=== PATIENT | male | born 1945 | race African-American/Black ===

== ENCOUNTER → 2023-11-18 | Outpatient (CLI) | payer MEDICARE ==
--- NOTE | 2023-11-19 04:21 | PE ---
EXAMINATION TYPE: PET CT fusion skull to thigh DATE OF EXAM: 11/18/2023 COMPARISON: NONE HISTORY: Possible prostate cancer recently diagnosed. TECHNIQUE: Following the intravenous administration of 5.31 mCi of gallium 68 Illucix, whole body im ages are performed from the skull base to the midthigh. Images are reviewed on the computer in the c oronal, axial, and sagittal planes. Reconstructed rotating images are created on independent worksta tion and reviewed on the computer. A localization and attenuation correction CT is performed in con junction with the PET scan. SCAN: Initial Scan FINDINGS: SKULL BASE AND NECK: Normal uptake in the lacrimal along with parotid and submandibular glands. Slig ht asymmetric atrophy of the left submandibular gland. Abnormal uptake in subcentimeter 11 x 6 mm left supraclavicular lymph node axial image 71. Max SUV is 11.53. CHEST, MEDIASTINUM, AND HILAR REGION: No areas of abnormal radiotracer uptake. ABDOMEN AND PELVIS: Diffuse uptake in liver and to greater degree in the bilateral kidneys and spleen and nonspecific proximal bowel uptake. Suspicious radiotracer uptake left iliac chain lymph node measuring 1.5 x 1.0 cm image 187. Abnormal uptake right iliac chain lymph node axial image 192 noted. Additional hypermetabolic subcentimeter ly mph nodes along the iliac chain vessels in the pelvis inferior to this. Hypermetabolic uptake left aspect of the prostate gland involving base to apex. OSSEOUS STRUCTURES: No abnormal radiotracer uptake. OTHER CT: Moderate to severe three-vessel coronary artery calcification. Mild/moderate calcified plaq ue bilateral carotid bulb level. IMPRESSION: Findings suggest metastatic prostate cancer With abnormal uptake along the left aspect of the prostate gland and abnormal bilateral pelvic adenop athy as detailed above. Cannot exclude left supraclavicular subcentimeter metastatic deposit.
== END | disposition home or self-care (01) ==
LOC: RADPETMAIN 10:45
PROVIDERS: ATTEND Urology
DX: C61 Malignant neoplasm of prostate (principal)
CPT/HCPCS: 78815; A9596

== ENCOUNTER → 2023-12-21 | Outpatient (CLI) | payer MEDICARE ==
--- NOTE | 2023-12-21 10:06 | MR ---
EXAMINATION TYPE: MR Prostate wo/w con DATE OF EXAM: 12/21/2023 9:33 AM COMPARISON: None. CLINICAL INDICATION:Male, 78 years old with history of C61 Prostate ca; Prostate cancer. TECHNIQUE: Multi-planar, multi-sequence imaging of the pelvis is performed prior to and following the uncomplicated administration of bolus intravenous gadolinium. CONTRAST: 8 Gadavist Interpretive Criteria: PI-RADS v2.1 SERUM PSA: 19.88 on 11/04/2023. SURGICAL PATHOLOGY: Positive biopsy 09/01/2023. FINDINGS: Prostatic dimensions: 4.0 x 4.8 x 3.3 cm. "Bullet" Volume:41.47 (PSA density=0.48 ng/mL/mL) CENTRAL GLAND (Central and Transition Zones/CZ+TZ): In the left central zone there is diffuse low T2 signal corresponding to PET/CT. This extends base to apex measures at least 18 x 16 mm. There is partially visible high DWI signal noted. Rectal gas limi ts evaluation. (PI-RADS 5) PERIPHERAL ZONE (PZ): Gas within the rectum limits evaluation of the peripheral zone posteriorly. Diffuse low T2 signal see n throughout the posterior peripheral zone. Elevation limited but felt to represent (PI-RADS 5) SEMINAL VESICLES (SV): Symmetric and unremarkable. PERIPROSTATIC TISSUES: Unremarkable. LYMPH NODES: No enlarged pelvic lymph node. REMAINING PELVIS: Bladder wall is within normal limits given distention. No abnormal free or organized intrapelvic fluid collection. No pathologic bowel dilation or mural thickening. No hernia visualized There is a small right hydrocele with testicular appendage resident. OSSEOUS STRUCTURES: No suspicious osseous abnormality. IMPRESSION: 1. Maximum PI-RADS score: 5. Left prostate gland lesion corresponding with pet/CT compatible with cl inically significant prostate adenocarcinoma. Multiple lymph nodes seen on PET/CT are less well appre ciated possibly due to motion. 2. Mild BPH, estimated gland volume 41.47 mL. 3. No suspicious osseous lesion. No lymphadenopathy.
== END | disposition home or self-care (01) ==
LOC: RADMRIMAIN 08:18
PROVIDERS: ATTEND Radiology Radiation Oncology
DX: C61 Malignant neoplasm of prostate (principal); N40.0 Benign prostatic hyperplasia without lower urinary tract symptoms
CPT/HCPCS: 72197; A9585

== ENCOUNTER 2024-01-07 16:03 | Observation (INO) | payer MEDICARE ==
--- NOTE | 2024-01-07 16:37 | ED ---
General Adult HPI - General Chief complaint: Recheck/Abnormal Lab/Rx Stated complaint: sob-sent by PCP Time Seen by Provider: 01/07/24 16:30 Source: patient, RN notes reviewed, old records reviewed Mode of arrival: ambulatory Limitations: no limitations - History of Present Illness Initial comments: 78-year-old male presenting from primary care with new onset atrial fibrillation. Patient has history of COPD and was presenting to the office for reevaluation of dyspnea which has been present for the past several weeks. No fever. No chest pain. No lower extremity pain or swelling. - Related Data Home Medications Medication Instructions Recorded Confirmed Albuterol Sulfate [Albuterol 1 - 2 puff PO Q4H PRN 01/07/24 01/07/24 Sulfate Hfa] Apalutamide [Erleada] 240 mg PO DAILY 01/07/24 01/07/24 Fluticasone/Umeclidin/Vilanter 1 puff INHALATION RT-DAILY 01/07/24 01/07/24 [Trelegy Ellipta 100-62.5-25] Multivitamins, Thera [Multivitamin 1 tab PO DAILY 01/07/24 01/07/24 (formulary)] Tamsulosin HCl [Flomax] 0.4 mg PO HS 01/07/24 01/07/24 Allergies Allergy/AdvReac Type Severity Reaction Status Date / Time No Known Allergies Allergy Verified 01/07/24 17:18 Review of Systems ROS Statement: Those systems with pertinent positive or pertinent negative responses have been documented in the HPI. ROS Other: All systems not noted in ROS Statement are negative. Past Medical History Past Medical History: Cancer, COPD Additional Past Medical History / Comment(s): prostate cancer Smoking Status: Former smoker Past Alcohol Use History: None Reported Past Drug Use History: None Reported General Exam Limitations: no limitations General appearance: alert, in no apparent distress Head exam: Present: atraumatic, normocephalic Eye exam: Present: normal appearance, PERRL ENT exam: Present: normal exam Neck exam: Present: normal inspection. Absent: tenderness, meningismus Respiratory exam: Present: wheezes, decreased breath sounds. Absent: respiratory distress Cardiovascular Exam: Present: tachycardia, irregular rhythm GI/Abdominal exam: Present: soft. Absent: distended, tenderness, guarding Extremities exam: Present: normal inspection, normal capillary refill. Absent: pedal edema, calf tenderness Neurological exam: Present: alert, oriented X3 Psychiatric exam: Present: normal affect, normal mood Skin exam: Present: warm, dry, intact Course Vital Signs 01/07/24 01/07/24 16:20 16:46 Temperature 97.6 F Pulse Rate 107 H Respiratory 18 20 Rate Blood Pressure 104/67 O2 Sat by Pulse 95 Oximetry Medical Decision Making - Medical Decision Making Was pt. sent in by a medical professional or institution (, JACK, APPLICATION HELPER, urgent care, hospital, or fpc...) When possible be specific @ -No Did you speak to anyone other than the patient for history (EMS, parent, family, police, friend...)? What history was obtained from this source @ -No Did you review nursing and triage notes (agree or disagree)? Why? @ -I reviewed and agree with nursing and triage notes Were old charts reviewed (outside hosp., previous admission, EMS record, old EKG, old radiological studies, urgent care reports/EKG's, fpc records)? Report findings @ -No old charts were reviewed Differential Palpitations Ventricular arrhythmias, atrial arrhythmias, myocardial infarction, anemia, t hyrotoxicosis, electrolyte imbalance, hypokalemia, pulmonary embolism, pulmonary disease, drugs, alcohol, anxiety, stress.... This is not meant to be an all-inclusive list. EKG interpreted by me (3pts min.). @ -Atrial fibrillation rate of 99, QRS duration 82, QTc [address] segment elevation X-rays interpreted by me (1pt min.). @ -X-ray with subtle right middle lobe infiltrate CT interpreted by me (1pt min.). @ -None done U/S interpreted by me (1pt. min.). @ -None done What testing was considered but not performed or refused? (CT, X-rays, U/S, labs)? Why? @ -None What meds were considered but not given or refused? Why? @ -None Did you discuss the management of the patient with other professionals (professionals i.e. JACK Quintana, APPLICATION HELPER, lab, RT, psych nurse, social sciences instructor, flight follower, teacher, chief talent officer, case management social worker)? Give summary @ -Discussed with Dr. aM Was smoking cessation discussed for >3mins.? @ -No Was critical care preformed (if so, how long)? @ -No Were there social determinants of health that impacted care today? How? (Homelessness, low income, unemployed, alcoholism, drug addiction, transportation, low edu. Level, literacy, decrease access to med. care, custodial, rehab)? @ -No Was there de-escalation of care discussed even if they declined (Discuss DNR or withdrawal of care, Hospice)? DNR status @ -No What co-morbidities impacted this encounter? (DM, HTN, Smoking, COPD, CAD, Cancer, CVA, ARF, Chemo, Hep., AIDS, mental health diagnosis, sleep apnea, morbid obesity)? @ -[COPD Was patient admitted / discharged? Hospital course, mention meds given and route, prescriptions, significant lab abnormalities, going to OR and other pertinent info. @Patient with new onset atrial fibrillation, COPD, and subtle infiltrate on x- ray. Patient placed in observation on telemetry with cardiology consultation regarding the new onset atrial fibrillation which is rate controlled. Patient also will be treated for COPD and pneumonia at this time. Undiagnosed new problem with uncertain prognosis? @ -No Drug Therapy requiring intensive monitoring for toxicity (Heparin, Nitro, Insulin, Cardizem)? @ -No Were any procedures done? @ -No Diagnosis/symptom? @New onset atrial fibrillation, COPD, pneumonia Acute, or Chronic, or Acute on Chronic? @ -Acute Uncomplicated (without systemic symptoms) or Complicated (systemic symptoms)? @ -Default Side effects of treatment? @ -No Exacerbation, Progression, or Severe Exacerbation? @ -No Poses a threat to life or bodily function? How? (Chest pain, [place], [place], pneumonia, PE, COPD, DKA, ARF, appy, cholecystitis, CVA, Diverticulitis, Homicidal, Suicidal, threat to staff... and all critical care pts) @Low risk at this time - Lab Data Result diagrams: 01/07/24 16:44 01/07/24 16:44 Lab Results 01/07/24 01/07/24 01/07/24 Range/Units 16:44 16:44 16:44 WBC 6.9 (3.8-10.6) k/uL RBC 5.07 (4.30-5.90) m/uL Hgb 14.6 (13.0-17.5) gm/dL Hct 45.5 (39.0-53.0) % MCV 89.6 (80.0-100.0) fL MCH 28.8 (25.0-35.0) pg MCHC 32.1 (31.0-37.0) g/dL RDW 12.5 (11.5-15.5) % Plt Count 236 (150-450) k/uL MPV 8.1 PT 11.1 (10.0-12.5) sec INR 1.0 (<1.2) APTT 23.5 (22.0-30.0) sec Sodium 142 (137-145) mmol/L Potassium 4.4 (3.5-5.1) mmol/L Chloride 107 (98-107) mmol/L Carbon Dioxide 26 (22-30) mmol/L Anion Gap 9 mmol/L BUN 20 (9-20) mg/dL Creatinine 1.28 H (0.66-1.25) mg/dL Est GFR (CKD-EPI)AfAm 62 (>60 ml/min/1.73 sqM) Est GFR (CKD-EPI)NonAf 53 (>60 ml/min/1.73 sqM) Glucose 93 (74-99) mg/dL Calcium 9.7 (8.4-10.2) mg/dL Magnesium 2.0 (1.6-2.3) mg/dL Total Bilirubin 0.8 (0.2-1.3) mg/dL AST 35 (17-59) U/L ALT 20 (4-49) U/L Alkaline Phosphatase 113 (38-126) U/L Troponin I (0.000-0.034) ng/mL Total Protein 8.0 (6.3-8.2) g/dL Albumin 4.2 (3.5-5.0) g/dL TSH 3.880 (0.465-4.680) mIU/L 01/07/24 Range/Units 16:44 WBC (3.8-10.6) k/uL RBC (4.30-5.90) m/uL Hgb (13.0-17.5) gm/dL Hct (39.0-53.0) % MCV (80.0-100.0) fL MCH (25.0-35.0) pg MCHC (31.0-37.0) g/dL RDW (11.5-15.5) % Plt Count (150-450) k/uL MPV PT (10.0-12.5) sec INR (<1.2) APTT (22.0-30.0) sec Sodium (137-145) mmol/L Potassium (3.5-5.1) mmol/L Chloride (98-107) mmol/L Carbon Dioxide (22-30) mmol/L Anion Gap mmol/L BUN (9-20) mg/dL Creatinine (0.66-1.25) mg/dL Est GFR (CKD-EPI)AfAm (>60 ml/min/1.73 sqM) Est GFR (CKD-EPI)NonAf (>60 ml/min/1.73 sqM) Glucose (74-99) mg/dL Calcium (8.4-10.2) mg/dL Magnesium (1.6-2.3) mg/dL Total Bilirubin (0.2-1.3) mg/dL AST (17-59) U/L ALT (4-49) U/L Alkaline Phosphatase (38-126) U/L Troponin I <0.012 (0.000-0.034) ng/mL Total Protein (6.3-8.2) g/dL Albumin (3.5-5.0) g/dL TSH (0.465-4.680) mIU/L Disposition Clinical Impression: COPD (chronic obstructive pulmonary disease), Pneumonia, New onset atrial fibrillation Disposition: ADMITTED IP TO THIS HOSP Condition: Stable Is patient prescribed a controlled substance at d/c from ED?: No Referrals: Joesph Ma MD [Primary Care Provider] - 1-2 days Time of Disposition: 18:30
[2024-01-07 17:18] LABS: HCT 45.5 % (39.0-53.0); HGB 14.6 gm/dL (13.0-17.5); MCH 28.8 pg (25.0-35.0); MCHC 32.1 g/dL (31.0-37.0); MCV 89.6 fL (80.0-100.0); Mean Platelet Volume 8.1; Platelet Count 236 k/uL (150-450); RBC 5.07 m/uL (4.30-5.90); RDW 12.5 % (11.5-15.5); WBC 6.9 k/uL (3.8-10.6)
--- NOTE | 2024-01-07 17:24 | XR ---
EXAMINATION TYPE: XR chest 2V DATE OF EXAM: 01/07/2024 COMPARISON: None INDICATION: Dysrhythmia, A. fib TECHNIQUE: Frontal and lateral views of the chest are obtained. FINDINGS: The heart size is normal. The pulmonary vasculature is normal. There is some increased density along the right heart border. A small right middle lobe infiltrate ma y be present. No silhouetting the diaphragm is evident.. Spondylosis is present within the thoracic spine IMPRESSION: 1. Possible right middle lobe infiltrate.
[2024-01-07 17:34] LABS: Partial Thromboplastin Time 23.5 sec (22.0-30.0); Prothrombin Time 11.1 sec (10.0-12.5)
[2024-01-07 17:50] LABS: ALT 20 U/L (4-49); AST 35 U/L (17-59); African American GFR (CKD) 62 (>60 ml/min/1.73 sqM); Albumin 4.2 g/dL (3.5-5.0); Alkaline Phosphatase 113 U/L (38-126); Anion Gap 9 mmol/L; Blood Urea Nitrogen 20 mg/dL (9-20); Calcium 9.7 mg/dL (8.4-10.2); Carbon Dioxide 26 mmol/L (22-30); Chloride 107 mmol/L (98-107); Glucose 93 mg/dL (74-99); Non-African American GFR(CKD) 53 (>60 ml/min/1.73 sqM); Potassium 4.4 mmol/L (3.5-5.1); Sodium 142 mmol/L (137-145); Total Bilirubin 0.8 mg/dL (0.2-1.3)
[2024-01-07] MEDS ORDERED: NALOXONE 0.4 MG/ML 1 ML VIAL IVP PRN (18:20)
[2024-01-07] MEDS ORDERED: ACETAMINOPHEN TAB 325 MG TAB PO PRN (18:20)
[2024-01-07 18:31] LABS: Eosinophils # (M) 0.83 k/uL (0-0.7); Monocytes # (M) 0.55 k/uL (0-1.0); Neutrophils # (M) 4.62 k/uL (1.3-7.7); Neutrophils % (M) 67 %; Nucleated Red Blood Cells 0 /100 WBC (0-0); RBC Morphology Normal; Total Cells Counted 100
[2024-01-07] MEDS: AZITHROMYCIN 500 MG TAB PO SCH (19:29)
[2024-01-07] MEDS: IPRATROPIUM-ALBUTEROL 3 ML NEB INHALATION SCH (20:06)
[2024-01-08] MEDS: METOPROLOL TARTRATE 25 MG TAB PO SCH (09:20)
[2024-01-08] MEDS: predniSONE 20 MG TAB PO SCH (09:20)
[2024-01-08] MEDS: APIXABAN 5 MG TAB PO SCH (09:20)
[2024-01-08 10:31] VITALS: RESP 16
--- NOTE | 2024-01-08 11:09 | P.CRDCN ---
History of Present Illness History of present illness: HISTORY OF PRESENT ILLNESS: This is a 78-year-old male with a past medical history significant for prostate cancer, COPD, former nicotine dependence and former heavy alcohol use. Patient does not follow with a nipple maker. We have been asked to see the patient in consultation for atrial fibrillation. Patient examined at the bedside. Patient states yesterday he went to see his PCP as he has been feeling short of breath. The patient states he has been feeling short of breath over the past week that is worsened with exertion. The patient was directed to come to the emergency room for further evaluation. EKG completed in the emergency room revealed atrial fibrillation with RVR. The patient denies any history of atrial fibrillation. He denies feeling any palpitations. He denies any chest pain or pressure. He states his shortness of breath has improved and is almost back to his baseline. The patient denies any history of hypertension, hyperlipidemia, or diabetes. He denies any history of coronary artery disease or CHF. Patient reports he was recently diagnosed with prostate cancer and is supposed to start radiation on Wednesday. Patient is a former cigarette smoker and quit smoking about a month ago. He states he was smoking 1/2 pack per day. Patient also reports a history of heavy alcohol use up until a couple months ago but no longer drinks. DIAGNOSTICS: - EKG reveals atrial fibrillation with RVR - Chest xray possible right middle lobe infiltrate. - Laboratory data: WBC 6.9. Hemoglobin 14.6. Platelet count 236. Sodium 142. Potassium 4.4. BUN 20. Creatinine 1.28. Troponin negative x 1. TSH 3.880. - Current home cardiac medications include none. REVIEW OF SYSTEMS: At the time of my exam: CONSTITUTIONAL: Denies fever or chills. HEENT: Denies blurred vision, vision changes, or eye pain. Denies hemoptysis CARDIOVASCULAR: Denies chest pain. Denies orthopnea. Denies PND. Denies palpitations RESPIRATORY: Denies shortness of breath. GASTROINTESTINAL: Denies abdominal pain. Denies nausea or vomiting. HEMATOLOGIC: Denies bleeding disorders. GENITOURINARY: Denies any blood in urine. SKIN: Denies pruitis. Denies rash. PHYSICAL EXAM: VITAL SIGNS: Reviewed. GENERAL: Well-developed in no acute distress. HEENT: Head is normocephalic. Pupils are equal, round. Sclerae anicteric. Mucous membranes of the mouth are moist. Neck supple. No JVD or thyromegaly LUNGS: Respirations even and unlabored. Lungs essentially clear to auscultation bilaterally. HEART: Mildly tachycardic. Irregular rate and rhythm. S1 and S2 heard. Distant heart sounds. ABDOMEN: Soft. Nondistended. Nontender. EXTREMITIES: Normal range of motion. No clubbing or cyanosis. Peripheral pulses intact. No lower extremity edema NEUROLOGIC: Awake and alert. Oriented x 3. ASSESSMENT: Shortness of breath, improved Atrial fibrillation with RVR, suspect new onset, however duration unknown as patient had no s/s Prostate cancer, supposed to start radiation soon COPD Former nicotine dependence, patient quit smoking 1 month ago Former heavy alcohol use PLAN: Obtain 2D echo to assess cardiac structure and function Begin metoprolol 25 mg twice a day Begin Eliquis 5 mg twice a day. Patient has a [id number] score of 2 TSH checked and within normal limits Check lipid panel and hemoglobin A1c Further recommendations pending patient course Nurse practitioner note has been reviewed by physician. Signing provider agrees with the documented findings, assessment, and plan of care documented by LEG BREAKER as a scribe. Past Medical History Past Medical History: Cancer, COPD Additional Past Medical History / Comment(s): prostate cancer, taking pills for cancer, starts chemo on wednesday History of Any Multi-Drug Resistant Organisms: None Reported Past Surgical History: No Surgical Hx Reported Additional Past Surgical History / Comment(s): cataract surgery Past Anesthesia/Blood Transfusion Reactions: No Reported Reaction Past Psychological History: No Psychological Hx Reported Smoking Status: Former smoker Past Alcohol Use History: None Reported Past Drug Use History: None Reported Medications and Allergies Home Medications Medication Instructions Recorded Confirmed Type Albuterol Sulfate [Albuterol 1 - 2 puff PO Q4H PRN 01/07/24 01/07/24 History Sulfate Hfa] Apalutamide [Erleada] 240 mg PO DAILY 01/07/24 01/07/24 History Fluticasone/Umeclidin/Vilanter 1 puff INHALATION RT-DAILY 01/07/24 01/07/24 History [Trelegy Ellipta 100-62.5-25] Multivitamins, Thera [Multivitamin 1 tab PO DAILY 01/07/24 01/07/24 History (formulary)] Tamsulosin HCl [Flomax] 0.4 mg PO HS 01/07/24 01/07/24 History Allergies Allergy/AdvReac Type Severity Reaction Status Date / Time No Known Allergies Allergy Verified 01/07/24 17:18 Physical Exam Vitals: Vital Signs Temp Pulse Pulse Resp BP BP Pulse Ox 01/08/24 06:00 102 H 18 104/67 97 01/08/24 02:00 98 F 96 18 90/63 98 01/08/24 00:27 97.8 F 78 20 118/56 97 01/07/24 21:00 97.2 F L 82 20 125/58 98 01/07/24 20:16 89 01/07/24 20:06 91 01/07/24 19:31 99 18 120/69 97 01/07/24 18:45 90 18 92/75 94 L 01/07/24 16:46 20 01/07/24 16:20 97.6 F 107 H 18 104/67 95 Intake and Output 01/07/24 01/08/24 01/08/24 22:59 06:59 14:59 Other: Weight 75.75 kg 75.75 kg Results 01/07/24 16:44 01/07/24 16:44 Cardiac Enzymes 01/07/24 01/07/24 Range/Units 16:44 16:44 AST 35 (17-59) U/L Troponin I <0.012 (0.000-0.034) ng/mL Coagulation 01/07/24 Range/Units 16:44 PT 11.1 (10.0-12.5) sec APTT 23.5 (22.0-30.0) sec CBC 01/07/24 Range/Units 16:44 WBC 6.9 (3.8-10.6) k/uL RBC 5.07 (4.30-5.90) m/uL Hgb 14.6 (13.0-17.5) gm/dL Hct 45.5 (39.0-53.0) % Plt Count 236 (150-450) k/uL Comprehensive Metabolic Panel 01/07/24 Range/Units 16:44 Sodium 142 (137-145) mmol/L Potassium 4.4 (3.5-5.1) mmol/L Chloride 107 (98-107) mmol/L Carbon Dioxide 26 (22-30) mmol/L BUN 20 (9-20) mg/dL Creatinine 1.28 H (0.66-1.25) mg/dL Glucose 93 (74-99) mg/dL Calcium 9.7 (8.4-10.2) mg/dL AST 35 (17-59) U/L ALT 20 (4-49) U/L Alkaline Phosphatase 113 (38-126) U/L Total Protein 8.0 (6.3-8.2) g/dL Albumin 4.2 (3.5-5.0) g/dL Current Medications Generic Name Dose Route Start Last Admin Trade Name Freq PRN Reason Stop Dose Admin Acetaminophen 650 mg 01/07/24 18:20 Acetaminophen Tab 325 Mg Tab PO Q4HR PRN Mild Pain or Fever > 100.5 Albuterol/Ipratropium 3 ml 01/07/24 20:00 01/07/24 20:06 Ipratropium-Albuterol 3 Ml Neb INHALATION 3 ml RT-QID JUAN Administration Azithromycin 500 mg 01/07/24 18:30 01/07/24 19:29 Azithromycin 500 Mg Tab PO 01/09/24 09:01 500 mg DAILY JUAN Administration Protocol Naloxone HCl 0.2 mg 01/07/24 18:20 Naloxone 0.4 Mg/Ml 1 Ml Vial IVP Q2M PRN Opioid Reversal Prednisone 40 mg 01/08/24 09:00 Prednisone 20 Mg Tab PO 01/12/24 09:01 DAILY JUAN Intake and Output 01/07/24 01/08/24 01/08/24 22:59 06:59 14:59 Other: Weight 75.75 kg 75.75 kg 01/07/24 16:44 01/07/24 16:44
[2024-01-08 13:30] LABS: Chol/HDL Ratio 6.22 Ratio; LDL Cholesterol,Calculated 120.2 mg/dL (0.0-131.0)
--- NOTE | 2024-01-08 13:35 | CA ---
Transthoracic Echo Report Name: Alvino Griffin Age: 78 Gender: M : 1945 Exam Date: 01/08/2024 08:57 Exam Location: [facility] Ht (in): 75 Wt (lb): 167 Ordering Physician: Hodan Geronimo Attending/Referring Phys: [id number], Juanpablo Blueprint Developer Debra Morrison, CARMINE Procedure CPT: Indications: LV function, new onset afib Cardiac Hx: smoker Technical Quality: Fair Contrast 1: Total Dose (mL): Contrast 2: Total Dose (mL): MEASUREMENTS (Male / Female) Normal Values 2D ECHO LV Diastolic Diameter PLAX 4.7 cm 4.2 - 5.9 / 3.9 - 5.3 cm LV Systolic Diameter PLAX 3.2 cm IVS Diastolic Thickness 1.2 cm 0.6 - 1.0 / 0.6 - 0.9 cm LVPW Diastolic Thickness 1.0 cm 0.6 - 1.0 / 0.6 - 0.9 cm LV Relative Wall Thickness 0.5 RV Internal Dim ED PLAX 3.3 cm LV Diastolic Volume MOD 4C 98.6 cm??? LV Systolic Volume MOD 4C 37.3 cm??? LV Ejection Fraction MOD 4C 62.2 % LV Cardiac Index MOD 4C 3200.1 cm???/min???m??? LV Diastolic Length 4C 8.7 cm LV Systolic Length 4C 7.5 cm LA Volume 56.3 cm??? 18 - 58 / 22 - 52 cm??? LA Volume Index 28.2 cm???/m??? 16 - 28 cm???/m??? M-MODE Aortic Root Diameter MM 3.5 cm AV Cusp Separation MM 2.3 cm DOPPLER AV Peak Velocity 105.1 cm/s AV Peak Gradient 4.4 mmHg MV Area PHT 4.2 cm??? MV Deceleration Time 169.8 ms TR Peak Velocity 286.3 cm/s TR Peak Gradient 32.8 mmHg Right Ventricular Systolic Press 37.8 mmHg FINDINGS Left Ventricle Left ventricular ejection fraction is estimated at 55-60 %. Left ventricular cavity size normal. Mildly increased septal wall thickness. No obvious regional wall motion abnormalities. Right Ventricle Mild right ventricular dilatation. Mild pulmonary hypertension. Right Atrium Normal right atrial size. Left Atrium Normal left atrial size. No left atrial thrombus or mass present. Mitral Valve Structurally normal mitral valve. No mitral stenosis, or prolapse.mild mitral regurgitation. Mitral annular calcification. Aortic Valve Trileaflet aortic valve. No aortic valve stenosis or regurgitation.aortic valve sclerosis. Tricuspid Valve Structurally normal tricuspid valve. Mild tricuspid regurgitation. Pulmonic Valve Pulmonic valve not well visualized. Pericardium No pericardial effusion. Aorta Normal size aortic root and proximal ascending aorta. CONCLUSIONS 1. Normal left ventricular size and systolic function 2. Mild mitral and tricuspid regurgitation with mild pulmonary hypertension Previewed by: Dr. Yaima Correa MD (Electronically Signed) Final Date: 08 Jan 2024 13:34
--- NOTE | 2024-01-08 18:18 | HP ---
HISTORY AND PHYSICAL CHIEF COMPLAINT: Shortness of breath. HISTORY OF PRESENT ILLNESS: This gentleman presented to the emergency room after he had been short of breath for about a week. In the emergency room, he was found to have atrial fibrillation with a pulse of around 120 or 130. He denies chest pain. He has a history of prostate cancer, for which he is supposed to start treatment this week. REVIEW OF SYSTEMS: He has no other complaints. He denies any headaches, chest pain, cough, hemoptysis, orthopnea, PND, abdominal pain, urinary complaints, edema, etc. PHYSICAL EXAMINATION: VITAL SIGNS: Normal. Pulse now is 107. HEAD, EARS, EYES, NOSE, MOUTH, AND THROAT: Normal except for poor dentition. CHEST: Demonstrated occasional rales at the bases. CARDIAC: Demonstrated atrial fibrillation. ABDOMEN: Soft. Nontender. EXTREMITIES: Normal. He was quite asthenic with poor muscle bulk. IMPRESSION: 1. New onset atrial fibrillation. 2. Acute congestive heart failure. 3. Cancer of the prostate. PLAN: 1. Bed rest. 2. Control atrial fibrillation or convert to sinus rhythm. 3. Diuresis. 4. Consult Cardiology. MMODL / IJN: [id number] /
--- NOTE | 2024-01-09 05:25 | PN ---
PROGRESS NOTE CHIEF COMPLAINT: New onset atrial fibrillation with shortness of breath. HISTORY OF PRESENT ILLNESS: This gentleman is doing a lot better. He is able to breathe much more easily and he is up and about. His rate has slowed. PHYSICAL EXAMINATION: VITAL SIGNS: Pulse is 107 with atrial fibrillation. CHEST: Clear. CARDIAC: Normal. ABDOMEN: Soft and nontender. IMPRESSION: 1. New onset atrial fibrillation. 2. Congestive heart failure. 3. Cancer of the prostate. PLAN: Increase activity and probably discharge to home tomorrow. MMODL / IJN: [id number] /
[2024-01-09 08:24] VITALS: BP 97/44; TEMP 98.3
[2024-01-09 08:25] VITALS: PULSE 62
--- NOTE | 2024-01-09 10:43 | P.PN ---
Subjective HISTORY OF PRESENT ILLNESS: This is a 78-year-old male with a past medical history significant for prostate cancer, COPD, former nicotine dependence and former heavy alcohol use. 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 We have been asked to see the patient in consultation for atrial fibrillation. Patient examined at the bedside. Patient states yesterday he went to see his PCP as he has been feeling short of breath. The patient states he has been feeling short of breath over the past week that is worsened with exertion. The patient was directed to come to the emergency room for further evaluation. EKG completed in the emergency room revealed atrial fibrillation with RVR. The patient denies any history of atrial fibrillation. He denies feeling any palpitations. He denies any chest pain or pressure. He states his shortness of breath has improved and is almost back to his baseline. The patient denies any history of hypertension, hyperlipidemia, or diabetes. He denies any history of coronary artery disease or CHF. Patient reports he was recently diagnosed with prostate cancer and is supposed to start radiation on Wednesday. Patient is a former cigarette smoker and quit smoking about a month ago. He states he was smoking 1/2 pack per day. Patient also reports a history of heavy alcohol use up until a couple months ago but no longer drinks. DIAGNOSTICS: - EKG reveals atrial fibrillation with RVR - Chest xray possible right middle lobe infiltrate. - Laboratory data: WBC 6.9. Hemoglobin 14.6. Platelet count 236. Sodium 142. Potassium 4.4. BUN 20. Creatinine 1.28. Troponin negative x 1. TSH 3.880. - Current home cardiac medications include none. 01/09/2024 Patient examined this morning at the bedside. Patient denies chest pain or pressure. He denies shortness of breath. Patient has converted to sinus mechanism and is maintaining sinus mechanism at the time of examination. Echocardiogram completed revealing ejection fraction 55 to 60%, mild pulmonary hypertension, mild TR, mild MR PHYSICAL EXAM: VITAL SIGNS: Reviewed. GENERAL: Well-developed in no acute distress. HEENT: Head is normocephalic. Pupils are equal, round. Sclerae anicteric. Mucous membranes of the mouth are moist. Neck supple. No JVD or thyromegaly LUNGS: Respirations even and unlabored. Lungs essentially clear to auscultation bilaterally. HEART: Regular rate and rhythm. S1 and S2 heard. Distant heart sounds. ABDOMEN: Soft. Nondistended. Nontender. EXTREMITIES: Normal range of motion. No clubbing or cyanosis. Peripheral pulses intact. No lower extremity edema NEUROLOGIC: Awake and alert. Oriented x 3. ASSESSMENT: Shortness of breath, improved Atrial fibrillation with RVR, suspect new onset, however duration unknown as patient had no s/s Prostate cancer, supposed to start radiation soon COPD Former nicotine dependence, patient quit smoking 1 month ago Former heavy alcohol use Hemoglobin A1c 6.3 PLAN: Continue anticoagulation with Eliquis Continue current dose of metoprolol Patient is stable for discharge home today from a cardiac standpoint He is to follow-up with Dr. Correa in 1 to 2 weeks Nurse practitioner note has been reviewed by physician. Signing provider agrees with the documented findings, assessment, and plan of care documented by LOSS PREVENTION AUDITOR as a scribe. Objective - Vital Signs Vital signs: Vital Signs Temp 98.3 F 01/09/24 07:42 Pulse 62 01/09/24 08:24 Resp 16 01/09/24 07:42 BP 97/44 01/09/24 07:42 Pulse Ox 92 L 01/09/24 08:13 FiO2 Intake & Output 01/08/24 01/09/24 01/09/24 18:59 06:59 18:59 Intake Total 354 346 Balance 354 346 Intake: Oral 354 346 Other: Voiding Method Toilet # Voids 2 3 - Labs CBC & Chem 7: 01/07/24 16:44 01/07/24 16:44 Labs: Abnormal Lab Results - Last 24 Hours (Table) 01/08/24 01/08/24 Range/Units 08:30 08:30 Hemoglobin A1c 6.3 H (<=6.0) % HDL Cholesterol 27.00 L (40.00-60.00) mg/dL
--- NOTE | 2024-01-09 23:46 | DS ---
DISCHARGE SUMMARY CHIEF COMPLAINT: Shortness of breath and palpitations. HISTORY OF PRESENT ILLNESS AND PHYSICAL EXAM: Details of this man's history and physical can be found in the initial workup. LABORATORY STUDIES: While he was in the hospital, he had laboratory studies, details of which can be found in the laboratory section of his chart. COURSE IN THE HOSPITAL: After admission, he was placed on bedrest, started on intravenous fluids and he converted to normal sinus rhythm and was diuresed. Breathing improved. He was stable, and he had no further problems on the chest and it was felt he could be discharged. He was in sinus rhythm. He will go home on his usual activity and diet along with being anticoagulated and being placed on a beta kimberly. He starts chemotherapy tomorrow for his prostate cancer and he will be followed up in the office this week. FINAL DIAGNOSES: 1. Acute congestive heart failure. 2. New onset atrial fibrillation with rapid ventricular response. 3. Carcinoma of prostate. OPERATIONS: None. CONSULTATION: Cardiology. He is improved. MMODL / IJN: [id number] /
== END 2024-01-09 10:45 | disposition home or self-care (01) ==
LOC: EC 16:03 → 3SCARD 18:20
PROVIDERS: ADMIT Family Medicine; ATTEND Family Medicine
DX: I11.0 Hypertensive heart disease with heart failure (principal); I50.9 Heart failure, unspecified; E87.6 Hypokalemia; I26.99 Other pulmonary embolism without acute cor pulmonale; I48.91 Unspecified atrial fibrillation; E05.90 Thyrotoxicosis, unspecified without thyrotoxic crisis or storm; C61 Malignant neoplasm of prostate; D64.9 Anemia, unspecified
CPT/HCPCS: 99285; 36415; 94640 ×3; 94760 ×2; 93005; 93306; 80061; 80053; 83735; 84443; 84484; 85025; 85610; 85730; 83036; 71046; G0378 ×3; J7512 ×2

== ENCOUNTER 2024-01-17 20:42 | Emergency (ER) | payer MEDICARE ==
--- NOTE | 2024-01-17 21:16 | ED ---
SOB HPI - General Chief Complaint: Shortness of Breath Stated Complaint: Low O2 Time Seen by Provider: 01/17/24 21:15 Source: patient, RN notes reviewed Mode of arrival: ambulatory Limitations: no limitations - History of Present Illness Initial Comments: Quick note: 79-year-old male presented to the ER with a chief complaint of cough. Patient sent for PCP for low oxygen. At home was found to be 88% on room air. Patient does have a history of atrial fibrillation. Denies any peripheral edema, chest pain, of fevers. Family state patient had a recent x- ray with some findings concerning of pneumonia. - Related Data Home Medications Medication Instructions Recorded Confirmed Albuterol Sulfate [Albuterol 1 - 2 puff PO Q4H PRN 01/07/24 01/07/24 Sulfate Hfa] Apalutamide [Erleada] 240 mg PO DAILY 01/07/24 01/07/24 Fluticasone/Umeclidin/Vilanter 1 puff INHALATION RT-DAILY 01/07/24 01/07/24 [Trelegy Ellipta 100-62.5-25] Multivitamins, Thera [Multivitamin 1 tab PO DAILY 01/07/24 01/07/24 (formulary)] Tamsulosin HCl [Flomax] 0.4 mg PO HS 01/07/24 01/07/24 Previous Rx's Medication Instructions Recorded Apixaban [Eliquis] 5 mg PO BID #60 tab 01/09/24 Metoprolol Tartrate [Lopressor] 25 mg PO BID #60 tab 01/09/24 Allergies Allergy/AdvReac Type Severity Reaction Status Date / Time No Known Allergies Allergy Verified 01/07/24 17:18 Review of Systems ROS Statement: Those systems with pertinent positive or pertinent negative responses have been documented in the HPI. ROS Other: All systems not noted in ROS Statement are negative. Past Medical History Past Medical History: Cancer, COPD, Prostate Disorder Additional Past Medical History / Comment(s): Recent diagnosis of prostate cancer. Taking oral chemo. Starts radiation on Wednesday01/10/24 History of Any Multi-Drug Resistant Organisms: None Reported Past Surgical History: No Surgical Hx Reported Additional Past Surgical History / Comment(s): Cataract surgery Past Anesthesia/Blood Transfusion Reactions: No Reported Reaction Past Psychological History: No Psychological Hx Reported Smoking Status: Former smoker Past Alcohol Use History: None Reported Past Drug Use History: None Reported General Exam - General Exam Comments Initial Comments: Visual Physical Exam Vital signs reviewed General: Well-appearing, nontoxic, no acute distress. Head: Normocephalic, atraumatic Eyes: PERRLA, EOMI ENT: Airway patent Chest: Nonlabored breathing Skin: No visual rash, normal skin tone Neuro: Alert and oriented 3 Musculoskeletal: No gross abnormalities Limitations: no limitations Course Vital Signs 01/17/24 21:05 Temperature 98 F Pulse Rate 60 Respiratory 20 Rate Blood Pressure 111/70 O2 Sat by Pulse 92 L Oximetry Medical Decision Making - Medical Decision Making I performed the quick note portion of this chart. Electronically signed by Anai Calles PA-C Patient eloped prior to completion of medical treatment. - Lab Data Lab Results 01/17/24 Range/Units 21:07 Influenza Type A (PCR) Not Detected (Not Detectd) Influenza Type B (PCR) Not Detected (Not Detectd) RSV (PCR) Not Detected (Not Detectd) SARS-CoV-2 (PCR) Not Detected (Not Detectd) Disposition Clinical Impression: Left against medical advice Disposition: LEFT AGAINST MEDICAL ADVICE Condition: Undetermined Referrals: Joesph Ma MD [Primary Care Provider] - 1-2 days Time of Disposition: 15:29
[2024-01-17 21:18] VITALS: BP 111/70; PULSE 60; RESP 20; TEMP 98
--- NOTE | 2024-01-17 21:45 | XR ---
EXAMINATION TYPE: XR chest 2V DATE OF EXAM: 01/17/2024 9:25 PM CLINICAL INDICATION:Male, 79 years old with history of cough; PHH COMPARISON: Chest radiographs from 01/07/2024 TECHNIQUE: XR chest 2V Frontal and lateral views of the chest. FINDINGS: Lungs/Pleura: There is flattening of the diaphragm with increased lucency of the lungs. No evidence o f pneumothorax, pleural effusion or focal consolidation. Pulmonary vascularity: Unremarkable. Heart/mediastinum: Cardiomediastinal silhouette is unremarkable. Musculoskeletal: No acute osseous pathology. IMPRESSION: 1. No acute cardiopulmonary disease process. 2. COPD changes.
== END 2024-01-18 01:32 | disposition left against medical advice (07) ==
LOC: EC 20:42
DX: Z53.29 Procedure and treatment not carried out because of patient's decision for other reasons (principal); Z87.891 Personal history of nicotine dependence
CPT/HCPCS: 71046; 87636; 99499

== ENCOUNTER 2024-06-08 18:53 | Emergency (ER) | payer MEDICARE ==
--- NOTE | 2024-06-08 19:26 | ED ---
Extremity Problem HPI - General Chief complaint: Extremity Problem,Nontraumatic Stated complaint: Bilateral feet pain Time Seen by Provider: 06/08/24 19:00 Source: patient, RN notes reviewed Mode of arrival: ambulatory Limitations: no limitations - History of Present Illness Initial comments: 79-year-old male with history of COPD, atrial fibrillation, and prostate cancer presenting to the ER with chief complaint of bilateral foot swelling x 3 days. Patient states he has been having pain in his entire feet including the ankles. States he has never had this before. Admits intermittent shortness of breath, but states this is chronic due to his COPD. Denies chest pain, fevers, chills, recent change in medications. Denies history of CHF or known renal failure. Last radiation therapy for prostate cancer was 4 months ago. - Related Data Home Medications Medication Instructions Recorded Confirmed Albuterol Sulfate [Albuterol 1 - 2 puff PO Q4H PRN 01/07/24 01/07/24 Sulfate Hfa] Apalutamide [Erleada] 240 mg PO DAILY 01/07/24 01/07/24 Fluticasone/Umeclidin/Vilanter 1 puff INHALATION RT-DAILY 01/07/24 01/07/24 [Trelegy Ellipta 100-62.5-25] Multivitamins, Thera [Multivitamin 1 tab PO DAILY 01/07/24 01/07/24 (formulary)] Tamsulosin HCl [Flomax] 0.4 mg PO HS 01/07/24 01/07/24 Previous Rx's Medication Instructions Recorded Apixaban [Eliquis] 5 mg PO BID #60 tab 01/09/24 Metoprolol Tartrate [Lopressor] 25 mg PO BID #60 tab 01/09/24 Allergies Allergy/AdvReac Type Severity Reaction Status Date / Time No Known Allergies Allergy Verified 06/08/24 18:58 Review of Systems ROS Statement: Those systems with pertinent positive or pertinent negative responses have been documented in the HPI. ROS Other: All systems not noted in ROS Statement are negative. Past Medical History Past Medical History: Cancer, COPD, Prostate Disorder Additional Past Medical History / Comment(s): Recent diagnosis of prostate cancer. Taking oral chemo. Starts radiation on Wednesday01/10/24 History of Any Multi-Drug Resistant Organisms: None Reported Past Surgical History: No Surgical Hx Reported Additional Past Surgical History / Comment(s): Cataract surgery Past Anesthesia/Blood Transfusion Reactions: No Reported Reaction Past Psychological History: No Psychological Hx Reported Smoking Status: Former smoker Past Alcohol Use History: None Reported Past Drug Use History: None Reported General Exam Limitations: no limitations General appearance: alert, in no apparent distress Head exam: Present: atraumatic, normocephalic, normal inspection Eye exam: Present: normal appearance, PERRL, EOMI. Absent: scleral icterus, conjunctival injection, periorbital swelling Respiratory exam: Present: normal lung sounds bilaterally. Absent: respiratory distress, wheezes, rales, rhonchi, stridor Cardiovascular Exam: Present: regular rate, normal rhythm, normal heart sounds. Absent: systolic murmur, diastolic murmur, rubs, gallop, clicks GI/Abdominal exam: Present: soft, normal bowel sounds. Absent: distended, t enderness, guarding, rebound, rigid Extremities exam: Present: full ROM, normal capillary refill. Absent: normal inspection (Diffuse scaly plaques present on bilateral lower extremities with mild edema in bilateral feet, full sensation and DP pulses bilaterally), tenderness, pedal edema, joint swelling, calf tenderness Neurological exam: Present: alert, oriented X3 Psychiatric exam: Present: normal affect, normal mood Skin exam: Present: warm, dry, intact, normal color Course Vital Signs 06/08/24 06/08/24 18:55 19:58 Temperature 97.8 F Pulse Rate 67 61 Respiratory 18 20 Rate Blood Pressure 103/68 103/62 O2 Sat by Pulse 99 99 Oximetry Medical Decision Making - Medical Decision Making Was pt. sent in by a medical professional or institution (, PA, FINISHED YARN EXAMINER, urgent care, hospital, or skilled nursing...) When possible be specific @ -No Did you speak to anyone other than the patient for history (EMS, parent, family, police, friend...)? What history was obtained from this source @ -Patient's daughter supplemented history Did you review nursing and triage notes (agree or disagree)? Why? @ -I reviewed and agree with nursing and triage notes Were old charts reviewed (outside hosp., previous admission, EMS record, old EKG, old radiological studies, urgent care reports/EKG's, skilled nursing records)? Report findings @ -No old charts were reviewed Differential Diagnosis (chest pain, altered mental status, abdominal pain women, abdominal pain men, vaginal bleeding, weakness, fever, dyspnea, syncope, headache, dizziness, GI bleed, back pain, seizure, CVA, palpatations, mental health, musculoskeletal)? @ -Differential Musculoskeletal Muscular strain, contusion, ligament sprain, fracture, arthritis, septic arthritis, bursitis, cellulitis, muscle spasm, nerve compression, DVT, arterial occlusion, herpes zoster, electrolyte abnormality, tumor.... This is not meant t o be in all inclusive list EKG interpreted by me (3pts min.). @ -As above X-rays interpreted by me (1pt min.). @ -Chest x-ray reveals no acute process CT interpreted by me (1pt min.). @ -None done U/S interpreted by me (1pt. min.). @ -None done What testing was considered but not performed or refused? (CT, X-rays, U/S, labs)? Why? @ -None What meds were considered but not given or refused? Why? @ -None Did you discuss the management of the patient with other professionals (professionals i.e. , PA, FINISHED YARN EXAMINER, lab, RT, psych nurse, health care social worker, supervisor firearms, teacher, bank officer, behavioral health case manager)? Give summary @ -No Was smoking cessation discussed for >3mins.? @ -No Was critical care preformed (if so, how long)? @ -No Were there social determinants of health that impacted care today? How? (Homelessness, low income, unemployed, alcoholism, drug addiction, transportation, low edu. Level, literacy, decrease access to med. care, assisted, rehab)? @ -No Was there de-escalation of care discussed even if they declined (Discuss DNR or withdrawal of care, Hospice)? DNR status @ -No What co-morbidities impacted this encounter? (DM, HTN, Smoking, COPD, CAD, Cancer, CVA, ARF, Chemo, Hep., AIDS, mental health diagnosis, sleep apnea, morbid obesity)? @ -None Was patient admitted / discharged? Hospital course, mention meds given and route, prescriptions, significant lab abnormalities, going to OR and other pertinent info. @ -Discharge. This is a 79-year-old male presenting with bilateral foot swelling x 3 days. Denies chest pain or new onset shortness of breath. Denies trauma or injury. Vital signs are within acceptable limits. Neurovascularly intact. No sign of bacterial infection. EKG reveals normal sinus rhythm with widened QRS complexes. Chest x-ray reveals no acute process. Laboratory studies including CBC, CMP, troponin, BNP unremarkable. Discussed negative findings with the patient. There does not appear to be emergent etiology causing symptoms today. Discussed diagnosis of idiopathic bilateral edema. Strict return precautions discussed and patient and daughter are agreeable. Advised to follow closely with PCP. Supportive care discussed including feet elevation and compression socks. Discussed diagnosis with ED attending Dr. Comer. Patient discharged in stable condition. Undiagnosed new problem with uncertain prognosis? @ -No Drug Therapy requiring intensive monitoring for toxicity (Heparin, Nitro, Insulin, Cardizem)? @ -No Were any procedures done? @ -No Diagnosis/symptom? @ -Bilateral foot edema Acute, or Chronic, or Acute on Chronic? @ -Acute Uncomplicated (without systemic symptoms) or Complicated (systemic symptoms)? @ -Uncomplicated Side effects of treatment? @ -No Exacerbation, Progression, or Severe Exacerbation? @ -No Poses a threat to life or bodily function? How? (Chest pain, USA, MD, pneumonia, PE, COPD, DKA, ARF, appy, cholecystitis, CVA, Diverticulitis, Homicidal, Suicidal, threat to staff... and all critical care pts) @ -No - Lab Data Result diagrams: 06/08/24 19:32 06/08/24 19:32 Lab Results 06/08/24 06/08/24 06/08/24 Range/Units 19:32 19:32 19:32 WBC 4.5 (3.8-10.6) k/uL RBC 4.67 (4.30-5.90) m/uL Hgb 12.6 L (13.0-17.5) gm/dL Hct 40.7 (39.0-53.0) % MCV 87.1 (80.0-100.0) fL MCH 27.1 (25.0-35.0) pg MCHC 31.1 (31.0-37.0) g/dL RDW 14.2 (11.5-15.5) % Plt Count 243 (150-450) k/uL MPV 6.9 Neutrophils % 64 % Lymphocytes % 10 % Monocytes % 11 % Eosinophils % 12 % Basophils % 0 % Neutrophils # 2.9 (1.3-7.7) k/uL Lymphocytes # 0.4 L (1.0-4.8) k/uL Monocytes # 0.5 (0-1.0) k/uL Eosinophils # 0.5 (0-0.7) k/uL Basophils # 0.0 (0-0.2) k/uL Sodium 142 (137-145) mmol/L Potassium 4.2 (3.5-5.1) mmol/L Chloride 109 H (98-107) mmol/L Carbon Dioxide 26 (22-30) mmol/L Anion Gap 7 mmol/L BUN 14 (9-20) mg/dL Creatinine 0.71 (0.66-1.25) mg/dL Est GFR (CKD-EPI)AfAm >90 (>60 ml/min/1.73 sqM) Est GFR (CKD-EPI)NonAf 90 (>60 ml/min/1.73 sqM) Glucose 90 (74-99) mg/dL Calcium 9.8 (8.4-10.2) mg/dL Total Bilirubin 0.5 (0.2-1.3) mg/dL AST 34 (17-59) U/L ALT 19 (4-49) U/L Alkaline Phosphatase 92 (38-126) U/L Troponin I <0.012 (0.000-0.034) ng/mL NT-Pro-B Natriuret Pep 504 pg/mL Total Protein 5.9 L (6.3-8.2) g/dL Albumin 3.3 L (3.5-5.0) g/dL - EKG Data -: EKG Interpreted by Me EKG Comments: EKG reveals sinus rhythm with widened QRS complexes. Ventricular rate 62 bpm, MS interval not calculated, QRS duration 75, QT/QTc 430/436 Disposition Clinical Impression: Bilateral swelling of feet Disposition: HOME SELF-CARE Condition: Stable Instructions (If sedation given, give patient instructions): Leg Edema (ED) Additional Instructions: Keep feet elevated. Wear compression socks. Follow-up with PCP for further testing if symptoms persist. Please return to the Emergency Department if symptoms worsen or any other concerns. Is patient prescribed a controlled substance at d/c from ED?: No Referrals: None,Stated [Primary Care Provider] - 1-2 days Time of Disposition: 21:14
[2024-06-08 20:17] LABS: Basophils % (A) 0 %; Eosinophils # (A) 0.5 k/uL (0-0.7); Eosinophils % (A) 12 %; HCT 40.7 % (39.0-53.0); HGB 12.6 gm/dL (13.0-17.5); Lymphocytes # (A) 0.4 k/uL (1.0-4.8); Lymphocytes % (A) 10 %; MCH 27.1 pg (25.0-35.0); MCHC 31.1 g/dL (31.0-37.0); MCV 87.1 fL (80.0-100.0); Mean Platelet Volume 6.9; Monocytes # (A) 0.5 k/uL (0-1.0); Monocytes % (A) 11 %; Neutrophils # (A) 2.9 k/uL (1.3-7.7); Neutrophils % (A) 64 %; Platelet Count 243 k/uL (150-450); RBC 4.67 m/uL (4.30-5.90); RDW 14.2 % (11.5-15.5); WBC 4.5 k/uL (3.8-10.6)
--- NOTE | 2024-06-08 20:26 | XR ---
EXAMINATION TYPE: XR chest 2V DATE OF EXAM: 06/08/2024 COMPARISON: 01/17/2024 HISTORY: Shortness of breath TECHNIQUE: Frontal and lateral views of the chest are obtained. FINDINGS: Scattered senescent parenchymal changes noted. Hyperinflation compatible with COPD. No evidence for infiltrate. No evidence for atelectasis. Heart size is stable. Mediastinal structures are stable and grossly unremarkable. No evidence for hilar prominence. Degenerative changes dorsal spine. IMPRESSION: 1. No evidence for acute pulmonary disease. [facility], , 06/08/2024 8:24 PM
[2024-06-08 20:28] LABS: ALT 19 U/L (4-49); AST 34 U/L (17-59); African American GFR (CKD) >90 (>60 ml/min/1.73 sqM); Albumin 3.3 g/dL (3.5-5.0); Alkaline Phosphatase 92 U/L (38-126); Anion Gap 7 mmol/L; Blood Urea Nitrogen 14 mg/dL (9-20); Calcium 9.8 mg/dL (8.4-10.2); Carbon Dioxide 26 mmol/L (22-30); Chloride 109 mmol/L (98-107); Glucose 90 mg/dL (74-99); Non-African American GFR(CKD) 90 (>60 ml/min/1.73 sqM); Potassium 4.2 mmol/L (3.5-5.1); Sodium 142 mmol/L (137-145); Total Bilirubin 0.5 mg/dL (0.2-1.3); Total Protein 5.9 g/dL (6.3-8.2)
[2024-06-08 20:37] LABS: NT-Pro-B-Type Natriuretic Pept 504 pg/mL
[2024-06-08 21:43] VITALS: BP 106/59; PULSE 89; RESP 18; TEMP 97.6
== END 2024-06-08 21:43 | disposition home or self-care (01) ==
LOC: EC 18:53
CPT/HCPCS: 36415; 71046; 80053; 83880; 84484; 85025; 93005; 99284

== ENCOUNTER 2024-11-10 08:30 | Inpatient (IN) | payer MEDICARE ==
[2024-11-10 09:19] LABS: Glucose,Whole Blood 59 mg/dL (70-110)
[2024-11-10 09:23] LABS: Basophils % (A) 0 %; Eosinophils # (A) 0.1 k/uL (0-0.7); Eosinophils % (A) 2 %; HCT 43.7 % (39.0-53.0); HGB 13.5 gm/dL (13.0-17.5); Lymphocytes # (A) 0.4 k/uL (1.0-4.8); Lymphocytes % (A) 10 %; MCH 28.1 pg (25.0-35.0); MCHC 30.9 g/dL (31.0-37.0); Mean Platelet Volume 10.2; Monocytes # (A) 0.2 k/uL (0-1.0); Monocytes % (A) 4 %; Neutrophils # (A) 3.3 k/uL (1.3-7.7); Neutrophils % (A) 81 %; RDW 15.1 % (11.5-15.5)
[2024-11-10 09:24] LABS: VBG PH 7.35 (7.31-7.41)
[2024-11-10 09:32] LABS: Partial Thromboplastin Time 29.7 sec (22.0-30.0); Prothrombin Time 10.9 sec (10.0-12.5)
[2024-11-10 09:34] LABS: ALT 216 U/L (4-49); AST 214 U/L (17-59); African American GFR (CKD) >90 (>60 ml/min/1.73 sqM); Albumin 3.8 g/dL (3.5-5.0); Alkaline Phosphatase 273 U/L (38-126); Anion Gap 12 mmol/L; Blood Urea Nitrogen 21 mg/dL (9-20); Calcium 9.4 mg/dL (8.4-10.2); Carbon Dioxide 23 mmol/L (22-30); Chloride 114 mmol/L (98-107); Glucose 75 mg/dL (74-99); Non-African American GFR(CKD) 82 (>60 ml/min/1.73 sqM); Potassium 4.2 mmol/L (3.5-5.1); Sodium 149 mmol/L (137-145); Total Bilirubin 0.5 mg/dL (0.2-1.3); Total Protein 6.9 g/dL (6.3-8.2)
--- NOTE | 2024-11-10 09:39 | CT ---
EXAMINATION TYPE: CT brain wo con DATE OF EXAM: 11/10/2024 COMPARISON: None. CLINICAL INDICATION: Male, 79 years old with history of Altered mental status; PHH, AMS, weakness TECHNIQUE: CT scan of the head is performed without contrast. CT DLP: 1171.4 mGycm Automated exposure control for dose reduction was used. FINDINGS: There is no acute intracranial hemorrhage or midline shift identified. There is moderate diffuse ventricular and sulcal prominence consistent with diffuse age-related cerebral atrophy. Ther e is mild to moderate low-attenuation in the periventricular white matter consistent with chronic sma ll vessel ischemic change. Bilateral aphakia is present. There is partial opacification of the visual ized portion of the maxillary sinuses bilaterally. IMPRESSION: No acute intracranial hemorrhage or midline shift. There is moderate diffuse age-relate d cerebral atrophy and mild to moderate chronic small vessel ischemic change. Bilateral maxillary sin us disease is partially imaged. [facility], , 11/10/2024 9:36 AM
--- NOTE | 2024-11-10 09:40 | XR ---
EXAMINATION TYPE: XR chest 2V DATE OF EXAM: 11/10/2024 9:35 AM COMPARISON: Chest x-ray June 08, 2024 CLINICAL INDICATION: Male, 79 years old with history of altered mental status, TECHNIQUE: Frontal and lateral views of the chest are obtained. FINDINGS: There is no focal air space opacity, pleural effusion, or pneumothorax seen. Cardiomegaly is redemonstrated. The osseous structures are intact. IMPRESSION: Cardiomegaly without acute pulmonary process. [facility], , 11/10/2024 9:37 AM
--- NOTE | 2024-11-10 09:45 | ED ---
General Adult HPI - General Chief complaint: Altered Mental Status Stated complaint: AMS,Weakness Time Seen by Provider: 11/10/24 08:40 Source: patient, RN notes reviewed, old records reviewed Mode of arrival: ambulatory Limitations: no limitations - History of Present Illness Initial comments: 79-year-old male presenting with confusion and weakness over the past 24 hours. No reported focal numbness or weakness. No pain complaints including no heada alpa, no chest pain or abdominal pain. No vomiting. History is obtained from the patient's family members who are at bedside. - Related Data Home Medications Medication Instructions Recorded Confirmed Albuterol Sulfate [Albuterol 2 puff INHALATION RT-Q4H PRN 01/07/24 11/10/24 Sulfate Hfa] Apalutamide [Erleada] 120 mg PO DAILY 11/10/24 11/10/24 Metoprolol Tartrate [Lopressor] 25 mg PO DAILY 11/10/24 11/10/24 Previous Rx's Medication Instructions Recorded Apixaban [Eliquis] 5 mg PO BID #60 tab 01/09/24 Allergies Allergy/AdvReac Type Severity Reaction Status Date / Time No Known Allergies Allergy Verified 11/10/24 09:46 Review of Systems ROS Statement: Those systems with pertinent positive or pertinent negative responses have been documented in the HPI. ROS Other: All systems not noted in ROS Statement are negative. Past Medical History Past Medical History: Cancer, COPD, Prostate Disorder Additional Past Medical History / Comment(s): Recent diagnosis of prostate cancer. Taking oral chemo. Starts radiation on Wednesday01/10/24 History of Any Multi-Drug Resistant Organisms: None Reported Past Surgical History: No Surgical Hx Reported Additional Past Surgical History / Comment(s): Cataract surgery Past Anesthesia/Blood Transfusion Reactions: No Reported Reaction Past Psychological History: No Psychological Hx Reported Smoking Status: Former smoker Past Alcohol Use History: None Reported Past Drug Use History: None Reported General Exam Limitations: no limitations General appearance: in no apparent distress, lethargic Head exam: Present: atraumatic, normocephalic Eye exam: Present: normal appearance, PERRL ENT exam: Present: mucous membranes dry Neck exam: Present: normal inspection Respiratory exam: Present: normal lung sounds bilaterally, decreased breath sounds. Absent: respiratory distress, wheezes Cardiovascular Exam: Present: regular rate, irregular rhythm GI/Abdominal exam: Present: soft. Absent: distended, tenderness, guarding Extremities exam: Present: pedal edema (Chronic venous stasis) Neurological exam: Present: alert, CN II-XII intact. Absent: oriented X3, motor sensory deficit Skin exam: Present: warm, dry, intact Course Vital Signs 11/10/24 11/10/24 11/10/24 08:37 09:10 10:33 Temperature 96.8 F L Pulse Rate 57 L 49 L 49 L Respiratory 20 18 18 Rate Blood Pressure 115/68 111/77 115/72 O2 Sat by Pulse 100 96 100 Oximetry Medical Decision Making - Medical Decision Making Was pt. sent in by a medical professional or institution (, [facility], [employer], urgent care, hospital, or [facility]...) When possible be specific @ -No Did you speak to anyone other than the patient for history (EMS, parent, family, police, friend...)? What history was obtained from this source @ -No Did you review nursing and triage notes (agree or disagree)? Why? @ -I reviewed and agree with nursing and triage notes Were old charts reviewed (outside hosp., previous admission, EMS record, old EKG, old radiological studies, urgent care reports/EKG's, [facility] records)? Report findings @ -No old charts were reviewed Differential Altered Mental Status: Hypoglycemia, DKA, hypercapnia, ETOH, overdose, CO poisoning, trauma, myxedema coma, HTN encephalopathy, infection, encephalitis, psychosis, intercranial hemorrhage, hepatic encephalopathy, meningitis, CVA, this is not meant to be an all-inclusive list EKG interpreted by me (3pts min.). @Atrial fibrillation rate of 58, QRS duration 118, QTc [address] segment elevation. X-rays interpreted by me (1pt min.). @Chest x-ray negative for acute cardiopulmonary findings CT interpreted by me (1pt min.). @ -CT brain negative for intracranial hemorrhage or mass effect U/S interpreted by me (1pt. min.). @ -None done What testing was considered but not performed or refused? (CT, X-rays, U/S, labs)? Why? @ -None What meds were considered but not given or refused? Why? @ -None Did you discuss the management of the patient with other professionals (professionals i.e. JACK Quintana, [employer], lab, RT, psych nurse, social director, surveyor rod helper, teacher, sales officer, counseling case manager)? Give summary @ -[Case discussed with [facility] group. Was smoking cessation discussed for >3mins.? @ -No Was critical care preformed (if so, how long)? @ -No Were there social determinants of health that impacted care today? How? (Homelessness, low income, unemployed, alcoholism, drug addiction, transportation, low edu. Level, literacy, decrease access to med. care, usp, rehab)? @ -No Was there de-escalation of care discussed even if they declined (Discuss DNR or withdrawal of care, Hospice)? DNR status @ -No What co-morbidities impacted this encounter? (DM, HTN, Smoking, COPD, CAD, Cancer, CVA, ARF, Chemo, Hep., AIDS, mental health diagnosis, sleep apnea, morbid obesity)? @ -None Was patient admitted / discharged? Hospital course, mention meds given and route, prescriptions, significant lab abnormalities, going to OR and other perti nent info. @ -[Patient admitted with confusion, dehydration, hypernatremia. Urinalysis results pending. Undiagnosed new problem with uncertain prognosis? @ -No Drug Therapy requiring intensive monitoring for toxicity (Heparin, Nitro, Insulin, Cardizem)? @ -No Were any procedures done? @ -No Diagnosis/symptom? @ -Dehydration, hypernatremia, acute confusion Acute, or Chronic, or Acute on Chronic? @ -Acute Uncomplicated (without systemic symptoms) or Complicated (systemic symptoms)? @Complicated Side effects of treatment? @ -No Exacerbation, Progression, or Severe Exacerbation? @ -No Poses a threat to life or bodily function? How? (Chest pain, USA, CT, pneumonia, PE, COPD, DKA, ARF, appy, cholecystitis, CVA, Diverticulitis, Homicidal, Suicidal, threat to staff... and all critical care pts) @ -[Yes, electrolyte abnormality, hypovolemic shock, delirium - Lab Data Result diagrams: 11/10/24 09:12 11/10/24 09:12 Lab Results 11/10/24 11/10/24 11/10/24 Range/Units 09:12 09:12 09:12 WBC 4.0 (3.8-10.6) k/uL RBC 4.80 (4.30-5.90) m/uL Hgb 13.5 (13.0-17.5) gm/dL Hct 43.7 (39.0-53.0) % MCV 91.0 (80.0-100.0) fL MCH 28.1 (25.0-35.0) pg MCHC 30.9 L (31.0-37.0) g/dL RDW 15.1 (11.5-15.5) % Plt Count 98 L (150-450) k/uL MPV 10.2 Neutrophils % 81 % Lymphocytes % 10 % Monocytes % 4 % Eosinophils % 2 % Basophils % 0 % Neutrophils # 3.3 (1.3-7.7) k/uL Lymphocytes # 0.4 L (1.0-4.8) k/uL Monocytes # 0.2 (0-1.0) k/uL Eosinophils # 0.1 (0-0.7) k/uL Basophils # 0.0 (0-0.2) k/uL PT 10.9 (10.0-12.5) sec INR 1.0 (<1.2) APTT 29.7 (22.0-30.0) sec VBG pH (7.31-7.41) VBG pCO2 (37-51) mmHg VBG HCO3 (24-28) mmol/L Sodium 149 H (137-145) mmol/L Potassium 4.2 (3.5-5.1) mmol/L Chloride 114 H (98-107) mmol/L Carbon Dioxide 23 (22-30) mmol/L Anion Gap 12 mmol/L BUN 21 H (9-20) mg/dL Creatinine 0.87 (0.66-1.25) mg/dL Est GFR (CKD-EPI)AfAm >90 (>60 ml/min/1.73 sqM) Est GFR (CKD-EPI)NonAf 82 (>60 ml/min/1.73 sqM) Glucose 75 (74-99) mg/dL POC Glucose (mg/dL) (70-110) mg/dL POC Glu Ui Lead Developer ID Calcium 9.4 (8.4-10.2) mg/dL Total Bilirubin 0.5 (0.2-1.3) mg/dL AST 214 H (17-59) U/L ALT 216 H (4-49) U/L Alkaline Phosphatase 273 H (38-126) U/L Ammonia (<30) umol/L Troponin I (0.000-0.034) ng/mL Total Protein 6.9 (6.3-8.2) g/dL Albumin 3.8 (3.5-5.0) g/dL 11/10/24 11/10/24 11/10/24 Range/Units 09:12 09:12 09:12 WBC (3.8-10.6) k/uL RBC (4.30-5.90) m/uL Hgb (13.0-17.5) gm/dL Hct (39.0-53.0) % MCV (80.0-100.0) fL MCH (25.0-35.0) pg MCHC (31.0-37.0) g/dL RDW (11.5-15.5) % Plt Count (150-450) k/uL MPV Neutrophils % % Lymphocytes % % Monocytes % % Eosinophils % % Basophils % % Neutrophils # (1.3-7.7) k/uL Lymphocytes # (1.0-4.8) k/uL Monocytes # (0-1.0) k/uL Eosinophils # (0-0.7) k/uL Basophils # (0-0.2) k/uL PT (10.0-12.5) sec INR (<1.2) APTT (22.0-30.0) sec VBG pH 7.35 (7.31-7.41) VBG pCO2 47 (37-51) mmHg VBG HCO3 26 (24-28) mmol/L Sodium (137-145) mmol/L Potassium (3.5-5.1) mmol/L Chloride (98-107) mmol/L Carbon Dioxide (22-30) mmol/L Anion Gap mmol/L BUN (9-20) mg/dL Creatinine (0.66-1.25) mg/dL Est GFR (CKD-EPI)AfAm (>60 ml/min/1.73 sqM) Est GFR (CKD-EPI)NonAf (>60 ml/min/1.73 sqM) Glucose (74-99) mg/dL POC Glucose (mg/dL) (70-110) mg/dL POC Glu Ui Lead Developer ID Calcium (8.4-10.2) mg/dL Total Bilirubin (0.2-1.3) mg/dL AST (17-59) U/L ALT (4-49) U/L Alkaline Phosphatase (38-126) U/L Ammonia <9 (<30) umol/L Troponin I <0.012 (0.000-0.034) ng/mL Total Protein (6.3-8.2) g/dL Albumin (3.5-5.0) g/dL 11/10/24 11/10/24 Range/Units 09:17 10:45 WBC (3.8-10.6) k/uL RBC (4.30-5.90) m/uL Hgb (13.0-17.5) gm/dL Hct (39.0-53.0) % MCV (80.0-100.0) fL MCH (25.0-35.0) pg MCHC (31.0-37.0) g/dL RDW (11.5-15.5) % Plt Count (150-450) k/uL MPV Neutrophils % % Lymphocytes % % Monocytes % % Eosinophils % % Basophils % % Neutrophils # (1.3-7.7) k/uL Lymphocytes # (1.0-4.8) k/uL Monocytes # (0-1.0) k/uL Eosinophils # (0-0.7) k/uL Basophils # (0-0.2) k/uL PT (10.0-12.5) sec INR (<1.2) APTT (22.0-30.0) sec VBG pH (7.31-7.41) VBG pCO2 (37-51) mmHg VBG HCO3 (24-28) mmol/L Sodium (137-145) mmol/L Potassium (3.5-5.1) mmol/L Chloride (98-107) mmol/L Carbon Dioxide (22-30) mmol/L Anion Gap mmol/L BUN (9-20) mg/dL Creatinine (0.66-1.25) mg/dL Est GFR (CKD-EPI)AfAm (>60 ml/min/1.73 sqM) Est GFR (CKD-EPI)NonAf (>60 ml/min/1.73 sqM) Glucose (74-99) mg/dL POC Glucose (mg/dL) 59 L 107 (70-110) mg/dL POC Glu Ui Lead Developer ID Austin Lott Calcium (8.4-10.2) mg/dL Total Bilirubin (0.2-1.3) mg/dL AST (17-59) U/L ALT (4-49) U/L Alkaline Phosphatase (38-126) U/L Ammonia (<30) umol/L Troponin I (0.000-0.034) ng/mL Total Protein (6.3-8.2) g/dL Albumin (3.5-5.0) g/dL Disposition Clinical Impression: Altered mental status, Hypernatremia, Dehydration Disposition: ADMITTED IP TO THIS HOSP Condition: Stable Is patient prescribed a controlled substance at d/c from ED?: No Referrals: None,Stated [Primary Care Provider] - 1-2 days Time of Disposition: 11:59
[2024-11-10] MEDS: DEXTROSE 50% SYRINGE 50 ML IVP STA (09:53)
[2024-11-10] MEDS: SODIUM CHLORIDE 0.9% 1,000 ML IV ONE (09:54)
[2024-11-10 10:05] LABS: Platelet Count 98 k/uL (150-450)
[2024-11-10 10:47] LABS: Glucose,Whole Blood 107 mg/dL (70-110)
[2024-11-10] MEDS ORDERED: DEXTROSE 50% SYRINGE 50 ML IVP PRN (11:11)
[2024-11-10] MEDS: SODIUM CHLORIDE 0.9% 1,000 ML IV SCH (11:31)
[2024-11-10] MEDS ORDERED: LORazepam 2 MG/ML INJ IV PRN ×2 (11:53)
[2024-11-10] MEDS ORDERED: LORazepam 0.5 MG TAB PO PRN (11:53)
[2024-11-10] MEDS ORDERED: LORazepam 1 MG TAB PO PRN ×3 (11:53)
[2024-11-10] MEDS ORDERED: NALOXONE 0.4 MG/ML 1 ML VIAL IV PRN (11:56)
--- NOTE | 2024-11-10 11:57 | P.HPIM ---
History of Present Illness H&P Date: 11/10/24 History of Presenting Illness: Patient is a 79-year-old male with a past medical history of prostate cancer on oral chemotherapeutic agent with apalutamide, hypertension, COPD with continued nicotine dependence, and daily alcohol abuse. Family at bedside reports patient's last alcoholic drink was approximately 4 to 5 days ago and states he really likes his wine, but were not able to state exactly how much wine patient drinks daily but did confirm daily alcohol use. Patient presented to the emergency department with a chief complaint of altered mental status. Patient's family at bedside reports patient was at baseline mentation up until approximately 1 AM when he awoke and and they noted him to have increased confusion which progressively worsened accompanied by generalized weakness stating patient's daughter whom he resides with was unable to even get him up. They report normal appetite, denies any weight loss, denies any fevers or exposure to known ill contacts, denies any episodes of nausea vomiting, diarrhea, or patient expressing any complaints of pain or discomfort. Upon arrival to our facility patient is alert to person and place only and confused to time and situation. Patient did admit to daily alcohol use, but did not or was unable to express how much he drank daily. He denied having any complaints or pain at this time. Patient admits to continued nicotine dependence smoking cigarettes with last cigarette being yesterday. Patient and family deny any other drug use. Upon arrival to our facility, patient underwent evaluation in the emergency department. Vital signs upon arrival show blood pressure 115/68, heart rate 57, respiratory rate 20, temp 96.8 F, SpO2 of 100% on room air. Pellb-tw-hgdg glucose was 59. EKG was completed showing atrial fibrillation with a slowed ventricular response at 58 bpm with nonspecific T wave abnormalities in inferior leads. Chest x-ray completed showing cardiomegaly but negative for acute cardiopulmonary process. CT brain completed negative for acute intercranial process showing moderate diffuse age related cerebral atrophy and mild to moderate chronic small vessel ischemic changes with bilateral maxillary sinus disease. Labs completed and reviewed. CBC showing thrombocytopenia with platelet count of 98 otherwise normal findings. Coagulation profile normal findings. BMP showing hyponatremia with sodium of 149 and hyperchloremia with chloride of 114. Renal function showing slightly elevated BUN of 21 otherwise normal findings. Blood glucose 82 with initial otutw-lb-spqy glucose of 59. Liver profile showing transaminitis with AST of 214, ALT of 216, and alkaline phosphatase of 273. Troponin was negative at less than 0.012. TSH elevated at 5.170 with normal free T4 of 0.99. Patient admitted under our services with consultation to neurology. Review of systems: Pertinent positives and negatives as discussed in HPI, a complete review of systems was performed and all other systems are negative. Physical exam: Vital signs reviewed and stable. General: Nontoxic, no distress and appears stated age. Frail and emaciated appearance. Derm: Skin with bilateral upper and lower extremity rash, possibly psoriatic rash with scaling skin but no surrounding erythema or drainage noted. Head: Atraumatic, normocephalic and symmetric. Eyes: EOM's intact, no lid lag, and anicteric sclera Mouth: no lip lesions, mucus membranes moist Cardiovascular: regular rate and rhythm with normal S1S2, systolic murmur, positive posterior tibial pulses bilaterally, and cap refill < 2 seconds. Lungs: Respirations even, regular, and unlabored on room air. Lungs CTA bilaterally, no rhonchi, no rales, no wheezing, and no accessory muscle usage. Abdominal: soft, nontender to palpation, no guarding, no appreciable organomegaly Ext: No gross muscle atrophy, no edema, no contractures. Patient with generalized weakness appears slightly worse in right upper and lower extremity. Patient only following limited commands, so difficult to compare strength Neuro: Speech clear, face symmetrical and CN II-XII grossly intact. GCS 14. Psych: Alert and oriented to person and place only and confused to time and situation. Patient only following limited commands. Assessment and Plan of Care: Acute metabolic encephalopathy Hyperchloremic hypernatremia, possibly secondary to dehydration -Unclear cause rule out CVA vs infectious etiolog, vs EtOH withdraw vs hypoglycemia -Order placed for neurochecks every 4 hours -Consult to neurology -Fall precautions in place -TSH with free T4 -Telemetry monitoring. -Order placed for glycemic protocol with khsty-es-sngl glucose checks every 4 hours and as needed -PT/OT consult -Continue aspirin 81 mg daily, hold off on starting statin pending repeat liver enzymes. Daily alcohol abuse, possible alcohol withdraw Transaminitis, likely secondary to daily alcohol abuse Thrombocytopenia, likely secondary to daily alcohol abuse -Order placed for monitoring of CIWA scores and patient to be medicated with Ativan 0.5 mg every 4 hours as needed for CIWA score of 4-5, Ativan 1 mg every 4 hours for CIWA score of 6-7, Ativan 2 mg every 3 hours CIWA score of 8-9, and Ativan 2 mg every 2 hours forr CIWA score of 10 or greater. -Continuous IV hydration with D5 0.45% normal saline at 75 cc/h.. -Thiamine 100 mg daily, and Multivitamin daily, and Folate 1 mg daily -Seizure, fall, and aspiration precautions in place. -Urine drug screen -Continued close monitoring of electrolytes and replace as needed. -Telemetry monitoring. Prostate cancer -Hold chemotherapeutic agent apalutamide pending further workup Paroxysmal atrial fibrillation Hypertension -Continue anticoagulation with Eliquis 5 mg twice daily metoprolol 25 mg daily. Data and imaging reviewed: As stated above in HPI CODE STATUS: Full code DVT prophylaxis: Eliquis Discussed with: Patient, ED physician, RN and patient's family Anticipated discharge date: Pending clinical course Anticipated discharge place: Pending clinical course Patient was seen independently by Nurse Practitioner. This document was prepared using [employer] dictation software. Please allow for errors in certified home health aide while rare they do occur. Yogi Hunter NP rendered care for this patient independently, reviewed the findings and plan as documented in the note above and agree with plan. I did not physically speak with or examine the patient on this date. Past Medical History Past Medical History: Cancer, COPD, Prostate Disorder Additional Past Medical History / Comment(s): Recent diagnosis of prostate cancer. Taking oral chemo. Starts radiation on Wednesday01/10/24 History of Any Multi-Drug Resistant Organisms: None Reported Past Surgical History: No Surgical Hx Reported Additional Past Surgical History / Comment(s): Cataract surgery Past Anesthesia/Blood Transfusion Reactions: No Reported Reaction Past Psychological History: No Psychological Hx Reported Smoking Status: Former smoker Past Alcohol Use History: None Reported Past Drug Use History: None Reported Medications and Allergies Home Medications Medication Instructions Recorded Confirmed Type Albuterol Sulfate [Albuterol 2 puff INHALATION RT-Q4H PRN 01/07/24 11/10/24 Hist ory Sulfate Hfa] Apixaban [Eliquis] 5 mg PO BID #60 tab 01/09/24 11/10/24 Rx Apalutamide [Erleada] 120 mg PO DAILY 11/10/24 11/10/24 History Metoprolol Tartrate [Lopressor] 25 mg PO DAILY 11/10/24 11/10/24 History Allergies Allergy/AdvReac Type Severity Reaction Status Date / Time No Known Allergies Allergy Verified 11/10/24 09:46 Physical Exam Vitals: Vital Signs Temp Pulse Resp BP Pulse Ox 11/10/24 10:33 49 L 18 115/72 100 11/10/24 09:10 49 L 18 111/77 96 11/10/24 08:37 96.8 F L 57 L 20 115/68 100 Intake and Output 11/09/24 11/10/24 11/10/24 22:59 06:59 14:59 Other: Weight 75.75 kg Results CBC & Chem 7: 11/10/24 09:12 11/10/24 09:12 Labs: Abnormal Lab Results - Last 24 Hours (Table) 11/10/24 11/10/24 11/10/24 Range/Units 09:12 09:12 09:17 MCHC 30.9 L (31.0-37.0) g/dL Plt Count 98 L (150-450) k/uL Lymphocytes # 0.4 L (1.0-4.8) k/uL Sodium 149 H (137-145) mmol/L Chloride 114 H (98-107) mmol/L BUN 21 H (9-20) mg/dL POC Glucose (mg/dL) 59 L (70-110) mg/dL AST 214 H (17-59) U/L ALT 216 H (4-49) U/L Alkaline Phosphatase 273 H (38-126) U/L
[2024-11-10] MEDS ORDERED: ACETAMINOPHEN TAB 325 MG TAB PO PRN (12:00)
[2024-11-10] MEDS: DEXTROSE 5%-0.45% NACL 1,000 ML IV ONE (12:03)
[2024-11-10 13:34] LABS: Glucose,Whole Blood 80 mg/dL (70-110)
[2024-11-10 13:49] LABS: Influenza A Not Detected (Not Detectd); Influenza B Not Detected (Not Detectd); RSV Not Detected (Not Detectd)
[2024-11-10 15:02] LABS: T4, Free (Free Thyroxine) 0.99 ng/dL (0.78-2.19)
[2024-11-10 17:05] LABS: Glucose,Whole Blood 89 mg/dL (70-110)
[2024-11-10] MEDS ORDERED: LORazepam 1 MG/0.5 ML VIAL IV PRN (17:09)
[2024-11-10 18:00] LABS: Appearance,Urine Clear (Clear); Bilirubin,Urine Negative (Negative); Blood,Urine Negative (Negative); Color,Urine Light Yellow; Glucose,Urine (UA) Negative (Negative); Ketones,Urine Negative (Negative); Leukocyte Esterase,Urine Negative (Negative); Nitrite,Urine Negative (Negative); Protein,Urine Negative (Negative); Specific Gravity,Urine 1.014 (1.001-1.035); Urobilinogen,Urine <2.0 mg/dL (<2.0)
[2024-11-10 18:18] LABS: Amphetamine Screen,Urine Not Detected (NotDetected); Barbiturate Screen,Urine Not Detected (NotDetected); Benzodiazepines Screen,Urine Not Detected (NotDetected); Cocaine Screen,Urine Not Detected (NotDetected); Methadone Screen, Urine Not Detected (NotDetected); Opiate Screen,Urine Not Detected (NotDetected); Oxycodone Screen, Urine Not Detected (NotDetected); Phencyclidine Screen,Urine Not Detected (NotDetected); Tricyclic Antidepressant,Urine Not Detected (NotDetected); Urn Cannabinoid Scrn Not Detected (NotDetected)
[2024-11-10 21:18] LABS: Glucose,Whole Blood 81 mg/dL (70-110)
[2024-11-11 00:21] LABS: Glucose,Whole Blood 66 mg/dL (70-110)
[2024-11-11] MEDS: DEXTROSE 50% SYRINGE 50 ML IVP PRN (00:23)
[2024-11-11 00:39] LABS: Glucose,Whole Blood 230 mg/dL (70-110)
[2024-11-11] MEDS: APIXABAN 5 MG TAB PO SCH (01:44)
[2024-11-11] MEDS: DEXTROSE 5%-0.45% NACL 1,000 ML IV SCH (03:15)
[2024-11-11 03:27] LABS: Glucose,Whole Blood 53 mg/dL (70-110)
[2024-11-11 03:53] LABS: Glucose,Whole Blood 169 mg/dL (70-110)
[2024-11-11 05:08] LABS: Glucose,Whole Blood 87 mg/dL (70-110)
[2024-11-11] MEDS: ACETAMINOPHEN IV (For NPO) 1,000 MG in EMPTY BAG 1 BAG IVPB ONE (05:28)
[2024-11-11 06:46] LABS: Glucose,Whole Blood 94 mg/dL (70-110)
--- NOTE | 2024-11-11 06:59 | XR ---
EXAMINATION TYPE: XR chest 1V DATE OF EXAM: 11/11/2024 COMPARISON: 11/10/2024 CLINICAL INDICATION: Male, 79 years old with history of pulm edema; TECHNIQUE: Single frontal view of the chest is obtained. FINDINGS: There is persistent mild cardiomegaly. There is been interval development of a small left pleural eff usion. There is mild decreased diffuse interstitial opacity reflecting either mild chronic interstitial cash ges or mild vascular congestion. There is no pneumothorax. The osseous structures are intact. IMPRESSION: Mild acute pulmonary disease versus mild chronic changes as described above. [facility], , 11/11/2024 6:57 AM
[2024-11-11 07:20] LABS: HCT 37.9 % (39.0-53.0); HGB 11.8 gm/dL (13.0-17.5); Hypochromasia Slight; MCH 28.3 pg (25.0-35.0); MCV 91.2 fL (80.0-100.0); Mean Platelet Volume 10.3; Platelet Count 90 k/uL (150-450); RBC 4.16 m/uL (4.30-5.90); RDW 15.1 % (11.5-15.5); WBC 4.4 k/uL (3.8-10.6)
[2024-11-11 07:36] LABS: ALT 137 U/L (4-49); AST 102 U/L (17-59); African American GFR (CKD) 79 (>60 ml/min/1.73 sqM); Albumin 2.8 g/dL (3.5-5.0); Alkaline Phosphatase 208 U/L (38-126); Anion Gap 7 mmol/L; Blood Urea Nitrogen 16 mg/dL (9-20); Calcium 9.2 mg/dL (8.4-10.2); Carbon Dioxide 25 mmol/L (22-30); Chloride 114 mmol/L (98-107); Glucose 85 mg/dL (74-99); Magnesium 1.9 mg/dL (1.6-2.3); Non-African American GFR(CKD) 68 (>60 ml/min/1.73 sqM); Potassium 3.6 mmol/L (3.5-5.1); Sodium 146 mmol/L (137-145); Total Bilirubin 0.5 mg/dL (0.2-1.3); Total Protein 5.6 g/dL (6.3-8.2)
--- NOTE | 2024-11-11 07:36 | P.CNNES ---
History of Present Illness Consult date: 11/10/24 Requesting physician: Yogi Hunter Reason for Consult: increased confusion, mild R sided weakness History of Present Illness: Patient is a 79-year-old right-handed male came to the hospital today at 8:30 AM for altered mental status. Patient's multiple family members were present by the bedside. Patient not able to provide any history. Per family members, patient lives with his daughter for the last 3-5 years. He has no prior history of dementia or memory loss. Patient does have history of tobacco use, and drinking heavily for long time. Apparently he was brought to the hospital because he was delirious last night at 2 AM, confused, yelling, did not recognize his daughter. His daughter tried to help him stand up and he could not stand or walk. He was just generalized weak, the daughter could not tell if one side was weaker than the other. Yesterday morning he was fine. All symptoms started engagement mgr today at 2 AM. Vital signs on arrival blood pressure 115/68, pulse rate 57, temperature 96.8. Blood test shows normal CBC, PT PTT, normal VBG, sodium 149, BUN 21, AST is 214, ALT 216, troponin negative, TSH 5.17 and free T40.99. Influenza, RSV and coronavirus PCR negative. Chest x-ray showed cardiomegaly without acute pulmonary process. EKG showed atrial fibrillation with slow ventricular response. CT head revealed no acute intracranial hemorrhage or midline shift. There is moderate diffuse age-related cerebral atrophy and mild to moderate chronic small vessel ischemic change. Bilateral maxillary sinus disease is partially imaged. I personally reviewed CT head and agree with the findings. Patient has history of prostate cancer in spring for which he underwent 30 sessions of radiations and still getting oral chemotherapy. Patient's home medication include Eliquis 5 mg twice daily, Erleada, metoprolol and albuterol. No previous history of diabetes. He smokes one pack per day for more than 50 years. He also drinks a fifth of wine most of the days of the week almost for last 50 years. Patient was not able to buy alcohol therefore did not drink alcohol since Wednesday. Patient denies headache, no pain anywhere in the body, no dizziness. Patient's family mentions that he had has been using cane since he underwent radiation therapy for prostate cancer. Review of Systems ROS unobtainable: due to mental status Past Medical History Past Medical History: Cancer, COPD, Prostate Disorder Additional Past Medical History / Comment(s): Recent diagnosis of prostate cancer. Taking oral chemo. Starts radiation on Wednesday01/10/24 History of Any Multi-Drug Resistant Organisms: None Reported Past Surgical History: No Surgical Hx Reported Additional Past Surgical History / Comment(s): Cataract surgery Past Anesthesia/Blood Transfusion Reactions: No Reported Reaction Past Psychological History: No Psychological Hx Reported Smoking Status: Former smoker Past Alcohol Use History: None Reported Past Drug Use History: None Reported - Past Family History Father Family Medical History: COPD, Diabetes Mellitus Mother Family Medical History: Diabetes Mellitus Medications and Allergies Home Medications Medication Instructions Recorded Confirmed Type Albuterol Sulfate [Albuterol 2 puff INHALATION RT-Q4H PRN 01/07/24 11/10/24 History Sulfate Hfa] Apixaban [Eliquis] 5 mg PO BID #60 tab 01/09/24 11/10/24 Rx Apalutamide [Erleada] 120 mg PO DAILY 11/10/24 11/10/24 History Metoprolol Tartrate [Lopressor] 25 mg PO DAILY 11/10/24 11/10/24 History Allergies Allergy/AdvReac Type Severity Reaction Status Date / Time No Known Allergies Allergy Verified 11/10/24 09:46 Physical Examination - Vital Signs Vital Signs: Vital Signs Temp Pulse Pulse Resp BP BP Pulse Ox 11/10/24 15:00 58 L 15 101/62 98 11/10/24 14:18 97.3 F L 54 L 16 103/71 97 11/10/24 13:00 65 16 93/67 98 11/10/24 10:33 49 L 18 115/72 100 11/10/24 09:10 49 L 18 111/77 96 11/10/24 08:37 96.8 F L 57 L 20 115/68 100 Intake and Output 11/10/24 11/10/24 11/10/24 06:59 14:59 22:59 Other: Weight 75.75 kg Patient is an elderly Afro[place] male, in no acute distress. Patient is moderately encephalopathic, but is alert awake. He is only oriented to himself, could not tell the month or the year. For the month patient states "Wednesday". He knows that he is in [place] but could not tell what state is it, and perseverates on Wednesday. Patient did not speak much. He has very slow mentation, delayed response, prolonged latency time to answer questions, also partly with hard of hearing. Speech and language functions could not be assessed because of limited speech. Attention, concentration and fund of knowledge are all severely limited. On cranial nerve examination, pupils are slightly unequal, right pupil is slightly larger than the left both are reacting. Visual hernandez could not be tested, as he would not understand the directions due to encephalopathy. Extraocular muscles are intact with no nystagmus. Face is symmetric, tongue protrudes to the midline. He did not open his mouth to check for palate. hearing is moderately decreased and shoulder shrug normal, facial sensation normal. On muscle strength testing, there is no obvious pronator . The strength appears normal in the biceps, triceps and hand braille transcriber equally. Patient appears somewhat weak in the legs. He did not cooperate with the examination, although appears weak in the hips, not able to lift his legs off the bed on either side. His tone appears to be increased in the legs bilaterally. Deep tendon reflexes are symmetric and plantars are flat bilaterally. Sensory to touch cannot be assessed. Patient withdraws to painful stimuli equally. Cerebellar function showed no ataxia for [id number] testing. he could not perform [id number] testing. Tone is normal in the upper limbs, but tone is increased in the lower limbs and bulk of muscles normal. Gait deferred.. On general examination, there is no carotid bruit or murmur, S1-S2 audible. Chest is clear on consultation. Abdomen is soft nontender. No organomegaly, bowel sounds present. Patient has diffuse scaly rash over his distal upper and lower extremities from elbow down and midshin down. It is scaly, and shadowing. Family mentions that he has been diagnosed with some kind of dermatitis since he underwent radiation therapy for the prostate cancer. Results - Laboratory Findings CBC and BMP: 11/10/24 09:12 11/10/24 09:12 Abnormal Lab Findings: Abnormal Labs 11/10/24 11/10/24 11/10/24 09:12 09:12 09:17 MCHC 30.9 L Plt Count 98 L Lymphocytes # 0.4 L Sodium 149 H Chloride 114 H BUN 21 H POC Glucose (mg/dL) 59 L AST 214 H ALT 216 H Alkaline Phosphatase 273 H TSH 11/10/24 13:33 MCHC Plt Count Lymphocytes # Sodium Chloride BUN POC Glucose (mg/dL) AST ALT Alkaline Phosphatase TSH 5.170 H Assessment and Plan Assessment: * Altered mental status, probably due to acute metabolic encephalopathy. Possible alcohol withdrawal, impending DTs. Rule out acute CVA. Rule out occult infection. * Hypothermia, unclear cause. * Hypothyroidism * Elevated liver enzymes * Thrombocytopenia, likely due to alcoholism * History of prostate cancer, on chemotherapy * Chronic alcoholism * Diffuse seborrheic dermatitis involving arms and legs * Tobacco use Plan: * MRI of the brain with and without contrast * CTA of head and neck to rule out stenosis * EEG evaluate for encephalopathy. * Patient is not diabetic, but his blood sugars have been running low. Watch for hypoglycemia. * Ammonia level is < 9 * B12, folate * TSH 5.17, free T4 normal 0.99. Will defer to IM to address abnormal thyroid functions. * [facility] protocol. * Patient has been getting hypothermic, rule out sepsis. ID consulted. Rule out cellulitis. * Continue Eliquis 5 mg twice a day. * Dr. Mike Luciano to resume neurology service in the morning. * Discussed with family members in detail. Also with primary physician. * Thank you for the consult.
[2024-11-11 08:08] LABS: Glucose,Whole Blood 84 mg/dL (70-110)
[2024-11-11] MEDS: ALBUTEROL NEBULIZED 2.5 MG/3 ML INHALATION PRN (08:22)
[2024-11-11] MEDS: THIAMINE 100 MG TAB PO SCH (08:23)
[2024-11-11] MEDS: METOPROLOL TARTRATE 25 MG TAB PO SCH (08:23)
[2024-11-11] MEDS: FOLIC ACID 1 MG TAB PO SCH (08:23)
[2024-11-11] MEDS ORDERED: VANCOMYCIN IV PER PHARMACY 1 EACH MISC MISCELLANE PRN (08:43)
[2024-11-11] MEDS ORDERED: ASPIRIN 81 MG PO SCH (09:00)
--- NOTE | 2024-11-11 10:03 | CT ---
EXAMINATION TYPE: CT angio head neck DATE OF EXAM: 11/11/2024 COMPARISON: None CLINICAL INDICATION: Male, 79 years old with history of AMS, ?CVA; PHH, AMS, r/o CVA. Brain w/o was d one yesterday TECHNIQUE: CTA scan of the head and neck is performed with IV Contrast, patient injected with 65 mL of Isovue 370, axial images are obtained, coronal and sagittal reformatted images are reviewed. 3D re constructed images are created on an independent workstation and reviewed. 3-D postprocessing was per formed. CT DLP: 429.[address] CTDI: mGy Automated exposure control for dose reduction was used. NASCET criteria was used in interpretation of this exam? FINDINGS: FINDINGS: The brachiocephalic origins are widely patent and no significant stenosis. There are mild eccentric calcified plaques in the carotid bifurcations bilaterally. There is a mild t o moderate stenosis of the proximal left internal carotid artery.. There is moderate diffuse calcification of the carotid siphons resulting in mild carotid siphon steno sis. Intracranially there is no definite aneurysm sac, vascular malformation or segmental occlusion. Note is made of marked chronic inflammatory changes in the maxillary sinuses with possible superimpos ed acute right maxillary sinusitis IMPRESSION:. 1. And possibly moderate stenosis of the proximal left internal carotid artery 2. Mild stenoses with diffuse calcification of the carotid siphons image 3 maxillary sinusitis. NASCET criteria was used in interpretation of this exam? [facility], , 11/11/2024 10:00 AM
--- NOTE | 2024-11-11 10:10 | CT ---
EXAMINATION TYPE: CT abdomen pelvis w con DATE OF EXAM: 11/11/2024 COMPARISON: None CLINICAL INDICATION: Male, 79 years old with history of transaminitis, hypothermia, AMS; PHH, Transam initis, hypothermia, AMS, recently diagnosed prostate ca TECHNIQUE: Performed without Oral Contrast and with IV Contrast, patient injected with 100 ml mL of Isovue 370. CT DLP: 865.[address] CTDI: mGy Automated exposure control for dose reduction was used. FINDINGS: There are bilateral lower lobe consolidative infiltrates, left greater than right suspicious for pneu monia. The gallbladder is moderately distended but no wall thickening, pericholecystic fluid or gallstone. T here is no biliary ductal dilatation. There is no focal mass or organomegaly involving the liver, pancreas, or spleen. There is a small cys t in the right lobe of the liver. There is mild adrenal nodularity There is no solid renal mass or hydronephrosis and there is homogeneous contrast enhancement of the r enal parenchyma. There are 2 small right renal cortical cysts. The caliber the abdominal aorta is normal is no retroperitoneal adenopathy or hemorrhage. The bowel loops are normal in caliber and there is no evidence of dilatation or obstruction. No infla mmatory changes are identified in the bowel wall or mesentery. There is no free intraperitoneal air or fluid. There is mild to moderate multilevel degenerative dise ase in lumbar spine. There are no focal osseous lesions. There is a Jernigan catheter in the urinary segundo dder. No pelvic mass, free fluid, abscess or adenopathy. The osseous structures and soft tissues are intact. IMPRESSION: 1. Acute cardiopulmonary disease in lung bases, left greater than right. Findings suspicious for pneu monia particularly in the left lung base. 2. Distended gallbladder. [facility], , 11/11/2024 10:07 AM
[2024-11-11] MEDS: LACTATED RINGERS 1,000 ML IV SCH ×2 (10:19→15:16)
[2024-11-11] MEDS: CEFEPIME 2 GM in SODIUM CHLORIDE 0.9% 100 ML IVPB SCH (10:19)
[2024-11-11] MEDS: VANCOMYCIN 1,500 MG in SODIUM CHLORIDE 0.9% 500 ML 500 ML IVPB SCH (10:36)
[2024-11-11 12:02] LABS: Glucose,Whole Blood 109 mg/dL (70-110)
[2024-11-11 12:58] LABS: Appearance,Urine Cloudy (Clear); Bacteria,Urine Rare /hpf; Bilirubin,Urine Negative (Negative); Blood,Urine Large (Negative); Color,Urine Light Yellow; Glucose,Urine (UA) Negative (Negative); Ketones,Urine Negative (Negative); Leukocyte Esterase,Urine Large (Negative); Mucus,Urine Rare /hpf; Nitrite,Urine Negative (Negative); Protein,Urine Trace (Negative); RBC,Urine 34 /hpf (0-5); Squamous Epithelial Cell,Urine 1 /hpf (0-4); Urobilinogen,Urine <2.0 mg/dL (<2.0); WBC,Urine 86 /hpf (0-5)
--- NOTE | 2024-11-11 13:29 | P.PN ---
Subjective Progress Note Date: 11/11/24 I am seeing the patient for the first time during this hospital visit Please refer to Dr. Mcmahon's note for further details. Seems the patient has altered mental status and it is felt due to metabolic encephalopathy. Patient had glucose as low as 59 and he has hypotensive episode and he is on IV fluid. He also has a history of significant alcohol use and there is concern for alcohol withdrawal. He has elevated liver function test. Pending to have MRI and EEG. Objective - Vital Signs Vital signs: Vital Signs Temp 95.9 F L 11/11/24 12:28 Pulse 53 L 11/11/24 12:22 Resp 20 11/11/24 12:22 BP 83/55 11/11/24 12:22 Pulse Ox 97 11/11/24 12:22 FiO2 35 11/11/24 00:57 Intake & Output 11/10/24 11/11/24 11/11/24 18:59 06:59 18:59 Intake Total 225 10 Output Total 600 Balance -375 10 Weight 75.75 kg 75.75 kg Intake: IV 10 Invasive Line 1 10 Intake, IV Titration 225 Amount Dextrose 5%-0.45% NaCl 1, 225 000 ml @ 75 mls/hr IV . [id number] ONE Rx#:[id number] Output: Urine 600 Other: Voiding Method Indwelling Catheter Indwelling Catheter Indwelling Catheter - Exam General: Lying in bed and does not appear in acute distress. Lung: Patient had multiple cough episode and he sounded very coarse. Neuro: Limited because of his overall condition. The patient has moderate to severe encephalopathy but is awake able to voice. He is oriented to self. He is following simple commands such as closing his eyes showing a thumbs up and he correctly stated regarding show on him glasses. Otherwise examination is limited. - Labs CBC & Chem 7: 11/11/24 06:46 11/11/24 06:46 Labs: Abnormal Lab Results - Last 24 Hours (Table) 11/10/24 11/10/24 11/11/24 Range/Units 13:33 15:43 00:18 RBC (4.30-5.90) m/uL Hgb (13.0-17.5) gm/dL Hct (39.0-53.0) % Plt Count (150-450) k/uL Sodium (137-145) mmol/L Chloride (98-107) mmol/L POC Glucose (mg/dL) 66 L (70-110) mg/dL AST (17-59) U/L ALT (4-49) U/L Alkaline Phosphatase (38-126) U/L Total Protein (6.3-8.2) g/dL Albumin (3.5-5.0) g/dL Vitamin B12 3181.0 H (200.0-944.0) pg/mL TSH 5.170 H (0.465-4.680) mIU/L 11/11/24 11/11/24 11/11/24 Range/Units 00:38 03:25 03:48 RBC (4.30-5.90) m/uL Hgb (13.0-17.5) gm/dL Hct (39.0-53.0) % Plt Count (150-450) k/uL Sodium (137-145) mmol/L Chloride (98-107) mmol/L POC Glucose (mg/dL) 230 H 53 L 169 H (70-110) mg/dL AST (17-59) U/L ALT (4-49) U/L Alkaline Phosphatase (38-126) U/L Total Protein (6.3-8.2) g/dL Albumin (3.5-5.0) g/dL Vitamin B12 (200.0-944.0) pg/mL TSH (0.465-4.680) mIU/L 11/11/24 11/11/24 Range/Units 06:46 06:46 RBC 4.16 L (4.30-5.90) m/uL Hgb 11.8 L (13.0-17.5) gm/dL Hct 37.9 L (39.0-53.0) % Plt Count 90 L (150-450) k/uL Sodium 146 H (137-145) mmol/L Chloride 114 H (98-107) mmol/L POC Glucose (mg/dL) (70-110) mg/dL AST 102 H (17-59) U/L ALT 137 H (4-49) U/L Alkaline Phosphatase 208 H (38-126) U/L Total Protein 5.6 L (6.3-8.2) g/dL Albumin 2.8 L (3.5-5.0) g/dL Vitamin B12 (200.0-944.0) pg/mL TSH (0.465-4.680) mIU/L Assessment and Plan Assessment: * Altered mental status, probably due to acute metabolic encephalopathy. Also concern for sepsis (has hypotensive, coughing and CT was suspicious for pneumonia). Possible alcohol withdrawal, impending DTs. Rule out acute CVA but I doubt it. * Hypothermia, unclear cause. * Hypothyroidism * Hypoglycemia * Concern for possible pneumonia * Elevated liver enzymes * Thrombocytopenia, likely due to alcoholism * History of prostate cancer, on chemotherapy * Chronic alcoholism * Diffuse seborrheic dermatitis involving arms and legs * Tobacco use Plan: * MRI of the brain with and without contrast * CTA of head and neck: Possibility moderate stenosis of proximal left internal carotid artery. Mild stenosis with diffuse calcification of the carotid siphons. * EEG evaluate for encephalopathy. * Patient is not diabetic, but his blood sugars have been running low. Watch for hypoglycemia. * Ammonia level is < 9 * B12: 3181, folate 6. Because of low folic acid is on supplement 1mg daily. * TSH 5.17, free T4 normal 0.99. Will defer to IM to address abnormal thyroid functions. * [facility] protocol. * ID consulted. Rule out cellulitis per Dr. Mcmahon. * Continue Eliquis 5 mg twice a day. * Discussed with family members in detail. Also with primary team N.P. Time with Patient: Less than 30
[2024-11-11 13:30] LABS: Specific Gravity,Urine >1.050 (1.001-1.035)
--- NOTE | 2024-11-11 14:46 | P.PN ---
Subjective Progress Note Date: 11/11/24 Hospital Course: Patient is a 79-year-old male with a past medical history of prostate cancer on oral chemotherapeutic agent with apalutamide, hypertension, COPD with continued nicotine dependence, and daily alcohol abuse. Family at bedside reports patient's last alcoholic drink was approximately 4 to 5 days ago and states he really likes his wine, but were not able to state exactly how much wine patient drinks daily but did confirm daily alcohol use. Patient presented to the emergency department with a chief complaint of altered mental status. Patient's family at bedside reports patient was at baseline mentation up until approxima tely 1 AM when he awoke and and they noted him to have increased confusion which progressively worsened accompanied by generalized weakness stating patient's daughter whom he resides with was unable to even get him up. They report normal appetite, denies any weight loss, denies any fevers or exposure to known ill contacts, denies any episodes of nausea vomiting, diarrhea, or patient expressing any complaints of pain or discomfort. Upon arrival to our facility patient is alert to person and place only and confused to time and situation. Patient did admit to daily alcohol use, but did not or was unable to express how much he drank daily. He denied having any complaints or pain at this time. Patient admits to continued nicotine dependence smoking cigarettes with last cigarette being yesterday. Patient and family deny any other drug use. Upon arrival to our facility, patient underwent evaluation in the emergency department. Vital signs upon arrival show blood pressure 115/68, heart rate 57, respiratory rate 20, temp 96.8 F, SpO2 of 100% on room air. Kjyry-fd-jyrm glucose was 59. EKG was completed showing atrial fibrillation with a slowed ventricular response at 58 bpm with nonspecific T wave abnormalities in inferior leads. Chest x-ray completed showing cardiomegaly but negative for acute cardiopulmonary process. CT brain completed negative for acute intercranial process showing moderate diffuse age related cerebral atrophy and mild to moderate chronic small vessel ischemic changes with bilateral maxillary sinus disease. Labs completed and reviewed. CBC showing thrombocytopenia with platelet count of 98 otherwise normal findings. Coagulation profile normal fin dings. BMP showing hyponatremia with sodium of 149 and hyperchloremia with chloride of 114. Renal function showing slightly elevated BUN of 21 otherwise normal findings. Blood glucose 82 with initial xvczr-tl-gbuh glucose of 59. Liver profile showing transaminitis with AST of 214, ALT of 216, and alkaline phosphatase of 273. Troponin was negative at less than 0.012. TSH elevated at 5.170 with normal free T4 of 0.99. Patient admitted under our services with consultation to neurology. Physical exam: Patient seen and fully evaluated at bedside. New family members at bedside this morning stating they are taking turns switching on and off to stay with patient. Patient's mentation worsening this morning, he has also developed hypotension and continues to be hypothermic which began yesterday evening around 6 PM. Elian hugger is in place. IV boluses administered. Discussed case with both infectious disease physician and neurologist in great detail and discussed with family current plan as well as concerns that pt may require transfer to ICU if temp and BP do not improve. Vital signs reviewed and stable. General: Nontoxic, no distress and appears stated age. Frail and emaciated appearance. Derm: Skin with bilateral upper and lower extremity rash, possibly psoriatic rash with scaling skin but no surrounding erythema or drainage noted. Head: Atraumatic, normocephalic and symmetric. Eyes: EOM's intact, no lid lag, and anicteric sclera Mouth: no lip lesions, mucus membranes moist Cardiovascular: regular rate and rhythm with normal S1S2, systolic murmur, positive posterior tibial pulses bilaterally, and cap refill < 2 seconds. Lungs: Respirations even, regular, and unlabored on room air. Lungs CTA bilaterally, no rhonchi, no rales, no wheezing, and no accessory muscle usage. Abdominal: soft, nontender to palpation, no guarding, no appreciable organomegaly Ext: No gross muscle atrophy, no edema, no contractures. Patient with generalized weakness appears slightly worse in right upper and lower extremity. Patient only following limited commands, so difficult to compare strength Neuro: Patient moaning with use of minimal words. When patient does speak words are clear but then goes back to moaning/gibberish sounds. Patient not following commands at this time.. Psych: Awake and alert but unable to state name or answer any other questions at this time occasionally states "fine" "no" and " good good". Assessment and Plan of Care: Acute metabolic encephalopathy, unclear cause suspect infectious process Hypothermia Hypotension Hyperchloremic hypernatremia, possibly secondary to dehydration -Order placed for STAT CT abd/pelvis and CTA head and neck due to elevated liver enzymes, AMS, and hypothermia. Rectal temp was 89.5 F -Order placed for Elian hugger with close monitoring of vital signs including temperature -Order placed for 2 L bolus lactated Ringer's -Continue neurochecks every 4 hours and maintain fall precautions. -Neurology following, discussed plan of care in great detail with neurologist. -Secondary to hypothermia, infectious disease consulted to assist with finding source of infection is currently no source of infection identified and patient and family denied having any complaints other than weakness and confusion with delayed and limited speech. -Will start patient on broad-spectrum antibiotics with cefepime 2 g every 8 hours and vancomycin 1500 mg every 16 hours. Follow-up on blood culture resu lts. -TSH slightly elevated at 5.170 with normal free T4 of 0.99 will obtain free T3 and total T3. Order also placed for cortisol level and creatinine kinase. -Telemetry monitoring. -Continue glycemic protocol with suztu-mv-hiwy glucose checks every 4 hours and as needed -PT/OT consulted -Continue aspirin 81 mg daily Daily alcohol abuse, possible alcohol withdraw Transaminitis, likely secondary to daily alcohol abuse Thrombocytopenia, likely secondary to daily alcohol abuse -Order placed for monitoring of CIWA scores and patient to be medicated with Ativan 0.5 mg every 4 hours as needed for CIWA score of 4-5, Ativan 1 mg every 4 hours for CIWA score of 6-7, Ativan 2 mg every 3 hours CIWA score of 8-9, and Ativan 2 mg every 2 hours forr CIWA score of 10 or greater. -Continuous IV hydration with D5 0.45% normal saline at 130 cc/h.. -Thiamine 100 mg daily, and Multivitamin daily, and Folate 1 mg daily -Seizure, fall, and aspiration precautions in place. -Urine drug screen negative -Continued close monitoring of electrolytes and replace as needed. -Telemetry monitoring. Prostate cancer -Hold chemotherapeutic agent apalutamide pending further workup Paroxysmal atrial fibrillation Hypertension -Continue anticoagulation with Eliquis 5 mg twice daily metoprolol 25 mg daily and hold for hypotension. Data and imaging reviewed: Morning labs reviewed. CBC showing normocytic anemia with hemoglobin of 11.8 and thrombocytopenia with platelet count of 98. BMP showing hyponatremia slightly improving with sodium 146 and hyperchloremia with chloride of 114. Blood glucose currently 85 but patient has had 2 additional episodes of hypoglycemia throughout the night resulting at 66 and 53, D5 0.45% normal saline was increased to 130 cc/h. Liver profile showing slight improvement with AST of 102, ALT of 137, and alkaline phosphatase of 208. CODE STATUS: Full code DVT prophylaxis: Eliquis Discussed with: Patient's family, RN, neurologist, and infectious disease physician. Anticipated discharge date: Pending clinical course Anticipated discharge place: Pending clinical course Patient was seen independently by Nurse Practitioner. This document was prepared using [employer] dictation software. Please allow for errors in perlite grinder while rare they do occur. Yogi Hunter NP rendered care for this patient independently, reviewed the findings and plan as documented in the note above and agree with plan. I did not physically speak with or examine the patient on this date. Objective - Vital Signs Vital signs: Vital Signs Temp 96.9 F L 11/11/24 07:59 Pulse 69 11/11/24 07:59 Resp 20 11/11/24 07:59 BP 84/51 11/11/24 07:59 Pulse Ox 93 L 11/11/24 07:59 FiO2 35 11/11/24 00:57 Intake & Output 11/10/24 11/11/24 11/11/24 18:59 06:59 18:59 Intake Total 225 Output Total 600 Balance -375 Weight 75.75 kg 75.75 kg Intake: Intake, IV Titration 225 Amount Dextrose 5%-0.45% NaCl 1, 225 000 ml @ 75 mls/hr IV . [id number] ONE Rx#:[id number] Output: Urine 600 Other: Voiding Method Indwelling Catheter Indwelling Catheter - Labs CBC & Chem 7: 11/11/24 06:46 11/11/24 06:46 Labs: Abnormal Lab Results - Last 24 Hours (Table) 11/10/24 11/10/24 11/10/24 Range/Units 09:12 09:12 09:17 RBC (4.30-5.90) m/uL Hgb (13.0-17.5) gm/dL Hct (39.0-53.0) % MCHC 30.9 L (31.0-37.0) g/dL Plt Count 98 L (150-450) k/uL Lymphocytes # 0.4 L (1.0-4.8) k/uL Sodium 149 H (137-145) mmol/L Chloride 114 H (98-107) mmol/L BUN 21 H (9-20) mg/dL POC Glucose (mg/dL) 59 L (70-110) mg/dL AST 214 H (17-59) U/L ALT 216 H (4-49) U/L Alkaline Phosphatase 273 H (38-126) U/L Total Protein (6.3-8.2) g/dL Albumin (3.5-5.0) g/dL Vitamin B12 (200.0-944.0) pg/mL TSH (0.465-4.680) mIU/L 11/10/24 11/10/24 11/11/24 Range/Units 13:33 15:43 00:18 RBC (4.30-5.90) m/uL Hgb (13.0-17.5) gm/dL Hct (39.0-53.0) % MCHC (31.0-37.0) g/dL Plt Count (150-450) k/uL Lymphocytes # (1.0-4.8) k/uL Sodium (137-145) mmol/L Chloride (98-107) mmol/L BUN (9-20) mg/dL POC Glucose (mg/dL) 66 L (70-110) mg/dL AST (17-59) U/L ALT (4-49) U/L Alkaline Phosphatase (38-126) U/L Total Protein (6.3-8.2) g/dL Albumin (3.5-5.0) g/dL Vitamin B12 3181.0 H (200.0-944.0) pg/mL TSH 5.170 H (0.465-4.680) mIU/L 11/11/24 11/11/24 11/11/24 Range/Units 00:38 03:25 03:48 RBC (4.30-5.90) m/uL Hgb (13.0-17.5) gm/dL Hct (39.0-53.0) % MCHC (31.0-37.0) g/dL Plt Count (150-450) k/uL Lymphocytes # (1.0-4.8) k/uL Sodium (137-145) mmol/L Chloride (98-107) mmol/L BUN (9-20) mg/dL POC Glucose (mg/dL) 230 H 53 L 169 H (70-110) mg/dL AST (17-59) U/L ALT (4-49) U/L Alkaline Phosphatase (38-126) U/L Total Protein (6.3-8.2) g/dL Albumin (3.5-5.0) g/dL Vitamin B12 (200.0-944.0) pg/mL TSH (0.465-4.680) mIU/L 11/11/24 11/11/24 Range/Units 06:46 06:46 RBC 4.16 L (4.30-5.90) m/uL Hgb 11.8 L (13.0-17.5) gm/dL Hct 37.9 L (39.0-53.0) % MCHC (31.0-37.0) g/dL Plt Count 90 L (150-450) k/uL Lymphocytes # (1.0-4.8) k/uL Sodium 146 H (137-145) mmol/L Chloride 114 H (98-107) mmol/L BUN (9-20) mg/dL POC Glucose (mg/dL) (70-110) mg/dL AST 102 H (17-59) U/L ALT 137 H (4-49) U/L Alkaline Phosphatase 208 H (38-126) U/L Total Protein 5.6 L (6.3-8.2) g/dL Albumin 2.8 L (3.5-5.0) g/dL Vitamin B12 (200.0-944.0) pg/mL TSH (0.465-4.680) mIU/L
[2024-11-11] MEDS: HYDROCORTISONE SUCCINATE 100 MG/2 ML VIAL IV STA (15:16)
[2024-11-11] MEDS: GLUCAGON 1 MG/ML VIAL IVP STA (15:18)
[2024-11-11 16:08] LABS: Glucose,Whole Blood 78 mg/dL (70-110)
[2024-11-11] MEDS: NOREPINEPHRINE 4 MG in SODIUM CHLORIDE 0.9% 250 ML IV SCH (17:09)
[2024-11-11 18:29] LABS: African American GFR (CKD) 72 (>60 ml/min/1.73 sqM); Anion Gap 7 mmol/L; Blood Urea Nitrogen 16 mg/dL (9-20); Calcium 8.6 mg/dL (8.4-10.2); Carbon Dioxide 24 mmol/L (22-30); Chloride 113 mmol/L (98-107); Glucose 62 mg/dL (74-99); Non-African American GFR(CKD) 62 (>60 ml/min/1.73 sqM); Sodium 144 mmol/L (137-145)
[2024-11-11] MEDS: THIAMINE 500 MG in SODIUM CHLORIDE 0.9% 50 ML IVPB SCH (18:30)
--- NOTE | 2024-11-11 19:02 | P.PN ---
Progress Note - Text Progress Note Date: 11/11/24 Hospital Course: Patient is a 79-year-old male with a past medical history of prostate cancer on oral chemotherapeutic agent with apalutamide, COPD with continued nicotine dependence, and daily alcohol abuse. Family reported patient's last alcoholic drink was on 11/06/24 and reported pt drinking a clement and wine daily for nearly 50 years. Patient presented to the emergency department on 11/10/24 with a chief complaint of altered mental status. Patient's family reported patient was at baseline mentation up until approximately 1 AM on day of arrival when he awoke and was noted to have increased confusion and didnt't even recognize them and was then noted to have generalized weakness and was unable to even stand. They reported up until this he had a normal appetie and denied any recent weight loss, fevers or exposure to known ill contacts, episodes of vomiting or diarrhea, or patient expressing any complaints of pain or discomfort. Upon arrival to our facility patient was alert to person and place only and confused to time and situation. Patient did admit to daily alcohol use, but did not or was unable to express how much he drank daily. He denied having any complaints or pain at this time. Patient did report nicotine dependence smoking 1 pack of cigarettes with last cigarette being yesterday. Patient and family deny any other drug use. Upon arrival to our facility, patient underwent evaluation in the emergency department. Vital signs upon arrival show blood pressure 115/68, heart rate 57, respiratory rate 20, temp 96.8 F, SpO2 of 100% on room air. Tlple-lx-jpib glucose was initially 59. EKG was completed showing atrial fibrillation with a slowed ventricular response at 58 bpm with nonspecific T wave abnormalities in inferior leads. Chest x-ray completed showing cardiomegally but negative for acute cardiopulmonary process. CT brain completed negative for acute intercranial process showing moderate diffuse age related cerebral atrophy and mild to moderate chronic small vessel ischemic c hanges with bilateral maxillary sinus disease. Labs completed and reviewed. CBC showing thrombocytopenia with platelet count of 98 otherwise normal findings. Coagulation profile normal findings. BMP showing hyponatremia with sodium of 149 and hyperchloremia with chloride of 114. Renal function showing slightly elevated BUN of 21 otherwise normal findings. Blood glucose 82 with initial yiezo-ay-gkzp glucose of 59. Liver profile showing transaminitis with AST of 214, ALT of 216, and alkaline phosphatase of 273. Troponin was negative at less than 0.012. TSH elevated at 5.170 with normal free T4 of 0.99. Patient admitted under our services with consultation to neurology. In the evening of 11/10/2024 received notification that patient was found to be hypothermic at this time. Order placed for rectal temp which resulted at 89.5 F. Patient placed on Elian hugger. Order placed for lactic acid which was negative at 1.2 and vital signs otherwise stable at this time with blood pressure 101/62, heart rate 58, respiratory rate 15, and SpO2 of 98% on room air. Called and discussed newly developed findings of hypothermia with neurologist as hypothermia could be a sign of ischemic stroke and additional orders placed at this time including TSH with free T4, blood cultures, stat CT abdomen and pelvis with IV contrast and transferr to [facility]. 11/11/24: Patient's mentation worsening and he had 2 additional episodes of hypoglycemia overnight and is now hypotensive. Patient given 2 L bolus of lactated Ringer's and placed on broad-spectrum antibiotics with vancomycin and cefepime, consult placed to infectious disease for assistance with identification of source of infection. CT abdomen and pelvis previously ordered not yet completed, CT called and notified again of stat need of CT and patient to be taken down for imaging at this time.TSH slightly elevated at 5.170 with normal free T4 of 0.99 will obtain free T3 and total T3. Order also placed for cortisol level, procalcitonin and creatinine kinase. Blood pressure 84/51 with heart rate of 69 and shortly after initiation of IV fluid bolus, blood pressure improving to 94/46. CTA head and neck showing moderate stenosis of the proximal left internal carotid artery and mild stenosis with diffuse calcification of carotid siphons and maxillary sinusitis. Discussed findings with neurologist, Dr. Luciano awaiting completion of MRI for further recommendations. Patient scheduled undergo MRI later this afternoon. CT abdomen and pelvis reporting acute cardiopulmonary disease in the lung bases left greater than right concerning for fluid overload versus pneumonia and reports of distended gallbladder. Consult placed to general surgery for evaluation. Discussed with infectious disease, recommendations on IV antibiotic management at this time. Received notification from RN at 1:45 PM that IV fluid boluses were completed and patient's blood pressure now 81/55 with rectal temp of 95.9 F on Elian hugger. Went to bedside to reevaluate patient and placed orders for repeat lactate, glucagon 1 mg IVP and Solu-Cortef 100 mg every 8 hours. Discussed with family patient will likely need transfer to ICU for vasopressors and closer management. Called and discussed case in detail with intensive care physician/restaurant and bar manager Dr. Luciano and intensive care PLASTERER MAINTENANCE. Patient to be given an additional 2 L bolus of lactated Ringer's and was accepted for transfer to ICU. Physical exam: Vital signs reviewed and stable. General: Nontoxic, no distress and appears stated age. Frail and emaciated appearance. Derm: Skin with bilateral upper and lower extremity rash, possibly psoriatic rash with scaling skin but no surrounding erythema or drainage noted. Head: Atraumatic, normocephalic and symmetric. Eyes: EOM's intact, no lid lag, and anicteric sclera Mouth: no lip lesions, mucus membranes moist Cardiovascular: regular rate and rhythm with normal S1S2, systolic murmur, positive posterior tibial pulses bilaterally, and cap refill < 2 seconds. Lungs: Respirations even, regular, and unlabored on room air. Lungs CTA bi laterally, no rhonchi, no rales, no wheezing, and no accessory muscle usage. Abdominal: soft, nontender to palpation, no guarding, no appreciable organomegaly Ext: No gross muscle atrophy, no edema, no contractures. Patient with generalized weakness appears slightly worse in right upper and lower extremity. Patient only following limited commands, so difficult to compare strength Neuro: Patient moaning with use of minimal words. When patient does speak words are clear but then goes back to moaning/gibberish sounds. Patient not following commands at this time.. Psych: Awake and alert but unable to state name or answer any other questions at this time occasionally states "fine" "no" and " good good". Assessment and Plan of Care: Severe Sepsis and Septic shock with hypothermia, hypotension, and hypoglycemia. Unclear source. Acute metabolic encephalopathy, likely secondary to above however cannot rule out Warnicke's encephalitis vs neurological process -Patient transferred to ICU secondary to need for vasopressors and closer monitoring. Discussed in detail with intensive care physician and P[employer]TE[employer]. -Continue Elian hugger with close monitoring of vital signs including temperature -Continue neurochecks every 4 hours and maintain fall precautions. -Neurology following, discussed plan of care in great detail with neurologist Dr. Luciano. -Infectious disease following, discussed plan in detail with Dr. Pollock we will continue with current antibiotic regimen with cefepime 2 g every 8 hours and vancomycin 1500 mg every 16 hours pending further results. -Follow-up on blood culture results continue to await creatinine kinase level. Procalcitonin was negative at 0.12. -TSH slightly elevated at 5.170 with normal free T4 of 0.99 and normal free T3 of 2.30 and total T3 of 110.0. -Telemetry monitoring. -Continue glycemic protocol with lkzxz-ke-wmgw glucose checks every 4 hours and as needed Paroxysmal atrial fibrillation with a slowed ventricular response -Continue anticoagulation with Eliquis 5 mg twice daily and metoprolol discontinued secondary to hypotension and bradycardia. -Consult placed to cardiology and discussed case with Dr. Acevedo. Daily alcohol abuse, possible alcohol withdraw Transaminitis, possibly secondary to daily alcohol abuse vs sepsis Thrombocytopenia, possibly secondary to daily alcohol abuse vs sepsis -Continue monitoring of CIWA scores and patient to be medicated with Ativan 0.5 mg every 4 hours as needed for CIWA score of 4-5, Ativan 1 mg every 4 hours for CIWA score of 6-7, Ativan 2 mg every 3 hours CIWA score of 8-9, and Ativan 2 mg every 2 hours forr CIWA score of 10 or greater. -Continuous IV hydration with D5 0.45% normal saline at 130 cc/h.. -Thiamine 500 mg 3 times daily x 3 days then decrease to 250 mg 3 times daily x 5 days then 100 mg daily. -Seizure, fall, and aspiration precautions in place. -Urine drug screen negative -Continued close monitoring of electrolytes and replace as needed. -Telemetry monitoring. Prostate cancer -Hold chemotherapeutic agent apalutamide pending further workup A Total of 39 minutes of critical care time was spent on the complex care of this patient. Patient requiring transfer from 3 S. to ICU. Discussed in detail with consulted physicians including pelletizer operator, neurologist, infectious disease physician, and forest aide. Family was updated on plan of care and all questions answered. Yogi Hunter NP rendered care for this patient independently, reviewed the findings and plan as documented in the note above and agree with plan. I did not physically speak with or examine the patient on this date.
[2024-11-11 20:41] LABS: Glucose,Whole Blood 94 mg/dL (70-110)
[2024-11-11 23:10] LABS: Glucose,Whole Blood 81 mg/dL (70-110)
[2024-11-12] MEDS: HYDROCORTISONE SUCCINATE 100 MG/2 ML VIAL IV SCH (00:47)
[2024-11-12] MEDS: PIPERACILLIN-TAZOBACTAM 3.375 GM in SODIUM CHLORIDE 0.9% 100 ML IVPB SCH (00:47)
[2024-11-12 03:30] LABS: Glucose,Whole Blood 110 mg/dL (70-110)
--- NOTE | 2024-11-12 06:58 | XR ---
EXAMINATION TYPE: XR chest 1V DATE OF EXAM: 11/12/2024 COMPARISON: 11/11/2024 CLINICAL INDICATION: Male, 79 years old with history of pneumonia; TECHNIQUE: Single frontal view of the chest is obtained. FINDINGS: There are scattered mild interstitial opacities which may reflect mild chronic interstitial change. T here is improved aeration in the left lung base. There is a possible tiny left pleural effusion. There is no pneumothorax. The heart size is normal for the technique. IMPRESSION: Mild acute cardiopulmonary process versus mild chronic interstitial changes. No interval change [facility], , 11/12/2024 6:55 AM
--- NOTE | 2024-11-12 07:31 | P.CONS ---
History of Present Illness - Reason for Consult Consult date: 11/11/24 Rash bilateral arm and leg hypothermia Requesting physician: Yogi Hunter - Chief Complaint Weakness mental status changes x 1 day - History of Present Illness Patient is a 79-year-old male with a past medical history significant for COPD prostate cancer for the patient has been on chemo and radiation therapy patient has been brought into the hospital concerning for increased confusion and weakness over 24 hours apparently the patient was doing well being her baseline the day before presentation to the hospital as a history provided by the daughter at the bedside patient was noted to be increasingly weak fatigue and unable to do activities of his daily living there is no clear history of any high-grade fever or any chills headache nausea vomiting or any diarrhea on presentation to the hospital patient was initially febrile subsequently become hypothermic with a temperature down to 89.5 F patient was also bradycardic and mildly hypotensive but not requiring any pressor support patient was hypoxic at 1 point but currently on room air patient did have a white count of 4.0 creatinine 0.87 electrolytes has been normal initial lactic acid was normal l iver enzymes are mildly elevated UA was negative however repeat UA is positive urine drug screen influenza RSV COVID testing was negative blood cultures obtained which are currently pending he did have a chest x-ray that was reported cardiomegaly without acute cardiopulmonary process repeat chest x-ray mild acute pulmonary vascular disease he did have abdominal pelvis CT left lung infiltrate suspicious for pneumonia and distended gallbladder patient was started on cefepime and vancomycin infectious disease was consulted for further management of antibiotic therapy Review of Systems Positive point and negatives has been mentioned in the HPI, complete review of systems was performed and all other systems are negative Past Medical History Past Medical History: Cancer, COPD, Prostate Disorder Additional Past Medical History / Comment(s): Recent diagnosis of prostate cancer. Taking oral chemo. Starts radiation on Wednesday01/10/24 History of Any Multi-Drug Resistant Organisms: None Reported Past Surgical History: No Surgical Hx Reported Additional Past Surgical History / Comment(s): Cataract surgery Past Anesthesia/Blood Transfusion Reactions: No Reported Reaction Past Psychological History: No Psychological Hx Reported Smoking Status: Former smoker Past Alcohol Use History: None Reported Past Drug Use History: None Reported - Past Family History Father Family Medical History: COPD, Diabetes Mellitus Mother Family Medical History: Diabetes Mellitus Medications and Allergies Home Medications Medication Instructions Recorded Confirmed Type Albuterol Sulfate [Albuterol 2 puff INHALATION RT-Q4H PRN 01/07/24 11/10/24 History Sulfate Hfa] Apixaban [Eliquis] 5 mg PO BID #60 tab 01/09/24 11/10/24 Rx Apalutamide [Erleada] 120 mg PO DAILY 11/10/24 11/10/24 History Metoprolol Tartrate [Lopressor] 25 mg PO DAILY 11/10/24 11/10/24 History Allergies Allergy/AdvReac Type Severity Reaction Status Date / Time No Known Allergies Allergy Verified 11/10/24 09:46 Physical Exam Vitals: Vital Signs Temp Pulse Pulse Resp BP BP BP 11/11/24 10:45 96.1 F L 11/11/24 09:47 97.1 F L 88/51 11/11/24 08:34 78 11/11/24 08:22 76 11/11/24 07:59 96.9 F L 69 20 84/51 11/11/24 06:57 98.1 F 11/11/24 05:33 97/47 11/11/24 05:09 97.5 F L 11/11/24 03:35 98.3 F 11/11/24 03:23 98.3 F 11/11/24 03:14 97.7 F 77 18 93/60 11/11/24 00:57 11/10/24 23:05 94.8 F L 67 16 96/57 11/10/24 20:00 95.5 F L 58 L 16 94/60 11/10/24 17:51 89.5 F L 11/10/24 17:00 94.3 F L 11/10/24 15:00 58 L 15 101/62 11/10/24 14:18 97.3 F L 54 L 16 103/71 11/10/24 13:00 65 16 93/67 Pulse Ox FiO2 11/11/24 10:45 11/11/24 09:47 11/11/24 08:34 11/11/24 08:22 97 11/11/24 07:59 93 L 11/11/24 06:57 11/11/24 05:33 11/11/24 05:09 11/11/24 03:35 11/11/24 03:23 11/11/24 03:14 95 11/11/24 00:57 35 03/07/25 23:05 94 L 11/10/24 20:00 98 11/10/24 17:51 11/10/24 17:00 11/10/24 15:00 98 11/10/24 14:18 97 11/10/24 13:00 98 Intake and Output 11/10/24 11/11/24 11/11/24 22:59 06:59 14:59 Intake Total 225 10 Output Total 600 Balance -375 10 Intake: IV 10 Invasive Line 1 10 Intake, IV Titration 225 Amount Dextrose 5%-0.45% NaCl 1, 225 000 ml @ 75 mls/hr IV . [id number] [facility] Rx#:[id number] Output: Urine 600 Other: Voiding Method Indwelling Catheter Indwelling Catheter Indwelling Catheter Weight 75.75 kg GENERAL DESCRIPTION: Elderly male lying in bed, no distress. No tachypnea or accessory muscle of respiration use. HEENT: Shows Pallor , no scleral icterus. Oral mucous membrane is dry. NECK: Trachea central, no thyromegaly. LUNGS: Unlabored breathing. Decreased intensity of breath sounds HEART: S1, S2, regular rate and rhythm. No loud murmur ABDOMEN: Soft, no tenderness , EXTREMITIES: No edema of feet. SKIN: Patient did have a desquamating rash on the upper lower extremity which is related to his cancer treatment as reported by the daughter and not new NEUROLOGICAL: The patient is lethargic but arousable no neck rigidity Results CBC & Chem 7: 11/11/24 06:46 11/11/24 17:31 Labs: Abnormal Lab Results - Last 24 Hours (Table) 11/10/24 11/10/24 11/11/24 Range/Units 13:33 15:43 00:18 RBC (4.30-5.90) m/uL Hgb (13.0-17.5) gm/dL Hct (39.0-53.0) % Plt Count (150-450) k/uL Sodium (137-145) mmol/L Chloride (98-107) mmol/L POC Glucose (mg/dL) 66 L (70-110) mg/dL AST (17-59) U/L ALT (4-49) U/L Alkaline Phosphatase (38-126) U/L Total Protein (6.3-8.2) g/dL Albumin (3.5-5.0) g/dL Vitamin B12 3181.0 H (200.0-944.0) pg/mL TSH 5.170 H (0.465-4.680) mIU/L 11/11/24 11/11/24 11/11/24 Range/Units 00:38 03:25 03:48 RBC (4.30-5.90) m/uL Hgb (13.0-17.5) gm/dL Hct (39.0-53.0) % Plt Count (150-450) k/uL Sodium (137-145) mmol/L Chloride (98-107) mmol/L POC Glucose (mg/dL) 230 H 53 L 169 H (70-110) mg/dL AST (17-59) U/L ALT (4-49) U/L Alkaline Phosphatase (38-126) U/L Total Protein (6.3-8.2) g/dL Albumin (3.5-5.0) g/dL Vitamin B12 (200.0-944.0) pg/mL TSH (0.465-4.680) mIU/L 11/11/24 11/11/24 Range/Units 06:46 06:46 RBC 4.16 L (4.30-5.90) m/uL Hgb 11.8 L (13.0-17.5) gm/dL Hct 37.9 L (39.0-53.0) % Plt Count 90 L (150-450) k/uL Sodium 146 H (137-145) mmol/L Chloride 114 H (98-107) mmol/L POC Glucose (mg/dL) (70-110) mg/dL AST 102 H (17-59) U/L ALT 137 H (4-49) U/L Alkaline Phosphatase 208 H (38-126) U/L Total Protein 5.6 L (6.3-8.2) g/dL Albumin 2.8 L (3.5-5.0) g/dL Vitamin B12 (200.0-944.0) pg/mL TSH (0.465-4.680) mIU/L Assessment and Plan (1) Altered mental status Current Visit: Yes Status: Acute Code(s): R41.82 - ALTERED MENTAL STATUS, UNSPECIFIED SNOMED Code(s): 500831802 (2) Pneumonia Current Visit: No Status: Acute Code(s): J18.9 - PNEUMONIA, UNSPECIFIED ORGANISM SNOMED Code(s): 074568807 Plan: 1patient presented to hospital with mental status changes confusion and weakness source likely left lower lobe pneumonia and his question of possible gallbladder disease will need to direct antibiotic therapy mostly towards p neumonia or possible aspiration pneumonia/gram-negative and intra-abdominal gram-negative pathogen less likely risk for composite infection such as MRSA 2-patient benefit from ultrasound of the gallbladder surgery has been consulted has ordered HIDA scan 3-discontinue vancomycin and cefepime 4-start the patient on Zosyn 3.375 g every 8 hours Daughter at the bedside question answered We will follow on clinical condition and cultures to further adjust medication if needed Thank you for this consultation we will follow the patient along with you Dictation was produced using [employer] dictation software. please excuse any grammatical, word or spelling errors. Time with Patient: Greater than 30
[2024-11-12 08:16] LABS: Glucose,Whole Blood 117 mg/dL (70-110)
[2024-11-12 08:24] LABS: ABG Base Excess -2.5 mmol/L; ABG HCO3 22 mmol/L (21-25); ABG Oxygen Saturation 96.9 % (94-97); ABG PCO2 37 mmHg (35-45); ABG PH 7.39 (7.35-7.45); ABG PO2 91 mmHg (83-108); ABG TCO2 23 mmol/L (19-24); Allen Test Performed? Yes
[2024-11-12] MEDS: PANTOPRAZOLE 40 MG/10 ML VIAL IV SCH (08:32)
[2024-11-12] MEDS: DOPamine DRIP 800 MG in DEXTROSE/WATER 1 250ML.BAG IV SCH (09:06)
[2024-11-12] MEDS: LORazepam 1 MG/0.5 ML VIAL IV PRN (10:06)
--- NOTE | 2024-11-12 10:06 | P.CON ---
Consult Note - . Consult date: 11/12/24 Assessment/Plan:: 79-year-old male presented to the [facility] ED with confusion and weakness over the past 24 hours. No reported focal numbness or weakness. No pain complaints including no headache, no chest pain or abdominal pain. No vomiting. Nursing staff bedside in ICU and helpful with history. He was diagnosed with a UTI in the ER. He had a CT-AP which showed a distended gallbladder without evidence of cholecystitis Review of Systems ROS Statement: Those systems with pertinent positive or pertinent negative responses have been documented in the HPI. ROS Other: All systems not noted in ROS Statement are negative. Past Medical History Past Medical History: Cancer, COPD, Prostate Disorder Additional Past Medical History / Comment(s): Recent diagnosis of prostate cancer. Taking oral chemo. Starts radiation on Wednesday01/10/24 History of Any Multi-Drug Resistant Organisms: None Reported Past Surgical History: No Surgical Hx Reported Additional Past Surgical History / Comment(s): Cataract surgery Past Anesthesia/Blood Transfusion Reactions: No Reported Reaction Past Psychological History: No Psychological Hx Reported Smoking Status: Former smoker Past Alcohol Use History: None Reported Past Drug Use History: None Reported General Exam Limitations: no limitations General appearance: in no apparent distress, lethargic Head exam: Present: atraumatic, normocephalic Eye exam: Present: normal appearance, PERRL ENT exam: Present: mucous membranes dry Neck exam: Present: normal inspection Respiratory exam: Present: normal lung sounds bilaterally, decreased breath sounds. Absent: respiratory distress, wheezes Cardiovascular Exam: Present: regular rate, irregular rhythm GI/Abdominal exam: Present: soft. Absent: distended, tenderness, guarding Extremities exam: Present: pedal edema (Chronic venous stasis) Neurological exam: Present: alert, CN II-XII intact. Absent: oriented X3, motor sensory deficit Skin exam: Present: warm, dry, intact 79 year old male with Gallbladder Distention without obvious evidence of cholecystitis on CT-AP -HIDA scan ordered to rule out cholecystitis -Zosyn -Regular Diet -ICU care -Further recs pending TAMMIE Martin [facility] [phone]
[2024-11-12 11:35] LABS: Glucose,Whole Blood 110 mg/dL (70-110)
--- NOTE | 2024-11-12 11:46 | P.PN ---
Subjective Progress Note Date: 11/12/24 79 year old M with history of prostate cancer on oral chemotherapeutic agent with apalutamide, COPD with continued nicotine dependence, and daily alcohol abuse. Family reported patient's last alcoholic drink was on 11/06/24 and reported drinking a clement and wine daily for nearly 50 years Patient presented to the emergency department on 11/10/24 with a chief complaint of altered mental status. Patient's family reported patient was at baseline mentation up until approximately 1 AM on day of arrival when he awoke and was noted to have increased confusion and didn't even recognize them and was then noted to have generalized weakness and was unable to even stand. They reported up until this he had a normal appetite and denied any recent weight loss, fevers or exposure to known ill contacts, episodes of vomiting or diarrhea, or patient expressing any complaints of pain or discomfort. Upon arrival to our facility patient was alert to person and place only and confused to time and situation. Patient did admit to daily alcohol use, but did not or was unable to express how much he drank daily. He denied having any complaints or pain at this time. Patient and family deny any other drug use. Patient underwent evaluation in the emergency department. BP 115/68, HR 57, RR 20, T 96.8 F, SpO2 of 100% on RA. Ahkfc-nh-odoc glucose was initially 59. EKG was completed showing AFib with a slowed ventricular response at 58 bpm with nonspecific T wave abnormalities in inferior leads. Chest x-ray showed no acute process. CT brain showed no acute process, diffuse age related cerebral atrophy and mild to moderate chronic small vessel ischemic changes with bilateral maxillary sinus disease. CBC, Coag panel, CMP significant for Plt 98, Na 149, Cl 114, BUN 21, AST 214, ALT 216, alk phos 273. Troponin <0.012. TSH 5.170, free T4 0.99. UDS neg. UA neg. COVID, RSV, Flu neg. Patient admitted under our services with consultation to neurology. Patient was noted to have a Tlow of 89.5F rectal on 11/10. He was placed on Elian hugger. Lactic acid was 1.2 and vital signs were stable. CT AP and blood cult ures were ordered. Patient was noted to by hypotensive on 11/11 along with persistent hypoglycemic. He was given a 2L LR bolus and started on Vancomycin and Cefepime. ID was consulted, antibiotics switched to Zosyn. CTA head and neck showing moderate stenosis of the proximal left internal carotid artery and mild stenosis with diffuse calcification of carotid siphons and maxillary sinusitis. Discussed findings with neurologist, Dr. Luciano awaiting completion of MRI for further recommendations. CT abdomen and pelvis reporting acute cardiopulmonary disease in the lung bases left greater than right concerning for fluid overload versus pneumonia and reports of distended gallbladder. Consult placed to general surgery for evaluation, HIDA scan ordered. Transferred to ICU for persistent hypotension. 11/12 Patient was seen and examined. He is groaning and attempting to climb out of bed. He is re-directable however. Currently on Levophed at 0.01 mcg/kg/min, SoluCortef at 100 mg IV TID and Dopamine at 5 mcg/kg/min. Antibiotics include Zosyn 3.75g IV TID. Also on Thiamine 500 mg IV TID. Fluids include D5 1/2 NS at 130 cc/hr. CBC, CMP, Mag is ordered and pending at the time of this note. ABG shows pH 7.39, pCO2 37, pO2 91 on FiO2 21. EKG ordered this morning shows A-Fib with slow ventricular rate. CXR shows scattered interstitial opacities. General: non toxic, moderate distress, appears at stated age Derm: warm, dry, scaling rash over BL upper and lower extremities without erythema Head: atraumatic, normocephalic, symmetric Eyes: EOMI, no lid lag, anicteric sclera Mouth: no lip lesion, mucus membranes moist Cardiovascular: S1S2 irreg, no murmur Lungs: CTA bilateral, no rhonchi, no rales , no accessory muscle use Abdominal: soft, nontender to palpation, no guarding, no appreciable organomegaly Ext: no gross muscle atrophy, no edema, no contractures Neuro: Moving all 4 extremities. Unable to examine cranial nerves Psych: Groaning and attempting to climb out of bed. He is re-directable Based on my assessment of this patient, this patient meets a high complexity level of care. Sepsis unknown etiology: Hypotension with hypothermia. Procal 0.12. Cortisol 17.1. UA neg. Follow blood culture. Trend lactic acid until normal. Continue Zosyn 3.75 g IV TID. Elian hugger if needed. Levophed to maintain MAP > 65. Continue D5 1/2 NS at 130 cc/hr. Telemetry monitoring. ID on board. Possible aspiration pneumonia: ST consulted for formal swallow eval. Should be covered with Zosyn as above. Gallbladder distention with concerns of cholecystitis: Should be covered with Zosyn as above. HIDA scan ordered by Surgery for findings on CT AP. Hypoglycemia: D5 1/2 NS as above. Concerns for Wernickes encephalopathy: Thiamine 500 mg IV TID. Acute metabolic encephalopathy likely related to above: B12 3181. Folate 6. TSH 5.17, FT4 0.99. CT brain and CTA head and neck as above. MRI brain and EEG pending. Neurology on board. Atrial fibrillation with slow ventricular rate: Cardiology has started Dopamine at 5 mcg/kg/min. Avoid AV alba blockers. Metoprolol discontinued. Eliquis 5 mg PO BID for AC. Cardiology on board. Alcohol abuse: CIWA protocol with Ativan PRN. Transaminitis and Thrombocytopenia likely related to EtOH abuse. Subclinical hypothyroidism: Repeat TSH/FT4 in 6 weeks. CODE STATUS: FULL CODE DVT Prophylaxis: Eliquis GI Prophylaxis: Protonix IV Designated medical POA if patient is not able to make medical decisions for themselves: I have reviewed the following senior energy consultant notes: Surgery, ID, Neurology, Pulmonary. I have reviewed the results of the following tests: ABG. I have ordered the following tests: I have discussed the care of this patient with the following independent historian: HAKAN. I have independently interpreted the following test below: EKG. I have discussed the management of this patient with the following physician: Objective - Vital Signs Vital signs: Vital Signs Temp 97.4 F L 11/12/24 10:00 Pulse 52 L 11/12/24 10:15 Resp 13 11/12/24 10:15 BP 99/85 11/12/24 10:15 Pulse Ox 94 L 11/12/24 10:15 FiO2 35 11/11/24 00:57 Intake & Output 11/11/24 11/12/24 11/12/24 17:59 06:59 18:59 Intake Total 665.003 Output Total 170 Balance 495.003 Weight Intake: IV 520 Dextrose 5%-0.45% NaCl 1, 520 000 ml @ 130 mls/hr IV . [facility] Rx#:[id number] Invasive Line 1 Invasive Line 2 Lactated Ringers 1,000 ml @ 999 mls/hr IV Q65M [facility] Rx#:[id number] Intake, IV Titration 145.003 Amount DOPamine DRIP 800 mg In 4.214 Dextrose/Water 1 250ml. bag @ 1 MCG/KG/MIN 1.453 mls/hr IV .Q24H [facility] Rx#: [id number] Norepinephrine 4 mg In 140.789 Sodium Chloride 0.9% 250 ml @ 0.03 MCG/KG/MIN 8. 658 mls/hr IV .Q24H [facility] Rx#:[id number] Output: Urine 170 Other: Voiding Method # Bowel Movements - Labs CBC & Chem 7: 11/11/24 06:46 11/11/24 17:31 Labs: Abnormal Lab Results - Last 24 Hours (Table) 11/11/24 11/11/24 11/11/24 Range/Units 12:30 15:41 17:31 Hemoglobin (13.0-17.5) gm/dL Chloride 113 H (98-107) mmol/L Glucose 62 L (74-99) mg/dL POC Glucose (mg/dL) (70-110) mg/dL Plasma Lactic Acid Juan 2.2 H* (0.7-2.0) mmol/L Ur Specific [place] >1.050 H (1.001-1.035) Urine Protein Trace H (Negative) Urine Blood Large H (Negative) Ur Leukocyte Esterase Large H (Negative) Urine RBC 34 H (0-5) /hpf Urine WBC 86 H (0-5) /hpf Urine Bacteria Rare H (None) /hpf Urine Mucus Rare H (None) /hpf 11/11/24 11/12/24 11/12/24 Range/Units 19:53 08:14 08:21 Hemoglobin 12.1 L (13.0-17.5) gm/dL Chloride (98-107) mmol/L Glucose (74-99) mg/dL POC Glucose (mg/dL) 117 H (70-110) mg/dL Plasma Lactic Acid Juan 2.3 H* (0.7-2.0) mmol/L Ur Specific [place] (1.001-1.035) Urine Protein (Negative) Urine Blood (Negative) Ur Leukocyte Esterase (Negative) Urine RBC (0-5) /hpf Urine WBC (0-5) /hpf Urine Bacteria (None) /hpf Urine Mucus (None) /hpf Microbiology - Last 24 Hours (Table) 11/10/24 19:00 Blood Culture - Preliminary Blood
--- NOTE | 2024-11-12 12:41 | P.CNPUL ---
History of Present Illness Consult date: 11/12/24 Requesting physician: Miah Kim Reason for consult: other Chief complaint: ICU management, hypotension. History of present illness: Pulmonary consult dated November 12, 2024. 79-year-old black male, who was seen in the emergency department, on November 10, for mental status changes. The patient apparently presented with confusion, and weakness, for a day or 2 prior to admission. The patient was admitted to the general medical floor, and yesterday, the patient was transferred to the intens russell care unit, for hypotension. The patient also had hyponatremia, and dehydration on admission. He came to the intensive care unit, on November 11. His procalcitonin level was 0.12. Blood gases showed a pO2 of 91, pCO2 37, pH is 7.39. Currently he is on room air. He is getting D5 with half-normal saline at 130 cc an hour. He continues on norepinephrine at 2 mcg/min for his blood pressure. He also was on dopamine 1 mcg/kg/min, for bradycardia. The patient will be started on the CIWA protocol. The patient continues on Zosyn. Current laboratory data includes a blood gas as previously mentioned. No additional lab data from today is noted. Viral screen was negative. Drug screen was negative. Review of Systems REVIEW OF SYSTEMS: CONSTITUTIONAL: Weakness. NEUROLOGIC: Acute mental status changes. HEENT: [ Negative.] CARDIAC: Hypotension. PULMONARY: [Negative.] GI: [Negative.] : [Negative.] RHEUMATOLOGIC: [ Negative.] IMMUNOLOGIC: [ Negative.] ENDOCRINE: [Negative. ] DERMATOLOGIC: [Negative.] Past Medical History Past Medical History: Cancer, COPD, Prostate Disorder Additional Past Medical History / Comment(s): Recent diagnosis of prostate cancer. Taking oral chemo. Starts radiation on Wednesday01/10/24 History of Any Multi-Drug Resistant Organisms: None Reported Past Surgical History: No Surgical Hx Reported Additional Past Surgical History / Comment(s): Cataract surgery Past Anesthesia/Blood Transfusion Reactions: No Reported Reaction Past Psychological History: No Psychological Hx Reported Smoking Status: Former smoker Past Alcohol Use History: None Reported Past Drug Use History: None Reported - Past Family History Father Family Medical History: COPD, Diabetes Mellitus Mother Family Medical History: Diabetes Mellitus Medications and Allergies Home Medications Medication Instructions Recorded Confirmed Type Albuterol Sulfate [Albuterol 2 puff INHALATION RT-Q4H PRN 01/07/24 11/10/24 History Sulfate Hfa] Apixaban [Eliquis] 5 mg PO BID #60 tab 01/09/24 11/10/24 Rx Apalutamide [Erleada] 120 mg PO DAILY 11/10/24 11/10/24 History Metoprolol Tartrate [Lopressor] 25 mg PO DAILY 11/10/24 11/10/24 History Allergies Allergy/AdvReac Type Severity Reaction Status Date / Time No Known Allergies Allergy Verified 11/10/24 09:46 Physical Exam Osteopathic Statement: *. No significant issues noted on an osteopathic structural exam other than those noted in the History and Physical/Consult. Vitals: Vital Signs Temp Pulse Pulse Resp BP BP BP 11/12/24 12:15 96.8 F L 62 29 H 156/113 11/12/24 12:00 59 L 18 158/93 11/12/24 11:45 54 L 34 H 157/100 11/12/24 11:30 66 19 112/68 11/12/24 11:15 43 L 21 89/65 11/12/24 11:00 46 L 24 94/58 11/12/24 10:45 50 L 12 97/65 11/12/24 10:30 48 L 31 H 109/90 11/12/24 10:15 52 L 13 99/85 11/12/24 10:00 97.4 F L 57 L 33 H 107/89 11/12/24 09:45 59 L 13 101/62 11/12/24 09:15 44 L 13 106/73 11/12/24 09:00 44 L 17 11/12/24 08:45 43 L 25 H 99/67 11/12/24 08:30 42 L 18 113/70 11/12/24 08:15 42 L 21 108/76 11/12/24 08:00 96.5 F L 36 L 24 108/76 11/12/24 07:45 41 L 18 116/87 11/12/24 07:30 43 L 23 115/78 11/12/24 07:15 45 L 18 119/77 11/12/24 07:00 97.0 F L 42 L 13 96/81 11/12/24 06:45 46 L 28 H 115/73 11/12/24 06:30 42 L 21 119/79 11/12/24 06:15 44 L 37 H 11/12/24 06:00 45 L 23 11/12/24 05:45 49 L 22 98/78 11/12/24 05:30 45 L 27 H 108/63 11/12/24 05:15 39 L 23 115/68 11/12/24 05:00 38 L 24 112/67 11/12/24 04:45 29 L 23 105/63 11/12/24 04:30 37 L 20 11/12/24 04:15 35 H 108/89 11/12/24 04:00 97.0 F L 46 L 21 110/81 11/12/24 03:45 46 L 17 11/12/24 03:30 45 L 20 100/79 11/12/24 03:15 26 H 11/12/24 03:04 37 L 14 107/81 11/12/24 01:45 23 114/65 11/12/24 01:30 37 L 22 104/68 11/12/24 01:15 25 H 115/62 11/12/24 01:00 46 L 17 99/78 11/12/24 00:45 23 108/44 11/12/24 00:30 49 L 17 114/68 11/12/24 00:15 58 L 14 86/62 11/12/24 00:00 96.8 F L 47 H 111/83 11/11/24 23:45 50 L 24 93/61 11/11/24 23:30 54 L 16 111/73 11/11/24 23:15 52 L 16 11/11/24 23:14 48 L 29 H 11/11/24 23:00 46 L 29 H 108/66 11/11/24 22:45 50 L 22 107/80 11/11/24 22:30 49 L 24 91/66 11/11/24 22:15 53 L 22 82/67 11/11/24 22:00 53 L 29 H 111/91 11/11/24 21:45 17 89/68 11/11/24 21:30 22 109/66 11/11/24 21:15 22 120/63 11/11/24 21:00 26 H 105/58 11/11/24 20:45 17 99/79 11/11/24 20:30 50 L 22 112/73 11/11/24 20:15 19 109/73 11/11/24 20:00 97.0 F L 24 123/74 11/11/24 19:45 58 L 16 11/11/24 19:30 25 H 114/69 11/11/24 19:15 64 23 117/81 11/11/24 19:00 58 L 22 111/81 11/11/24 18:45 27 H 121/91 11/11/24 18:30 65 23 111/70 11/11/24 18:15 61 24 110/88 11/11/24 18:00 52 L 20 102/66 11/11/24 17:45 58 L 25 H 94/55 11/11/24 17:30 59 L 27 H 94/62 11/11/24 17:15 61 24 71/58 11/11/24 17:00 55 L 46 H 96/65 11/11/24 16:45 51 L 26 H 80/58 11/11/24 16:30 67 22 88/52 11/11/24 16:15 61 27 H 78/62 11/11/24 16:00 160 H 20 11/11/24 15:25 67 87/37 11/11/24 14:53 98.4 F 11/11/24 13:45 96.3 F L 81/55 11/11/24 12:28 95.9 F L 11/11/24 12:22 96.2 F L 53 L 20 83/55 Pulse Ox 11/12/24 12:15 93 L 11/12/24 12:00 92 L 11/12/24 11:45 94 L 11/12/24 11:30 93 L 11/12/24 11:15 96 11/12/24 11:00 96 11/12/24 10:45 95 11/12/24 10:30 94 L 11/12/24 10:15 94 L 11/12/24 10:00 96 11/12/24 09:45 94 L 11/12/24 09:15 87 L 11/12/24 09:00 100 11/12/24 08:45 99 11/12/24 08:30 91 L 11/12/24 08:15 11/12/24 08:00 11/12/24 07:45 11/12/24 07:30 11/12/24 07:15 11/12/24 07:00 84 L 11/12/24 06:45 93 L 11/12/24 06:30 100 11/12/24 06:15 89 L 11/12/24 06:00 11/12/24 05:45 100 11/12/24 05:30 90 L 11/12/24 05:15 97 11/12/24 05:00 11/12/24 04:45 95 11/12/24 04:30 89 L 11/12/24 04:15 78 L 11/12/24 04:00 100 11/12/24 03:45 100 11/12/24 03:30 87 L 11/12/24 03:15 82 L 11/12/24 03:04 96 11/12/24 01:45 100 11/12/24 01:30 100 11/12/24 01:15 100 11/12/24 01:00 94 L 11/12/24 00:45 100 11/12/24 00:30 97 11/12/24 00:15 100 11/12/24 00:00 100 11/11/24 23:45 100 11/11/24 23:30 100 11/11/24 23:15 100 11/11/24 23:14 100 11/11/24 23:00 100 11/11/24 22:45 89 L 11/11/24 22:30 90 L 11/11/24 22:15 83 L 11/11/24 22:00 98 11/11/24 21:45 90 L 11/11/24 21:30 97 11/11/24 21:15 96 11/11/24 21:00 97 11/11/24 20:45 95 11/11/24 20:30 88 L 11/11/24 20:15 92 L 11/11/24 20:00 96 11/11/24 19:45 97 11/11/24 19:30 97 11/11/24 19:15 98 11/11/24 19:00 97 11/11/24 18:45 95 11/11/24 18:30 97 11/11/24 18:15 96 11/11/24 18:00 95 11/11/24 17:45 95 11/11/24 17:30 97 11/11/24 17:15 96 11/11/24 17:00 96 11/11/24 16:45 96 11/11/24 16:30 11/11/24 16:15 11/11/24 16:00 94 L 11/11/24 15:25 94 L 11/11/24 14:53 11/11/24 13:45 11/11/24 12:28 11/11/24 12:22 97 Intake and Output 11/11/24 11/12/24 11/12/24 21:59 06:59 14:59 Intake Total 1086.446 Output Total 270 Balance 816.446 Intake: IV 780 Dextrose 5%-0.45% NaCl 1, 780 000 ml @ 130 mls/hr IV . Q7H42M JUAN Rx#:[id number] Lactated Ringers 1,000 ml @ 999 mls/hr IV Q65M JUAN Rx#:[id number] Intake, IV Titration 306.446 Amount DOPamine DRIP 800 mg In 13.781 Dextrose/Water 1 250ml. bag @ 1 MCG/KG/MIN 1.453 mls/hr IV .Q24H JUAN Rx#: [id number] Norepinephrine 4 mg In 142.665 Sodium Chloride 0.9% 250 ml @ 0.03 MCG/KG/MIN 8. 658 mls/hr IV .Q24H JUAN Rx#:[id number] Piperacillin-Tazobactam 3 100 .375 gm In Sodium Chloride 0.9% 100 ml @ 25 mls/hr IVPB Q8HR JUAN Rx# :[id number] Thiamine 500 mg In Sodium 50 Chloride 0.9% 50 ml @ 100 mls/hr IVPB TID JUAN Rx#:[id number] Output: Urine 270 Other: Voiding Method # Bowel Movements Weight The patient is very agitated. The patient is not requiring any oxygen therapy. The patient cannot provide any additional history. HEENT examination is grossly unremarkable. Mucous membranes are moist. No oral lesions. Neck supple. Full range of motion. No adenopathy thyromegaly or neck vein distention. Cardiovascular examination reveals regular rhythm rate. S1-S2 normal. No S3 or S4. No discernible murmur noted. Heart rate 43 bpm. Lungs reveal mostly clear breath sounds. Few scattered rhonchi are noted. No wheezes or crackles. Breath sounds equal bilaterally. Abdomen soft bowel sounds are heard. No masses or tenderness. Extremities are intact. No cyanosis clubbing or edema. Skin reveals a rash, on right upper extremity. Neurologic examination is difficult to assess. Results - Laboratory Findings CBC and BMP: 11/11/24 06:46 11/11/24 17:31 ABG ABG pH 7.39 (7.35-7.45) 11/12/24 08:21 ABG pCO2 37 mmHg (35-45) 11/12/24 08:21 ABG pO2 91 mmHg (83-108) 11/12/24 08:21 ABG O2 Saturation 96.9 % (94-97) 11/12/24 08:21 PT/INR, D-dimer PT 10.9 sec (10.0-12.5) 11/10/24 09:12 INR 1.0 (<1.2) 11/10/24 09:12 Abnormal lab findings: Abnormal Labs 11/10/24 11/10/24 11/10/24 09:12 09:12 09:17 RBC Hgb Hct MCHC 30.9 L Plt Count 98 L Lymphocytes # 0.4 L Hemoglobin Sodium 149 H Chloride 114 H BUN 21 H Glucose POC Glucose (mg/dL) 59 L Plasma Lactic Acid Juan AST 214 H ALT 216 H Alkaline Phosphatase 273 H Total Protein Albumin Vitamin B12 TSH Ur Specific [place] Urine Protein Urine Blood Ur Leukocyte Esterase Urine RBC Urine WBC Urine Bacteria Urine Mucus 11/10/24 11/10/24 11/11/24 13:33 15:43 00:18 RBC Hgb Hct MCHC Plt Count Lymphocytes # Hemoglobin Sodium Chloride BUN Glucose POC Glucose (mg/dL) 66 L Plasma Lactic Acid Juan AST ALT Alkaline Phosphatase Total Protein Albumin Vitamin B12 3181.0 H TSH 5.170 H Ur Specific [place] Urine Protein Urine Blood Ur Leukocyte Esterase Urine RBC Urine WBC Urine Bacteria Urine Mucus 11/11/24 11/11/24 11/11/24 00:38 03:25 03:48 RBC Hgb Hct MCHC Plt Count Lymphocytes # Hemoglobin Sodium Chloride BUN Glucose POC Glucose (mg/dL) 230 H 53 L 169 H Plasma Lactic Acid Juan AST ALT Alkaline Phosphatase Total Protein Albumin Vitamin B12 TSH Ur Specific [place] Urine Protein Urine Blood Ur Leukocyte Esterase Urine RBC Urine WBC Urine Bacteria Urine Mucus 11/11/24 11/11/24 11/11/24 06:46 06:46 12:30 RBC 4.16 L Hgb 11.8 L Hct 37.9 L MCHC Plt Count 90 L Lymphocytes # Hemoglobin Sodium 146 H Chloride 114 H BUN Glucose POC Glucose (mg/dL) Plasma Lactic Acid Juan AST 102 H ALT 137 H Alkaline Phosphatase 208 H Total Protein 5.6 L Albumin 2.8 L Vitamin B12 TSH Ur Specific [place] >1.050 H Urine Protein Trace H Urine Blood Large H Ur Leukocyte Esterase Large H Urine RBC 34 H Urine WBC 86 H Urine Bacteria Rare H Urine Mucus Rare H 11/11/24 11/11/24 11/11/24 15:41 17:31 19:53 RBC Hgb Hct MCHC Plt Count Lymphocytes # Hemoglobin Sodium Chloride 113 H BUN Glucose 62 L POC Glucose (mg/dL) Plasma Lactic Acid Juan 2.2 H* 2.3 H* AST ALT Alkaline Phosphatase Total Protein Albumin Vitamin B12 TSH Ur Specific [place] Urine Protein Urine Blood Ur Leukocyte Esterase Urine RBC Urine WBC Urine Bacteria Urine Mucus 11/12/24 11/12/24 08:14 08:21 RBC Hgb Hct MCHC Plt Count Lymphocytes # Hemoglobin 12.1 L Sodium Chloride BUN Glucose POC Glucose (mg/dL) 117 H Plasma Lactic Acid Juan AST ALT Alkaline Phosphatase Total Protein Albumin Vitamin B12 TSH Ur Specific [place] Urine Protein Urine Blood Ur Leukocyte Esterase Urine RBC Urine WBC Urine Bacteria Urine Mucus - Diagnostic Findings Chest x-ray: image reviewed Assessment and Plan Assessment: Acute mental status changes, of unclear etiology. Hypertension, despite fluid resuscitation, possibly secondary to sepsis. Possible urinary tract infection/urosepsis. Chronic alcohol abuse, rule out alcohol withdrawal syndrome. History of prostate cancer. History of COPD, from previous tobacco use. History of cataracts. Plan: Plan dated November 12, 2024. The patient is seen in room 263. A room of blood gas, ordered by the other staff, shows a pO2 of 91, pCO2 37, pH is 7.39. The patient is on room air. The patient was admitted on November 10, with mental status changes, hyponatremia, and dehydration. The patient did receive adequate fluid resuscitation. He was transferred to the intensive care unit, November 11, for persistent hypotension. He is currently on norepinephrine at 2 mcg/min. He is getting D5 with half-normal saline at 130 cc an hour. He is currently on room air. The patient developed bradycardia, and requires dopamine at 1 mcg/kg/min. The patient continues on Zosyn. We go ahead and start the patient on the CIWA protocol. Some of his agitation could relate to alcohol withdrawal syndrome. He apparently drinks 1 bottle of wine every night. Not much is known about this patient, the patient is unable to provide any additional history. We will continue to follow. Prognosis is guarded. Dictation was produced using [employer] software. Please excuse any grammatical, word or spelling errors. Time with Patient: Greater than 30
[2024-11-12 15:03] LABS: Basophils % (A) 0 %; Eosinophils % (A) 0 %; HCT 43.2 % (39.0-53.0); HGB 13.2 gm/dL (13.0-17.5); Hypochromasia Slight; Lymphocytes # (A) 0.5 k/uL (1.0-4.8); Lymphocytes % (A) 7 %; MCH 28.4 pg (25.0-35.0); MCHC 30.4 g/dL (31.0-37.0); MCV 93.4 fL (80.0-100.0); Mean Platelet Volume 9.6; Monocytes # (A) 0.1 k/uL (0-1.0); Monocytes % (A) 2 %; Neutrophils # (A) 5.5 k/uL (1.3-7.7); Neutrophils % (A) 89 %; RBC 4.63 m/uL (4.30-5.90); RDW 15.2 % (11.5-15.5); WBC 6.2 k/uL (3.8-10.6)
[2024-11-12 15:12] LABS: ALT 124 U/L (4-49); AST 98 U/L (17-59); African American GFR (CKD) 82 (>60 ml/min/1.73 sqM); Alkaline Phosphatase 203 U/L (38-126); Anion Gap 7 mmol/L; Blood Urea Nitrogen 16 mg/dL (9-20); Calcium 9.1 mg/dL (8.4-10.2); Carbon Dioxide 23 mmol/L (22-30); Chloride 115 mmol/L (98-107); Glucose 129 mg/dL (74-99); Magnesium 1.9 mg/dL (1.6-2.3); Non-African American GFR(CKD) 71 (>60 ml/min/1.73 sqM); Potassium 3.8 mmol/L (3.5-5.1); Sodium 145 mmol/L (137-145); Total Bilirubin 0.7 mg/dL (0.2-1.3)
[2024-11-12 15:20] LABS: Platelet Count 74 k/uL (150-450)
--- NOTE | 2024-11-12 16:00 | P.PN ---
Subjective Progress Note Date: 11/12/24 Principal diagnosis: Reason for follow-up is sepsis Patient is a 79-year-old male with a past medical history significant for COPD prostate cancer for the patient has been on chemo and radiation therapy patient has been brought into the hospital concerning for increased confusion and weakness patient was noted to be hypothermic bradycardic concerning for sepsis possible source of UTI/pneumonia requiring transfer to the ICU. On today's evaluation that is 11/12/2024 patient has been hypothermic requiring cooling blanket he is currently on dopamine to maintain his heart rate and is off the Levophed as blood pressure is normal patient did receive a dose of Ativan for some agitation is currently lethargic unable provide any history no vomiting or diarrhea has been reported. Patient white count 6.2, creatinine 1.0 1 repeat UA is positive cultures are pending Objective - Vital Signs Vital signs: Vital Signs Temp 95.3 F L 11/12/24 15:45 Pulse 66 11/12/24 15:45 Resp 17 11/12/24 15:45 BP 157/92 11/12/24 15:45 Pulse Ox 93 L 11/12/24 15:45 FiO2 35 11/11/24 00:57 Intake & Output 11/11/24 11/12/24 11/12/24 17:59 06:59 18:59 Intake Total 1362.335 Output Total 520 Balance 842.335 Weight Intake: IV 1040 Dextrose 5%-0.45% NaCl 1, 1040 000 ml @ 130 mls/hr IV . Q7H42M JUAN Rx#:[id number] Invasive Line 1 Invasive Line 2 Lactated Ringers 1,000 ml @ 999 mls/hr IV Q65M JUAN Rx#:[id number] Intake, IV Titration 322.335 Amount DOPamine DRIP 800 mg In 29.670 Dextrose/Water 1 250ml. bag @ 1 MCG/KG/MIN 1.453 mls/hr IV .Q24H JUAN Rx#: [id number] Norepinephrine 4 mg In 142.665 Sodium Chloride 0.9% 250 ml @ 0.03 MCG/KG/MIN 8. 658 mls/hr IV .Q24H JUAN Rx#:[id number] Piperacillin-Tazobactam 3 100 .375 gm In Sodium Chloride 0.9% 100 ml @ 25 mls/hr IVPB Q8HR JUAN Rx# :[id number] Thiamine 500 mg In Sodium 50 Chloride 0.9% 50 ml @ 100 mls/hr IVPB TID JUAN Rx#:[id number] Output: Urine 520 Other: Voiding Method # Bowel Movements 1 - Exam GENERAL DESCRIPTION: An elderly male lying in bed in no distress RESPIRATORY SYSTEM: Unlabored breathing , decreased breath sounds at bases HEART: S1 S2 regular rate and rhythm , ABDOMEN: Soft , no tenderness EXTREMITIES: No edema feet - Labs CBC & Chem 7: 11/12/24 14:39 11/12/24 14:39 Labs: Abnormal Lab Results - Last 24 Hours (Table) 11/11/24 11/11/24 11/11/24 Range/Units 15:41 17:31 19:53 MCHC (31.0-37.0) g/dL Plt Count (150-450) k/uL Lymphocytes # (1.0-4.8) k/uL Hemoglobin (13.0-17.5) gm/dL Chloride 113 H (98-107) mmol/L Glucose 62 L (74-99) mg/dL POC Glucose (mg/dL) (70-110) mg/dL Plasma Lactic Acid Juan 2.2 H* 2.3 H* (0.7-2.0) mmol/L AST (17-59) U/L ALT (4-49) U/L Alkaline Phosphatase (38-126) U/L Total Protein (6.3-8.2) g/dL Albumin (3.5-5.0) g/dL 11/12/24 11/12/24 11/12/24 Range/Units 08:14 08:21 14:39 MCHC 30.4 L (31.0-37.0) g/dL Plt Count 74 L (150-450) k/uL Lymphocytes # 0.5 L (1.0-4.8) k/uL Hemoglobin 12.1 L (13.0-17.5) gm/dL Chloride (98-107) mmol/L Glucose (74-99) mg/dL POC Glucose (mg/dL) 117 H (70-110) mg/dL Plasma Lactic Acid Juan (0.7-2.0) mmol/L AST (17-59) U/L ALT (4-49) U/L Alkaline Phosphatase (38-126) U/L Total Protein (6.3-8.2) g/dL Albumin (3.5-5.0) g/dL 11/12/24 Range/Units 14:39 MCHC (31.0-37.0) g/dL Plt Count (150-450) k/uL Lymphocytes # (1.0-4.8) k/uL Hemoglobin (13.0-17.5) gm/dL Chloride 115 H (98-107) mmol/L Glucose 129 H (74-99) mg/dL POC Glucose (mg/dL) (70-110) mg/dL Plasma Lactic Acid Juan (0.7-2.0) mmol/L AST 98 H (17-59) U/L ALT 124 H (4-49) U/L Alkaline Phosphatase 203 H (38-126) U/L Total Protein 6.0 L (6.3-8.2) g/dL Albumin 3.0 L (3.5-5.0) g/dL Microbiology - Last 24 Hours (Table) 11/10/24 19:00 Blood Culture - Preliminary Blood Assessment and Plan (1) Altered mental status Current Visit: Yes Status: Acute Code(s): R41.82 - ALTERED MENTAL STATUS, UNSPECIFIED SNOMED Code(s): 493449809 (2) Pneumonia Current Visit: No Status: Acute Code(s): J18.9 - PNEUMONIA, UNSPECIFIED ORGANISM SNOMED Code(s): 284778867 Plan: 1patient presented to hospital with mental status changes confusion and weakness source likely left lower lobe pneumonia and his question of possible gallbladder disease will need to direct antibiotic therapy mostly towards pneumonia or possible aspiration pneumonia/gram-negative and intra-abdominal gram-negative pathogen less likely risk for composite infection such as MRSA, repeat urine is positive as well 2-patient has been eval by surgery HIDA scan has been ordered 3-patient to continue Zosyn 3.375 g every 8 hours while waiting for the workup to be completed Dictation was produced using [employer] dictation software. please excuse any grammatical, word or spelling errors. Time with Patient: Less than 30
[2024-11-12 16:27] LABS: Glucose,Whole Blood 115 mg/dL (70-110)
[2024-11-12] MEDS: MAGNESIUM SULFATE-D5W PMX 1 GM in DEXTROSE/WATER 1 100ML.BAG IVPB ONE (16:52)
--- NOTE | 2024-11-12 18:30 | P.CRDCN ---
History of Present Illness Consult date: 11/12/24 History of present illness: HISTORY OF PRESENTING ILLNESS: 79-year-old -Romanian male presented to the ER because of increased confusion, weakness that has progressively got worse over last 2 days prior to admission. On admission he had concerns of septic shock, UTI. He was also noticed to be severely hypothermic. Cardiology was consulted for sinus bradycardia. He also has metabolic encephalopathy. At the time of evaluation patient was very drowsy and lethargic. We performed an ABG which showed pH 7.3, pCO2 37, PaO2 91. ABG appears within acceptable ranges. BUN 16, creatinine 1, potassium 3.8,. He had lactic acidosis on admission which resolved with IV fluids. His magnesium was 1.9. He had mild transaminitis. His EKG on admission showed atrial fibrillation heart rate 58 beats minute minute, moderate IVCD REVIEW OF SYSTEMS: Unable to provide review of system because patient is very drowsy PHYSICAL EXAMINATION: Neck: Brisk carotid upstroke, no jugular venous distention. Lungs: Poor inspiratory effort, mild crackles audible Heart: Irregularly irregular pulse, mild systolic murmur audible Abdomen: Soft nontender, positive bowel sounds. Extremities: No edema, intact distal pulses. Neuro: Drowsy very somnolent, . Detailed neuro exam was not performed. ASSESSMENT: # Atrial fibrillation with slow ventricular response, likely precipitated by hypothermia and sepsis # Hypothermia likely due to septic shock # Septic shock likely due to complicated UTI # Metabolic encephalopathy, multifactorial due to above # Chronic alcohol abuse # History of COPD # History of prostate cancer PLAN: Patient is on Eliquis at home 5 mg twice daily. Will continue Hold any AV alba blocking agents. Apparently patient was not on any AV node blockers at home His TSH was 5, free T4 and T3 were WNL. Obtain updated echocardiogram Gianni Acevedo MD, FACC, RPVI Thank you for allowing [facility] to participate in this patient's care. Feel free to reach out in case of any followup questions. Past Medical History Past Medical History: Cancer, COPD, Prostate Disorder Additional Past Medical History / Comment(s): Recent diagnosis of prostate cancer. Taking oral chemo. Starts radiation on Wednesday01/10/24 History of Any Multi-Drug Resistant Organisms: None Reported Past Surgical History: No Surgical Hx Reported Additional Past Surgical History / Comment(s): Cataract surgery Past Anesthesia/Blood Transfusion Reactions: No Reported Reaction Past Psychological History: No Psychological Hx Reported Smoking Status: Former smoker Past Alcohol Use History: None Reported Past Drug Use History: None Reported - Past Family History Father Family Medical History: COPD, Diabetes Mellitus Mother Family Medical History: Diabetes Mellitus Medications and Allergies Home Medications Medication Instructions Recorded Confirmed Type Albuterol Sulfate [Albuterol 2 puff INHALATION RT-Q4H PRN 01/07/24 11/10/24 History Sulfate Hfa] Apixaban [Eliquis] 5 mg PO BID #60 tab 01/09/24 11/10/24 Rx Apalutamide [Erleada] 120 mg PO DAILY 11/10/24 11/10/24 History Metoprolol Tartrate [Lopressor] 25 mg PO DAILY 11/10/24 11/10/24 History Allergies Allergy/AdvReac Type Severity Reaction Status Date / Time No Known Allergies Allergy Verified 11/10/24 09:46 Physical Exam Vitals: Vital Signs Temp Pulse Resp BP Pulse Ox 11/12/24 18:15 53 L 20 137/89 93 L 11/12/24 18:00 55 L 15 143/75 93 L 11/12/24 17:45 97.0 F L 61 25 H 136/73 93 L 11/12/24 17:30 61 29 H 137/81 93 L 11/12/24 17:15 59 L 17 163/94 93 L 11/12/24 17:00 96.7 F L 66 19 153/90 93 L 11/12/24 16:45 55 L 17 144/93 92 L 11/12/24 16:30 53 L 18 150/85 94 L 11/12/24 16:15 53 L 17 151/82 93 L 11/12/24 16:00 49 L 18 161/87 93 L 11/12/24 15:45 95.3 F L 66 17 157/92 93 L 11/12/24 15:30 45 L 17 151/74 95 11/12/24 15:15 40 L 17 136/78 95 11/12/24 15:00 47 L 17 143/70 94 L 11/12/24 14:45 46 L 16 148/93 98 11/12/24 14:30 46 L 24 148/80 95 11/12/24 14:15 42 L 21 155/77 96 11/12/24 14:00 45 L 15 156/86 95 11/12/24 13:45 54 L 14 158/81 96 11/12/24 13:30 44 L 15 151/75 96 11/12/24 13:15 52 L 23 134/73 96 11/12/24 13:00 56 L 23 136/86 95 11/12/24 12:45 58 L 22 145/88 94 L 11/12/24 12:30 58 L 19 169/80 93 L 11/12/24 12:15 96.8 F L 62 29 H 156/113 93 L 11/12/24 12:00 59 L 18 158/93 92 L 11/12/24 11:45 54 L 34 H 157/100 94 L 11/12/24 11:30 66 19 112/68 93 L 11/12/24 11:15 43 L 21 89/65 96 11/12/24 11:00 46 L 24 94/58 96 11/12/24 10:45 50 L 12 97/65 95 11/12/24 10:30 48 L 31 H 109/90 94 L 11/12/24 10:15 52 L 13 99/85 94 L 11/12/24 10:00 97.4 F L 57 L 33 H 107/89 96 11/12/24 09:45 59 L 13 101/62 94 L 11/12/24 09:15 44 L 13 106/73 87 L 11/12/24 09:00 44 L 17 100 11/12/24 08:45 43 L 25 H 99/67 99 11/12/24 08:30 42 L 18 113/70 91 L 11/12/24 08:15 42 L 21 108/76 11/12/24 08:00 96.5 F L 36 L 24 108/76 11/12/24 07:45 41 L 18 116/87 11/12/24 07:30 43 L 23 115/78 11/12/24 07:15 45 L 18 119/77 11/12/24 07:00 97.0 F L 42 L 13 96/81 84 L 11/12/24 06:45 46 L 28 H 115/73 93 L 11/12/24 06:30 42 L 21 119/79 100 11/12/24 06:15 44 L 37 H 89 L 11/12/24 06:00 45 L 23 11/12/24 05:45 49 L 22 98/78 100 11/12/24 05:30 45 L 27 H 108/63 90 L 11/12/24 05:15 39 L 23 115/68 97 11/12/24 05:00 38 L 24 112/67 11/12/24 04:45 29 L 23 105/63 95 11/12/24 04:30 37 L 20 89 L 11/12/24 04:15 35 H 108/89 78 L 11/12/24 04:00 97.0 F L 46 L 21 110/81 100 11/12/24 03:45 46 L 17 100 11/12/24 03:30 45 L 20 100/79 87 L 11/12/24 03:15 26 H 82 L 11/12/24 03:04 37 L 14 107/81 96 11/12/24 01:45 23 114/65 100 11/12/24 01:30 37 L 22 104/68 100 11/12/24 01:15 25 H 115/62 100 11/12/24 01:00 46 L 17 99/78 94 L 11/12/24 00:45 23 108/44 100 11/12/24 00:30 49 L 17 114/68 97 11/12/24 00:15 58 L 14 86/62 100 11/12/24 00:00 96.8 F L 47 H 111/83 100 11/11/24 23:45 50 L 24 93/61 100 11/11/24 23:30 54 L 16 111/73 100 11/11/24 23:15 52 L 16 100 11/11/24 23:14 48 L 29 H 100 11/11/24 23:00 46 L 29 H 108/66 100 11/11/24 22:45 50 L 22 107/80 89 L 11/11/24 22:30 49 L 24 91/66 90 L 11/11/24 22:15 53 L 22 82/67 83 L 11/11/24 22:00 53 L 29 H 111/91 98 11/11/24 21:45 17 89/68 90 L 11/11/24 21:30 22 109/66 97 11/11/24 21:15 22 120/63 96 11/11/24 21:00 26 H 105/58 97 11/11/24 20:45 17 99/79 95 11/11/24 20:30 50 L 22 112/73 88 L 11/11/24 20:15 19 109/73 92 L 11/11/24 20:00 97.0 F L 24 123/74 96 11/11/24 19:45 58 L 16 97 11/11/24 19:30 25 H 114/69 97 11/11/24 19:15 64 23 117/81 98 11/11/24 19:00 58 L 22 111/81 97 11/11/24 18:45 27 H 121/91 95 11/11/24 18:30 65 23 111/70 97 11/11/24 18:15 61 24 110/88 96 11/11/24 18:00 52 L 20 102/66 95 11/11/24 17:45 58 L 25 H 94/55 95 Intake and Output 11/12/24 11/12/24 11/12/24 06:59 14:59 22:59 Intake Total 1346.446 405.889 Output Total 520 280 Balance 826.446 125.889 Intake: IV 1040 390 Dextrose 5%-0.45% NaCl 1, 1040 390 000 ml @ 130 mls/hr IV . Q7H42M [facility] Rx#:[id number] Intake, IV Titration 306.446 15.889 Amount DOPamine DRIP 800 mg In 13.781 15.889 Dextrose/Water 1 250ml. bag @ 1 MCG/KG/MIN 1.453 mls/hr IV .Q24H [facility] Rx#: [id number] Norepinephrine 4 mg In 142.665 Sodium Chloride 0.9% 250 ml @ 0.03 MCG/KG/MIN 8. 658 mls/hr IV .Q24H [facility] Rx#:[id number] Piperacillin-Tazobactam 3 100 .375 gm In Sodium Chloride 0.9% 100 ml @ 25 mls/hr IVPB Q8HR [facility] Rx# :[id number] Thiamine 500 mg In Sodium 50 Chloride 0.9% 50 ml @ 100 mls/hr IVPB TID [facility] Rx#:[id number] Output: Urine 520 280 Other: Voiding Method Indwelling Catheter Indwelling Catheter # Bowel Movements 1 Weight Results 11/12/24 14:39 11/12/24 14:39 Cardiac Enzymes 11/12/24 Range/Units 14:39 AST 98 H (17-59) U/L CBC 11/12/24 Range/Units 14:39 WBC 6.2 (3.8-10.6) k/uL RBC 4.63 (4.30-5.90) m/uL Hgb 13.2 (13.0-17.5) gm/dL Hct 43.2 (39.0-53.0) % Plt Count 74 L (150-450) k/uL Comprehensive Metabolic Panel 11/11/24 11/12/24 Range/Units 17:31 14:39 Sodium 144 145 (137-145) mmol/L Potassium 4.0 3.8 (3.5-5.1) mmol/L Chloride 113 H 115 H (98-107) mmol/L Carbon Dioxide 24 23 (22-30) mmol/L BUN 16 16 (9-20) mg/dL Creatinine 1.12 1.01 (0.66-1.25) mg/dL Glucose 62 L 129 H (74-99) mg/dL Calcium 8.6 9.1 (8.4-10.2) mg/dL AST 98 H (17-59) U/L ALT 124 H (4-49) U/L Alkaline Phosphatase 203 H (38-126) U/L Total Protein 6.0 L (6.3-8.2) g/dL Albumin 3.0 L (3.5-5.0) g/dL Current Medications Generic Name Dose Route Start Last Admin Trade Name Freq PRN Reason Stop Dose Admin Acetaminophen 650 mg 11/10/24 12:00 Acetaminophen Tab 325 Mg Tab PO Q6HR PRN Mild Pain or Fever > 100.5 Albuterol Sulfate 2.5 mg 11/10/24 11:09 11/11/24 08:22 Albuterol Nebulized 2.5 Mg/3 Ml INHALATION 2.5 mg RT-Q4H PRN Administration Shortness Of Breath Apixaban 5 mg 11/10/24 21:00 11/12/24 10:44 Apixaban 5 Mg Tab PO Not Given BID [facility] Protocol Dextrose/Water 25 ml 11/10/24 11:11 Dextrose 50% Syringe 50 Ml IVP PER PROTOCOL PRN Hypoglycemia Protocol Dextrose/Water 50 ml 11/10/24 11:11 11/11/24 03:28 Dextrose 50% Syringe 50 Ml IVP 50 ml PER PROTOCOL PRN Administration Hypoglycemia Protocol Folic Acid 1 mg 11/11/24 09:00 11/12/24 10:45 Folic Acid 1 Mg Tab PO Not Given DAILY JUAN Hydrocortisone Sodium Succinate 100 mg 11/12/24 00:00 11/12/24 16:52 Hydrocortisone Succinate 100 Mg/2 Ml Vial IV 100 mg Q8HR [facility]UAN Administration Dextrose/Sodium Chloride 1,000 mls @ 130 mls/hr 11/11/24 02:00 11/12/24 11:18 Dextrose 5%-1/2ns Iv Soln IV 130 mls/hr .Q7H42M [facility] Administration Norepinephrine Bitartrate 4 mg 254 mls @ 8.658 mls/hr 11/11/24 17:00 11/12/24 11:45 / Sodium Chloride IV 0 mcg/kg/min .Q24H [facility] 0 mls/hr Titration Protocol 0.03 MCG/KG/MIN Thiamine HCl 500 mg/ Sodium 55 mls @ 100 mls/hr 11/11/24 18:00 11/12/24 10:00 Chloride IVPB 100 mls/hr TID JUAN Administration Piperacillin Sod/Tazobactam 100 mls @ 25 mls/hr 11/12/24 00:00 11/12/24 16:51 Sod 3.375 gm/ Sodium Chloride IVPB 25 mls/hr Q8HR [facility] Administration Protocol Dopamine HCl/Dextrose 800 mg/ 250 mls @ 1.453 mls/hr 11/12/24 08:30 11/12/24 15:15 IV Solution IV 5 mcg/kg/min .Q24H [facility] 7.266 mls/hr Titration Protocol 1 MCG/KG/MIN Lorazepam 0.5 mg 11/10/24 11:53 Lorazepam 0.5 Mg Tab PO Q4HR PRN Ciwa 4 To 5 Lorazepam 1 mg 11/10/24 11:53 Lorazepam 1 Mg Tab PO Q4HR PRN Ciwa 6 To 7 Lorazepam 2 mg 11/10/24 11:53 Lorazepam 1 Mg Tab PO Q2HR PRN Ciwa 10 or greater Lorazepam 2 mg 11/10/24 11:53 Lorazepam 1 Mg Tab PO Q3HR PRN Ciwa 8 To 9 Lorazepam 2 mg 11/10/24 17:09 Lorazepam 1 Mg/0.5 Ml Vial IV 11/20/24 17:08 Q10M PRN CIWA 16 or higher Lorazepam 1 mg 11/10/24 17:09 11/12/24 10:06 Lorazepam 1 Mg/0.5 Ml Vial IV 1 mg Q1HR PRN Administration CIWA 10 to 15 Naloxone HCl 0.2 mg 11/10/24 11:56 Naloxone 0.4 Mg/Ml 1 Ml Vial IV Q2M PRN Opioid Reversal Pantoprazole Sodium 40 mg 11/12/24 09:00 11/12/24 08:32 Pantoprazole 40 Mg/10 Ml Vial IV 40 mg DAILY JUAN Administration Intake and Output 11/12/24 11/12/24 11/12/24 06:59 14:59 22:59 Intake Total 1346.446 405.889 Output Total 520 280 Balance 826.446 125.889 Intake: IV 1040 390 Dextrose 5%-0.45% NaCl 1, 1040 390 000 ml @ 130 mls/hr IV . Q7H42M [facility] Rx#:[id number] Intake, IV Titration 306.446 15.889 Amount DOPamine DRIP 800 mg In 13.781 15.889 Dextrose/Water 1 250ml. bag @ 1 MCG/KG/MIN 1.453 mls/hr IV .Q24H [facility] Rx#: [id number] Norepinephrine 4 mg In 142.665 Sodium Chloride 0.9% 250 ml @ 0.03 MCG/KG/MIN 8. 658 mls/hr IV .Q24H [facility] Rx#:[id number] Piperacillin-Tazobactam 3 100 .375 gm In Sodium Chloride 0.9% 100 ml @ 25 mls/hr IVPB Q8HR [facility] Rx# :[id number] Thiamine 500 mg In Sodium 50 Chloride 0.9% 50 ml @ 100 mls/hr IVPB TID [facility] Rx#:[id number] Output: Urine 520 280 Other: Voiding Method Indwelling Catheter Indwelling Catheter # Bowel Movements 1 Weight 11/12/24 14:39 11/12/24 14:39
[2024-11-12 19:55] LABS: Glucose,Whole Blood 115 mg/dL (70-110)
[2024-11-12 22:10] LABS: Glucose,Whole Blood 124 mg/dL (70-110)
[2024-11-13 00:25] LABS: Glucose,Whole Blood 118 mg/dL (70-110)
[2024-11-13 02:13] LABS: Glucose,Whole Blood 111 mg/dL (70-110)
[2024-11-13 04:12] LABS: Glucose,Whole Blood 109 mg/dL (70-110)
[2024-11-13 06:06] LABS: Glucose,Whole Blood 107 mg/dL (70-110)
--- NOTE | 2024-11-13 06:14 | P.PN ---
Subjective Progress Note Date: 11/13/24 79 year old M with history of prostate cancer on oral chemotherapeutic agent with apalutamide, COPD with continued nicotine dependence, and daily alcohol abuse. Family reported patient's last alcoholic drink was on 11/06/24 and reported drinking a clement and wine daily for nearly 50 years Patient presented to the emergency department on 11/10/24 with a chief complaint of altered mental status. Patient's family reported patient was at baseline mentation up until approximately 1 AM on day of arrival when he awoke and was noted to have increased confusion and didn't even recognize them and was then noted to have generalized weakness and was unable to even stand. They reported up until this he had a normal appetite and denied any recent weight loss, fevers or exposure to known ill contacts, episodes of vomiting or diarrhea, or patient expressing any complaints of pain or discomfort. Upon arrival to our facility patient was alert to person and place only and confused to time and situation. Patient did admit to daily alcohol use, but did not or was unable to express how much he drank daily. He denied having any complaints or pain at this time. Patient and family deny any other drug use. Patient underwent evaluation in the emergency department. BP 115/68, HR 57, RR 20, T 96.8 F, SpO2 of 100% on RA. [id number]-ex-tosf glucose was initially 59. EKG was completed showing AFib with a slowed ventricular response at 58 bpm with nonspecific T wave abnormalities in inferior leads. Chest x-ray showed no acute process. CT brain showed no acute process, diffuse age related cerebral atrophy and mild to moderate chronic small vessel ischemic changes with bilateral maxillary sinus disease. CBC, Coag panel, CMP significant for Plt 98, Na 149, Cl 114, BUN 21, AST 214, ALT 216, alk phos 273. Troponin <0.012. TSH 5.170, free T4 0.99. UDS neg. UA neg. COVID, RSV, Flu neg. Patient admitted under our services with consultation to neurology. Patient was noted to have a Tlow of 89.5F rectal on 11/10. He was placed on Elian hugger. Lactic acid was 1.2 and vital signs were stable. CT AP and blood cult ures were ordered. Patient was noted to by hypotensive on 11/11 along with persistent hypoglycemic. He was given a 2L LR bolus and started on Vancomycin and Cefepime. ID was consulted, antibiotics switched to Zosyn. CTA head and neck showing moderate stenosis of the proximal left internal carotid artery and mild stenosis with diffuse calcification of carotid siphons and maxillary sinusitis. Discussed findings with neurologist, Dr. Luciano awaiting completion of MRI for further recommendations. CT abdomen and pelvis reporting acute cardiopulmonary disease in the lung bases left greater than right concerning for fluid overload versus pneumonia and reports of distended gallbladder. Consult placed to general surgery for evaluation, HIDA scan ordered. Transferred to ICU for persistent hypotension. 11/13 Patient was seen and examined. Appears agitated. Elian hugger used overnight, Tlow 96.5F over the past 24H. Levophed weaned off 11/12. Currently on SoluCortef at 100 mg IV TID and Dopamine at 5 mcg/kg/min. Antibiotics include Zosyn 3.75g IV TID. Also on Thiamine 500 mg IV TID. Fluids include D5 1/2 NS at 130 cc/hr. Lactic acid repeat 1.4. BCx prelim neg so far. CBC and CMP is ordered and pending at the time of this note. Vitals: BP 140/69, HR 63, RR 18, T 98.6F, 93% on RA. General: non toxic, mild distress, appears at stated age Derm: warm, dry, scaling rash over BL upper and lower extremities without erythema Head: atraumatic, normocephalic, symmetric Eyes: EOMI, no lid lag, anicteric sclera Mouth: no lip lesion, mucus membranes moist Cardiovascular: S1S2 irreg, no murmur Lungs: CTA bilateral, no rhonchi, no rales , no accessory muscle use Abdominal: soft, nontender to palpation, no guarding, no appreciable organomegaly Ext: no gross muscle atrophy, no edema, no contractures Neuro: Moving all 4 extremities. Unable to examine cranial nerves Psych: Groaning and attempting to climb out of bed. Based on my assessment of this patient, this patient meets a high complexity level of care. Sepsis unknown etiology: Hypotension with hypothermia. Procal 0.12. Cortisol 17.1. UA neg. Follow blood culture. Continue Zosyn 3.75 g IV TID (D2). Elian hugger if needed. Levophed to maintain MAP > 65. Continue D5 1/2 NS at 130 cc/hr. Telemetry monitoring. ID on board. Possible aspiration pneumonia: ST consulted for formal swallow eval. Should be covered with Zosyn as above. Gallbladder distention with concerns of cholecystitis: Should be covered with Zosyn as above. HIDA scan ordered by Surgery for findings on CT AP. Hypoglycemia: D5 1/2 NS as above. Concerns for Wernickes encephalopathy: Thiamine 500 mg IV TID. Acute metabolic encephalopathy likely related to above: B12 3181. Folate 6. TSH 5.17, FT4 0.99. CT brain and CTA head and neck as above. MRI brain and EEG pending. Fall, Seizure and Aspiration precautions. Neurology on board. Atrial fibrillation with slow ventricular rate: Cardiology has started Dopamine at 5 mcg/kg/min. Avoid AV alba blockers. Metoprolol discontinued. Eliquis 5 mg PO BID for AC. Echo is pending. Cardiology on board. Alcohol abuse: CIWA protocol with Ativan PRN. Transaminitis and Thrombocytopenia likely related to EtOH abuse. Subclinical hypothyroidism: Repeat TSH/FT4 in 6 weeks. CODE STATUS: FULL CODE DVT Prophylaxis: Eliquis GI Prophylaxis: Protonix IV Designated medical POA if patient is not able to make medical decisions for themselves: I have reviewed the following legal consultant notes: Cardiology. I have reviewed the results of the following tests: Lactic acid. BCx. I have ordered the following tests: I have discussed the care of this patient with the following independent historian: HAKAN. I have independently interpreted the following test below: I have discussed the management of this patient with the following physician: Objective - Vital Signs Vital signs: Vital Signs Temp 98.6 F 11/13/24 04:00 Pulse 64 11/13/24 04:15 Resp 32 H 11/13/24 04:15 BP 134/91 11/13/24 04:15 Pulse Ox 95 11/13/24 04:15 FiO2 35 11/11/24 00:57 Intake & Output 11/12/24 11/12/24 11/13/24 06:59 18:59 06:59 Intake Total 5602.215 6073 Output Total 840 535 Balance 1042.335 765 Weight 77.6 kg Intake: IV 1560 1300 Dextrose 5%-0.45% NaCl 1, 1560 1300 000 ml @ 130 mls/hr IV . Q7H42M [facility] Rx#:[id number] Intake, IV Titration 322.335 Amount DOPamine DRIP 800 mg In 29.670 Dextrose/Water 1 250ml. bag @ 1 MCG/KG/MIN 1.453 mls/hr IV .Q24H [facility] Rx#: [id number] Norepinephrine 4 mg In 142.665 Sodium Chloride 0.9% 250 ml @ 0.03 MCG/KG/MIN 8. 658 mls/hr IV .Q24H [facility] Rx#:[id number] Piperacillin-Tazobactam 3 100 .375 gm In Sodium Chloride 0.9% 100 ml @ 25 mls/hr IVPB Q8HR [facility] Rx# :[id number] Thiamine 500 mg In Sodium 50 Chloride 0.9% 50 ml @ 100 mls/hr IVPB TID [facility] Rx#:[id number] Output: Urine 840 535 Other: Voiding Method Indwelling Catheter Indwelling Catheter # Bowel Movements 1 - Labs CBC & Chem 7: 11/12/24 14:39 11/12/24 14:39 Labs: Abnormal Lab Results - Last 24 Hours (Table) 11/12/24 11/12/24 11/12/24 Range/Units 08:14 08:21 14:39 MCHC 30.4 L (31.0-37.0) g/dL Plt Count 74 L (150-450) k/uL Lymphocytes # 0.5 L (1.0-4.8) k/uL Hemoglobin 12.1 L (13.0-17.5) gm/dL Chloride (98-107) mmol/L Glucose (74-99) mg/dL POC Glucose (mg/dL) 117 H (70-110) mg/dL AST (17-59) U/L ALT (4-49) U/L Alkaline Phosphatase (38-126) U/L Total Protein (6.3-8.2) g/dL Albumin (3.5-5.0) g/dL 11/12/24 11/12/24 11/12/24 Range/Units 14:39 16:25 19:53 MCHC (31.0-37.0) g/dL Plt Count (150-450) k/uL Lymphocytes # (1.0-4.8) k/uL Hemoglobin (13.0-17.5) gm/dL Chloride 115 H (98-107) mmol/L Glucose 129 H (74-99) mg/dL POC Glucose (mg/dL) 115 H 115 H (70-110) mg/dL AST 98 H (17-59) U/L ALT 124 H (4-49) U/L Alkaline Phosphatase 203 H (38-126) U/L Total Protein 6.0 L (6.3-8.2) g/dL Albumin 3.0 L (3.5-5.0) g/dL 11/12/24 11/13/24 11/13/24 Range/Units 22:09 00:24 02:12 MCHC (31.0-37.0) g/dL Plt Count (150-450) k/uL Lymphocytes # (1.0-4.8) k/uL Hemoglobin (13.0-17.5) gm/dL Chloride (98-107) mmol/L Glucose (74-99) mg/dL POC Glucose (mg/dL) 124 H 118 H 111 H (70-110) mg/dL AST (17-59) U/L ALT (4-49) U/L Alkaline Phosphatase (38-126) U/L Total Protein (6.3-8.2) g/dL Albumin (3.5-5.0) g/dL Microbiology - Last 24 Hours (Table) 11/10/24 19:00 Blood Culture - Preliminary Blood
[2024-11-13 08:10] LABS: Glucose,Whole Blood 122 mg/dL (70-110)
[2024-11-13 08:18] LABS: ALT 104 U/L (4-49); African American GFR (CKD) 74 (>60 ml/min/1.73 sqM); Anion Gap 7 mmol/L; Blood Urea Nitrogen 16 mg/dL (9-20); Calcium 9.2 mg/dL (8.4-10.2); Carbon Dioxide 19 mmol/L (22-30); Chloride 119 mmol/L (98-107); Glucose 108 mg/dL (74-99); Non-African American GFR(CKD) 64 (>60 ml/min/1.73 sqM); Sodium 145 mmol/L (137-145); Total Bilirubin 0.9 mg/dL (0.2-1.3)
[2024-11-13 08:19] LABS: AST 86 U/L (17-59); Albumin 2.9 g/dL (3.5-5.0); Alkaline Phosphatase 157 U/L (38-126); Magnesium 2.1 mg/dL (1.6-2.3); Potassium 4.7 mmol/L (3.5-5.1); Total Protein 6.1 g/dL (6.3-8.2)
[2024-11-13 08:28] LABS: Basophils % (A) 0 %; Eosinophils % (A) 1 %; HCT 37.9 % (39.0-53.0); Lymphocytes # (A) 0.5 k/uL (1.0-4.8); Lymphocytes % (A) 8 %; MCH 28.2 pg (25.0-35.0); MCHC 31.6 g/dL (31.0-37.0); MCV 89.3 fL (80.0-100.0); Mean Platelet Volume 9.7; Monocytes # (A) 0.2 k/uL (0-1.0); Monocytes % (A) 4 %; Neutrophils # (A) 5.3 k/uL (1.3-7.7); Neutrophils % (A) 86 %; RBC 4.25 m/uL (4.30-5.90); RDW 15.1 % (11.5-15.5); WBC 6.2 k/uL (3.8-10.6)
[2024-11-13 08:29] LABS: Platelet Count 82 k/uL (150-450)
--- NOTE | 2024-11-13 10:33 | US ---
EXAMINATION TYPE: US gallbladder DATE OF EXAM: 11/13/2024 Exam done portable in ICU COMPARISON: CT 2 days earlier CLINICAL INDICATION: Male, 79 years old with history of distended gallbladder; TECHNIQUE: Grayscale and color Doppler imaging of the right upper quadrant was performed. FINDINGS: EXAM MEASUREMENTS: Liver Length: 13.8 cm Gallbladder Wall: 0.3 cm CBD: 0.4 cm Right Kidney: 8.9 x 5.1 x 5.4 cm Difficult and limited study due to patient disoriented and moving during the whole exam Pancreas: obscured by overlying midline bowel gas Liver: limited visualization, scanned intercostally, visualized portions appear wnl Gallbladder: distended with lower level echoes within dependant portion Evidence for sonographic Dawson's sign: no CBD: visualized portions wnl, limited by overlying bowel gas Right Kidney: visualized portions wnl, limited by overlying bowel gas Suboptimal study. Suboptimal evaluation of pancreas. Visualized portion of liver is unremarkable. Gal lbladder has distended margins with possible small degree of sludge versus artifact. No mobile shadow ing gallstones. No pericholecystic fluid or abnormal wall thickening. IMPRESSION: Suboptimal study. Distended margins to gallbladder remain present. No sonographic evidence for acute cholecystitis. [facility], , 11/13/2024 10:30 AM
--- NOTE | 2024-11-13 10:57 | P.PN ---
Subjective Progress Note Date: 11/13/24 On today's evaluation of 11/13/2024, the patient remains neurologically altered, confused, unable to give meaningful information and history. Of significance is that extensive skin excoriation and superficial lesions less noted throughout the body involving the upper and lower extremities and the torso. No signs of any acute cellulitis or infection. Skin is dry and scaly and multiple superficial wounds are seen throughout his body. Noted, the patient is able to move all 4 extremities. CAT scan of the brain that was done at the time of admission showed no acute abnormalities. The patient also had a CAT scan of the abdomen and pelvis that showed a dilated gallbladder. A general surgical consul tation was obtained as the patient was also noted to have some elevation in LFTs. The patient also has some atelectatic changes and consolidation in the lung bases left more than right. This morning he is on room air oxygen. He is on D5 half-normal saline at rate of 130 cc an hour. He was having episodes of bradycardia and the patient was started on dopamine 5 mcg/kg/min. Noted the blood cultures on negative. He is still hypothermic and he is using a Elian hugger for external warming. He does have a mild component of hypothyroidism and the TSH is elevated with a low free T4. His other comorbidities include COPD and the patient has also history of smoking and daily alcohol abuse. His last drink was on 11/06/2024 and reported drink 1/5 of wine on a daily basis has been on it for more than 50 years. His blood work from today shows a white cell count of 6.2, hemoglobin of 12 and a platelet count of 82. His BUN is 16 with a creatinine 1.1 and sodium level is at 145. LFTs were also noted. His AST is improving down to 86, ALT is down to 104 and alkaline phosphatase is 157. His total bilirubin is at 0.9. Lactic acid level is dropped down to 1.4. Albumin is at 2.9 with a total protein of 6.1. His TSH was 5.1 with a free T4 of 0.99. UA was abnormal and the culture is still pending. Blood cultures still negative. The patient remains on IV Zosyn. He is in atrial fibrillation. He is maintained on anticoagulation with Eliquis. His last echocardiogram from 01/08/2024 showed a preserved LV function with an ejection fraction of 55 to 60% and mild degree of pulmonary hypertension. Objective - Vital Signs Vital signs: Vital Signs Temp 98.9 F 11/13/24 07:00 Pulse 67 11/13/24 08:00 Resp 30 H 11/13/24 08:00 BP 126/100 11/13/24 08:00 Pulse Ox 94 L 11/13/24 08:00 FiO2 35 11/11/24 00:57 Intake & Output 11/12/24 11/13/24 11/13/24 18:59 06:59 18:59 Intake Total 8874.645 1877 260 Output Total 840 700 105 Balance 1042.335 860 155 Weight 77.6 kg Intake: IV 1560 1560 260 Dextrose 5%-0.45% NaCl 1, 1560 1560 260 000 ml @ 130 mls/hr IV . Q7H42M JUAN Rx#:[id number] Intake, IV Titration 322.335 Amount DOPamine DRIP 800 mg In 29.670 Dextrose/Water 1 250ml. bag @ 1 MCG/KG/MIN 1.453 mls/hr IV .Q24H JUAN Rx#: [id number] Norepinephrine 4 mg In 142.665 Sodium Chloride 0.9% 250 ml @ 0.03 MCG/KG/MIN 8. 658 mls/hr IV .Q24H JUAN Rx#:[id number] Piperacillin-Tazobactam 3 100 .375 gm In Sodium Chloride 0.9% 100 ml @ 25 mls/hr IVPB Q8HR JUAN Rx# :[id number] Thiamine 500 mg In Sodium 50 Chloride 0.9% 50 ml @ 100 mls/hr IVPB TID JUAN Rx#:[id number] Output: Urine 840 700 105 Other: Voiding Method Indwelling Catheter Indwelling Catheter Indwelling Catheter # Bowel Movements 1 - Exam General: non toxic, confused, not acute respiratory distress. Unable to communicate. Unable to follow simple commands. Derm: warm, dry, scaling rash over BL upper and lower extremities without erythema, and the patient has extensive skin excoriation and areas of superficial wounds throughout his upper and lower extremities and the torso. No evidence of any cellulitis. Head: atraumatic, normocephalic, symmetric Eyes: EOMI, no lid lag, anicteric sclera Mouth: no lip lesion, mucus membranes moist Cardiovascular: S1S2 irreg, consistent with atrial fibrillation, nontachycardic at this point Lungs: CTA bilateral, no rhonchi, no rales , no accessory muscle use, diminished breath sound lung base bilaterally Abdominal: soft, nontender to palpation, no guarding, no appreciable organomegaly Ext: no gross muscle atrophy, no edema, no contractures Neuro: Moving all 4 extremities. Unable to examine cranial nerves, confused, encephalopathic. Moving all 4 extremities and his neurologic exam is nonfocal. Psych: Groaning and attempting to climb out of bed at the time of admission, currently more Comfortable. - Labs CBC & Chem 7: 11/13/24 07:45 11/13/24 07:45 Labs: Abnormal Lab Results - Last 24 Hours (Table) 11/12/24 11/12/24 11/12/24 Range/Units 14:39 14:39 16:25 RBC (4.30-5.90) m/uL Hgb (13.0-17.5) gm/dL Hct (39.0-53.0) % MCHC 30.4 L (31.0-37.0) g/dL Plt Count 74 L (150-450) k/uL Lymphocytes # 0.5 L (1.0-4.8) k/uL Chloride 115 H (98-107) mmol/L Carbon Dioxide (22-30) mmol/L Glucose 129 H (74-99) mg/dL POC Glucose (mg/dL) 115 H (70-110) mg/dL AST 98 H (17-59) U/L ALT 124 H (4-49) U/L Alkaline Phosphatase 203 H (38-126) U/L Total Protein 6.0 L (6.3-8.2) g/dL Albumin 3.0 L (3.5-5.0) g/dL Cortisol (3.1-22.4) UG/DL 11/12/24 11/12/24 11/12/24 Range/Units 18:49 19:53 22:09 RBC (4.30-5.90) m/uL Hgb (13.0-17.5) gm/dL Hct (39.0-53.0) % MCHC (31.0-37.0) g/dL Plt Count (150-450) k/uL Lymphocytes # (1.0-4.8) k/uL Chloride (98-107) mmol/L Carbon Dioxide (22-30) mmol/L Glucose (74-99) mg/dL POC Glucose (mg/dL) 115 H 124 H (70-110) mg/dL AST (17-59) U/L ALT (4-49) U/L Alkaline Phosphatase (38-126) U/L Total Protein (6.3-8.2) g/dL Albumin (3.5-5.0) g/dL Cortisol 103.0 H (3.1-22.4) UG/DL 11/13/24 11/13/24 11/13/24 Range/Units 00:24 02:12 07:45 RBC 4.25 L (4.30-5.90) m/uL Hgb 12.0 L (13.0-17.5) gm/dL Hct 37.9 L (39.0-53.0) % MCHC (31.0-37.0) g/dL Plt Count 82 L (150-450) k/uL Lymphocytes # 0.5 L (1.0-4.8) k/uL Chloride (98-107) mmol/L Carbon Dioxide (22-30) mmol/L Glucose (74-99) mg/dL POC Glucose (mg/dL) 118 H 111 H (70-110) mg/dL AST (17-59) U/L ALT (4-49) U/L Alkaline Phosphatase (38-126) U/L Total Protein (6.3-8.2) g/dL Albumin (3.5-5.0) g/dL Cortisol (3.1-22.4) UG/DL 11/13/24 11/13/24 Range/Units 07:45 08:08 RBC (4.30-5.90) m/uL Hgb (13.0-17.5) gm/dL Hct (39.0-53.0) % MCHC (31.0-37.0) g/dL Plt Count (150-450) k/uL Lymphocytes # (1.0-4.8) k/uL Chloride 119 H (98-107) mmol/L Carbon Dioxide 19 L (22-30) mmol/L Glucose 108 H (74-99) mg/dL POC Glucose (mg/dL) 122 H (70-110) mg/dL AST 86 H (17-59) U/L ALT 104 H (4-49) U/L Alkaline Phosphatase 157 H (38-126) U/L Total Protein 6.1 L (6.3-8.2) g/dL Albumin 2.9 L (3.5-5.0) g/dL Cortisol (3.1-22.4) UG/DL Microbiology - Last 24 Hours (Table) 11/10/24 19:00 Blood Culture - Preliminary Blood Assessment and Plan Plan: Acute mental status changes, of unclear etiology. CAT scan of the brain was negative. Her underlying metabolic encephalopathy, alcoholic encephalopathy. Rule out sepsis/infection. Hypertension, despite fluid resuscitation, possibly secondary to sepsis, currently on no pressors. Hemodynamically stable Possible urinary tract infection/urosepsis, covered with IV Zosyn. Awaiting blood cultures and urine cultures. Chronic alcohol abuse, rule out alcohol withdrawal syndrome. History of prostate cancer. History of COPD, from previous tobacco use. Hypothermia, improving Hypothyroidism Extensive skin excoriation and superficial wounds without evidence of cellulitis Chronic atrial fibrillation, bradycardic and the patient was started on dopamine. The patient is also on anticoagulation with Eliquis. Preserved LV function based on the previous echocardiogram from 2023 Abnormal LFTs, improving. Dilated gallbladder. No clinical indication for acute cholecystitis. General surgery is on the case. Plan: Patient remains on room air oxygen Aspiration precautions External warming Monitor LFTs and obtain ultrasound of the gallbladder Continue dopamine Monitor mental status Continue IV Zosyn No pressors for now D5 half-normal saline at rate of 130 cc an hour start the patient on Synthroid 50 mcg IV every 24 hours Will follow. Time with Patient: Greater than 30
[2024-11-13] MEDS: LEVOTHYROXINE IVP 100 MCG/5 ML VIAL IV SCH (11:01)
[2024-11-13 12:05] LABS: Glucose,Whole Blood 115 mg/dL (70-110)
[2024-11-13 12:25] LABS: Glucose,Whole Blood 113 mg/dL (70-110)
--- NOTE | 2024-11-13 13:07 | P.EPCON ---
Electrophysiology Consult - EP Consult Electrophysiology Consult: This is Dr. Tamayo dictating a consult on this patient The patient was interviewed and examined IMPRESSION / ASSESSMENT: Bradycardia, severe Atrial fibrillation with a slow ventricular response currently needing IV dopamine Possible sepsis, on antibiotics for the last 3 days now with a normal white count afebrile, hypothermic Encephalopathy multifactorial Chronic alcohol abuse Normal TSH PLAN: I had a very detailed discussion with the patient's daughter regarding the pros and cons of permanent pacing in the setting. She understands that permanent pacemaker will not change the course of his encephalopathy and overall multiple medical problems. In addition the permanent pacemaker would have to be performed under general anesthesia since the patient would not cooperate with this procedure, thereby increasing the risk of the procedure secondary to general anesthesia even though it would be short duration anesthesia. The main risk is that of short-term and long-term infection. I did speak to her about a percutaneously implanted pacemaker, Micra but given the skin condition in bilateral groins I would not attempt it. If the family consents I would implant a single-chamber permanent pacemaker left pectoral The risk of infection greater than 2 to 3% in the long run. I will give him IV vancomycin prior to entering the lab and then further antibiotics thereafter The daughter understands that this will not change the ultimate medical course and will not have any impact on his other medical conditions Long-term risk of infection is significant and I made this very clear to her HPI Electrophysiology was consulted on account of intermittent bradycardia, severe requiring IV dopamine. Patient has paroxysmal atrial fibrillation He has multiple other medical problems including confusion weakness possible sepsis with normal white count hypothermia, on antibiotics for the last 72 hours Encephalopathy, lethargic, nonconversant Dr. Parnell asked me to implant a permanent pacemaker on account of bradycardia requiring IV dopamine in the setting of underlying atrial fibrillation History of prostate cancer, treated with radiation ROS: No fever chills or rigors, no cough, phlegm or expectoration, no nausea, vomiting or diarrhea, no hematuria, dysuria, no musculoskeletal complaints, no strokes or seizures, no skin lesions. EXAMINATION: Patient is nonconversant confused Heart rate is in the 60s while on IV dopamine Heart sounds no murmurs Extensively scarred bilateral groins Left pectoral area skin is reasonable without any evidence for old infection scarring or eczema REVIEW OF LABS, ECG & MEDICAL DATA Labs reviewed. White count normal hemoglobin 12 no leftward shift Low lymphocytes Electrolytes normal
--- NOTE | 2024-11-13 13:14 | P.PN ---
Subjective Progress Note Date: 11/13/24 I am following up with the patient and it seems the patient is drowsy. Slightly more awake able to voice today compared to a few days ago. Objective - Vital Signs Vital signs: Vital Signs Temp 98.9 F 11/13/24 07:00 Pulse 55 L 11/13/24 11:00 Resp 19 11/13/24 11:00 BP 127/85 11/13/24 11:00 Pulse Ox 94 L 11/13/24 11:00 FiO2 35 11/11/24 00:57 Intake & Output 11/12/24 11/13/24 11/13/24 18:59 06:59 18:59 Intake Total 2313.965 9450 793.504 Output Total 840 700 245 Balance 1042.335 860 548.504 Weight 77.6 kg Intake: IV 1560 1560 650 Dextrose 5%-0.45% NaCl 1, 1560 1560 650 000 ml @ 130 mls/hr IV . Q7H42M [facility] Rx#:[id number] Intake, IV Titration 322.335 143.504 Amount DOPamine DRIP 800 mg In 29.670 143.504 Dextrose/Water 1 250ml. bag @ 1 MCG/KG/MIN 1.453 mls/hr IV .Q24H JUAN Rx#: [id number] Norepinephrine 4 mg In 142.665 Sodium Chloride 0.9% 250 ml @ 0.03 MCG/KG/MIN 8. 658 mls/hr IV .Q24H [facility] Rx#:[id number] Piperacillin-Tazobactam 3 100 .375 gm In Sodium Chloride 0.9% 100 ml @ 25 mls/hr IVPB Q8HR [facility] Rx# :[id number] Thiamine 500 mg In Sodium 50 Chloride 0.9% 50 ml @ 100 mls/hr IVPB TID JUAN Rx#:[id number] Output: Urine 840 700 245 Other: Voiding Method Indwelling Catheter Indwelling Catheter Indwelling Catheter # Bowel Movements 1 - Exam General: Lying in bed and does not appear in acute distress. Neuro: Limited because of his overall condition. He is oriented to self after multiple tries. He continues to be severely drowsy but seems more awake able today to voice compared to couple days ago. Not following commands. Otherwise examination is limited. - Labs CBC & Chem 7: 11/13/24 07:45 11/13/24 07:45 Labs: Abnormal Lab Results - Last 24 Hours (Table) 11/12/24 11/12/24 11/12/24 Range/Units 14:39 14:39 16:25 RBC (4.30-5.90) m/uL Hgb (13.0-17.5) gm/dL Hct (39.0-53.0) % MCHC 30.4 L (31.0-37.0) g/dL Plt Count 74 L (150-450) k/uL Lymphocytes # 0.5 L (1.0-4.8) k/uL Chloride 115 H (98-107) mmol/L Carbon Dioxide (22-30) mmol/L Glucose 129 H (74-99) mg/dL POC Glucose (mg/dL) 115 H (70-110) mg/dL AST 98 H (17-59) U/L ALT 124 H (4-49) U/L Alkaline Phosphatase 203 H (38-126) U/L Total Protein 6.0 L (6.3-8.2) g/dL Albumin 3.0 L (3.5-5.0) g/dL Cortisol (3.1-22.4) UG/DL 11/12/24 11/12/24 11/12/24 Range/Units 18:49 19:53 22:09 RBC (4.30-5.90) m/uL Hgb (13.0-17.5) gm/dL Hct (39.0-53.0) % MCHC (31.0-37.0) g/dL Plt Count (150-450) k/uL Lymphocytes # (1.0-4.8) k/uL Chloride (98-107) mmol/L Carbon Dioxide (22-30) mmol/L Glucose (74-99) mg/dL POC Glucose (mg/dL) 115 H 124 H (70-110) mg/dL AST (17-59) U/L ALT (4-49) U/L Alkaline Phosphatase (38-126) U/L Total Protein (6.3-8.2) g/dL Albumin (3.5-5.0) g/dL Cortisol 103.0 H (3.1-22.4) UG/DL 11/13/24 11/13/24 11/13/24 Range/Units 00:24 02:12 07:45 RBC 4.25 L (4.30-5.90) m/uL Hgb 12.0 L (13.0-17.5) gm/dL Hct 37.9 L (39.0-53.0) % MCHC (31.0-37.0) g/dL Plt Count 82 L (150-450) k/uL Lymphocytes # 0.5 L (1.0-4.8) k/uL Chloride (98-107) mmol/L Carbon Dioxide (22-30) mmol/L Glucose (74-99) mg/dL POC Glucose (mg/dL) 118 H 111 H (70-110) mg/dL AST (17-59) U/L ALT (4-49) U/L Alkaline Phosphatase (38-126) U/L Total Protein (6.3-8.2) g/dL Albumin (3.5-5.0) g/dL Cortisol (3.1-22.4) UG/DL 11/13/24 11/13/24 11/13/24 Range/Units 07:45 08:08 12:04 RBC (4.30-5.90) m/uL Hgb (13.0-17.5) gm/dL Hct (39.0-53.0) % MCHC (31.0-37.0) g/dL Plt Count (150-450) k/uL Lymphocytes # (1.0-4.8) k/uL Chloride 119 H (98-107) mmol/L Carbon Dioxide 19 L (22-30) mmol/L Glucose 108 H (74-99) mg/dL POC Glucose (mg/dL) 122 H 115 H (70-110) mg/dL AST 86 H (17-59) U/L ALT 104 H (4-49) U/L Alkaline Phosphatase 157 H (38-126) U/L Total Protein 6.1 L (6.3-8.2) g/dL Albumin 2.9 L (3.5-5.0) g/dL Cortisol (3.1-22.4) UG/DL 11/13/24 Range/Units 12:24 RBC (4.30-5.90) m/uL Hgb (13.0-17.5) gm/dL Hct (39.0-53.0) % MCHC (31.0-37.0) g/dL Plt Count (150-450) k/uL Lymphocytes # (1.0-4.8) k/uL Chloride (98-107) mmol/L Carbon Dioxide (22-30) mmol/L Glucose (74-99) mg/dL POC Glucose (mg/dL) 113 H (70-110) mg/dL AST (17-59) U/L ALT (4-49) U/L Alkaline Phosphatase (38-126) U/L Total Protein (6.3-8.2) g/dL Albumin (3.5-5.0) g/dL Cortisol (3.1-22.4) UG/DL Microbiology - Last 24 Hours (Table) 11/10/24 19:00 Blood Culture - Preliminary Blood Assessment and Plan Assessment: * Altered mental status, probably due to acute metabolic encephalopathy. Also concern for sepsis (has hypotensive, coughing and CT was suspicious for pneumonia). Possible alcohol withdrawal, impending DTs. Rule out acute CVA but I doubt it. * Hypothermia, unclear cause. * Hypothyroidism * Hypoglycemia * Concern for possible pneumonia * Elevated liver enzymes * Thrombocytopenia, likely due to alcoholism * History of prostate cancer, on chemotherapy * Chronic alcoholism * Diffuse seborrheic dermatitis involving arms and legs * Tobacco use Plan: * MRI of the brain with and without contrast * CTA of head and neck: Possibility moderate stenosis of proximal left internal carotid artery. Mild stenosis with diffuse calcification of the carotid siphons. * EEG evaluate for encephalopathy. * Patient is not diabetic, but his blood sugars have been running low. Watch for hypoglycemia. * Ammonia level is < 9 * B12: 3181, folate 6. Because of low folic acid is on supplement 1mg daily. * TSH 5.17, free T4 normal 0.99. Will defer to IM to address abnormal thyroid functions. * [facility] protocol. * ID consulted. Rule out cellulitis per Dr. Mcmahon. * Continue Eliquis 5 mg twice a day. Time with Patient: Less than 30
--- NOTE | 2024-11-13 13:27 | P.PN ---
Subjective Progress Note Date: 11/13/24 Principal diagnosis: Reason for follow-up is sepsis Patient is a 79-year-old male with a past medical history significant for COPD prostate cancer for the patient has been on chemo and radiation therapy patient has been brought into the hospital concerning for increased confusion and weakness patient was noted to be hypothermic bradycardic concerning for sepsis possible source of UTI/pneumonia requiring transfer to the ICU. On today's evaluation that is 11/13/2024, patient did have normalization of his temperature, with a temperature of 98.9 this morning patient seem to be slightly more awake and did not sense in simple question denies any chest pain or cough n o abdominal pain no diarrhea has been reported patient is currently on room air. Patient white count is 6.2 creatinine is 1.10 blood cultures are currently pending gallbladder ultrasound was suboptimal study did not mention any suspicious for cholecystitis Objective - Vital Signs Vital signs: Vital Signs Temp 98.9 F 11/13/24 07:00 Pulse 55 L 11/13/24 11:00 Resp 19 11/13/24 11:00 BP 127/85 11/13/24 11:00 Pulse Ox 94 L 11/13/24 11:00 FiO2 35 11/11/24 00:57 Intake & Output 11/12/24 11/13/24 11/13/24 18:59 06:59 18:59 Intake Total 1459.288 9729 793.504 Output Total 840 700 245 Balance 1042.335 860 548.504 Weight 77.6 kg Intake: IV 1560 1560 650 Dextrose 5%-0.45% NaCl 1, 1560 1560 650 000 ml @ 130 mls/hr IV . Q7H42M JUAN Rx#:[id number] Intake, IV Titration 322.335 143.504 Amount DOPamine DRIP 800 mg In 29.670 143.504 Dextrose/Water 1 250ml. bag @ 1 MCG/KG/MIN 1.453 mls/hr IV .Q24H JUAN Rx#: [id number] Norepinephrine 4 mg In 142.665 Sodium Chloride 0.9% 250 ml @ 0.03 MCG/KG/MIN 8. 658 mls/hr IV .Q24H JUAN Rx#:[id number] Piperacillin-Tazobactam 3 100 .375 gm In Sodium Chloride 0.9% 100 ml @ 25 mls/hr IVPB Q8HR JUAN Rx# :[id number] Thiamine 500 mg In Sodium 50 Chloride 0.9% 50 ml @ 100 mls/hr IVPB TID JUAN Rx#:[id number] Output: Urine 840 700 245 Other: Voiding Method Indwelling Catheter Indwelling Catheter Indwelling Catheter # Bowel Movements 1 - Exam GENERAL DESCRIPTION: An elderly male lying in bed in no distress RESPIRATORY SYSTEM: Unlabored breathing , decreased breath sounds at bases HEART: S1 S2 regular rate and rhythm , ABDOMEN: Soft , no tenderness EXTREMITIES: No edema feet - Labs CBC & Chem 7: 11/13/24 07:45 11/13/24 07:45 Labs: Abnormal Lab Results - Last 24 Hours (Table) 11/12/24 11/12/24 11/12/24 Range/Units 14:39 14:39 16:25 RBC (4.30-5.90) m/uL Hgb (13.0-17.5) gm/dL Hct (39.0-53.0) % MCHC 30.4 L (31.0-37.0) g/dL Plt Count 74 L (150-450) k/uL Lymphocytes # 0.5 L (1.0-4.8) k/uL Chloride 115 H (98-107) mmol/L Carbon Dioxide (22-30) mmol/L Glucose 129 H (74-99) mg/dL POC Glucose (mg/dL) 115 H (70-110) mg/dL AST 98 H (17-59) U/L ALT 124 H (4-49) U/L Alkaline Phosphatase 203 H (38-126) U/L Total Protein 6.0 L (6.3-8.2) g/dL Albumin 3.0 L (3.5-5.0) g/dL Cortisol (3.1-22.4) UG/DL 11/12/24 11/12/24 11/12/24 Range/Units 18:49 19:53 22:09 RBC (4.30-5.90) m/uL Hgb (13.0-17.5) gm/dL Hct (39.0-53.0) % MCHC (31.0-37.0) g/dL Plt Count (150-450) k/uL Lymphocytes # (1.0-4.8) k/uL Chloride (98-107) mmol/L Carbon Dioxide (22-30) mmol/L Glucose (74-99) mg/dL POC Glucose (mg/dL) 115 H 124 H (70-110) mg/dL AST (17-59) U/L ALT (4-49) U/L Alkaline Phosphatase (38-126) U/L Total Protein (6.3-8.2) g/dL Albumin (3.5-5.0) g/dL Cortisol 103.0 H (3.1-22.4) UG/DL 11/13/24 11/13/24 11/13/24 Range/Units 00:24 02:12 07:45 RBC 4.25 L (4.30-5.90) m/uL Hgb 12.0 L (13.0-17.5) gm/dL Hct 37.9 L (39.0-53.0) % MCHC (31.0-37.0) g/dL Plt Count 82 L (150-450) k/uL Lymphocytes # 0.5 L (1.0-4.8) k/uL Chloride (98-107) mmol/L Carbon Dioxide (22-30) mmol/L Glucose (74-99) mg/dL POC Glucose (mg/dL) 118 H 111 H (70-110) mg/dL AST (17-59) U/L ALT (4-49) U/L Alkaline Phosphatase (38-126) U/L Total Protein (6.3-8.2) g/dL Albumin (3.5-5.0) g/dL Cortisol (3.1-22.4) UG/DL 11/13/24 11/13/24 11/13/24 Range/Units 07:45 08:08 12:04 RBC (4.30-5.90) m/uL Hgb (13.0-17.5) gm/dL Hct (39.0-53.0) % MCHC (31.0-37.0) g/dL Plt Count (150-450) k/uL Lymphocytes # (1.0-4.8) k/uL Chloride 119 H (98-107) mmol/L Carbon Dioxide 19 L (22-30) mmol/L Glucose 108 H (74-99) mg/dL POC Glucose (mg/dL) 122 H 115 H (70-110) mg/dL AST 86 H (17-59) U/L ALT 104 H (4-49) U/L Alkaline Phosphatase 157 H (38-126) U/L Total Protein 6.1 L (6.3-8.2) g/dL Albumin 2.9 L (3.5-5.0) g/dL Cortisol (3.1-22.4) UG/DL 11/13/24 Range/Units 12:24 RBC (4.30-5.90) m/uL Hgb (13.0-17.5) gm/dL Hct (39.0-53.0) % MCHC (31.0-37.0) g/dL Plt Count (150-450) k/uL Lymphocytes # (1.0-4.8) k/uL Chloride (98-107) mmol/L Carbon Dioxide (22-30) mmol/L Glucose (74-99) mg/dL POC Glucose (mg/dL) 113 H (70-110) mg/dL AST (17-59) U/L ALT (4-49) U/L Alkaline Phosphatase (38-126) U/L Total Protein (6.3-8.2) g/dL Albumin (3.5-5.0) g/dL Cortisol (3.1-22.4) UG/DL Microbiology - Last 24 Hours (Table) 11/10/24 19:00 Blood Culture - Preliminary Blood Assessment and Plan (1) Altered mental status Current Visit: Yes Status: Acute Code(s): R41.82 - ALTERED MENTAL STATUS, UNSPECIFIED SNOMED Code(s): 833098639 (2) Pneumonia Current Visit: No Status: Acute Code(s): J18.9 - PNEUMONIA, UNSPECIFIED ORGANISM SNOMED Code(s): 744807613 Plan: 1patient presented to hospital with mental status changes confusion and weakness source likely left lower lobe pneumonia and his question of possible gallbladder disease will need to direct antibiotic therapy mostly towards pneumonia or possible aspiration pneumonia/gram-negative and intra-abdominal gram-negative pathogen less likely risk for composite infection such as MRSA, repeat urine is positive as well 2-patient did have ultrasound of the gallbladder suboptimal study but mention no features of cholecystitis 3-patient seem to have improvement in his temperature white count is normal, to continue Zosyn 3.375 g every 8 hours while waiting for the culture to finalize Dictation was produced using [employer] dictation software. please excuse any grammatical, word or spelling errors. Time with Patient: Less than 30
[2024-11-13] MEDS: VANCOMYCIN 1,250 MG in SODIUM CHLORIDE 0.9% 250 ML IVPB STA (14:05)
[2024-11-13 14:09] LABS: Glucose,Whole Blood 120 mg/dL (70-110)
--- NOTE | 2024-11-13 16:06 | P.PN ---
Progress Note - Text Progress Note Date: 11/13/24 No acute events overnight. Patient unable to sit still for HIDA scan not performed. However, RUQ US was performed and there is no evidence of cholecystitis. General appearance: in no apparent distress, lethargic Head exam: Present: atraumatic, normocephalic Eye exam: Present: normal appearance, PERRL ENT exam: Present: mucous membranes dry Neck exam: Present: normal inspection Respiratory exam: Present: normal lung sounds bilaterally, decreased breath sounds. Absent: respiratory distress, wheezes Cardiovascular Exam: Present: regular rate, irregular rhythm GI/Abdominal exam: Present: soft. Absent: distended, tenderness, guarding Extremities exam: Present: pedal edema (Chronic venous stasis) Neurological exam: Present: alert, CN II-XII intact. Absent: oriented X3, motor sensory deficit Skin exam: Present: warm, dry, intact 79 year old male with Gallbladder Distention without obvious evidence of cholecystitis on CT-AP -RUQ US shows no evidence of cholecystitis -Zosyn -Regular Diet -ICU care -No acute surgical intervention planned Dominguez Martin DO [facility] [phone]
--- NOTE | 2024-11-13 16:15 | CA ---
Transthoracic Echo Report Name: Alvino Griffin Age: 79 Gender: M : 1945 Exam Date: 11/13/2024 07:19 Exam Location: [facility] Ht (in): 72 Wt (lb): 170 Ordering Physician: Gianni Acevedo MD ([id number]) Attending/Referring Phys: Zinc Skimmer Holly Tyson RDCS Procedure CPT: Indications: cardiomyopathy, afib Cardiac Hx: Technical Quality: Very technically difficult study Contrast 1: Definity Total Dose (mL): 5 Contrast 2: Total Dose (mL): MEASUREMENTS (Male / Female) Normal Values 2D ECHO LV Diastolic Diameter PLAX 3.9 cm 4.2 - 5.9 / 3.9 - 5.3 cm LV Systolic Diameter PLAX 2.7 cm IVS Diastolic Thickness 0.8 cm 0.6 - 1.0 / 0.6 - 0.9 cm LVPW Diastolic Thickness 0.9 cm 0.6 - 1.0 / 0.6 - 0.9 cm LV Relative Wall Thickness 0.4 LVOT Diameter 2.4 cm LV Diastolic Volume MOD BP 89.8 cm??? 67 - 155 / 56 - 104 cm??? LV Systolic Volume MOD BP 36.3 cm??? 22 - 58 / 19 - 49 cm??? LV Ejection Fraction MOD BP 59.5 % >= 55 % LV Cardiac Index MOD BP 1755.1 cm???/min???m??? LV Diastolic Volume MOD 4C 100.0 cm??? LV Systolic Volume MOD 4C 35.1 cm??? LV Ejection Fraction MOD 4C 64.9 % LV Cardiac Index MOD 4C 2129.7 cm???/min???m??? LV Diastolic Length 4C 9.0 cm LV Systolic Length 4C 7.6 cm LV Diastolic Volume MOD 2C 77.5 cm??? LV Systolic Volume MOD 2C 33.3 cm??? LV Ejection Fraction MOD 2C 57.1 % LV Cardiac Index MOD 2C 1454.2 cm???/min???m??? LV Diastolic Length 2C 8.6 cm LV Systolic Length 2C 6.7 cm DOPPLER AV Peak Velocity 107.3 cm/s AV Peak Gradient 4.6 mmHg AV Mean Velocity 78.1 cm/s AV Mean Gradient 2.6 mmHg AV Velocity Time Integral 22.3 cm LVOT Peak Velocity 87.1 cm/s LVOT Peak Gradient 3.0 mmHg LVOT Velocity Time Integral 17.4 cm LVOT Stroke Volume 80.7 cm??? LVOT Stroke Volume Index 40.6 ml/m??? LVOT Cardiac Index 2650.6 cm???/min???m??? AV Area Cont Eq vti 3.6 cm??? AV Area Cont Eq pk 3.8 cm??? MV Area PHT 4.5 cm??? Mitral E Point Velocity 66.0 cm/s Mitral A Point Velocity 40.0 cm/s Mitral E to A Ratio 1.7 MV Deceleration Time 166.8 ms TR Peak Velocity 299.8 cm/s TR Peak Gradient 36.0 mmHg Right Atrial Pressure 10.0 mmHg Pulmonary Artery Systolic Pressu 46.0 mmHg Right Ventricular Systolic Press 46.0 mmHg PV Peak Velocity 61.0 cm/s PV Peak Gradient 1.5 mmHg FINDINGS Left Ventricle Left ventricular ejection fraction is estimated at 50-55 %. Left ventricular cavity size normal. Left ventricular wall thickness normal. Unable to fully visualize regional wall segments. Right Ventricle Moderate to severe right ventricular dilatation with borderline reduced function. Moderate pulmonary hypertension. Right Atrium Right atrial dilatation by visual estimate. Left Atrium Mildly increased left atrial area. Mitral Valve Mitral valve thickened. Mitral annular calcification. No evidence for mitral valve prolapse. No mitral stenosis. Trace to mild mitral regurgitation. Aortic Valve Trileaflet aortic valve. Diffuse thickening (sclerosis) of the aortic valve cusps without reduced excursion. No aortic valve stenosis or regurgitation. Tricuspid Valve Structurally normal tricuspid valve. No tricuspid stenosis. Mild tricuspid regurgitation. Pulmonic Valve Pulmonic valve not well visualized. No pulmonic stenosis. No pulmonic regurgitation. Pericardium No pericardial effusion. Aorta Aortic annulus normal. CONCLUSIONS Left ventricular ejection fraction is estimated at 50-55 % Moderate to severe right ventricular dilatation RVSP 46 Trace to mild mitral regurgitation. Mild tricuspid regurgitation. Previewed by: Dr. Bobby Castro DO (Electronically Signed) Final Date: 13 November 2024 16:14
[2024-11-13 18:30] LABS: Glucose,Whole Blood 108 mg/dL (70-110)
[2024-11-13] MEDS: AMMONIUM LACTATE 12% CREAM 140 GM TUBE TOPICAL SCH (20:07)
[2024-11-13 20:19] LABS: Glucose,Whole Blood 111 mg/dL (70-110)
--- NOTE | 2024-11-13 20:30 | PN ---
PROGRESS NOTE SUBJECTIVE: This is a 79-year-old gentleman with history of permanent atrial fibrillation with slow ventricular rate and COPD, who is admitted to hospital with confusion, weakness that was getting progressively worse for 2 days prior to admission. The patient was hypothermic and had metabolic encephalopathy. Cardiology was consulted because of bradycardia. He was evaluated by my associate, Dr. Bales. The patient was in atrial fibrillation with slow ventricular rate. He is currently on IV dopamine with improvement in his heart rate. He appears confused and is currently being treated for possible pneumonia. OBJECTIVE: GENERAL: The patient is confused. VITAL SIGNS: Heart rate is 60 beats per minute, blood pressure is 120/100, respiratory rate is 26, O2 saturation is 94% on room air. NECK: There is no jugular venous distention. CHEST: Reveals good air entry bilaterally. There are no crackles or rhonchi. HEART: Reveals first and second heart sounds. Systolic murmur at the apex. ABDOMEN: Soft. EXTREMITIES: Did not reveal any edema. There are skin rashes. LABORATORY DATA: Labs show a hemoglobin of 12, platelet count is 82, potassium is 4.7, creatinine is 1.1. AST and ALT are elevated. The patient is not on any AV alba blockers. He is on Eliquis for anticoagulation. ASSESSMENT: Persistent atrial fibrillation with slow ventricular rate. PLAN: I will continue the patient on dopamine. I will consult EP to advise us on bradycardia. MMODL / IJN: [id number] /
--- NOTE | 2024-11-13 21:20 | EEG ---
ELECTROENCEPHALOGRAM REPORT CLINICAL HISTORY: This is a 79-year-old gentleman with altered mental status. The video EEG is obtained to evaluate for seizure epileptiform activity. RELEVANT MEDICATIONS: Ativan p.r.n. EEG TYPE: This is a routine 21-channel EEG with video using the 10/20 electrode placement system. DESCRIPTION: Wakefulness and drowsiness are obtained. During the awake state, the background consists of [id number] voltage of 5 to 6 Hz activity that is poorly modulated, poorly sustained, intermixed with delta activity. There is no physiological stage 2 sleep architecture. There is no focal slowing. Interictal and ictal events are none. ACTIVATION PROCEDURE: Photic stimulation did not evoke a posterior driving response. There is no abnormality during the photic stimulation. Hyperventilation is not performed. CLINICAL INTERPRETATION: This is an abnormal routine EEG during awake and drowsy state. The background slowing is suggestive of moderate encephalopathy. Otherwise, there is no focal slowing, epileptiform discharge, or seizure on the EEG. The lack of epileptiform discharges does not rule out underlying epilepsy. Clinical correlation is recommended. NARA / EDNAN: [id number] / MTDD
[2024-11-13 22:15] LABS: Glucose,Whole Blood 109 mg/dL (70-110)
[2024-11-14 05:52] LABS: Glucose,Whole Blood 76 mg/dL (70-110)
[2024-11-14 05:55] LABS: HCT 34.5 % (39.0-53.0); HGB 11.7 gm/dL (13.0-17.5); Hypochromasia Moderate; MCH 31.5 pg (25.0-35.0); MCHC 33.8 g/dL (31.0-37.0); MCV 93.2 fL (80.0-100.0); Mean Platelet Volume 8.9; WBC 5.3 k/uL (3.8-10.6)
[2024-11-14 05:59] LABS: Platelet Count 70 k/uL (150-450)
[2024-11-14 06:12] LABS: ALT 88 U/L (4-49); AST 80 U/L (17-59); African American GFR (CKD) 81 (>60 ml/min/1.73 sqM); Albumin 2.8 g/dL (3.5-5.0); Alkaline Phosphatase 161 U/L (38-126); Anion Gap 8 mmol/L; Blood Urea Nitrogen 15 mg/dL (9-20); Calcium 8.9 mg/dL (8.4-10.2); Carbon Dioxide 20 mmol/L (22-30); Chloride 117 mmol/L (98-107); Glucose 84 mg/dL (74-99); Magnesium 2.1 mg/dL (1.6-2.3); Non-African American GFR(CKD) 70 (>60 ml/min/1.73 sqM); Potassium 3.2 mmol/L (3.5-5.1); Sodium 145 mmol/L (137-145); Total Bilirubin 0.7 mg/dL (0.2-1.3); Total Protein 5.6 g/dL (6.3-8.2)
[2024-11-14] MEDS ORDERED: Potassium Replacement Protocol 1 EACH MISC MISCELLANE PRN (06:14)
[2024-11-14] MEDS: POTASSIUM CHLORIDE ER 20 MEQ TAB.ER PO SCH (06:24)
[2024-11-14] MEDS ORDERED: ceFAZolin 1 GM in SODIUM CHLORIDE 0.9% IRRIG BTL 250 ML IRRIGATION PRN (07:00)
--- NOTE | 2024-11-14 10:56 | PN ---
PROGRESS NOTE SUBJECTIVE: This is a 79-year-old gentleman, who is admitted to hospital with confusion, weakness that is being getting progressively worse. He has metabolic encephalopathy and hypothermia. We were involved in his care because of his atrial fibrillation and slow ventricular rate. He is currently on IV dopamine and intermittently his heart rates dropped into the 20s. The patient's family has opted not to have a pacemaker done. OBJECTIVE: VITAL SIGNS: This morning, heart rate is 50 beats per minute, blood pressure is 140/82, respiratory rate is 18, O2 saturation is 97%. CHEST: Reveals good air entry bilaterally. HEART: Reveals first and second heart sounds. No gallop. EXTREMITIES: Did not reveal any edema. Peripheral pulses are felt. ASSESSMENT: Permanent atrial fibrillation with slow ventricular rate. PLAN: I will leave him on Eliquis and dopamine. The patient's family has opted for no pacemaker. NARA / KERRIE: [id number] /
[2024-11-14 11:54] LABS: Glucose,Whole Blood 77 mg/dL (70-110)
--- NOTE | 2024-11-14 13:12 | P.PN ---
Subjective Progress Note Date: 11/14/24 I am following up with the patient and he is accompanied with his sister who feels his mentation is drastically better compared to a couple days ago. Patient feels he is doing better. Objective - Vital Signs Vital signs: Vital Signs Temp 96.5 F L 11/14/24 13:00 Pulse 45 L 11/14/24 13:00 Resp 24 11/14/24 13:00 BP 110/70 11/14/24 13:00 Pulse Ox 100 11/14/24 13:00 FiO2 35 11/11/24 00:57 Intake & Output 11/13/24 11/14/24 11/14/24 18:59 06:59 18:59 Intake Total 0432.174 2412.695 1251.382 Output Total 580 945 365 Balance 1123.504 682.695 886.382 Weight 82.5 kg 82.5 kg Intake: IV 1560 1560 780 Dextrose 5%-0.45% NaCl 1, 1560 1560 780 000 ml @ 130 mls/hr IV . Q7H42M [facility] Rx#:[id number] Intake, IV Titration 143.504 67.695 231.382 Amount DOPamine DRIP 800 mg In 143.504 67.695 81.382 Dextrose/Water 1 250ml. bag @ 1 MCG/KG/MIN 1.453 mls/hr IV .Q24H [facility] Rx#: [id number] Piperacillin-Tazobactam 3 100 .375 gm In Sodium Chloride 0.9% 100 ml @ 25 mls/hr IVPB Q8HR [facility] Rx# :[id number] Thiamine 500 mg In Sodium 50 Chloride 0.9% 50 ml @ 100 mls/hr IVPB TID [facility] Rx#:[id number] Oral 240 Output: Urine 580 945 365 Other: Voiding Method Indwelling Catheter Indwelling Catheter Indwelling Catheter - Exam General: Lying in bed and not in acute distress. Neuro: Patient is awake, alert, oriented to self and he correctly stated he is in the hospital. He correctly stated the current state and the current name of the country. He is following simple commands. No aphasia from limited language. Pupils are round, equal and reactive to light. No facial weakness. No dysarthria Motor: Strength is left in bilateral upper extremity above gravity equally. - Labs CBC & Chem 7: 11/14/24 05:36 11/14/24 05:36 Labs: Abnormal Lab Results - Last 24 Hours (Table) 11/13/24 11/13/24 11/14/24 Range/Units 14:08 20:18 05:36 RBC 3.70 L (4.30-5.90) m/uL Hgb 11.7 L (13.0-17.5) gm/dL Hct 34.5 L (39.0-53.0) % Plt Count 70 L (150-450) k/uL Potassium (3.5-5.1) mmol/L Chloride (98-107) mmol/L Carbon Dioxide (22-30) mmol/L POC Glucose (mg/dL) 120 H 111 H (70-110) mg/dL AST (17-59) U/L ALT (4-49) U/L Alkaline Phosphatase (38-126) U/L Total Protein (6.3-8.2) g/dL Albumin (3.5-5.0) g/dL 11/14/24 Range/Units 05:36 RBC (4.30-5.90) m/uL Hgb (13.0-17.5) gm/dL Hct (39.0-53.0) % Plt Count (150-450) k/uL Potassium 3.2 L (3.5-5.1) mmol/L Chloride 117 H (98-107) mmol/L Carbon Dioxide 20 L (22-30) mmol/L POC Glucose (mg/dL) (70-110) mg/dL AST 80 H (17-59) U/L ALT 88 H (4-49) U/L Alkaline Phosphatase 161 H (38-126) U/L Total Protein 5.6 L (6.3-8.2) g/dL Albumin 2.8 L (3.5-5.0) g/dL Microbiology - Last 24 Hours (Table) 11/10/24 19:00 Blood Culture - Preliminary Blood Assessment and Plan Assessment: * Altered mental status, probably due to acute metabolic encephalopathy. Also concern for sepsis (has hypotensive, coughing and CT was suspicious for pneumonia). Possible alcohol withdrawal, impending DTs--today patient is doing drastically better compared the past couple days * Hypothermia, unclear cause. * Hypothyroidism * Hypoglycemia * Concern for possible pneumonia * Elevated liver enzymes * Thrombocytopenia, likely due to alcoholism * History of prostate cancer, on chemotherapy * Chronic alcoholism * Diffuse seborrheic dermatitis involving arms and legs * Tobacco use Plan: * MRI of the brain with and without contrast: Pending * CTA of head and neck: Possibility moderate stenosis of proximal left internal carotid artery. Mild stenosis with diffuse calcification of the carotid siphons. * EEG: Is abnormal. The Brakel slowing is suggestive of moderate encephalopat hy. Otherwise there is no focal slowing, epileptiform discharge or seizure on the EEG. * Patient is not diabetic, but his blood sugars have been running low. Watch for hypoglycemia. * Ammonia level is < 9 * B12: 3181, folate 6. Because of low folic acid is on supplement 1mg daily. * TSH 5.17, free T4 normal 0.99. Will defer to IM to address abnormal thyroid functions. * [facility] protocol. * ID consulted. Rule out cellulitis per Dr. Mcmahon. * Continue Eliquis 5 mg twice a day. The plan discussed with the patient sisters at bedside. Please notify neurology team once MRI is completed. Will follow-up with the patient sporadically. Time with Patient: Less than 30
--- NOTE | 2024-11-14 13:34 | P.PN ---
Subjective Progress Note Date: 11/14/24 Hospital Course: 79 year old M with history of prostate cancer on oral chemotherapeutic agent w ith apalutamide, COPD with continued nicotine dependence, and daily alcohol abuse. Family reported patient's last alcoholic drink was on 11/06/24 and reported drinking a clement and wine daily for nearly 50 years Patient presented to the emergency department on 11/10/24 with a chief complaint of altered mental status. Patient's family reported patient was at baseline mentation up until approximately 1 AM on day of arrival when he awoke and was noted to have increased confusion and didn't even recognize them and was then noted to have generalized weakness and was unable to even stand. They reported up until this he had a normal appetite and denied any recent weight loss, fevers or exposure to known ill contacts, episodes of vomiting or diarrhea, or patient expressing any complaints of pain or discomfort. Upon arrival to our facility patient was alert to person and place only and confused to time and situation. Patient did admit to daily alcohol use, but did not or was unable to express how much he drank daily. He denied having any complaints or pain at this time. Patient and family deny any other drug use. Patient underwent evaluation in the emergency department. BP 115/68, HR 57, RR 20, T 96.8 F, SpO2 of 100% on RA. Pgxpc-da-bfce glucose was initially 59. EKG was completed showing AFib with a slowed ventricular response at 58 bpm with nonspecific T wave abnormalities in inferior leads. Chest x-ray showed no acute process. CT brain showed no acute process, diffuse age related cerebral atrophy and mild to moderate chronic small vessel ischemic changes with bilateral maxill palmer sinus disease. CBC, Coag panel, CMP significant for Plt 98, Na 149, Cl 114, BUN 21, AST 214, ALT 216, alk phos 273. Troponin <0.012. TSH 5.170, free T4 0.99. UDS neg. UA neg. COVID, RSV, Flu neg. Patient admitted under our services with consultation to neurology. Patient was noted to have a Tlow of 89.5F rectal on 11/10. He was placed on Elian hugger. Lactic acid was 1.2 and vital signs were stable. CT AP and blood cultures were ordered. Patient was noted to by hypotensive on 11/11 along with persistent hypoglycemic. He was given a 2L LR bolus and started on Vancomycin and Cefepime. ID was consulted, antibiotics switched to Zosyn. CTA head and neck showing moderate stenosis of the proximal left internal carotid artery and mild stenosis with diffuse calcification of carotid siphons and maxillary sinusitis. Discussed findings with neurologist, Dr. Luciano awaiting completion of MRI for janelle romo recommendations. CT abdomen and pelvis reporting acute cardiopulmonary disease in the lung bases left greater than right concerning for fluid overload versus pneumonia and reports of distended gallbladder. Consult placed to general surgery for evaluation, HIDA scan ordered. Transferred to ICU for persistent hypotension. Levophed was weaned off on 11/12, patient was started on dopamine,Zosyn, IV thiamine high-dose status, IV fluids. ID following. Abdominal ultrasound was negative for cholecystitis, surgical team following, no plans for surgical intervention at this time. Neurology following, brain MRI with and without contrast pending, he was started on folic acid for low folate level. He was started on IV Synthroid 50 mcg daily. EP consulted for severe bradycardia showing A-fib with slow ventricular response, patient's family opted out pacemaker, patient continued on IV dopamine . Subjective: Denies chest pain, shortness of breath, abdominal pain, hematuria Pertinent positives and negatives as discussed above, a complete review of systems was performed and all other systems are negative. Vitals Signs Reviewed. General: [nontoxic], [no distress], [appears at stated age] Derm: [warm], [dry], extensive rash with excoriations, dry skin Head: [atraumatic], [normocephalic], [symmetric] Eyes: [EOMI], [no lid lag], [anicteric sclera] Mouth: [no lip lesion], [mucus membranes moist] Cardiovascular: [S1S2 reg], [no murmur] Lungs: [CTA bilateral], [no rhonchi, no rales] , [no accessory muscle use] Abdominal: [soft], [ nontender to palpation], [no guarding], [no appreciable organomegaly] Ext: [no gross muscle atrophy], [no edema], [no contractures] Neuro: [ CN II-XI grossly intact], [no focal neuro deficits] Psych: [Alert], [oriented to self only Data Reviewed Today: Pertinent Labs: No leukocytosis, hemoglobin 11.7, platelet count 17, sodium 135, potassium 3.2, bicarb 20, creatinine 1.02, glucose 84, AST 80, ALT 88, ALP 160 Assessment and Plan: Acute encephalopathy, etiology unclear Possible Wernicke's encephalopathy Folate deficiency Hypotension requiring pressors possible sepsis due to UTI Possible aspiration pneumonia Hypothermia -continue Zosyn 3.375 g every 8 hours while waiting for the culture to finalize -Thiamine 500 mg IV TID. -CIWA protocol with Ativan PRN. 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 HIDA scan ordered by Surgery for findings on CT AP., couldn't tolerate, US negative, no plans for intervention Hypoglycemia: D5 1/2 NS as above. DVT ppx: Eliquis Code status: full code Anticipated discharge place: TBD Anticipated discharge time: TBD Objective - Vital Signs Vital signs: Vital Signs Temp 96.5 F L 11/14/24 13:00 Pulse 45 L 11/14/24 13:00 Resp 24 11/14/24 13:00 BP 110/70 11/14/24 13:00 Pulse Ox 100 11/14/24 13:00 FiO2 35 11/11/24 00:57 Intake & Output 11/13/24 11/14/24 11/14/24 18:59 06:59 18:59 Intake Total 4932.303 2805.695 1251.382 Output Total 580 945 365 Balance 1123.504 682.695 886.382 Weight 82.5 kg 82.5 kg Intake: IV 1560 1560 780 Dextrose 5%-0.45% NaCl 1, 1560 1560 780 000 ml @ 130 mls/hr IV . Q7H42M [facility] Rx#:[id number] Intake, IV Titration 143.504 67.695 231.382 Amount DOPamine DRIP 800 mg In 143.504 67.695 81.382 Dextrose/Water 1 250ml. bag @ 1 MCG/KG/MIN 1.453 mls/hr IV .Q24H [facility] Rx#: [id number] Piperacillin-Tazobactam 3 100 .375 gm In Sodium Chloride 0.9% 100 ml @ 25 mls/hr IVPB Q8HR [facility] Rx# :[id number] Thiamine 500 mg In Sodium 50 Chloride 0.9% 50 ml @ 100 mls/hr IVPB TID [facility] Rx#:[id number] Oral 240 Output: Urine 580 945 365 Other: Voiding Method Indwelling Catheter Indwelling Catheter Indwelling Catheter - Labs CBC & Chem 7: 11/14/24 05:36 11/14/24 05:36 Labs: Abnormal Lab Results - Last 24 Hours (Table) 11/13/24 11/13/24 11/14/24 Range/Units 14:08 20:18 05:36 RBC 3.70 L (4.30-5.90) m/uL Hgb 11.7 L (13.0-17.5) gm/dL Hct 34.5 L (39.0-53.0) % Plt Count 70 L (150-450) k/uL Potassium (3.5-5.1) mmol/L Chloride (98-107) mmol/L Carbon Dioxide (22-30) mmol/L POC Glucose (mg/dL) 120 H 111 H (70-110) mg/dL AST (17-59) U/L ALT (4-49) U/L Alkaline Phosphatase (38-126) U/L Total Protein (6.3-8.2) g/dL Albumin (3.5-5.0) g/dL 11/14/24 Range/Units 05:36 RBC (4.30-5.90) m/uL Hgb (13.0-17.5) gm/dL Hct (39.0-53.0) % Plt Count (150-450) k/uL Potassium 3.2 L (3.5-5.1) mmol/L Chloride 117 H (98-107) mmol/L Carbon Dioxide 20 L (22-30) mmol/L POC Glucose (mg/dL) (70-110) mg/dL AST 80 H (17-59) U/L ALT 88 H (4-49) U/L Alkaline Phosphatase 161 H (38-126) U/L Total Protein 5.6 L (6.3-8.2) g/dL Albumin 2.8 L (3.5-5.0) g/dL Microbiology - Last 24 Hours (Table) 11/10/24 19:00 Blood Culture - Preliminary Blood
--- NOTE | 2024-11-14 14:14 | P.PN ---
Subjective Progress Note Date: 11/14/24 Principal diagnosis: Reason for follow-up is sepsis Patient is a 79-year-old male with a past medical history significant for COPD prostate cancer for the patient has been on chemo and radiation therapy patient has been brought into the hospital concerning for increased confusion and weakness patient was noted to be hypothermic bradycardic concerning for sepsis possible source of UTI/pneumonia requiring transfer to the ICU. On today's evaluation that is 11/14/2024, Patient did have normalization of his temperature the patient is more awake alert he is breathing comfortably no chest pain or shortness of breath occasional cough, denies any abdominal pain no diarr hea no nausea no vomiting. Patient white count is 5.3, creatinine 1.02 blood cultures are pending Objective - Vital Signs Vital signs: Vital Signs Temp 96.5 F L 11/14/24 13:00 Pulse 45 L 11/14/24 13:00 Resp 24 11/14/24 13:00 BP 110/70 11/14/24 13:00 Pulse Ox 100 11/14/24 13:00 FiO2 35 11/11/24 00:57 Intake & Output 11/13/24 11/14/24 11/14/24 18:59 06:59 18:59 Intake Total 8365.425 8686.695 1251.382 Output Total 580 945 365 Balance 1123.504 682.695 886.382 Weight 82.5 kg 82.5 kg Intake: IV 1560 1560 780 Dextrose 5%-0.45% NaCl 1, 1560 1560 780 000 ml @ 130 mls/hr IV . Q7H42M [facility] Rx#:[id number] Intake, IV Titration 143.504 67.695 231.382 Amount DOPamine DRIP 800 mg In 143.504 67.695 81.382 Dextrose/Water 1 250ml. bag @ 1 MCG/KG/MIN 1.453 mls/hr IV .Q24H [facility] Rx#: [id number] Piperacillin-Tazobactam 3 100 .375 gm In Sodium Chloride 0.9% 100 ml @ 25 mls/hr IVPB Q8HR [facility] Rx# :[id number] Thiamine 500 mg In Sodium 50 Chloride 0.9% 50 ml @ 100 mls/hr IVPB TID [facility] Rx#:[id number] Oral 240 Output: Urine 580 945 365 Other: Voiding Method Indwelling Catheter Indwelling Catheter Indwelling Catheter - Exam GENERAL DESCRIPTION: An elderly male lying in bed in no distress RESPIRATORY SYSTEM: Unlabored breathing , decreased breath sounds at bases HEART: S1 S2 regular rate and rhythm , ABDOMEN: Soft , no tenderness EXTREMITIES: No edema feet - Labs CBC & Chem 7: 11/14/24 05:36 11/14/24 05:36 Labs: Abnormal Lab Results - Last 24 Hours (Table) 11/13/24 11/14/24 11/14/24 Range/Units 20:18 05:36 05:36 RBC 3.70 L (4.30-5.90) m/uL Hgb 11.7 L (13.0-17.5) gm/dL Hct 34.5 L (39.0-53.0) % Plt Count 70 L (150-450) k/uL Potassium 3.2 L (3.5-5.1) mmol/L Chloride 117 H (98-107) mmol/L Carbon Dioxide 20 L (22-30) mmol/L POC Glucose (mg/dL) 111 H (70-110) mg/dL AST 80 H (17-59) U/L ALT 88 H (4-49) U/L Alkaline Phosphatase 161 H (38-126) U/L Total Protein 5.6 L (6.3-8.2) g/dL Albumin 2.8 L (3.5-5.0) g/dL Microbiology - Last 24 Hours (Table) 11/10/24 19:00 Blood Culture - Preliminary Blood Assessment and Plan (1) Altered mental status Current Visit: Yes Status: Acute Code(s): R41.82 - ALTERED MENTAL STATUS, UNSPECIFIED SNOMED Code(s): 828941620 (2) Pneumonia Current Visit: No Status: Acute Code(s): J18.9 - PNEUMONIA, UNSPECIFIED ORGANISM SNOMED Code(s): 626582410 Plan: 1patient presented to hospital with mental status changes confusion and weakness source likely left lower lobe pneumonia and his question of possible gallbladder disease will need to direct antibiotic therapy mostly towards pneumonia or possible aspiration pneumonia/gram-negative and intra-abdominal gram-negative pathogen less likely risk for composite infection such as MRSA, repeat urine is positive as well 2-patient did have ultrasound of the gallbladder suboptimal study but mention no features of cholecystitis 3-patient temperature has normalized white count has been normal culture have been negative so far patient will be treated with Zosyn 3.375 g every 8 hours while inpatient monitor clinical course closely Family bedside question answered Dictation was produced using [employer] dictation software. please excuse any grammatical, word or spelling errors. Time with Patient: Less than 30
--- NOTE | 2024-11-14 16:15 | P.PN ---
Subjective Progress Note Date: 11/14/24 On today's evaluation of 11/13/2024, the patient remains neurologically altered, confused, unable to give meaningful information and history. Of significance is that extensive skin excoriation and superficial lesions less noted throughout the body involving the upper and lower extremities and the torso. No signs of any acute cellulitis or infection. Skin is dry and scaly and multiple superficial wounds are seen throughout his body. Noted, the patient is able to move all 4 extremities. CAT scan of the brain that was done at the time of admission showed no acute abnormalities. The patient also had a CAT scan of the abdomen and pelvis that showed a dilated gallbladder. A general surgical consul tation was obtained as the patient was also noted to have some elevation in LFTs. The patient also has some atelectatic changes and consolidation in the lung bases left more than right. This morning he is on room air oxygen. He is on D5 half-normal saline at rate of 130 cc an hour. He was having episodes of bradycardia and the patient was started on dopamine 5 mcg/kg/min. Noted the blood cultures on negative. He is still hypothermic and he is using a Elian hugger for external warming. He does have a mild component of hypothyroidism and the TSH is elevated with a low free T4. His other comorbidities include COPD and the patient has also history of smoking and daily alcohol abuse. His last drink was on 11/06/2024 and reported drink 1/5 of wine on a daily basis has been on it for more than 50 years. His blood work from today shows a white cell count of 6.2, hemoglobin of 12 and a platelet count of 82. His BUN is 16 with a creatinine 1.1 and sodium level is at 145. LFTs were also noted. His AST is improving down to 86, ALT is down to 104 and alkaline phosphatase is 157. His total bilirubin is at 0.9. Lactic acid level is dropped down to 1.4. Albumin is at 2.9 with a total protein of 6.1. His TSH was 5.1 with a free T4 of 0.99. UA was abnormal and the culture is still pending. Blood cultures still negative. The patient remains on IV Zosyn. He is in atrial fibrillation. He is maintained on anticoagulation with Eliquis. His last echocardiogram from 01/08/2024 showed a preserved LV function with an ejection fraction of 55 to 60% and mild degree of pulmonary hypertension. On 11/14/2024, the patient is being seen for a follow-up. The patient is less encephalopathic and more awake compared to yesterday. He is able to communicate. At times, he still confused however, overall, is making better sense on today's evaluation. The patient remains on room air oxygen. The patient continues to have bradycardia with underlying atrial fibrillation with low rate in the patient remains on dopamine running at 4 mcg/kg/min. No hypotension. Urine output is adequate and the patient on D5 half-normal saline which is running at a rate of 130 cc an hour. Cultures are still pending for now. Blood cultures still negative. The white cell count of 5.3 with a hemoglobin 11.7 and a platelet count of 70. BUN is 15 with a creatinine 1.02. Sodium levels at 145 and a potassium level is at 3.2. LFTs are also improving. Ultrasound of the gallbladder was completed yesterday and it showed no evidence of any acute cholecystitis. Common bile duct was within normal limits. Gallbladder was distended and there was no evidence of any pericholecystic fluid. EEG was also performed yesterday and it showed no evidence of any seizure activity. There was background slowing consistent with moderate degree of encephalopathy. The patient remains on anticoagulation with Eliquis 5 mg p.o. twice a day. Levothyroxine was added yesterday and the patient is receiving Synthroid 50 mcg IV on a daily basis. The patient remains on dopamine. No focal neurological deficit and the patient is moving all 4 extremities without any limitation. Objective - Vital Signs Vital signs: Vital Signs Temp 97.0 F L 11/14/24 06:00 Pulse 51 L 11/14/24 07:00 Resp 19 11/14/24 07:00 BP 144/88 11/14/24 07:00 Pulse Ox 97 11/14/24 07:00 FiO2 35 11/11/24 00:57 Intake & Output 11/13/24 11/14/24 11/14/24 18:59 06:59 18:59 Intake Total 8238.192 4287.695 130 Output Total 580 945 40 Balance 1123.504 682.695 90 Weight 82.5 kg Intake: IV 1560 1560 130 Dextrose 5%-0.45% NaCl 1, 1560 1560 130 000 ml @ 130 mls/hr IV . Q7H42M [facility] Rx#:[id number] Intake, IV Titration 143.504 67.695 Amount DOPamine DRIP 800 mg In 143.504 67.695 Dextrose/Water 1 250ml. bag @ 1 MCG/KG/MIN 1.453 mls/hr IV .Q24H [facility] Rx#: [id number] Output: Urine 580 945 40 Other: Voiding Method Indwelling Catheter Indwelling Catheter - Exam General: non toxic, confused, not acute respiratory distress. Much more awake and alert compared to yesterday and the patient is communicating. He is normothermic for now. Derm: warm, dry, scaling rash over BL upper and lower extremities without e rythema, and the patient has extensive skin excoriation and areas of superficial wounds throughout his upper and lower extremities and the torso. No evidence of any cellulitis. Head: atraumatic, normocephalic, symmetric Eyes: EOMI, no lid lag, anicteric sclera Mouth: no lip lesion, mucus membranes moist Cardiovascular: S1S2 irreg, consistent with atrial fibrillation, nontachycardic at this point Lungs: CTA bilateral, no rhonchi, no rales , no accessory muscle use, diminished breath sound lung base bilaterally Abdominal: soft, nontender to palpation, no guarding, no appreciable organomegaly Ext: no gross muscle atrophy, no edema, no contractures Neuro: Moving all 4 extremities. Much more alert and communicative . At times confused moving all 4 extremities and his neurologic exam is nonfocal. - Labs CBC & Chem 7: 11/14/24 05:36 11/14/24 05:36 Labs: Abnormal Lab Results - Last 24 Hours (Table) 11/13/24 11/13/24 11/13/24 Range/Units 12:04 12:24 14:08 RBC (4.30-5.90) m/uL Hgb (13.0-17.5) gm/dL Hct (39.0-53.0) % Plt Count (150-450) k/uL Potassium (3.5-5.1) mmol/L Chloride (98-107) mmol/L Carbon Dioxide (22-30) mmol/L POC Glucose (mg/dL) 115 H 113 H 120 H (70-110) mg/dL AST (17-59) U/L ALT (4-49) U/L Alkaline Phosphatase (38-126) U/L Total Protein (6.3-8.2) g/dL Albumin (3.5-5.0) g/dL 11/13/24 11/14/24 11/14/24 Range/Units 20:18 05:36 05:36 RBC 3.70 L (4.30-5.90) m/uL Hgb 11.7 L (13.0-17.5) gm/dL Hct 34.5 L (39.0-53.0) % Plt Count 70 L (150-450) k/uL Potassium 3.2 L (3.5-5.1) mmol/L Chloride 117 H (98-107) mmol/L Carbon Dioxide 20 L (22-30) mmol/L POC Glucose (mg/dL) 111 H (70-110) mg/dL AST 80 H (17-59) U/L ALT 88 H (4-49) U/L Alkaline Phosphatase 161 H (38-126) U/L Total Protein 5.6 L (6.3-8.2) g/dL Albumin 2.8 L (3.5-5.0) g/dL Microbiology - Last 24 Hours (Table) 11/10/24 19:00 Blood Culture - Preliminary Blood Assessment and Plan Plan: Acute mental status changes, of unclear etiology. CAT scan of the brain was negative. Her underlying metabolic encephalopathy, alcoholic encephalopathy. Rule out sepsis/infection. The patient's EEG showed moderate degree of encephalopathy. Noted the patient's mentation is improved compared to yesterday and his neurologic exam remains nonfocal. Hypertension, despite fluid resuscitation, possibly secondary to sepsis, currently on no pressors. Hemodynamically stable Possible urinary tract infection/urosepsis, covered with IV Zosyn. Awaiting blood cultures and urine cultures. Chronic alcohol abuse, rule out alcohol withdrawal syndrome. History of prostate cancer. History of COPD, from previous tobacco use. Hypothermia, improving Hypothyroidism Extensive skin excoriation and superficial wounds without evidence of cellulitis Chronic atrial fibrillation, bradycardic and the patient was started on dopamine. The patient is also on anticoagulation with Eliquis. Preserved LV function based on the previous echocardiogram from 2023. The patient continues to have bradycardia with an underlying low rate atrial fibrillation. The patient is still on dopamine. Abnormal LFTs, improving. Dilated gallbladder. No clinical indication for acute cholecystitis. General surgery is on the case. Ultrasound the gallbladder was done and shows dilated gallbladder without any pericholecystic fluid and the common bile duct is nondilated. LFTs are improving. Plan: Patient remains on room air oxygen Aspiration precautions External warming and the patient is currently normothermic LFTs are improving Ultrasound the gallbladder shows no evidence of any cholecystitis Continue dopamine Monitor mental status, which is essentially improving Continue IV Zosyn No pressors for now D5 half-normal saline at rate of 130 cc an hour Continue Synthroid 50 mcg IV every 24 hours Awaiting cultures Skin care Will follow. Time with Patient: Greater than 30
[2024-11-14 17:42] LABS: Glucose,Whole Blood 79 mg/dL (70-110)
[2024-11-14 19:49] LABS: Glucose,Whole Blood 94 mg/dL (70-110)
--- NOTE | 2024-11-14 20:56 | P.PN ---
Objective - Vital Signs Vital signs: Vital Signs Temp 97.5 F L 11/14/24 20:00 Pulse 51 L 11/14/24 20:00 Resp 20 11/14/24 20:00 BP 117/69 11/14/24 20:00 Pulse Ox 99 11/14/24 20:00 FiO2 35 11/11/24 00:57 Intake & Output 11/14/24 11/14/24 11/15/24 06:59 18:59 06:59 Intake Total 4302.385 7380.382 260 Output Total 945 575 180 Balance 392.147 6244.382 80 Weight 82.5 kg 82.5 kg Intake: IV 1560 1430 260 Dextrose 5%-0.45% NaCl 1, 1560 1430 260 000 ml @ 130 mls/hr IV . Q7H42M [facility] Rx#:[id number] Intake, IV Titration 67.695 231.382 Amount DOPamine DRIP 800 mg In 67.695 81.382 Dextrose/Water 1 250ml. bag @ 1 MCG/KG/MIN 1.453 mls/hr IV .Q24H [facility] Rx#: [id number] Piperacillin-Tazobactam 3 100 .375 gm In Sodium Chloride 0.9% 100 ml @ 25 mls/hr IVPB Q8HR [facility] Rx# :[id number] Thiamine 500 mg In Sodium 50 Chloride 0.9% 50 ml @ 100 mls/hr IVPB TID [facility] Rx#:[id number] Oral 598 Output: Urine 945 575 180 Other: Voiding Method Indwelling Catheter Indwelling Catheter Indwelling Catheter - Labs CBC & Chem 7: 11/14/24 05:36 11/14/24 05:36 Labs: Abnormal Lab Results - Last 24 Hours (Table) 11/14/24 11/14/24 Range/Units 05:36 05:36 RBC 3.70 L (4.30-5.90) m/uL Hgb 11.7 L (13.0-17.5) gm/dL Hct 34.5 L (39.0-53.0) % Plt Count 70 L (150-450) k/uL Potassium 3.2 L (3.5-5.1) mmol/L Chloride 117 H (98-107) mmol/L Carbon Dioxide 20 L (22-30) mmol/L AST 80 H (17-59) U/L ALT 88 H (4-49) U/L Alkaline Phosphatase 161 H (38-126) U/L Total Protein 5.6 L (6.3-8.2) g/dL Albumin 2.8 L (3.5-5.0) g/dL Microbiology - Last 24 Hours (Table) 11/10/24 19:00 Blood Culture - Preliminary Blood Assessment and Plan Assessment: 79 yo male w/ gallbladder distention -no surgical intervention -surgery will sign off -please call [facility] Shar De La Torre DO [phone] Time with Patient: Less than 30
[2024-11-15 05:32] LABS: Basophils % (A) 0 %; Eosinophils # (A) 0.3 k/uL (0-0.7); Eosinophils % (A) 6 %; HCT 38.9 % (39.0-53.0); HGB 11.8 gm/dL (13.0-17.5); Hypochromasia Slight; Lymphocytes # (A) 0.7 k/uL (1.0-4.8); Lymphocytes % (A) 13 %; MCH 27.8 pg (25.0-35.0); MCHC 30.4 g/dL (31.0-37.0); MCV 91.5 fL (80.0-100.0); Mean Platelet Volume 9.1; Monocytes # (A) 0.3 k/uL (0-1.0); Monocytes % (A) 5 %; Neutrophils # (A) 4.1 k/uL (1.3-7.7); Neutrophils % (A) 73 %; RBC 4.24 m/uL (4.30-5.90); RDW 15.1 % (11.5-15.5); WBC 5.6 k/uL (3.8-10.6)
[2024-11-15 05:52] LABS: African American GFR (CKD) >90 (>60 ml/min/1.73 sqM); Anion Gap 5 mmol/L; Blood Urea Nitrogen 12 mg/dL (9-20); Calcium 8.6 mg/dL (8.4-10.2); Carbon Dioxide 24 mmol/L (22-30); Chloride 112 mmol/L (98-107); Glucose 101 mg/dL (74-99); Non-African American GFR(CKD) 83 (>60 ml/min/1.73 sqM); Sodium 141 mmol/L (137-145)
[2024-11-15 06:00] LABS: Magnesium 1.9 mg/dL (1.6-2.3); Platelet Count 85 k/uL (150-450); Potassium 4.7 mmol/L (3.5-5.1)
[2024-11-15 06:04] LABS: Glucose,Whole Blood 89 mg/dL (70-110)
[2024-11-15 12:11] LABS: Glucose,Whole Blood 103 mg/dL (70-110)
--- NOTE | 2024-11-15 14:52 | P.PN ---
Subjective Progress Note Date: 11/15/24 Hospital Course: 79 year old M with history of prostate cancer on oral chemotherapeutic agent w ith apalutamide, COPD with continued nicotine dependence, and daily alcohol abuse. Family reported patient's last alcoholic drink was on 11/06/24 and reported drinking a clement and wine daily for nearly 50 years Patient presented to the emergency department on 11/10/24 with a chief complaint of altered mental status. Patient's family reported patient was at baseline mentation up until approximately 1 AM on day of arrival when he awoke and was noted to have increased confusion and didn't even recognize them and was then noted to have generalized weakness and was unable to even stand. They reported up until this he had a normal appetite and denied any recent weight loss, fevers or exposure to known ill contacts, episodes of vomiting or diarrhea, or patient expressing any complaints of pain or discomfort. Upon arrival to our facility patient was alert to person and place only and confused to time and situation. Patient did admit to daily alcohol use, but did not or was unable to express how much he drank daily. He denied having any complaints or pain at this time. Patient and family deny any other drug use. Patient underwent evaluation in the emergency department. BP 115/68, HR 57, RR 20, T 96.8 F, SpO2 of 100% on RA. [id number] glucose was initially 59. EKG was completed showing AFib with a slowed ventricular response at 58 bpm with nonspecific T wave abnormalities in inferior leads. Chest x-ray showed no acute process. CT brain showed no acute process, diffuse age related cerebral atrophy and mild to moderate chronic small vessel ischemic changes with bilateral maxill palmer sinus disease. CBC, Coag panel, CMP significant for Plt 98, Na 149, Cl 114, BUN 21, AST 214, ALT 216, alk phos 273. Troponin <0.012. TSH 5.170, free T4 0.99. UDS neg. UA neg. COVID, RSV, Flu neg. Patient admitted under our services with consultation to neurology. Patient was noted to have a Tlow of 89.5F rectal on 11/10. He was placed on Elian hugger. Lactic acid was 1.2 and vital signs were stable. CT AP and blood cultures were ordered. Patient was noted to by hypotensive on 11/11 along with persistent hypoglycemic. He was given a 2L LR bolus and started on Vancomycin and Cefepime. ID was consulted, antibiotics switched to Zosyn. CTA head and neck showing moderate stenosis of the proximal left internal carotid artery and mild stenosis with diffuse calcification of carotid siphons and maxillary sinusitis. Discussed findings with neurologist, Dr. Luciano awaiting completion of MRI for janelle romo recommendations. CT abdomen and pelvis reporting acute cardiopulmonary disease in the lung bases left greater than right concerning for fluid overload versus pneumonia and reports of distended gallbladder. Consult placed to general surgery for evaluation, HIDA scan ordered. Transferred to ICU for persistent hypotension. Levophed was weaned off on 11/12, patient was started on dopamine,Zosyn, IV thiamine high-dose status, IV fluids. ID following. Abdominal ultrasound was negative for cholecystitis, surgical team following, no plans for surgical intervention at this time. Neurology following, brain MRI with and without contrast pending, he was started on folic acid for low folate level. He was started on IV Synthroid 50 mcg daily. EP consulted for severe bradycardia showing A-fib with slow ventricular response, patient's family opted out pacemaker, patient continued on IV dopamine . 11/15 patient significantly more alert , was able to tell me the date, current [place] president, was not oriented to place but noted that he has been in the hospital. His heart rate is in the 50s while on dopamine drip, dobutamine drip was stopped for about 30 minutes when his heart rate started dropping back to 30s. He is still hypothermic with body temperature 94.4 while off Elian hugger. MRI brain pending Subjective: Denies chest pain, shortness of breath, abdominal pain, hematuria Pertinent positives and negatives as discussed above, a complete review of systems was performed and all other systems are negative. Vitals Signs Reviewed. General: [nontoxic], [no distress], [appears at stated age] Derm: [warm], [dry], extensive rash with excoriations, dry skin Head: [atraumatic], [normocephalic], [symmetric] Eyes: [EOMI], [no lid lag], [anicteric sclera] Mouth: [no lip lesion], [mucus membranes moist] Cardiovascular: [S1S2 reg], [no murmur] Lungs: [CTA bilateral], [no rhonchi, no rales] , [no accessory muscle use] Abdominal: [soft], [ nontender to palpation], [no guarding], [no appreciable organomegaly] Ext: [no gross muscle atrophy], [no edema], [no contractures] Neuro: [ CN II-XI grossly intact], [no focal neuro deficits] Psych: [Alert], [oriented to self only Data Reviewed Today: Pertinent Labs: No leukocytosis, hemoglobin 11.8, platelet count 85, sodium 141, potassium 4.7, creatinine normal, glucose is controlled, magnesium 1.9 Assessment and Plan: Acute encephalopathy, etiology unclear, improving Possible Wernicke's encephalopathy Folate deficiency Hypotension requiring pressors possible sepsis due to UTI Possible aspiration pneumonia Hypothermia -continue Zosyn 3.375 g every 8 hours while waiting for the culture to finalize -Thiamine 500 mg IV TID. Can start 250 IV daily 11/16 after 5 days -CIWA protocol with Ativan PRN. -MRI brain with and without contrast pending to rule out central causes for hypothermia, bradycardia -cortisol levels 17.1 ->103 -UDS negative Hypoglycemia: Continue D5 half-normal Atrial fibrillation with slow ventricular response, severe bradycardia onEliquis: -No plans for intervention from EP cardiology, family opted out pacemaker, not on AV blocking agents -still on dopamine, cardiology following Transaminitis and thrombocytopenia secondary to ethanol abuse Hypothyroidism: Continue levothyroxine IV 50 mcg daily, will switch to oral when patient is cleared by [facility] [employer] Gallbladder distention : continue with Zosyn as above. HIDA scan ordered by Surgery for findings on CT AP., couldn't tolerate, US negative, no plans for intervention Skin whelan: possible drug eruption from patient's prostate cancer treatemnt. Per family, the rash is probably related to his radiation therapy. DVT ppx: Eliquis Code status: full code Anticipated discharge place: TBD Anticipated discharge time: TBD Objective - Vital Signs Vital signs: Vital Signs Temp 95.0 F L 11/15/24 12:00 Pulse 62 11/15/24 13:00 Resp 7 L 11/15/24 13:00 BP 138/75 11/15/24 13:00 Pulse Ox 96 11/15/24 13:00 FiO2 35 11/11/24 00:57 Intake & Output 11/14/24 11/15/24 11/15/24 18:59 06:59 18:59 Intake Total 2259.382 1660 1490 Output Total 575 1035 1125 Balance 1684.382 625 365 Weight 82.5 kg 82.9 kg Intake: IV 1430 1660 1010 Dextrose 5%-0.45% NaCl 1, 1430 1560 910 000 ml @ 130 mls/hr IV . Q7H42M [facility] Rx#:[id number] Piperacillin-Tazobactam 3 100 100 .375 gm In Sodium Chloride 0.9% 100 ml @ 25 mls/hr IVPB Q8HR [facility] Rx# :[id number] Intake, IV Titration 231.382 Amount DOPamine DRIP 800 mg In 81.382 Dextrose/Water 1 250ml. bag @ 1 MCG/KG/MIN 1.453 mls/hr IV .Q24H [facility] Rx#: [id number] Piperacillin-Tazobactam 3 100 .375 gm In Sodium Chloride 0.9% 100 ml @ 25 mls/hr IVPB Q8HR [facility] Rx# :[id number] Thiamine 500 mg In Sodium 50 Chloride 0.9% 50 ml @ 100 mls/hr IVPB TID [facility] Rx#:[id number] Oral 598 480 Output: Urine 575 1035 1125 Other: Voiding Method Indwelling Catheter Indwelling Catheter Indwelling Catheter - Labs CBC & Chem 7: 11/15/24 05:25 11/15/24 05:25 Labs: Abnormal Lab Results - Last 24 Hours (Table) 11/15/24 11/15/24 Range/Units 05:25 05:25 RBC 4.24 L (4.30-5.90) m/uL Hgb 11.8 L (13.0-17.5) gm/dL Hct 38.9 L (39.0-53.0) % MCHC 30.4 L (31.0-37.0) g/dL Plt Count 85 L (150-450) k/uL Lymphocytes # 0.7 L (1.0-4.8) k/uL Chloride 112 H (98-107) mmol/L Glucose 101 H (74-99) mg/dL
[2024-11-15 16:38] LABS: Glucose,Whole Blood 83 mg/dL (70-110)
--- NOTE | 2024-11-15 16:46 | P.PN ---
Subjective Progress Note Date: 11/15/24 On today's evaluation of 11/13/2024, the patient remains neurologically altered, confused, unable to give meaningful information and history. Of significance is that extensive skin excoriation and superficial lesions less noted throughout the body involving the upper and lower extremities and the torso. No signs of any acute cellulitis or infection. Skin is dry and scaly and multiple superficial wounds are seen throughout his body. Noted, the patient is able to move all 4 extremities. CAT scan of the brain that was done at the time of admission showed no acute abnormalities. The patient also had a CAT scan of the abdomen and pelvis that showed a dilated gallbladder. A general surgical consul tation was obtained as the patient was also noted to have some elevation in LFTs. The patient also has some atelectatic changes and consolidation in the lung bases left more than right. This morning he is on room air oxygen. He is on D5 half-normal saline at rate of 130 cc an hour. He was having episodes of bradycardia and the patient was started on dopamine 5 mcg/kg/min. Noted the blood cultures on negative. He is still hypothermic and he is using a Elian hugger for external warming. He does have a mild component of hypothyroidism and the TSH is elevated with a low free T4. His other comorbidities include COPD and the patient has also history of smoking and daily alcohol abuse. His last drink was on 11/06/2024 and reported drink 1/5 of wine on a daily basis has been on it for more than 50 years. His blood work from today shows a white cell count of 6.2, hemoglobin of 12 and a platelet count of 82. His BUN is 16 with a creatinine 1.1 and sodium level is at 145. LFTs were also noted. His AST is improving down to 86, ALT is down to 104 and alkaline phosphatase is 157. His total bilirubin is at 0.9. Lactic acid level is dropped down to 1.4. Albumin is at 2.9 with a total protein of 6.1. His TSH was 5.1 with a free T4 of 0.99. UA was abnormal and the culture is still pending. Blood cultures still negative. The patient remains on IV Zosyn. He is in atrial fibrillation. He is maintained on anticoagulation with Eliquis. His last echocardiogram from 01/08/2024 showed a preserved LV function with an ejection fraction of 55 to 60% and mild degree of pulmonary hypertension. On 11/14/2024, the patient is being seen for a follow-up. The patient is less encephalopathic and more awake compared to yesterday. He is able to communicate. At times, he still confused however, overall, is making better sense on today's evaluation. The patient remains on room air oxygen. The patient continues to have bradycardia with underlying atrial fibrillation with low rate in the patient remains on dopamine running at 4 mcg/kg/min. No hypotension. Urine output is adequate and the patient on D5 half-normal saline which is running at a rate of 130 cc an hour. Cultures are still pending for now. Blood cultures still negative. The white cell count of 5.3 with a hemoglobin 11.7 and a platelet count of 70. BUN is 15 with a creatinine 1.02. Sodium levels at 145 and a potassium level is at 3.2. LFTs are also improving. Ultrasound of the gallbladder was completed yesterday and it showed no evidence of any acute cholecystitis. Common bile duct was within normal limits. Gallbladder was distended and there was no evidence of any pericholecystic fluid. EEG was also performed yesterday and it showed no evidence of any seizure activity. There was background slowing consistent with moderate degree of encephalopathy. The patient remains on anticoagulation with Eliquis 5 mg p.o. twice a day. Levothyroxine was added yesterday and the patient is receiving Synthroid 50 mcg IV on a daily basis. The patient remains on dopamine. No focal neurological deficit and the patient is moving all 4 extremities without any limitation. On 11/15/2024, the patient is awake and alert and communicating. Of concern is the episodes of hypothermia the patient is encountering while being off the Elian hugger. His current temperature is 95.0. Remains in atrial fibrillation with a low rate. Exact cause is not clear. Heart rate is ranging between 44 and 62. Remains on dopamine which is running at 3 mcg/kg/min. He is tolerating his diet. He is communicating. Denies having any specific complaints. The white cell count of 5.6 with a hemoglobin 9.8 and a platelet count of 85. BUN is 12 with a creatinine of 0.8 and sodium levels at 141. Skin lesions remain unchange d. Cultures have been negative. The patient remains on Bentyl nebulized treatments, D5 half-normal saline at rate of 130 cc an hour, IV Zosyn as an empiric antibiotic coverage, thiamine and folate and dopamine regarding his ongoing bradycardia. He is also on Synthroid 50 mcg IV on a daily basis. Objective - Vital Signs Vital signs: Vital Signs Temp 94.4 F L 11/15/24 04:00 Pulse 45 L 11/15/24 07:00 Resp 25 H 11/15/24 07:00 BP 149/98 11/15/24 07:00 Pulse Ox 99 11/15/24 07:00 FiO2 35 11/11/24 00:57 Intake & Output 11/14/24 11/15/24 11/15/24 18:59 06:59 18:59 Intake Total 2259.382 1660 130 Output Total 575 1035 125 Balance 1684.382 625 5 Weight 82.5 kg 82.9 kg Intake: IV 1430 1660 130 Dextrose 5%-0.45% NaCl 1, 1430 1560 130 000 ml @ 130 mls/hr IV . Q7H42M [facility] Rx#:[id number] Piperacillin-Tazobactam 3 100 .375 gm In Sodium Chloride 0.9% 100 ml @ 25 mls/hr IVPB Q8HR [facility] Rx# :[id number] Intake, IV Titration 231.382 Amount DOPamine DRIP 800 mg In 81.382 Dextrose/Water 1 250ml. bag @ 1 MCG/KG/MIN 1.453 mls/hr IV .Q24H [facility] Rx#: [id number] Piperacillin-Tazobactam 3 100 .375 gm In Sodium Chloride 0.9% 100 ml @ 25 mls/hr IVPB Q8HR [facility] Rx# :[id number] Thiamine 500 mg In Sodium 50 Chloride 0.9% 50 ml @ 100 mls/hr IVPB TID [facility] Rx#:[id number] Oral 598 Output: Urine 575 1035 125 Other: Voiding Method Indwelling Catheter Indwelling Catheter - Exam General: non toxic, confused, not acute respiratory distress. Much more awake and alert compared to yesterday and the patient is communicating. He is normothermic for now. Derm: warm, dry, scaling rash over BL upper and lower extremities without erythema, and the patient has extensive skin excoriation and areas of superficial wounds throughout his upper and lower extremities and the torso. No evidence of any cellulitis. Head: atraumatic, normocephalic, symmetric Eyes: EOMI, no lid lag, anicteric sclera Mouth: no lip lesion, mucus membranes moist Cardiovascular: S1S2 irreg, consistent with atrial fibrillation, nontachycardic at this point Lungs: CTA bilateral, no rhonchi, no rales , no accessory muscle use, diminished breath sound lung base bilaterally Abdominal: soft, nontender to palpation, no guarding, no appreciable organomegaly Ext: no gross muscle atrophy, no edema, no contractures Neuro: Moving all 4 extremities. Much more alert and communicative . At times confused moving all 4 extremities and his neurologic exam is nonfocal. - Labs CBC & Chem 7: 11/15/24 05:25 11/15/24 05:25 Labs: Abnormal Lab Results - Last 24 Hours (Table) 11/15/24 11/15/24 Range/Units 05:25 05:25 RBC 4.24 L (4.30-5.90) m/uL Hgb 11.8 L (13.0-17.5) gm/dL Hct 38.9 L (39.0-53.0) % MCHC 30.4 L (31.0-37.0) g/dL Plt Count 85 L (150-450) k/uL Lymphocytes # 0.7 L (1.0-4.8) k/uL Chloride 112 H (98-107) mmol/L Glucose 101 H (74-99) mg/dL Assessment and Plan Plan: Acute mental status changes, of unclear etiology. CAT scan of the brain was negative. Her underlying metabolic encephalopathy, alcoholic encephalopathy. Rule out sepsis/infection. The patient's EEG showed moderate degree of encephalopathy. Noted the patient's mentation is improved and his neurologic exam remains nonfocal. Hypotension, recovered Hypothermia Chronic A-fib with bradycardia, maintained on dopamine at 3 mcg/kg/min Possible urinary tract infection/urosepsis, covered with IV Zosyn. Cultures are all negative Chronic alcohol abuse History of prostate cancer. History of COPD, from previous tobacco use. Hypothyroidism Extensive skin excoriation and superficial wounds without evidence of cellulitis Abnormal LFTs, improving. Dilated gallbladder. No clinical indication for acute cholecystitis. General surgery is on the case. Ultrasound the gallbladder was done and shows dilated gallbladder without any pericholecystic fluid and the common bile duct is nondilated. LFTs are improving. Plan: Patient remains on room air oxygen Aspiration precautions External warming LFTs are improving Ultrasound the gallbladder shows no evidence of any cholecystitis Continue dopamine Monitor mental status, which is essentially improving Continue IV Zosyn No pressors for now D5 half-normal saline at rate of 130 cc an hour Continue Synthroid 50 mcg IV every 24 hours Cultures are negative Off beta-blockers Will be awaiting further advice from cardiology regarding his underlying bradycardia, meanwhile the patient will be kept on dopamine Skin care Will follow. Time with Patient: Greater than 30
--- NOTE | 2024-11-15 17:11 | P.PN ---
Subjective Progress Note Date: 11/15/24 Principal diagnosis: Reason for follow-up is sepsis Patient is a 79-year-old male with a past medical history significant for COPD prostate cancer for the patient has been on chemo and radiation therapy patient has been brought into the hospital concerning for increased confusion and weakness patient was noted to be hypothermic bradycardic concerning for sepsis possible source of UTI/pneumonia requiring transfer to the ICU. On today's evaluation that is 11/15/2024,the patient seem to have episodes of hypothermia noticed to have a temperature of 95 daily findings really at noon patient also noted to be bradycardic but not hypotensive or hypoxic no need for supplemental oxygen patient slightly sleepy lethargic and cannot provide any history. Patient white count is 5.6 creatinine 0.86 cultures are currently pending Objective - Vital Signs Vital signs: Vital Signs Temp 96.6 F L 11/15/24 16:00 Pulse 55 L 11/15/24 16:00 Resp 17 11/15/24 16:00 BP 127/94 11/15/24 16:00 Pulse Ox 97 11/15/24 16:00 FiO2 35 11/11/24 00:57 Intake & Output 11/14/24 11/15/24 11/15/24 18:59 06:59 18:59 Intake Total 2259.382 1660 2220 Output Total 575 1035 1425 Balance 1684.382 625 795 Weight 82.5 kg 82.9 kg Intake: IV 1430 1660 1500 Dextrose 5%-0.45% NaCl 1, 1430 1560 1300 000 ml @ 130 mls/hr IV . Q7H42M [facility] Rx#:[id number] Piperacillin-Tazobactam 3 100 200 .375 gm In Sodium Chloride 0.9% 100 ml @ 25 mls/hr IVPB Q8HR [facility] Rx# :[id number] Intake, IV Titration 231.382 Amount DOPamine DRIP 800 mg In 81.382 Dextrose/Water 1 250ml. bag @ 1 MCG/KG/MIN 1.453 mls/hr IV .Q24H [facility] Rx#: [id number] Piperacillin-Tazobactam 3 100 .375 gm In Sodium Chloride 0.9% 100 ml @ 25 mls/hr IVPB Q8HR [facility] Rx# :[id number] Thiamine 500 mg In Sodium 50 Chloride 0.9% 50 ml @ 100 mls/hr IVPB TID [facility] Rx#:[id number] Oral 598 720 Output: Urine 575 1035 1425 Other: Voiding Method Indwelling Catheter Indwelling Catheter Indwelling Catheter - Exam GENERAL DESCRIPTION: An elderly male lying in bed in no distress RESPIRATORY SYSTEM: Unlabored breathing , decreased breath sounds at bases HEART: S1 S2 regular rate and rhythm , ABDOMEN: Soft , no tenderness EXTREMITIES: No edema feet - Labs CBC & Chem 7: 11/15/24 05:25 11/15/24 05:25 Labs: Abnormal Lab Results - Last 24 Hours (Table) 11/15/24 11/15/24 Range/Units 05:25 05:25 RBC 4.24 L (4.30-5.90) m/uL Hgb 11.8 L (13.0-17.5) gm/dL Hct 38.9 L (39.0-53.0) % MCHC 30.4 L (31.0-37.0) g/dL Plt Count 85 L (150-450) k/uL Lymphocytes # 0.7 L (1.0-4.8) k/uL Chloride 112 H (98-107) mmol/L Glucose 101 H (74-99) mg/dL Assessment and Plan (1) Altered mental status Current Visit: Yes Status: Acute Code(s): R41.82 - ALTERED MENTAL STATUS, UNSPECIFIED SNOMED Code(s): 910882222 (2) Pneumonia Current Visit: No Status: Acute Code(s): J18.9 - PNEUMONIA, UNSPECIFIED ORGANISM SNOMED Code(s): 170044088 Plan: 1patient presented to hospital with mental status changes confusion and weakne ss source likely left lower lobe pneumonia and his question of possible gallbladder disease will need to direct antibiotic therapy mostly towards pneumonia or possible aspiration pneumonia/gram-negative and intra-abdominal gram-negative pathogen less likely risk for composite infection such as MRSA, repeat urine is positive as well 2-patient did have ultrasound of the gallbladder suboptimal study but mention no features of cholecystitis 3-patient temperature has normalized white count has been normal culture have been negative so far 4patient will be treated with Zosyn 3.375 g every 8 hours while inpatient monitor clinical course closely Dictation was produced using [employer] dictation software. please excuse any grammatical, word or spelling errors. Time with Patient: Less than 30
[2024-11-15 19:54] LABS: Glucose,Whole Blood 80 mg/dL (70-110)
--- NOTE | 2024-11-15 21:06 | PN ---
PROGRESS NOTE SUBJECTIVE: A 79-year-old gentleman, who is in the ICU because of atrial fibrillation with slow ventricular rate. The patient is on dopamine and the family does not want a pacemaker. His heart rate is around 30 to 40 beats per minute. PHYSICAL EXAMINATION: VITAL SIGNS: Blood pressure is normal. CHEST: Reveals good air entry bilaterally. HEART: Reveals first and second heart sounds. Irregular rhythm. EXTREMITIES: Examination of the extremities did not reveal any edema. Peripheral pulses are felt. ASSESSMENT AND PLAN: 1. Atrial fibrillation with slow ventricular rate. 2. Altered mental status. PLAN: I will continue the dopamine for now. MMODL / IJN: [id number] /
[2024-11-16 06:17] LABS: Glucose,Whole Blood 82 mg/dL (70-110)
[2024-11-16 06:31] LABS: Basophils % (A) 0 %; Eosinophils # (A) 0.3 k/uL (0-0.7); Eosinophils % (A) 6 %; HCT 35.8 % (39.0-53.0); HGB 11.1 gm/dL (13.0-17.5); Hypochromasia Slight; Lymphocytes # (A) 0.6 k/uL (1.0-4.8); Lymphocytes % (A) 12 %; MCH 28.1 pg (25.0-35.0); MCHC 30.9 g/dL (31.0-37.0); MCV 91.1 fL (80.0-100.0); Mean Platelet Volume 8.3; Monocytes # (A) 0.3 k/uL (0-1.0); Monocytes % (A) 7 %; Neutrophils # (A) 3.5 k/uL (1.3-7.7); Neutrophils % (A) 72 %; RBC 3.93 m/uL (4.30-5.90); RDW 15.2 % (11.5-15.5)
[2024-11-16 06:37] LABS: Platelet Count 75 k/uL (150-450)
[2024-11-16 07:03] LABS: African American GFR (CKD) >90 (>60 ml/min/1.73 sqM); Anion Gap 2 mmol/L; Blood Urea Nitrogen 7 mg/dL (9-20); Calcium 8.4 mg/dL (8.4-10.2); Carbon Dioxide 27 mmol/L (22-30); Chloride 111 mmol/L (98-107); Glucose 83 mg/dL (74-99); Magnesium 1.9 mg/dL (1.6-2.3); Non-African American GFR(CKD) 79 (>60 ml/min/1.73 sqM); Potassium 3.2 mmol/L (3.5-5.1); Sodium 140 mmol/L (137-145)
[2024-11-16] MEDS: POTASSIUM BICARBONATE/CIT AC 20 MEQ TABLET.EFF NG-TUBE SCH (08:53)
[2024-11-16] MEDS: THIAMINE 250 MG in SODIUM CHLORIDE 0.9% 50 ML IVPB SCH (09:14)
[2024-11-16 11:18] LABS: Glucose,Whole Blood 80 mg/dL (70-110)
--- NOTE | 2024-11-16 12:39 | PN ---
PROGRESS NOTE SUBJECTIVE: Alvino is a 79-year-old gentleman, who is admitted to the hospital with altered mental status, has underlying atrial fibrillation with a slow ventricular rate, for which Cardiology is on the case. He is on Eliquis 5 b.i.d., was on dopamine that had been stopped this morning. PHYSICAL EXAMINATION: VITAL SIGNS: Heart rate is 67 beats per minute, blood pressure is 116/73, respiratory rate is 18, O2 saturation is 97%. CHEST EXAM: Reveals good air entry bilaterally. HEART: Reveals first and second heart sounds, irregular rhythm. ABDOMEN: Soft. EXTREMITIES: Exam of extremities did not reveal any edema. Peripheral pulses are felt. LABORATORY DATA: Labs show a hemoglobin of 11, creatinine is 0.9. ASSESSMENT: Persistent atrial fibrillation with slow ventricular rate. He is off dopamine and if the heart rate remains well, we should be able to transfer him out of ICU. MMTERESAL / EDNAN: [id number] /
--- NOTE | 2024-11-16 13:57 | P.PN ---
Subjective Progress Note Date: 11/16/24 Hospital Course: 79 year old M with history of prostate cancer on oral chemotherapeutic agent w ith apalutamide, COPD with continued nicotine dependence, and daily alcohol abuse. Family reported patient's last alcoholic drink was on 11/06/24 and reported drinking a clement and wine daily for nearly 50 years Patient presented to the emergency department on 11/10/24 with a chief complaint of altered mental status. Patient's family reported patient was at baseline mentation up until approximately 1 AM on day of arrival when he awoke and was noted to have increased confusion and didn't even recognize them and was then noted to have generalized weakness and was unable to even stand. They reported up until this he had a normal appetite and denied any recent weight loss, fevers or exposure to known ill contacts, episodes of vomiting or diarrhea, or patient expressing any complaints of pain or discomfort. Upon arrival to our facility patient was alert to person and place only and confused to time and situation. Patient did admit to daily alcohol use, but did not or was unable to express how much he drank daily. He denied having any complaints or pain at this time. Patient and family deny any other drug use. Patient underwent evaluation in the emergency department. BP 115/68, HR 57, RR 20, T 96.8 F, SpO2 of 100% on RA. [id number] glucose was initially 59. EKG was completed showing AFib with a slowed ventricular response at 58 bpm with nonspecific T wave abnormalities in inferior leads. Chest x-ray showed no acute process. CT brain showed no acute process, diffuse age related cerebral atrophy and mild to moderate chronic small vessel ischemic changes with bilateral maxill palmer sinus disease. CBC, Coag panel, CMP significant for Plt 98, Na 149, Cl 114, BUN 21, AST 214, ALT 216, alk phos 273. Troponin <0.012. TSH 5.170, free T4 0.99. UDS neg. UA neg. COVID, RSV, Flu neg. Patient admitted under our services with consultation to neurology. Patient was noted to have a Tlow of 89.5F rectal on 11/10. He was placed on Elian hugger. Lactic acid was 1.2 and vital signs were stable. CT AP and blood cultures were ordered. Patient was noted to by hypotensive on 11/11 along with persistent hypoglycemic. He was given a 2L LR bolus and started on Vancomycin and Cefepime. ID was consulted, antibiotics switched to Zosyn. CTA head and neck showing moderate stenosis of the proximal left internal carotid artery and mild stenosis with diffuse calcification of carotid siphons and maxillary sinusitis. Discussed findings with neurologist, Dr. Luciano awaiting completion of MRI for janelle romo recommendations. CT abdomen and pelvis reporting acute cardiopulmonary disease in the lung bases left greater than right concerning for fluid overload versus pneumonia and reports of distended gallbladder. Consult placed to general surgery for evaluation, HIDA scan ordered. Transferred to ICU for persistent hypotension. Levophed was weaned off on 11/12, patient was started on dopamine,Zosyn, IV thiamine high-dose status, IV fluids. ID following. Abdominal ultrasound was negative for cholecystitis, surgical team following, no plans for surgical intervention at this time. Neurology following, brain MRI with and without contrast pending, he was started on folic acid for low folate level. He was started on IV Synthroid 50 mcg daily. EP consulted for severe bradycardia showing A-fib with slow ventricular response, patient's family opted out pacemaker, patient continued on IV dopamine . 11/15 patient significantly more alert , was able to tell me the date, current [place] president, was not oriented to place but noted that he has been in the hospital. His heart rate is in the 50s while on dopamine drip, dobutamine drip was stopped for about 30 minutes when his heart rate started dropping back to 30s. He is still hypothermic with body temperature 94.4 while off Elian hugger. MRI brain pending 11/16: More alert and awake, answers questions faster, now has more recollection of past events, mentioned that he developed his skin rash after he was started on chemotherapy, has not seen a skin doctor for that. Dopamine stopped around 10 AM. Patient will need clearance from cardiology to proceed with MRI as he cannot be on telemetry or dopamine drip cardiac Subjective: Denies chest pain, shortness of breath, abdominal pain, hematuria Mostly was complaining of difficulties to position himself comfortably in the bed Pertinent positives and negatives as discussed above, a complete review of systems was performed and all other systems are negative. Vitals Signs Reviewed. General: [nontoxic], [no distress], [appears at stated age] Derm: [warm], [dry], extensive rash with excoriations, dry skin Head: [atraumatic], [normocephalic], [symmetric] Eyes: [EOMI], [no lid lag], [anicteric sclera] Mouth: [no lip lesion], [mucus membranes moist] Cardiovascular: [S1S2 reg], [no murmur] Lungs: [CTA bilateral], [no rhonchi, no rales] , [no accessory muscle use] Abdominal: [soft], [ nontender to palpation], [no guarding], [no appreciable organomegaly] Ext: [no gross muscle atrophy], [no edema], [no contractures] Neuro: [ CN II-XI grossly intact], [no focal neuro deficits] Psych: [Alert], [oriented to self, time, knows he is in the hospital, could not remember the name Data Reviewed Today: Pertinent Labs: No leukocytosis, hemoglobin 11.1, platelet count 75, sodium normal 140, potassium 3.2, bicarb 27, normal creatinine, glucose in 80s Assessment and Plan: Acute encephalopathy, etiology unclear, improving Possible Wernicke's encephalopathy Folate deficiency Hypotension requiring pressors possible sepsis due to UTI Possible aspiration pneumonia Hypothermia -continue Zosyn 3.375 g every 8 hours while waiting for the culture to finalize -Thiamine 500 mg IV TID continued, start 250 IV daily 11/16 after 5 days -CIWA protocol with Ativan PRN. -MRI brain with and without contrast pending to rule out central causes for hypothermia, bradycardia -cortisol levels 17.1 ->103 -UDS negative Hypoglycemia: Continue D5 half-normal Atrial fibrillation with slow ventricular response, severe bradycardia onEliquis: -No plans for intervention from EP cardiology, family opted out pacemaker, not on AV blocking agents -Dopamine on standby, cardiology following Transaminitis and thrombocytopenia secondary to ethanol abuse Hypothyroidism: Continue levothyroxine IV 50 mcg daily, will switch to oral when patient is cleared by EDITING CLERK Gallbladder distention : continue with Zosyn as above. HIDA scan ordered by Surgery for findings on CT AP., couldn't tolerate, US negative, no plans for intervention Skin whelan: possible drug eruption from patient's prostate cancer treatemnt. Per family, the rash is probably related to his radiation therapy. DVT ppx: Eliquis Code status: full code Anticipated discharge place: TBD Anticipated discharge time: TBD Objective - Vital Signs Vital signs: Vital Signs Temp 97.4 F L 11/16/24 12:00 Pulse 56 L 11/16/24 12:00 Resp 23 11/16/24 12:00 BP 109/65 11/16/24 12:00 Pulse Ox 99 11/16/24 12:00 FiO2 35 11/11/24 00:57 Intake & Output 11/15/24 11/16/24 11/16/24 18:59 06:59 18:59 Intake Total 2480 1783.049 906.202 Output Total 1625 1015 455 Balance 855 768.049 451.202 Weight 85.8 kg Intake: IV 1760 1560 880 Dextrose 5%-0.45% NaCl 1, 1560 1560 780 000 ml @ 130 mls/hr IV . Q7H42M [facility] Rx#:[id number] Piperacillin-Tazobactam 3 200 100 .375 gm In Sodium Chloride 0.9% 100 ml @ 25 mls/hr IVPB Q8HR [facility] Rx# :[id number] Intake, IV Titration 223.049 26.202 Amount DOPamine DRIP 800 mg In 223.049 26.202 Dextrose/Water 1 250ml. bag @ 1 MCG/KG/MIN 1.453 mls/hr IV .Q24H [facility] Rx#: [id number] Oral 720 Output: Urine 1625 1015 455 Other: Voiding Method Indwelling Catheter Indwelling Catheter Indwelling Catheter - Labs CBC & Chem 7: 11/16/24 06:20 11/16/24 06:20 Labs: Abnormal Lab Results - Last 24 Hours (Table) 11/16/24 11/16/24 Range/Units 06:20 06:20 RBC 3.93 L (4.30-5.90) m/uL Hgb 11.1 L (13.0-17.5) gm/dL Hct 35.8 L (39.0-53.0) % MCHC 30.9 L (31.0-37.0) g/dL Plt Count 75 L (150-450) k/uL Lymphocytes # 0.6 L (1.0-4.8) k/uL Potassium 3.2 L (3.5-5.1) mmol/L Chloride 111 H (98-107) mmol/L BUN 7 L (9-20) mg/dL Microbiology - Last 24 Hours (Table) 11/10/24 19:00 Blood Culture - Final Blood
--- NOTE | 2024-11-16 15:38 | P.PN ---
Subjective Progress Note Date: 11/16/24 Principal diagnosis: Reason for follow-up is sepsis Patient is a 79-year-old male with a past medical history significant for COPD prostate cancer for the patient has been on chemo and radiation therapy patient has been brought into the hospital concerning for increased confusion and weakness patient was noted to be hypothermic bradycardic concerning for sepsis possible source of UTI/pneumonia requiring transfer to the ICU. On today's evaluation that is 11/16/2024,the patient remains to be afebrile, patient is on room air not requiring supplemental oxygen he is more awake alert up in the chair eating his lunch denies any shortness of breath no chest pain or cough.Patient denies having any nausea or vomiting, no abdominal pain and no diarrhea has been reported. Patient white count is 5.0, creatinine 0.92 blood culture has been negative Objective - Vital Signs Vital signs: Vital Signs Temp 97.4 F L 11/16/24 12:00 Pulse 56 L 11/16/24 12:00 Resp 23 11/16/24 12:00 BP 109/65 11/16/24 12:00 Pulse Ox 99 11/16/24 12:00 FiO2 35 11/11/24 00:57 Intake & Output 11/15/24 11/16/24 11/16/24 18:59 06:59 18:59 Intake Total 2480 1783.049 906.202 Output Total 1625 1015 455 Balance 855 768.049 451.202 Weight 85.8 kg 85.8 kg Intake: IV 1760 1560 880 Dextrose 5%-0.45% NaCl 1, 1560 1560 780 000 ml @ 130 mls/hr IV . Q7H42M JUAN Rx#:[id number] Piperacillin-Tazobactam 3 200 100 .375 gm In Sodium Chloride 0.9% 100 ml @ 25 mls/hr IVPB Q8HR JUAN Rx# :[id number] Intake, IV Titration 223.049 26.202 Amount DOPamine DRIP 800 mg In 223. 26.202 Dextrose/Water 1 250ml. bag @ 1 MCG/KG/MIN 1.453 mls/hr IV .Q24H JUAN Rx#: [id number] Oral 720 Output: Urine 1625 1015 455 Other: Voiding Method Indwelling Catheter Indwelling Catheter Indwelling Catheter - Exam GENERAL DESCRIPTION: An elderly male lying in bed in no distress RESPIRATORY SYSTEM: Unlabored breathing , decreased breath sounds at bases HEART: S1 S2 regular rate and rhythm , ABDOMEN: Soft , no tenderness EXTREMITIES: No edema feet - Labs CBC & Chem 7: 11/16/24 06:20 11/16/24 06:20 Labs: Abnormal Lab Results - Last 24 Hours (Table) 11/16/24 11/16/24 Range/Units 06:20 06:20 RBC 3.93 L (4.30-5.90) m/uL Hgb 11.1 L (13.0-17.5) gm/dL Hct 35.8 L (39.0-53.0) % MCHC 30.9 L (31.0-37.0) g/dL Plt Count 75 L (150-450) k/uL Lymphocytes # 0.6 L (1.0-4.8) k/uL Potassium 3.2 L (3.5-5.1) mmol/L Chloride 111 H (98-107) mmol/L BUN 7 L (9-20) mg/dL Microbiology - Last 24 Hours (Table) 11/10/24 19:00 Blood Culture - Final Blood Assessment and Plan (1) Altered mental status Current Visit: Yes Status: Acute Code(s): R41.82 - ALTERED MENTAL STATUS, UNSPECIFIED SNOMED Code(s): 845836997 (2) Pneumonia Current Visit: No Status: Acute Code(s): J18.9 - PNEUMONIA, UNSPECIFIED ORGANISM SNOMED Code(s): 716096910 Plan: 1patient presented to hospital with mental status changes confusion and weakness source likely left lower lobe pneumonia and his question of possible gallbladder disease will need to direct antibiotic therapy mostly towards pneumonia or possible aspiration pneumonia/gram-negative and intra-abdominal gram-negative pathogen less likely risk for composite infection such as MRSA, repeat urine is positive as well 2-patient did have ultrasound of the gallbladder suboptimal study but mention no features of cholecystitis 3-patient temperature has normalized white count has been normal culture have been negative so far 4patient currently being treated Zosyn 3.375 g every 8 hours while inpatient continue supportive care Dictation was produced using [employer] dictation software. please excuse any grammatical, word or spelling errors. Time with Patient: Less than 30
[2024-11-16 16:15] LABS: Glucose,Whole Blood 82 mg/dL (70-110)
--- NOTE | 2024-11-16 18:37 | P.PN ---
Subjective Progress Note Date: 11/16/24 On today's evaluation of 11/13/2024, the patient remains neurologically altered, confused, unable to give meaningful information and history. Of significance is that extensive skin excoriation and superficial lesions less noted throughout the body involving the upper and lower extremities and the torso. No signs of any acute cellulitis or infection. Skin is dry and scaly and multiple superficial wounds are seen throughout his body. Noted, the patient is able to move all 4 extremities. CAT scan of the brain that was done at the time of admission showed no acute abnormalities. The patient also had a CAT scan of the abdomen and pelvis that showed a dilated gallbladder. A general surgical consul tation was obtained as the patient was also noted to have some elevation in LFTs. The patient also has some atelectatic changes and consolidation in the lung bases left more than right. This morning he is on room air oxygen. He is on D5 half-normal saline at rate of 130 cc an hour. He was having episodes of bradycardia and the patient was started on dopamine 5 mcg/kg/min. Noted the blood cultures on negative. He is still hypothermic and he is using a Elian hugger for external warming. He does have a mild component of hypothyroidism and the TSH is elevated with a low free T4. His other comorbidities include COPD and the patient has also history of smoking and daily alcohol abuse. His last drink was on 11/06/2024 and reported drink 1/5 of wine on a daily basis has been on it for more than 50 years. His blood work from today shows a white cell count of 6.2, hemoglobin of 12 and a platelet count of 82. His BUN is 16 with a creatinine 1.1 and sodium level is at 145. LFTs were also noted. His AST is improving down to 86, ALT is down to 104 and alkaline phosphatase is 157. His total bilirubin is at 0.9. Lactic acid level is dropped down to 1.4. Albumin is at 2.9 with a total protein of 6.1. His TSH was 5.1 with a free T4 of 0.99. UA was abnormal and the culture is still pending. Blood cultures still negative. The patient remains on IV Zosyn. He is in atrial fibrillation. He is maintained on anticoagulation with Eliquis. His last echocardiogram from 01/08/2024 showed a preserved LV function with an ejection fraction of 55 to 60% and mild degree of pulmonary hypertension. On 11/14/2024, the patient is being seen for a follow-up. The patient is less encephalopathic and more awake compared to yesterday. He is able to communicate. At times, he still confused however, overall, is making better sense on today's evaluation. The patient remains on room air oxygen. The patient continues to have bradycardia with underlying atrial fibrillation with low rate in the patient remains on dopamine running at 4 mcg/kg/min. No hypotension. Urine output is adequate and the patient on D5 half-normal saline which is running at a rate of 130 cc an hour. Cultures are still pending for now. Blood cultures still negative. The white cell count of 5.3 with a hemoglobin 11.7 and a platelet count of 70. BUN is 15 with a creatinine 1.02. Sodium levels at 145 and a potassium level is at 3.2. LFTs are also improving. Ultrasound of the gallbladder was completed yesterday and it showed no evidence of any acute cholecystitis. Common bile duct was within normal limits. Gallbladder was distended and there was no evidence of any pericholecystic fluid. EEG was also performed yesterday and it showed no evidence of any seizure activity. There was background slowing consistent with moderate degree of encephalopathy. The patient remains on anticoagulation with Eliquis 5 mg p.o. twice a day. Levothyroxine was added yesterday and the patient is receiving Synthroid 50 mcg IV on a daily basis. The patient remains on dopamine. No focal neurological deficit and the patient is moving all 4 extremities without any limitation. On 11/15/2024, the patient is awake and alert and communicating. Of concern is the episodes of hypothermia the patient is encountering while being off the Elian hugger. His current temperature is 95.0. Remains in atrial fibrillation with a low rate. Exact cause is not clear. Heart rate is ranging between 44 and 62. Remains on dopamine which is running at 3 mcg/kg/min. He is tolerating his diet. He is communicating. Denies having any specific complaints. The white cell count of 5.6 with a hemoglobin 9.8 and a platelet count of 85. BUN is 12 with a creatinine of 0.8 and sodium levels at 141. Skin lesions remain unchange d. Cultures have been negative. The patient remains on Bentyl nebulized treatments, D5 half-normal saline at rate of 130 cc an hour, IV Zosyn as an empiric antibiotic coverage, thiamine and folate and dopamine regarding his ongoing bradycardia. He is also on Synthroid 50 mcg IV on a daily basis. On today's evaluation of 11/16/2024, the patient continues to have issues with bradycardia. Remains on dopamine which is being weaned off. The patient is on 1 mcg/kg/min. The patient's rhythm is atrial fibrillation. Seems to be less bradycardic compared to yesterday. Afebrile. Awake and alert. Communicating. Tolerating his diet. No focal neurological deficits. Cultures are negative. The white cell count is 5 with a hemoglobin 11.1 and a platelet count of 75. The patient is known to have chronic thrombocytopenia. Sodium is at 140, bicarb is at 27, BUN is at 7 with a creatinine of 0.9. Remains on empiric antibiotic coverage with IV Zosyn. No beta-blockers for now. Remains on anticoagulation with Eliquis. Objective - Vital Signs Vital signs: Vital Signs Temp 97.9 F 11/16/24 08:00 Pulse 65 11/16/24 09:00 Resp 17 11/16/24 09:00 BP 112/70 11/16/24 09:00 Pulse Ox 97 11/16/24 09:00 FiO2 35 11/11/24 00:57 Intake & Output 11/15/24 11/16/24 11/16/24 18:59 06:59 18:59 Intake Total 2480 1783.049 152.812 Output Total 1625 1015 50 Balance 855 768.049 102.812 Weight 85.8 kg Intake: IV 1760 1560 130 Dextrose 5%-0.45% NaCl 1, 1560 1560 130 000 ml @ 130 mls/hr IV . Q7H42M [facility] Rx#:[id number] Piperacillin-Tazobactam 3 200 .375 gm In Sodium Chloride 0.9% 100 ml @ 25 mls/hr IVPB Q8HR [facility] Rx# :[id number] Intake, IV Titration 223.049 22.812 Amount DOPamine DRIP 800 mg In 223.049 22.812 Dextrose/Water 1 250ml. bag @ 1 MCG/KG/MIN 1.453 mls/hr IV .Q24H JU[facility] Rx#: [id number] Oral 720 Output: Urine 1625 1015 50 Other: Voiding Method Indwelling Catheter Indwelling Catheter Indwelling Catheter - Exam General: non toxic, confused, not acute respiratory distress. Much more awake and alert compared to yesterday and the patient is communicating. He is normothermic for now. Derm: warm, dry, scaling rash over BL upper and lower extremities without erythema, and the patient has extensive skin excoriation and areas of superficial wounds throughout his upper and lower extremities and the torso. No evidence of any cellulitis. Head: atraumatic, normocephalic, symmetric Eyes: EOMI, no lid lag, anicteric sclera Mouth: no lip lesion, mucus membranes moist Cardiovascular: S1S2 irreg, consistent with atrial fibrillation, nontachycardic at this point Lungs: CTA bilateral, no rhonchi, no rales , no accessory muscle use, diminished breath sound lung base bilaterally Abdominal: soft, nontender to palpation, no guarding, no appreciable organomegaly Ext: no gross muscle atrophy, no edema, no contractures Neuro: Moving all 4 extremities. Much more alert and communicative . At times confused moving all 4 extremities and his neurologic exam is nonfocal. - Labs CBC & Chem 7: 11/16/24 06:20 11/16/24 06:20 Labs: Abnormal Lab Results - Last 24 Hours (Table) 11/16/24 11/16/24 Range/Units 06:20 06:20 RBC 3.93 L (4.30-5.90) m/uL Hgb 11.1 L (13.0-17.5) gm/dL Hct 35.8 L (39.0-53.0) % MCHC 30.9 L (31.0-37.0) g/dL Plt Count 75 L (150-450) k/uL Lymphocytes # 0.6 L (1.0-4.8) k/uL Potassium 3.2 L (3.5-5.1) mmol/L Chloride 111 H (98-107) mmol/L BUN 7 L (9-20) mg/dL Microbiology - Last 24 Hours (Table) 11/10/24 19:00 Blood Culture - Final Blood Assessment and Plan Plan: Acute mental status changes, likely secondary to metabolic encephalopathy, ino jessi. CAT scan of the brain was negative. Her underlying metabolic encephalopathy, alcoholic encephalopathy. Rule out sepsis/infection. The patient's EEG showed moderate degree of encephalopathy. Noted the patient's mentation is improved and his neurologic exam remains nonfocal. Hypotension, recovered Hypothermia, recovered Chronic A-fib with bradycardia, maintained on dopamine, and the patient seems to be less bradycardic on today's evaluation Possible urinary tract infection/urosepsis, covered with IV Zosyn. Cultures are all negative Chronic alcohol abuse History of prostate cancer. History of COPD, from previous tobacco use. Hypothyroidism Extensive skin excoriation and superficial wounds without evidence of cellulitis Abnormal LFTs, improving. Dilated gallbladder. No clinical indication for acute cholecystitis. General surgery is on the case. Ultrasound the gallb ladder was done and shows dilated gallbladder without any pericholecystic fluid and the common bile duct is nondilated. LFTs are improving. Plan: Patient remains on room air oxygen Aspiration precautions External warming has been performed and the patient is normothermic LFTs are improving Ultrasound the gallbladder shows no evidence of any cholecystitis Wean off dopamine and discontinue and will discuss bradycardia with cardiology Monitor mental status, which is essentially back to baseline Continue IV Zosyn No pressors for now D5 half-normal saline at rate of 130 cc an hour Continue Synthroid 50 mcg IV every 24 hours Cultures are negative Off beta-blockers Anticoagulation with Eliquis Skin care Will follow. Time with Patient: Greater than 30
[2024-11-16 22:08] LABS: Glucose,Whole Blood 111 mg/dL (70-110)
[2024-11-17 03:18] LABS: Basophils % (A) 0 %; Eosinophils # (A) 0.3 k/uL (0-0.7); Eosinophils % (A) 5 %; HCT 33.3 % (39.0-53.0); HGB 10.5 gm/dL (13.0-17.5); Hypochromasia Slight; Lymphocytes # (A) 0.6 k/uL (1.0-4.8); Lymphocytes % (A) 11 %; MCH 28.7 pg (25.0-35.0); MCHC 31.5 g/dL (31.0-37.0); MCV 91.1 fL (80.0-100.0); Mean Platelet Volume 8.9; Monocytes # (A) 0.4 k/uL (0-1.0); Monocytes % (A) 6 %; Neutrophils # (A) 4.1 k/uL (1.3-7.7); Neutrophils % (A) 74 %; RBC 3.65 m/uL (4.30-5.90); RDW 15.2 % (11.5-15.5); WBC 5.6 k/uL (3.8-10.6)
[2024-11-17 03:25] LABS: Platelet Count 80 k/uL (150-450)
[2024-11-17 03:27] LABS: Potassium 3.2 mmol/L (3.5-5.1)
[2024-11-17 03:28] LABS: African American GFR (CKD) >90 (>60 ml/min/1.73 sqM); Anion Gap 4 mmol/L; Blood Urea Nitrogen 7 mg/dL (9-20); Calcium 8.3 mg/dL (8.4-10.2); Carbon Dioxide 24 mmol/L (22-30); Chloride 113 mmol/L (98-107); Glucose 90 mg/dL (74-99); Magnesium 1.8 mg/dL (1.6-2.3); Non-African American GFR(CKD) 82 (>60 ml/min/1.73 sqM); Sodium 141 mmol/L (137-145)
[2024-11-17] MEDS: POTASSIUM CHLORIDE ER 20 MEQ TAB.ER PO SCH (06:27)
[2024-11-17 06:33] LABS: Glucose,Whole Blood 88 mg/dL (70-110)
[2024-11-17 10:50] LABS: Glucose,Whole Blood 107 mg/dL (70-110)
[2024-11-17] MEDS: SODIUM CHLORIDE 0.9% 1,000 ML IV SCH ×2 (14:17)
--- NOTE | 2024-11-17 15:06 | P.PN ---
Subjective Progress Note Date: 11/17/24 Hospital Course: 79 year old M with history of prostate cancer on oral chemotherapeutic agent w ith apalutamide, COPD with continued nicotine dependence, and daily alcohol abuse. Family reported patient's last alcoholic drink was on 11/06/24 and reported drinking a clement and wine daily for nearly 50 years Patient presented to the emergency department on 11/10/24 with a chief complaint of altered mental status. Patient's family reported patient was at baseline mentation up until approximately 1 AM on day of arrival when he awoke and was noted to have increased confusion and didn't even recognize them and was then noted to have generalized weakness and was unable to even stand. They reported up until this he had a normal appetite and denied any recent weight loss, fevers or exposure to known ill contacts, episodes of vomiting or diarrhea, or patient expressing any complaints of pain or discomfort. Upon arrival to our facility patient was alert to person and place only and confused to time and situation. Patient did admit to daily alcohol use, but did not or was unable to express how much he drank daily. He denied having any complaints or pain at this time. Patient and family deny any other drug use. Patient underwent evaluation in the emergency department. BP 115/68, HR 57, RR 20, T 96.8 F, SpO2 of 100% on RA. Ccinz-ah-xhps glucose was initially 59. EKG was completed showing AFib with a slowed ventricular response at 58 bpm with nonspecific T wave abnormalities in inferior leads. Chest x-ray showed no acute process. CT brain showed no acute process, diffuse age related cerebral atrophy and mild to moderate chronic small vessel ischemic changes with bilateral maxill palmer sinus disease. CBC, Coag panel, CMP significant for Plt 98, Na 149, Cl 114, BUN 21, AST 214, ALT 216, alk phos 273. Troponin <0.012. TSH 5.170, free T4 0.99. UDS neg. UA neg. COVID, RSV, Flu neg. Patient admitted under our services with consultation to neurology. Patient was noted to have a Tlow of 89.5F rectal on 11/10. He was placed on Elian hugger. Lactic acid was 1.2 and vital signs were stable. CT AP and blood cultures were ordered. Patient was noted to by hypotensive on 11/11 along with persistent hypoglycemic. He was given a 2L LR bolus and started on Vancomycin and Cefepime. ID was consulted, antibiotics switched to Zosyn. CTA head and neck showing moderate stenosis of the proximal left internal carotid artery and mild stenosis with diffuse calcification of carotid siphons and maxillary sinusitis. Discussed findings with neurologist, Dr. Luciano awaiting completion of MRI for janelle romo recommendations. CT abdomen and pelvis reporting acute cardiopulmonary disease in the lung bases left greater than right concerning for fluid overload versus pneumonia and reports of distended gallbladder. Consult placed to general surgery for evaluation, HIDA scan ordered. Transferred to ICU for persistent hypotension. Levophed was weaned off on 11/12, patient was started on dopamine,Zosyn, IV thiamine high-dose status, IV fluids. ID following. Abdominal ultrasound was negative for cholecystitis, surgical team following, no plans for surgical intervention at this time. Neurology following, brain MRI with and without contrast pending, he was started on folic acid for low folate level. He was started on IV Synthroid 50 mcg daily. EP consulted for severe bradycardia showing A-fib with slow ventricular response, patient's family opted out pacemaker, patient continued on IV dopamine . 11/15 patient significantly more alert , was able to tell me the date, current [place] president, was not oriented to place but noted that he has been in the hospital. His heart rate is in the 50s while on dopamine drip, dobutamine drip was stopped for about 30 minutes when his heart rate started dropping back to 30s. He is still hypothermic with body temperature 94.4 while off Elian hugger. MRI brain pending 11/16: More alert and awake, answers questions faster, now has more recollection of past events, mentioned that he developed his skin rash after he was started on chemotherapy, has not seen a skin doctor for that. Dopamine stopped around 10 AM. Patient will need clearance from cardiology to proceed with MRI as he cannot be on telemetry or dopamine drip cardiac 11/17, heart rate is stable while off dopamine, bear hugger removed, now maintaining body temperature, mental status improving, patient is alert, appropriate, plan to undergo HIDA and brain MRI, downgraded to 3 S. Subjective: Denies chest pain, shortness of breath, abdominal pain, finished whole sandwich this morning, tolerated well Pertinent positives and negatives as discussed above, a complete review of systems was performed and all other systems are negative. Vitals Signs Reviewed. General: [nontoxic], [no distress], [appears at stated age] Derm: [warm], [dry], extensive rash with excoriations, dry skin Head: [atraumatic], [normocephalic], [symmetric] Eyes: [EOMI], [no lid lag], [anicteric sclera] Mouth: [no lip lesion], [mucus membranes moist] Cardiovascular: [S1S2 irreg], [no murmur] Lungs: [CTA bilateral], [no rhonchi, no rales] , [no accessory muscle use] Abdominal: [soft], [ nontender to palpation], [no guarding], [no appreciable organomegaly] Ext: [no gross muscle atrophy], [no edema], [no contractures] Neuro: [ CN II-XI grossly intact], [no focal neuro deficits] Psych: [Alert], [oriented to self, time, knows he is in the hospital, could not remember the name Data Reviewed Today: Pertinent Labs: No leukocytosis, hemoglobin 10.5, platelet count 80, sodium 141, potassium 3.2, creatinine normal, blood glucose 90 Assessment and Plan: Acute encephalopathy, etiology unclear, improving Possible Wernicke's encephalopathy Folate deficiency Hypotension requiring pressors possible sepsis due to UTI Possible aspiration pneumonia Hypothermia -continue Zosyn 3.375 g every 8 hours while waiting for the culture to finalize -Thiamine 500 mg IV TID continued, start 250 IV daily 11/16 after 5 days -CIWA protocol with Ativan PRN. -MRI brain with and without contrast pending to rule out central causes for hypothermia, bradycardia -cortisol levels 17.1 ->103 -UDS negative Hypoglycemia: Continue D5 half-normal Atrial fibrillation with slow ventricular response, severe bradycardia onEliquis: -No plans for intervention from EP cardiology, family opted out pacemaker, not on AV blocking agents -Dopamine on standby, cardiology following Transaminitis and thrombocytopenia secondary to ethanol abuse Hypothyroidism: Continue levothyroxine IV 50 mcg daily, will switch to oral when patient is cleared by [facility] Gallbladder distention : continue with Zosyn as above. HIDA scan ordered by Surgery for findings on CT AP., couldn't tolerate, US negative, no plans for intervention Skin whelan: possible drug eruption from patient's prostate cancer treatemnt. Per family, the rash is probably related to his radiation therapy. DVT ppx: Eliquis Code status: full code Anticipated discharge place: TBD Anticipated discharge time: TBD Objective - Vital Signs Vital signs: Vital Signs Temp 97.5 F L 11/17/24 12:00 Pulse 63 11/17/24 13:54 Resp 18 11/17/24 13:54 BP 119/75 11/17/24 13:54 Pulse Ox 94 L 11/17/24 13:54 FiO2 35 11/11/24 00:57 Intake & Output 11/16/24 11/17/24 11/17/24 18:59 06:59 18:59 Intake Total 6480.895 6546 820 Output Total 675 855 535 Balance 1111.202 805 285 Weight 85.8 kg 85.8 kg Intake: IV 1760 1660 650 Dextrose 5%-0.45% NaCl 1, 1560 1560 650 000 ml @ 130 mls/hr IV . Q7H42M JUAN Rx#:[id number] Piperacillin-Tazobactam 3 200 100 .375 gm In Sodium Chloride 0.9% 100 ml @ 25 mls/hr IVPB Q8HR JUAN Rx# :[id number] Intake, IV Titration 26.202 170 Amount DOPamine DRIP 800 mg In 26.202 Dextrose/Water 1 250ml. bag @ 1 MCG/KG/MIN 1.453 mls/hr IV .Q24H JUAN Rx#: [id number] Piperacillin-Tazobactam 3 100 .375 gm In Sodium Chloride 0.9% 100 ml @ 25 mls/hr IVPB Q8HR JU[facility] Rx# :[id number] Sodium Chloride 0.9% 1, 20 000 ml @ 20 mls/hr IV . Q24H JUAN Rx#:[id number] Thiamine 250 mg In Sodium 50 Chloride 0.9% 50 ml @ 100 mls/hr IVPB DAILY JUAN Rx#:[id number] Output: Urine 675 855 535 Other: Voiding Method Indwelling Catheter Indwelling Catheter Indwelling Catheter # Bowel Movements 1 - Labs CBC & Chem 7: 11/17/24 02:54 11/17/24 08:26 Labs: Abnormal Lab Results - Last 24 Hours (Table) 11/16/24 11/17/24 11/17/24 Range/Units 22:06 02:54 02:54 RBC 3.65 L (4.30-5.90) m/uL Hgb 10.5 L (13.0-17.5) gm/dL Hct 33.3 L (39.0-53.0) % Plt Count 80 L (150-450) k/uL Lymphocytes # 0.6 L (1.0-4.8) k/uL Potassium 3.2 L (3.5-5.1) mmol/L Chloride 113 H (98-107) mmol/L BUN 7 L (9-20) mg/dL POC Glucose (mg/dL) 111 H (70-110) mg/dL Calcium 8.3 L (8.4-10.2) mg/dL
--- NOTE | 2024-11-17 15:39 | P.PN ---
Subjective Progress Note Date: 11/17/24 Principal diagnosis: Reason for follow-up is sepsis Patient is a 79-year-old male with a past medical history significant for COPD prostate cancer for the patient has been on chemo and radiation therapy patient has been brought into the hospital concerning for increased confusion and weakness patient was noted to be hypothermic bradycardic concerning for sepsis possible source of UTI/pneumonia requiring transfer to the ICU. On today's evaluation that is 11/17/2024, the patient continues to be afebrile, the patient is on room air and breathing comfortably, the Pt is more awake alert was up in the chair eating his lunch at the time of evaluation denies any chest pain did have some cough no vomiting or diarrhea. Patient white count is 5.6, creatinine 0.87 culture has been negative Objective - Vital Signs Vital signs: Vital Signs Temp 97.5 F L 11/17/24 12:00 Pulse 63 11/17/24 13:54 Resp 18 11/17/24 13:54 BP 119/75 11/17/24 13:54 Pulse Ox 94 L 11/17/24 13:54 FiO2 35 11/11/24 00:57 Intake & Output 11/16/24 11/17/24 11/17/24 18:59 06:59 18:59 Intake Total 4475.461 2719 820 Output Total 675 855 535 Balance 1111.202 805 285 Weight 85.8 kg 85.8 kg Intake: IV 1760 1660 650 Dextrose 5%-0.45% NaCl 1, 1560 1560 650 000 ml @ 130 mls/hr IV . Q7H42M [facility] Rx#:[id number] Piperacillin-Tazobactam 3 200 100 .375 gm In Sodium Chloride 0.9% 100 ml @ 25 mls/hr IVPB Q8HR [facility] Rx# :[id number] Intake, IV Titration 170 Amount DOPamine DRIP 800 mg In Dextrose/Water 1 250ml. bag @ 1 MCG/KG/MIN 1.453 mls/hr IV .Q24H [facility] Rx#: [id number] Piperacillin-Tazobactam 3 100 .375 gm In Sodium Chloride 0.9% 100 ml @ 25 mls/hr IVPB Q8HR [facility] Rx# :[id number] Sodium Chloride 0.9% 1, 20 000 ml @ 20 mls/hr IV . Q24H [facility] Rx#:[id number] Thiamine 250 mg In Sodium 50 Chloride 0.9% 50 ml @ 100 mls/hr IVPB DAILY [facility] Rx#:[id number] Output: Urine 675 855 535 Other: Voiding Method Indwelling Catheter Indwelling Catheter Indwelling Catheter # Bowel Movements 1 - Exam GENERAL DESCRIPTION: An elderly male lying in bed in no distress RESPIRATORY SYSTEM: Unlabored breathing , decreased breath sounds at bases HEART: S1 S2 regular rate and rhythm , ABDOMEN: Soft , no tenderness EXTREMITIES: No edema feet - Labs CBC & Chem 7: 11/17/24 02:54 11/17/24 08:26 Labs: Abnormal Lab Results - Last 24 Hours (Table) 11/16/24 11/17/24 11/17/24 Range/Units 22:06 02:54 02:54 RBC 3.65 L (4.30-5.90) m/uL Hgb 10.5 L (13.0-17.5) gm/dL Hct 33.3 L (39.0-53.0) % Plt Count 80 L (150-450) k/uL Lymphocytes # 0.6 L (1.0-4.8) k/uL Potassium 3.2 L (3.5-5.1) mmol/L Chloride 113 H (98-107) mmol/L BUN 7 L (9-20) mg/dL POC Glucose (mg/dL) 111 H (70-110) mg/dL Calcium 8.3 L (8.4-10.2) mg/dL Assessment and Plan (1) Altered mental status Current Visit: Yes Status: Acute Code(s): R41.82 - ALTERED MENTAL STATUS, UNSPECIFIED SNOMED Code(s): 720054922 (2) Pneumonia Current Visit: No Status: Acute Code(s): J18.9 - PNEUMONIA, UNSPECIFIED [facility] SNOMED Code(s): 466340107 Plan: 1patient presented to hospital with mental status changes confusion and weakness source likely left lower lobe pneumonia and his question of possible gallbladder disease will need to direct antibiotic therapy mostly towards pneumonia or possible aspiration pneumonia/gram-negative and intra-abdominal gra m-negative pathogen less likely risk for composite infection such as MRSA, repeat urine is positive as well 2-patient did have ultrasound of the gallbladder suboptimal study but mention no features of cholecystitis 3-patient temperature has normalized white count has been normal culture have been negative so far 4patient to continue with Zosyn in view of clinical improvement repeat a chest x-ray and monitor clinical course closely Dictation was produced using [employer] dictation software. please excuse any grammatical, word or spelling errors. Time with Patient: Less than 30
[2024-11-17 16:17] LABS: Glucose,Whole Blood 94 mg/dL (70-110)
--- NOTE | 2024-11-17 16:40 | P.PN ---
Subjective Progress Note Date: 11/17/24 On today's evaluation of 11/13/2024, the patient remains neurologically altered, confused, unable to give meaningful information and history. Of significance is that extensive skin excoriation and superficial lesions less noted throughout the body involving the upper and lower extremities and the torso. No signs of any acute cellulitis or infection. Skin is dry and scaly and multiple superficial wounds are seen throughout his body. Noted, the patient is able to move all 4 extremities. CAT scan of the brain that was done at the time of admission showed no acute abnormalities. The patient also had a CAT scan of the abdomen and pelvis that showed a dilated gallbladder. A general surgical consul tation was obtained as the patient was also noted to have some elevation in LFTs. The patient also has some atelectatic changes and consolidation in the lung bases left more than right. This morning he is on room air oxygen. He is on D5 half-normal saline at rate of 130 cc an hour. He was having episodes of bradycardia and the patient was started on dopamine 5 mcg/kg/min. Noted the blood cultures on negative. He is still hypothermic and he is using a Elian hugger for external warming. He does have a mild component of hypothyroidism and the TSH is elevated with a low free T4. His other comorbidities include COPD and the patient has also history of smoking and daily alcohol abuse. His last drink was on 11/06/2024 and reported drink 1/5 of wine on a daily basis has been on it for more than 50 years. His blood work from today shows a white cell count of 6.2, hemoglobin of 12 and a platelet count of 82. His BUN is 16 with a creatinine 1.1 and sodium level is at 145. LFTs were also noted. His AST is improving down to 86, ALT is down to 104 and alkaline phosphatase is 157. His total bilirubin is at 0.9. Lactic acid level is dropped down to 1.4. Albumin is at 2.9 with a total protein of 6.1. His TSH was 5.1 with a free T4 of 0.99. UA was abnormal and the culture is still pending. Blood cultures still negative. The patient remains on IV Zosyn. He is in atrial fibrillation. He is maintained on anticoagulation with Eliquis. His last echocardiogram from 01/08/2024 showed a preserved LV function with an ejection fraction of 55 to 60% and mild degree of pulmonary hypertension. On 11/14/2024, the patient is being seen for a follow-up. The patient is less encephalopathic and more awake compared to yesterday. He is able to communicate. At times, he still confused however, overall, is making better sense on today's evaluation. The patient remains on room air oxygen. The patient continues to have bradycardia with underlying atrial fibrillation with low rate in the patient remains on dopamine running at 4 mcg/kg/min. No hypotension. Urine output is adequate and the patient on D5 half-normal saline which is running at a rate of 130 cc an hour. Cultures are still pending for now. Blood cultures still negative. The white cell count of 5.3 with a hemoglobin 11.7 and a platelet count of 70. BUN is 15 with a creatinine 1.02. Sodium levels at 145 and a potassium level is at 3.2. LFTs are also improving. Ultrasound of the gallbladder was completed yesterday and it showed no evidence of any acute cholecystitis. Common bile duct was within normal limits. Gallbladder was distended and there was no evidence of any pericholecystic fluid. EEG was also performed yesterday and it showed no evidence of any seizure activity. There was background slowing consistent with moderate degree of encephalopathy. The patient remains on anticoagulation with Eliquis 5 mg p.o. twice a day. Levothyroxine was added yesterday and the patient is receiving Synthroid 50 mcg IV on a daily basis. The patient remains on dopamine. No focal neurological deficit and the patient is moving all 4 extremities without any limitation. On 11/15/2024, the patient is awake and alert and communicating. Of concern is the episodes of hypothermia the patient is encountering while being off the Elian hugger. His current temperature is 95.0. Remains in atrial fibrillation with a low rate. Exact cause is not clear. Heart rate is ranging between 44 and 62. Remains on dopamine which is running at 3 mcg/kg/min. He is tolerating his diet. He is communicating. Denies having any specific complaints. The white cell count of 5.6 with a hemoglobin 9.8 and a platelet count of 85. BUN is 12 with a creatinine of 0.8 and sodium levels at 141. Skin lesions remain unchange d. Cultures have been negative. The patient remains on Bentyl nebulized treatments, D5 half-normal saline at rate of 130 cc an hour, IV Zosyn as an empiric antibiotic coverage, thiamine and folate and dopamine regarding his ongoing bradycardia. He is also on Synthroid 50 mcg IV on a daily basis. On today's evaluation of 11/16/2024, the patient continues to have issues with bradycardia. Remains on dopamine which is being weaned off. The patient is on 1 mcg/kg/min. The patient's rhythm is atrial fibrillation. Seems to be less bradycardic compared to yesterday. Afebrile. Awake and alert. Communicating. Tolerating his diet. No focal neurological deficits. Cultures are negative. The white cell count is 5 with a hemoglobin 11.1 and a platelet count of 75. The patient is known to have chronic thrombocytopenia. Sodium is at 140, bicarb is at 27, BUN is at 7 with a creatinine of 0.9. Remains on empiric antibiotic coverage with IV Zosyn. No beta-blockers for now. Remains on anticoagulation with Eliquis. On 11/17/2024, the patient is being seen for a follow-up. Awake and alert and communicating he is tolerating his diet. Normothermic. The patient is currently off dopamine. Still having some bradycardia with A-fib rhythm yet is not having significant low heart rate. His current heart rate is ranging between 50 and 66. No new complaints. The white cell count is 5.6, hemoglobin 10.5 with a platelet count of 80. BUN 7 with a creatinine of 0.8 and sodium was 141. Cultures are all negative. Remains on IV Zosyn. Remains on anticoagulation with Eliquis. Currently off beta-blockers. On Synthroid. No agitation. Calm and comfortable resting comfortably in bed. Objective - Vital Signs Vital signs: Vital Signs Temp 98.2 F 11/17/24 04:00 Pulse 62 11/17/24 07:00 Resp 19 11/17/24 07:00 BP 125/87 11/17/24 07:00 Pulse Ox 97 11/17/24 01:00 FiO2 35 11/11/24 00:57 Intake & Output 11/16/24 11/17/24 11/17/24 18:59 06:59 18:59 Intake Total 4484.702 0475 130 Output Total 675 855 50 Balance 1111.202 805 80 Weight 85.8 kg 85.8 kg Intake: IV 1760 1660 130 Dextrose 5%-0.45% NaCl 1, 1560 1560 130 000 ml @ 130 mls/hr IV . Q7H42M [facility] Rx#:[id number] Piperacillin-Tazobactam 3 200 100 .375 gm In Sodium Chloride 0.9% 100 ml @ 25 mls/hr IVPB Q8HR [facility] Rx# :[id number] Intake, IV Titration 26.202 Amount DOPamine DRIP 800 mg In .202 Dextrose/Water 1 250ml. bag @ 1 MCG/KG/MIN 1.453 mls/hr IV .Q24H [facility] Rx#: [id number] Output: Urine 675 855 50 Other: Voiding Method Indwelling Catheter Indwelling Catheter - Exam General: non toxic, confused, not acute respiratory distress. Much more awake and alert compared to yesterday and the patient is communicating. He is normothermic for now. Derm: warm, dry, scaling rash over BL upper and lower extremities without erythema, and the patient has extensive skin excoriation and areas of superficial wounds throughout his upper and lower extremities and the torso. No evidence of any cellulitis. Head: atraumatic, normocephalic, symmetric Eyes: EOMI, no lid lag, anicteric sclera Mouth: no lip lesion, mucus membranes moist Cardiovascular: S1S2 irreg, consistent with atrial fibrillation, nontachycardic at this point Lungs: CTA bilateral, no rhonchi, no rales , no accessory muscle use, diminished breath sound lung base bilaterally Abdominal: soft, nontender to palpation, no guarding, no appreciable organomegaly Ext: no gross muscle atrophy, no edema, no contractures Neuro: Moving all 4 extremities. Much more alert and communicative . At times confused moving all 4 extremities and his neurologic exam is nonfocal. - Labs CBC & Chem 7: 11/17/24 02:54 11/17/24 08:26 Labs: Abnormal Lab Results - Last 24 Hours (Table) 11/16/24 11/17/24 11/17/24 Range/Units 22:06 02:54 02:54 RBC 3.65 L (4.30-5.90) m/uL Hgb 10.5 L (13.0-17.5) gm/dL Hct 33.3 L (39.0-53.0) % Plt Count 80 L (150-450) k/uL Lymphocytes # 0.6 L (1.0-4.8) k/uL Potassium 3.2 L (3.5-5.1) mmol/L Chloride 113 H (98-107) mmol/L BUN 7 L (9-20) mg/dL POC Glucose (mg/dL) 111 H (70-110) mg/dL Calcium 8.3 L (8.4-10.2) mg/dL Assessment and Plan Plan: Acute mental status changes, likely secondary to metabolic encephalopathy, recovered. CAT scan of the brain was negative. Her underlying metabolic encephalopathy, alcoholic encephalopathy. Rule out sepsis/infection. The patient's EEG showed moderate degree of encephalopathy. Noted the patient's mentation is improved and his neurologic exam remains nonfocal. Hypotension, recovered Hypothermia, recovered Chronic A-fib with bradycardia, maintained on dopamine, and the patient seems to be less bradycardic on today's evaluation Possible urinary tract infection/urosepsis, covered with IV Zosyn. Cultures are all negative Chronic alcohol abuse History of prostate cancer. History of COPD, from previous tobacco use. Hypothyroidism Extensive skin excoriation and superficial wounds without evidence of cellulitis Abnormal LFTs, improving. Dilated gallbladder. No clinical indication for acute cholecystitis. General surgery is on the case. Ultrasound the gallbladder was done and shows dilated gallbladder without any pericholecystic fluid and the common bile duct is nondilated. LFTs are improving. Plan: Patient remains on room air oxygen Aspiration precautions Patient is normothermic LFTs are improving Ultrasound the gallbladder shows no evidence of any cholecystitis Patient is currently off dopamine Monitor mental status, which is essentially back to baseline Continue IV Zosyn Continue Synthroid 75 mcg p.o. daily Cultures are negative Off beta-blockers Anticoagulation with Eliquis Skin care Will follow. Transfer the patient out of the intensive care unit. Time with Patient: Greater than 30
[2024-11-17 19:56] LABS: Glucose,Whole Blood 108 mg/dL (70-110)
--- NOTE | 2024-11-17 22:52 | PN ---
PROGRESS NOTE SUBJECTIVE: A 79-year-old gentleman, was admitted to hospital with altered mental status, was in atrial fibrillation with slow ventricular rate and had been on dopamine for the same. Dopamine had been off at 24 hours. Remains in Afib, has not had any further episodes of bradycardia. He is on Eliquis 5 b.i.d. OBJECTIVE: VITAL SIGNS: Heart rate is 54 beats per minute, blood pressure is 139/83, respiratory rate is 18. CHEST: Reveals good air entry bilaterally. HEART: Reveals first and second heart sounds. No gallop. EXTREMITIES: Did not reveal any edema. Peripheral pulses are felt. ASSESSMENT: Atrial fibrillation with slow ventricular rate. PLAN: The patient is currently asymptomatic. We will continue what he is on. MMODL / IJN: [id number] /
--- NOTE | 2024-11-17 23:41 | XR ---
EXAMINATION TYPE: XR chest 2V DATE OF EXAM: 11/17/2024 10:01 PM COMPARISON: Chest radiographs from 11/12/2024 CLINICAL INDICATION: Male, 79 years old with history of Pneumonia follow-up; [facility] TECHNIQUE: XR chest 2V Frontal and lateral views of the chest. FINDINGS: Lungs/Pleura: No evidence of focal consolidation or pneumothorax. Blunting of the costophrenic angles is present. Pulmonary vascularity: Unremarkable. Heart/mediastinum: Cardiomediastinal silhouette is unremarkable. Musculoskeletal: No acute osseous pathology. IMPRESSION: Bilateral pleural effusions worse from 11/12/2024. [facility], , 11/17/2024 11:38 PM
[2024-11-18] MEDS: LEVOTHYROXINE 75 MCG TAB PO SCH (05:22)
[2024-11-18 06:04] LABS: Glucose,Whole Blood 100 mg/dL (70-110)
[2024-11-18 09:16] LABS: Basophils % (A) 0 %; Eosinophils # (A) 0.3 k/uL (0-0.7); Eosinophils % (A) 4 %; HGB 10.5 gm/dL (13.0-17.5); Lymphocytes # (A) 0.4 k/uL (1.0-4.8); Lymphocytes % (A) 7 %; MCHC 30.9 g/dL (31.0-37.0); MCV 90.6 fL (80.0-100.0); Mean Platelet Volume 9.2; Monocytes # (A) 0.3 k/uL (0-1.0); Monocytes % (A) 5 %; Neutrophils # (A) 5.5 k/uL (1.3-7.7); Neutrophils % (A) 83 %; RBC 3.75 m/uL (4.30-5.90); RDW 15.5 % (11.5-15.5); WBC 6.6 k/uL (3.8-10.6)
[2024-11-18 09:18] LABS: Platelet Count 99 k/uL (150-450)
[2024-11-18 09:21] LABS: African American GFR (CKD) >90 (>60 ml/min/1.73 sqM); Anion Gap 4 mmol/L; Blood Urea Nitrogen 7 mg/dL (9-20); Calcium 8.2 mg/dL (8.4-10.2); Carbon Dioxide 26 mmol/L (22-30); Chloride 112 mmol/L (98-107); Glucose 96 mg/dL (74-99); Non-African American GFR(CKD) >90 (>60 ml/min/1.73 sqM); Potassium 3.7 mmol/L (3.5-5.1); Sodium 142 mmol/L (137-145)
--- NOTE | 2024-11-18 10:58 | P.PN ---
Subjective Progress Note Date: 11/18/24 This is a 79-year-old male presented to the hospital due to altered mental status and found to be in atrial fibrillation with slow ventricular rate. Patient was on dopamine which she has been weaned off and patient has been transferred out of the intensive care unit and seen today on the cardiac stepdown unit. Patient remains in atrial fibrillation with a controlled ventricular rate. He has had 2-second pauses but nothing longer than that. Patient has been started on Eliquis. Physical examination: Gen: This is a 79-year-old male in no acute distress VS: reviewed LUNGS: Good air entry bilaterally no intercostal retractions. HEART: Reveals first and second heart sounds. No gallop. Irregular ABDOMEN: Soft No tenderness. EXTREMITIES: No pedal edema. Peripheral pulses are felt. Assessment: Atrial fibrillation with slow ventricular rate Metabolic encephalopathy Pneumonia followed by ID Plan: Continue Eliquis 5 mg twice daily Avoid AV alba blocking agents Continue telemetry monitoring If patient develops pauses greater than 3 to 4 seconds, plan to resume dopamine drip. Further recommendations to follow based upon clinical course Nurse practitioner note has been reviewed, I agree with documented findings and plan of care. Patient was seen and examined. Objective - Vital Signs Vital signs: Vital Signs Temp 98.0 F 11/18/24 04:00 Pulse 59 L 11/18/24 04:00 Resp 18 11/18/24 04:00 BP 147/73 11/18/24 04:00 Pulse Ox 96 11/18/24 04:00 FiO2 35 11/11/24 00:57 Intake & Output 11/17/24 11/18/24 11/18/24 18:59 06:59 18:59 Intake Total 1300 Output Total 535 750 Balance 765 -750 Weight 78.5 kg Intake: IV 650 Dextrose 5%-0.45% NaCl 1, 650 000 ml @ 130 mls/hr IV . Q7H42M [facility] Rx#:[id number] Intake, IV Titration 170 Amount Piperacillin-Tazobactam 3 100 .375 gm In Sodium Chloride 0.9% 100 ml @ 25 mls/hr IVPB Q8HR [facility] Rx# :[id number] Sodium Chloride 0.9% 1, 20 000 ml @ 20 mls/hr IV . Q24H [facility] Rx#:[id number] Thiamine 250 mg In Sodium 50 Chloride 0.9% 50 ml @ 100 mls/hr IVPB DAILY [facility] Rx#:[id number] Oral 480 Output: Urine 535 750 Other: Voiding Method Indwelling Catheter Indwelling Catheter # Bowel Movements 1 - Labs CBC & Chem 7: 11/18/24 07:22 11/18/24 07:22 Labs: Abnormal Lab Results - Last 24 Hours (Table) 11/18/24 11/18/24 Range/Units 07:22 07:22 RBC 3.75 L (4.30-5.90) m/uL Hgb 10.5 L (13.0-17.5) gm/dL Hct 34.0 L (39.0-53.0) % MCHC 30.9 L (31.0-37.0) g/dL Plt Count 99 L (150-450) k/uL Lymphocytes # 0.4 L (1.0-4.8) k/uL Chloride 112 H (98-107) mmol/L BUN 7 L (9-20) mg/dL Calcium 8.2 L (8.4-10.2) mg/dL
--- NOTE | 2024-11-18 11:31 | P.PN ---
Subjective Progress Note Date: 11/18/24 Hospital Course: 79 year old M with history of prostate cancer on oral chemotherapeutic agent w ith apalutamide, COPD with continued nicotine dependence, and daily alcohol abuse. Family reported patient's last alcoholic drink was on 11/06/24 and reported drinking a clement and wine daily for nearly 50 years Patient presented to the emergency department on 11/10/24 with a chief complaint of altered mental status. Patient's family reported patient was at baseline mentation up until approximately 1 AM on day of arrival when he awoke and was noted to have increased confusion and didn't even recognize them and was then noted to have generalized weakness and was unable to even stand. They reported up until this he had a normal appetite and denied any recent weight loss, fevers or exposure to known ill contacts, episodes of vomiting or diarrhea, or patient expressing any complaints of pain or discomfort. Upon arrival to our facility patient was alert to person and place only and confused to time and situation. Patient did admit to daily alcohol use, but did not or was unable to express how much he drank daily. He denied having any complaints or pain at this time. Patient and family deny any other drug use. Patient underwent evaluation in the emergency department. BP 115/68, HR 57, RR 20, T 96.8 F, SpO2 of 100% on RA. [id number] glucose was initially 59. EKG was completed showing AFib with a slowed ventricular response at 58 bpm with nonspecific T wave abnormalities in inferior leads. Chest x-ray showed no acute process. CT brain showed no acute process, diffuse age related cerebral atrophy and mild to moderate chronic small vessel ischemic changes with bilateral maxill palmer sinus disease. CBC, Coag panel, CMP significant for Plt 98, Na 149, Cl 114, BUN 21, AST 214, ALT 216, alk phos 273. Troponin <0.012. TSH 5.170, free T4 0.99. UDS neg. UA neg. COVID, RSV, Flu neg. Patient admitted under our services with consultation to neurology. Patient was noted to have a Tlow of 89.5F rectal on 11/10. He was placed on Elian hugger. Lactic acid was 1.2 and vital signs were stable. CT AP and blood cultures were ordered. Patient was noted to by hypotensive on 11/11 along with persistent hypoglycemic. He was given a 2L LR bolus and started on Vancomycin and Cefepime. ID was consulted, antibiotics switched to Zosyn. CTA head and neck showing moderate stenosis of the proximal left internal carotid artery and mild stenosis with diffuse calcification of carotid siphons and maxillary sinusitis. Discussed findings with neurologist, Dr. Luciano awaiting completion of MRI for janelle romo recommendations. CT abdomen and pelvis reporting acute cardiopulmonary disease in the lung bases left greater than right concerning for fluid overload versus pneumonia and reports of distended gallbladder. Consult placed to general surgery for evaluation, HIDA scan ordered. Transferred to ICU for persistent hypotension. Levophed was weaned off on 11/12, patient was started on dopamine,Zosyn, IV thiamine high-dose status, IV fluids. ID following. Abdominal ultrasound was negative for cholecystitis, surgical team following, no plans for surgical intervention at this time. Neurology following, brain MRI with and without contrast pending, he was started on folic acid for low folate level. He was started on IV Synthroid 50 mcg daily. EP consulted for severe bradycardia showing A-fib with slow ventricular response, patient's family opted out pacemaker, patient continued on IV dopamine . 11/15 patient significantly more alert , was able to tell me the date, current [place] president, was not oriented to place but noted that he has been in the hospital. His heart rate is in the 50s while on dopamine drip, dobutamine drip was stopped for about 30 minutes when his heart rate started dropping back to 30s. He is still hypothermic with body temperature 94.4 while off Elian hugger. MRI brain pending 11/16: More alert and awake, answers questions faster, now has more recollection of past events, mentioned that he developed his skin rash after he was started on chemotherapy, has not seen a skin doctor for that. Dopamine stopped around 10 AM. Patient will need clearance from cardiology to proceed with MRI as he cannot be on telemetry or dopamine drip cardiac 11/17, heart rate is stable while off dopamine, bear hugger removed, now maintaining body temperature, mental status improving, patient is alert, appropriate, plan to undergo HIDA and brain MRI, downgraded to 3 S. 11/18: Patient hemodynamically stable, normalized body temperature, mental status improved, feeding himself, plan for brain MRI and HIDA scan today, decrease dextrose half-normal to 75 cc/h and monitor blood glucose, continue thiamine IV 250 daily Subjective: Denies chest pain, shortness of breath, abdominal pain, feels generally well Pertinent positives and negatives as discussed above, a complete review of systems was performed and all other systems are negative. Vitals Signs Reviewed. General: [nontoxic], [no distress], [appears at stated age] Derm: [warm], [dry], extensive rash with excoriations, dry skin Head: [atraumatic], [normocephalic], [symmetric] Eyes: [EOMI], [no lid lag], [anicteric sclera] Mouth: [no lip lesion], [mucus membranes moist] Cardiovascular: [S1S2 irreg], [no murmur] Lungs: [CTA bilateral], [no rhonchi, no rales] , [no accessory muscle use] Abdominal: [soft], [ nontender to palpation], [no guarding], [no appreciable organomegaly] Ext: [no gross muscle atrophy], [no edema], [no contractures] Neuro: [ CN II-XI grossly intact], [no focal neuro deficits] Psych: [Alert], [oriented to self, time, knows he is in the hospital, could not remember the name Data Reviewed Today: Pertinent Labs: No leukocytosis, hemoglobin 10.5, platelet 99, sodium and potassium normal, creatinine normal blood glucose in 100s Assessment and Plan: Acute encephalopathy, etiology unclear, improving Possible Wernicke's encephalopathy Folate deficiency Hypotension requiring pressors possible sepsis due to UTI, resolved Possible aspiration pneumonia Hypothermia, resolved -continue Zosyn 3.375 g every 8 hours SOT 11/12 blood cultures negative, no leukocytosis, body temperature normalized, completing day 7th of antibiotics, can potentially be stopped, defer to ID -Thiamine 500 mg IV TID continued, start 250 IV daily 11/16 after 5 days -CIWA protocol with Ativan PRN. -MRI brain with and without contrast 11/18 -cortisol levels 17.1 ->103 -UDS negative Hypoglycemia: Continue D5 half-normal. decrease rate to 75cc/hr And monitor closely for hypoglycemia Atrial fibrillation with slow ventricular response, severe bradycardia onEliquis -No plans for intervention from EP cardiology, family opted out pacemaker, not on AV blocking agents -, cardiology following , If patient has pauses more than 3 to 4 seconds, dopamine to be resumed Transaminitis and thrombocytopenia secondary to ethanol abuse Hypothyroidism: Continue levothyroxine IV 50 mcg daily, will switch to oral when patient is cleared by [employer] Gallbladder distention -continue with Zosyn as above. US negative, no plans for intervention -HIDA ordered Skin whelan: possible drug eruption from patient's prostate cancer treatemnt. Per family, the rash is probably related to his radiation therapy. DVT ppx: Eliquis Code status: full code Anticipated discharge place: [facility] Anticipated discharge time: TBD Objective - Vital Signs Vital signs: Vital Signs Temp 97.5 F L 11/18/24 08:00 Pulse 62 11/18/24 08:00 Resp 18 11/18/24 08:00 BP 107/77 11/18/24 08:00 Pulse Ox 96 11/18/24 08:00 FiO2 35 11/11/24 00:57 Intake & Output 11/17/24 11/18/24 11/18/24 18:59 06:59 18:59 Intake Total 1300 240 Output Total 535 750 225 Balance 765 -750 15 Weight 78.5 kg Intake: IV 650 Dextrose 5%-0.45% NaCl 1, 650 000 ml @ 130 mls/hr IV . Q7H42M JUAN Rx#:[id number] Intake, IV Titration 170 Amount Piperacillin-Tazobactam 3 100 .375 gm In Sodium Chloride 0.9% 100 ml @ 25 mls/hr IVPB Q8HR JUAN Rx# :[id number] Sodium Chloride 0.9% 1, 20 000 ml @ 20 mls/hr IV . Q24H JUAN Rx#:[id number] Thiamine 250 mg In Sodium 50 Chloride 0.9% 50 ml @ 100 mls/hr IVPB DAILY JUAN Rx#:[id number] Oral 480 240 Output: Urine 535 750 225 Other: Voiding Method Indwelling Catheter Indwelling Catheter Indwelling Catheter # Bowel Movements 1 - Labs CBC & Chem 7: 11/18/24 07:22 11/18/24 07:22 Labs: Abnormal Lab Results - Last 24 Hours (Table) 11/18/24 11/18/24 Range/Units 07:22 07:22 RBC 3.75 L (4.30-5.90) m/uL Hgb 10.5 L (13.0-17.5) gm/dL Hct 34.0 L (39.0-53.0) % MCHC 30.9 L (31.0-37.0) g/dL Plt Count 99 L (150-450) k/uL Lymphocytes # 0.4 L (1.0-4.8) k/uL Chloride 112 H (98-107) mmol/L BUN 7 L (9-20) mg/dL Calcium 8.2 L (8.4-10.2) mg/dL
[2024-11-18 11:37] LABS: Glucose,Whole Blood 165 mg/dL (70-110)
--- NOTE | 2024-11-18 12:04 | MR ---
INDICATION: Patient age:Male; 79 years old; Reason for study: AMS< weakness, r/o CVA; PHH. COMPARISON: CT head and neck 11/11/2024, CT brain 11/10/2024. TECHNIQUE: Multi planar, multi sequence imaging was performed through the brain. The patient was then given 7.5 cc of Gadobutrol intravenously and multi planar, T1 fat-saturation images were obtained. FINDINGS: Motion degraded examination. The sierra-white junctions, ventricular system, basal cisterns appear unremarkable. Age-appropriate cer ebral volume loss. Diffusion-weighted imaging shows no evidence of restricted diffusion to suggest ac [place]/subacute infarct. Intracranial arterial flow voids are maintained. Midline structures show no abn ormality. Patchy areas of high T2/FLAIR signal intensity are seen within the supratentorial periventr icular and subcortical white matter. The susceptibility weighted images do not reveal any evidence fo r micro-hemorrhage. Calcifications identified within the bilateral basal ganglia. After administratio n of gadolinium, no abnormal enhancement is seen. The bone marrow signal is within normal limits. Bilateral aphakia. Moderate mucosal thickening of the left maxillary sinus with mild mucosal thickening of the right maxillary sinus. Mild mucosal thicken ing of the ethmoid sinuses. IMPRESSION: 1. No evidence of intracranial mass, acute/subacute infarct, or abnormal enhancement. 2. [id number] nonspecific white matter changes, likely related to small vessel ischemic disease . 3. Paranasal sinus disease. [facility], , 11/18/2024 12:02 PM
--- NOTE | 2024-11-18 13:25 | P.PN ---
Subjective Progress Note Date: 11/18/24 On today's evaluation of 11/13/2024, the patient remains neurologically altered, confused, unable to give meaningful information and history. Of significance is that extensive skin excoriation and superficial lesions less noted throughout the body involving the upper and lower extremities and the torso. No signs of any acute cellulitis or infection. Skin is dry and scaly and multiple superficial wounds are seen throughout his body. Noted, the patient is able to move all 4 extremities. CAT scan of the brain that was done at the time of admission showed no acute abnormalities. The patient also had a CAT scan of the abdomen and pelvis that showed a dilated gallbladder. A general surgical consul tation was obtained as the patient was also noted to have some elevation in LFTs. The patient also has some atelectatic changes and consolidation in the lung bases left more than right. This morning he is on room air oxygen. He is on D5 half-normal saline at rate of 130 cc an hour. He was having episodes of bradycardia and the patient was started on dopamine 5 mcg/kg/min. Noted the blood cultures on negative. He is still hypothermic and he is using a Elian hugger for external warming. He does have a mild component of hypothyroidism and the TSH is elevated with a low free T4. His other comorbidities include COPD and the patient has also history of smoking and daily alcohol abuse. His last drink was on 11/06/2024 and reported drink 1/5 of wine on a daily basis has been on it for more than 50 years. His blood work from today shows a white cell count of 6.2, hemoglobin of 12 and a platelet count of 82. His BUN is 16 with a creatinine 1.1 and sodium level is at 145. LFTs were also noted. His AST is improving down to 86, ALT is down to 104 and alkaline phosphatase is 157. His total bilirubin is at 0.9. Lactic acid level is dropped down to 1.4. Albumin is at 2.9 with a total protein of 6.1. His TSH was 5.1 with a free T4 of 0.99. UA was abnormal and the culture is still pending. Blood cultures still negative. The patient remains on IV Zosyn. He is in atrial fibrillation. He is maintained on anticoagulation with Eliquis. His last echocardiogram from 01/08/2024 showed a preserved LV function with an ejection fraction of 55 to 60% and mild degree of pulmonary hypertension. On 11/14/2024, the patient is being seen for a follow-up. The patient is less encephalopathic and more awake compared to yesterday. He is able to communicate. At times, he still confused however, overall, is making better sense on today's evaluation. The patient remains on room air oxygen. The patient continues to have bradycardia with underlying atrial fibrillation with low rate in the patient remains on dopamine running at 4 mcg/kg/min. No hypotension. Urine output is adequate and the patient on D5 half-normal saline which is running at a rate of 130 cc an hour. Cultures are still pending for now. Blood cultures still negative. The white cell count of 5.3 with a hemoglobin 11.7 and a platelet count of 70. BUN is 15 with a creatinine 1.02. Sodium levels at 145 and a potassium level is at 3.2. LFTs are also improving. Ultrasound of the gallbladder was completed yesterday and it showed no evidence of any acute cholecystitis. Common bile duct was within normal limits. Gallbladder was distended and there was no evidence of any pericholecystic fluid. EEG was also performed yesterday and it showed no evidence of any seizure activity. There was background slowing consistent with moderate degree of encephalopathy. The patient remains on anticoagulation with Eliquis 5 mg p.o. twice a day. Levothyroxine was added yesterday and the patient is receiving Synthroid 50 mcg IV on a daily basis. The patient remains on dopamine. No focal neurological deficit and the patient is moving all 4 extremities without any limitation. On 11/15/2024, the patient is awake and alert and communicating. Of concern is the episodes of hypothermia the patient is encountering while being off the Elian hugger. His current temperature is 95.0. Remains in atrial fibrillation with a low rate. Exact cause is not clear. Heart rate is ranging between 44 and 62. Remains on dopamine which is running at 3 mcg/kg/min. He is tolerating his diet. He is communicating. Denies having any specific complaints. The white cell count of 5.6 with a hemoglobin 9.8 and a platelet count of 85. BUN is 12 with a creatinine of 0.8 and sodium levels at 141. Skin lesions remain unchange d. Cultures have been negative. The patient remains on Bentyl nebulized treatments, D5 half-normal saline at rate of 130 cc an hour, IV Zosyn as an empiric antibiotic coverage, thiamine and folate and dopamine regarding his ongoing bradycardia. He is also on Synthroid 50 mcg IV on a daily basis. On today's evaluation of 11/16/2024, the patient continues to have issues with bradycardia. Remains on dopamine which is being weaned off. The patient is on 1 mcg/kg/min. The patient's rhythm is atrial fibrillation. Seems to be less bradycardic compared to yesterday. Afebrile. Awake and alert. Communicating. Tolerating his diet. No focal neurological deficits. Cultures are negative. The white cell count is 5 with a hemoglobin 11.1 and a platelet count of 75. The patient is known to have chronic thrombocytopenia. Sodium is at 140, bicarb is at 27, BUN is at 7 with a creatinine of 0.9. Remains on empiric antibiotic coverage with IV Zosyn. No beta-blockers for now. Remains on anticoagulation with Eliquis. On 11/17/2024, the patient is being seen for a follow-up. Awake and alert and communicating he is tolerating his diet. Normothermic. The patient is currently off dopamine. Still having some bradycardia with A-fib rhythm yet is not having significant low heart rate. His current heart rate is ranging between 50 and 66. No new complaints. The white cell count is 5.6, hemoglobin 10.5 with a platelet count of 80. BUN 7 with a creatinine of 0.8 and sodium was 141. Cultures are all negative. Remains on IV Zosyn. Remains on anticoagulation with Eliquis. Currently off beta-blockers. On Synthroid. No agitation. Calm and comfortable resting comfortably in bed. 11/18/2024, the patient has no specific complaints, normothermic. No significant bradycardia. Remains on IV Zosyn. Remains on anticoagulation with Eliquis regarding his chronic slow rate atrial fibrillation. White cell count is at 6 with a hemoglobin 10.5 and a platelet count of 99. BUN is 7 with a creatinine of 0.6 and a sodium of 142. Tolerating diet. No other complaints otherwise for now. Objective - Vital Signs Vital signs: Vital Signs Temp 98.0 F 11/18/24 04:00 Pulse 59 L 11/18/24 04:00 Resp 18 11/18/24 04:00 BP 147/73 11/18/24 04:00 Pulse Ox 96 11/18/24 04:00 FiO2 35 11/11/24 00:57 Intake & Output 11/17/24 11/18/24 11/18/24 18:59 06:59 18:59 Intake Total 1300 Output Total 535 750 Balance 765 -750 Weight 78.5 kg Intake: IV 650 Dextrose 5%-0.45% NaCl 1, 650 000 ml @ 130 mls/hr IV . Q7H42M JUAN Rx#:[id number] Intake, IV Titration 170 Amount Piperacillin-Tazobactam 3 100 .375 gm In Sodium Chloride 0.9% 100 ml @ 25 mls/hr IVPB Q8HR JUAN Rx# :[id number] Sodium Chloride 0.9% 1, 20 000 ml @ 20 mls/hr IV . Q24H JUAN Rx#:[id number] Thiamine 250 mg In Sodium 50 Chloride 0.9% 50 ml @ 100 mls/hr IVPB DAILY JUAN Rx#:[id number] Oral 480 Output: Urine 535 750 Other: Voiding Method Indwelling Catheter Indwelling Catheter # Bowel Movements 1 - Exam General: non toxic, confused, not acute respiratory distress. Much more awake and alert compared to yesterday and the patient is communicating. He is normothermic for now. Derm: warm, dry, scaling rash over BL upper and lower extremities without erythema, and the patient has extensive skin excoriation and areas of superficial wounds throughout his upper and lower extremities and the torso. No evidence of any cellulitis. Head: atraumatic, normocephalic, symmetric Eyes: EOMI, no lid lag, anicteric sclera Mouth: no lip lesion, mucus membranes moist Cardiovascular: S1S2 irreg, consistent with atrial fibrillation, nontachycardic at this point Lungs: CTA bilateral, no rhonchi, no rales , no accessory muscle use, diminished breath sound lung base bilaterally Abdominal: soft, nontender to palpation, no guarding, no appreciable organomegaly Ext: no gross muscle atrophy, no edema, no contractures Neuro: Moving all 4 extremities. Much more alert and communicative . At times confused moving all 4 extremities and his neurologic exam is nonfocal. - Labs CBC & Chem 7: 11/18/24 07:22 11/18/24 07:22 Labs: Abnormal Lab Results - Last 24 Hours (Table) 11/18/24 11/18/24 Range/Units 07:22 07:22 RBC 3.75 L (4.30-5.90) m/uL Hgb 10.5 L (13.0-17.5) gm/dL Hct 34.0 L (39.0-53.0) % MCHC 30.9 L (31.0-37.0) g/dL Plt Count 99 L (150-450) k/uL Lymphocytes # 0.4 L (1.0-4.8) k/uL Chloride 112 H (98-107) mmol/L BUN 7 L (9-20) mg/dL Calcium 8.2 L (8.4-10.2) mg/dL Assessment and Plan Plan: Acute mental status changes, likely secondary to metabolic encephalopathy, recovered. CAT scan of the brain was negative. Her underlying metabolic encephalopathy, alcoholic encephalopathy. Rule out sepsis/infection. The patient's EEG showed moderate degree of encephalopathy. Noted the patient's mentation is improved and his neurologic exam remains nonfocal. Hypotension, recovered Hypothermia, recovered Chronic A-fib with bradycardia, maintained on dopamine, and the patient seems to be less bradycardic on today's evaluation Possible urinary tract infection/urosepsis, covered with IV Zosyn. Cultures are all negative Chronic alcohol abuse History of prostate cancer. History of COPD, from previous tobacco use. Hypothyroidism Extensive skin excoriation and superficial wounds without evidence of cellulitis Abnormal LFTs, improving. Dilated gallbladder. No clinical indication for acute cholecystitis. General surgery is on the case. Ultrasound the gallbladder was done and shows dilated gallbladder without any pericholecystic fluid and the common bile duct is nondilated. LFTs are improving. Plan: Clinically stable without any changes in his condition. The patient got transferred out of the intensive care unit. Patient remains on room air oxygen Aspiration precautions Patient is normothermic LFTs are improving Ultrasound the gallbladder shows no evidence of any cholecystitis Patient is currently off dopamine and the patient is maintaining a low rate atrial fibrillation. No significant bradycardia Monitor mental status, which is essentially back to baseline Continue IV Zosyn Continue Synthroid 75 mcg p.o. daily Cultures are negative Off beta-blockers Anticoagulation with Eliquis Skin care Rest of the management as per medicine.
[2024-11-18 16:33] LABS: Glucose,Whole Blood 105 mg/dL (70-110)
--- NOTE | 2024-11-18 16:36 | P.PN ---
Subjective Progress Note Date: 11/18/24 Principal diagnosis: Reason for follow-up is sepsis Patient is a 79-year-old male with a past medical history significant for COPD prostate cancer for the patient has been on chemo and radiation therapy patient has been brought into the hospital concerning for increased confusion and weakness patient was noted to be hypothermic bradycardic concerning for sepsis possible source of UTI/pneumonia requiring transfer to the ICU. On today's evaluation that is 11/18/2024, patient did not have any fever and denies any chills, patient is breathing comfortably on room air, patient with no chest pain or cough patient did not have any abdominal pain nausea vomiting or any loose stools. Patient white count 6.6, creatinine 0.68 Objective - Vital Signs Vital signs: Vital Signs Temp 97.5 F L 11/18/24 15:50 Pulse 60 11/18/24 15:49 Resp 17 11/18/24 15:49 BP 131/70 11/18/24 15:49 Pulse Ox 95 11/18/24 15:49 FiO2 35 11/11/24 00:57 Intake & Output 11/17/24 11/18/24 11/18/24 18:59 06:59 18:59 Intake Total 1300 480 Output Total 535 750 775 Balance 765 -750 -295 Weight 78.5 kg Intake: IV 650 Dextrose 5%-0.45% NaCl 1, 650 000 ml @ 75 mls/hr IV . [id number] JUAN Rx#:[id number] Intake, IV Titration 170 Amount Piperacillin-Tazobactam 3 100 .375 gm In Sodium Chloride 0.9% 100 ml @ 25 mls/hr IVPB Q8HR JUAN Rx# :[id number] Sodium Chloride 0.9% 1, 20 000 ml @ 20 mls/hr IV . Q24H JUAN Rx#:[id number] Thiamine 250 mg In Sodium 50 Chloride 0.9% 50 ml @ 100 mls/hr IVPB DAILY JUAN Rx#:[id number] Oral 480 480 Output: Urine 535 750 775 Other: Voiding Method Indwelling Catheter Indwelling Catheter Indwelling Catheter # Bowel Movements 1 - Exam GENERAL DESCRIPTION: An elderly male lying in bed in no distress RESPIRATORY SYSTEM: Unlabored breathing , decreased breath sounds at bases HEART: S1 S2 regular rate and rhythm , ABDOMEN: Soft , no tenderness EXTREMITIES: No edema feet - Labs CBC & Chem 7: 11/18/24 07:22 11/18/24 07:22 Labs: Abnormal Lab Results - Last 24 Hours (Table) 11/18/24 11/18/24 11/18/24 Range/Units 07:22 07:22 11:36 RBC 3.75 L (4.30-5.90) m/uL Hgb 10.5 L (13.0-17.5) gm/dL Hct 34.0 L (39.0-53.0) % MCHC 30.9 L (31.0-37.0) g/dL Plt Count 99 L (150-450) k/uL Lymphocytes # 0.4 L (1.0-4.8) k/uL Chloride 112 H (98-107) mmol/L BUN 7 L (9-20) mg/dL POC Glucose (mg/dL) 165 H (70-110) mg/dL Calcium 8.2 L (8.4-10.2) mg/dL Assessment and Plan (1) Altered mental status Current Visit: Yes Status: Acute Code(s): R41.82 - ALTERED MENTAL STATUS, UNSPECIFIED SNOMED Code(s): 712860282 (2) Pneumonia Current Visit: No Status: Acute Code(s): J18.9 - PNEUMONIA, UNSPECIFIED [facility] SNOMED Code(s): 132962118 Plan: 1patient presented to hospital with mental status changes confusion and weakness source likely left lower lobe pneumonia and his question of possible gallbladder disease will need to direct antibiotic therapy mostly towards pneumonia or possible aspiration pneumonia/gram-negative and intra-abdominal gra m-negative pathogen less likely risk for composite infection such as MRSA, repeat urine is positive as well 2-patient did have ultrasound of the gallbladder suboptimal study but mention no features of cholecystitis 3-patient temperature has normalized white count has been normal culture have been negative so far 4patient to continue with Zosyn in view of clinical improvement and continue with supportive care Dictation was produced using [employer] dictation software. please excuse any grammatical, word or spelling errors. Time with Patient: Less than 30
[2024-11-18 20:23] LABS: Glucose,Whole Blood 82 mg/dL (70-110)
[2024-11-19 06:09] LABS: Glucose,Whole Blood 79 mg/dL (70-110)
[2024-11-19 06:42] LABS: Basophils % (A) 0 %; Eosinophils # (A) 0.2 k/uL (0-0.7); Eosinophils % (A) 3 %; HCT 33.4 % (39.0-53.0); HGB 10.5 gm/dL (13.0-17.5); Lymphocytes # (A) 0.5 k/uL (1.0-4.8); Lymphocytes % (A) 7 %; MCH 28.6 pg (25.0-35.0); MCHC 31.4 g/dL (31.0-37.0); MCV 91.1 fL (80.0-100.0); Mean Platelet Volume 8.7; Monocytes # (A) 0.4 k/uL (0-1.0); Monocytes % (A) 5 %; Neutrophils # (A) 6.4 k/uL (1.3-7.7); Neutrophils % (A) 83 %; Platelet Count 140 k/uL (150-450); RBC 3.66 m/uL (4.30-5.90); RDW 15.8 % (11.5-15.5); WBC 7.7 k/uL (3.8-10.6)
[2024-11-19 06:58] LABS: African American GFR (CKD) >90 (>60 ml/min/1.73 sqM); Anion Gap 2 mmol/L; Blood Urea Nitrogen 4 mg/dL (9-20); Calcium 8.6 mg/dL (8.4-10.2); Carbon Dioxide 28 mmol/L (22-30); Chloride 112 mmol/L (98-107); Glucose 82 mg/dL (74-99); Non-African American GFR(CKD) >90 (>60 ml/min/1.73 sqM); Potassium 3.6 mmol/L (3.5-5.1); Sodium 142 mmol/L (137-145)
--- NOTE | 2024-11-19 11:00 | P.PN ---
Subjective Progress Note Date: 11/19/24 Hospital Course: 79 year old M with history of prostate cancer on oral chemotherapeutic agent w ith apalutamide, COPD with continued nicotine dependence, and daily alcohol abuse. Family reported patient's last alcoholic drink was on 11/06/24 and reported drinking a clement and wine daily for nearly 50 years Patient presented to the emergency department on 11/10/24 with a chief complaint of altered mental status. Patient's family reported patient was at baseline mentation up until approximately 1 AM on day of arrival when he awoke and was noted to have increased confusion and didn't even recognize them and was then noted to have generalized weakness and was unable to even stand. They reported up until this he had a normal appetite and denied any recent weight loss, fevers or exposure to known ill contacts, episodes of vomiting or diarrhea, or patient expressing any complaints of pain or discomfort. Upon arrival to our facility patient was alert to person and place only and confused to time and situation. Patient did admit to daily alcohol use, but did not or was unable to express how much he drank daily. He denied having any complaints or pain at this time. Patient and family deny any other drug use. Patient underwent evaluation in the emergency department. BP 115/68, HR 57, RR 20, T 96.8 F, SpO2 of 100% on RA. Logyn-nc-cxcl glucose was initially 59. EKG was completed showing AFib with a slowed ventricular response at 58 bpm with nonspecific T wave abnormalities in inferior leads. Chest x-ray showed no acute process. CT brain showed no acute process, diffuse age related cerebral atrophy and mild to moderate chronic small vessel ischemic changes with bilateral maxill palmer sinus disease. CBC, Coag panel, CMP significant for Plt 98, Na 149, Cl 114, BUN 21, AST 214, ALT 216, alk phos 273. Troponin <0.012. TSH 5.170, free T4 0.99. UDS neg. UA neg. COVID, RSV, Flu neg. Patient admitted under our services with consultation to neurology. Patient was noted to have a Tlow of 89.5F rectal on 11/10. He was placed on Elian hugger. Lactic acid was 1.2 and vital signs were stable. CT AP and blood cultures were ordered. Patient was noted to by hypotensive on 11/11 along with persistent hypoglycemic. He was given a 2L LR bolus and started on Vancomycin and Cefepime. ID was consulted, antibiotics switched to Zosyn. CTA head and neck showing moderate stenosis of the proximal left internal carotid artery and mild stenosis with diffuse calcification of carotid siphons and maxillary sinusitis. Discussed findings with neurologist, Dr. Luciano awaiting completion of MRI for janelle romo recommendations. CT abdomen and pelvis reporting acute cardiopulmonary disease in the lung bases left greater than right concerning for fluid overload versus pneumonia and reports of distended gallbladder. Consult placed to general surgery for evaluation, HIDA scan ordered. Transferred to ICU for persistent hypotension. Levophed was weaned off on 11/12, patient was started on dopamine,Zosyn, IV thiamine high-dose status, IV fluids. ID following. Abdominal ultrasound was negative for cholecystitis, surgical team following, no plans for surgical intervention at this time. Neurology following, brain MRI with and without contrast pending, he was started on folic acid for low folate level. He was started on IV Synthroid 50 mcg daily. EP consulted for severe bradycardia showing A-fib with slow ventricular response, patient's family opted out pacemaker, patient continued on IV dopamine . 11/15 patient significantly more alert , was able to tell me the date, current [place] president, was not oriented to place but noted that he has been in the hospital. His heart rate is in the 50s while on dopamine drip, dobutamine drip was stopped for about 30 minutes when his heart rate started dropping back to 30s. He is still hypothermic with body temperature 94.4 while off Elian hugger. MRI brain pending 11/16: Dopamine stopped around 10 AM. 11/17, downgraded to 3 S. 11/18 brain MRI showed no evidence of acute process, mild to moderate nonspecific white matter changes likely representing small vessel ischemic disease, paranasal sinus disease 11/19: Off of Elian hugger, maintained body temperature and heart rate, HIDA scan pending Subjective: Denies chest pain, shortness of breath, abdominal pain, feels generally well Pertinent positives and negatives as discussed above, a complete review of systems was performed and all other systems are negative. Vitals Signs Reviewed. General: [nontoxic], [no distress], [appears at stated age] Derm: [warm], [dry], extensive rash with excoriations, dry skin Head: [atraumatic], [normocephalic], [symmetric] Eyes: [EOMI], [no lid lag], [anicteric sclera] Mouth: [no lip lesion], [mucus membranes moist] Cardiovascular: [S1S2 irreg], [no murmur] Lungs: [CTA bilateral], [no rhonchi, no rales] , [no accessory muscle use] Abdominal: [soft], [ nontender to palpation], [no guarding], [no appreciable organomegaly] Ext: [no gross muscle atrophy], [no edema], [no contractures] Neuro: [ CN II-XI grossly intact], [no focal neuro deficits] Psych: [Alert], [oriented to self, time, knows he is in the hospital, could not remember the name Data Reviewed Today: Pertinent Labs: No leukocytosis, hemoglobin 10.5, platelet 104, sodium and potassium normal, creatinine normal blood glucose in 100s Assessment and Plan: Acute encephalopathy, etiology unclear, improving Chronic small vessel ischemic disease Possible Wernicke's encephalopathy Folate deficiency Hypotension requiring pressors possible sepsis due to UTI, resolved Possible aspiration pneumonia Hypothermia, resolved -continue Zosyn 3.375 g every 8 hours SOT 11/12 blood cultures negative, no leukocytosis, body temperature normalized, can potentially be stopped, defer to ID -Thiamine 500 mg IV TID continued, start 250 IV daily 11/16 after 5 days -CIWA protocol with Ativan PRN. -cortisol levels 17.1 ->103 -UDS negative Hypoglycemia: Continue D5 half-normal. decrease rate to 75cc/hr And monitor closely for hypoglycemia Atrial fibrillation with slow ventricular response, severe bradycardia onEliquis -No plans for intervention from EP cardiology, family opted out pacemaker, not on AV blocking agents -, cardiology following , If patient has pauses more than 3 to 4 seconds, dopamine to be resumed Transaminitis and thrombocytopenia secondary to ethanol abuse Hypothyroidism: continue levothyroxine 75mcg oral daily Gallbladder distention -continue with Zosyn as above. US negative, no plans for intervention -HIDA ordered Skin whelan: possible drug eruption from patient's prostate cancer treatemnt. Per family, the rash is probably related to his radiation therapy. F/u with primary hemonc after discharge, possible o/p skin biopsy DVT ppx: Eliquis Code status: full code Anticipated discharge place: [facility] Anticipated discharge time: 24-48 hours is HR and temp stable, no concering finding on HIDA Objective - Vital Signs Vital signs: Vital Signs Temp 96.5 F L 11/19/24 08:00 Pulse 60 11/19/24 08:00 Resp 18 11/19/24 08:00 BP 153/83 11/19/24 08:00 Pulse Ox 95 11/19/24 08:00 FiO2 35 11/11/24 00:57 Intake & Output 11/18/24 11/19/24 11/19/24 18:59 06:59 18:59 Intake Total 480 240 Output Total 775 875 400 Balance -295 -875 -160 Weight 82.5 kg Intake: Oral 480 240 Output: Urine 775 875 400 Other: Voiding Method Indwelling Catheter Indwelling Catheter Indwelling Catheter - Labs CBC & Chem 7: 11/19/24 06:03 11/19/24 06:03 Labs: Abnormal Lab Results - Last 24 Hours (Table) 11/18/24 11/19/24 11/19/24 Range/Units 11:36 06:03 06:03 RBC 3.66 L (4.30-5.90) m/uL Hgb 10.5 L (13.0-17.5) gm/dL Hct 33.4 L (39.0-53.0) % RDW 15.8 H (11.5-15.5) % Plt Count 140 L (150-450) k/uL Lymphocytes # 0.5 L (1.0-4.8) k/uL Chloride 112 H (98-107) mmol/L BUN 4 L (9-20) mg/dL POC Glucose (mg/dL) 165 H (70-110) mg/dL
[2024-11-19 11:12] LABS: Glucose,Whole Blood 91 mg/dL (70-110)
--- NOTE | 2024-11-19 11:28 | P.PN ---
Subjective Progress Note Date: 11/19/24 This is a 79-year-old male presented to the hospital due to altered mental status and found to be in atrial fibrillation with slow ventricular rate. Patient was on dopamine which she has been weaned off and patient has been transferred out of the intensive care unit and seen today on the cardiac stepdown unit. Patient remains in atrial fibrillation with a controlled ventricular rate. He has had 2-second pauses but nothing longer than that. Patient has been started on Eliquis. 11/19 Patient seen and examined. Blood pressure 153/83, heart rate 60, pulse ox 95% on room air. Patient has not had no significant pauses. Family has been clear they do not want a pacemaker. Physical examination: Gen: This is a 79-year-old male in no acute distress VS: reviewed LUNGS: Good air entry bilaterally no intercostal retractions. HEART: Reveals first and second heart sounds. No gallop. Irregular ABDOMEN: Soft No tenderness. EXTREMITIES: No pedal edema. Peripheral pulses are felt. Assessment: Atrial fibrillation with slow ventricular rate Metabolic encephalopathy Pneumonia followed by ID Plan: Continue Eliquis 5 mg twice daily Avoid AV alba blocking agents Continue telemetry monitoring Further recommendations to follow based upon clinical course Nurse practitioner note has been reviewed, I agree with documented findings and plan of care. Patient was seen and examined. Objective - Vital Signs Vital signs: Vital Signs Temp 96.5 F L 11/19/24 08:00 Pulse 60 11/19/24 08:00 Resp 18 11/19/24 08:00 BP 153/83 11/19/24 08:00 Pulse Ox 95 11/19/24 08:00 FiO2 35 11/11/24 00:57 Intake & Output 11/18/24 11/19/24 11/19/24 18:59 06:59 18:59 Intake Total 480 240 Output Total 775 875 400 Balance -295 -875 -160 Weight 82.5 kg Intake: Oral 480 240 Output: Urine 775 875 400 Other: Voiding Method Indwelling Catheter Indwelling Catheter Indwelling Catheter - Labs CBC & Chem 7: 11/19/24 06:03 11/19/24 06:03 Labs: Abnormal Lab Results - Last 24 Hours (Table) 11/18/24 11/19/24 11/19/24 Range/Units 11:36 06:03 06:03 RBC 3.66 L (4.30-5.90) m/uL Hgb 10.5 L (13.0-17.5) gm/dL Hct 33.4 L (39.0-53.0) % RDW 15.8 H (11.5-15.5) % Plt Count 140 L (150-450) k/uL Lymphocytes # 0.5 L (1.0-4.8) k/uL Chloride 112 H (98-107) mmol/L BUN 4 L (9-20) mg/dL POC Glucose (mg/dL) 165 H (70-110) mg/dL
--- NOTE | 2024-11-19 15:49 | P.PN ---
Subjective Progress Note Date: 11/19/24 Principal diagnosis: Reason for follow-up is sepsis Patient is a 79-year-old male with a past medical history significant for COPD prostate cancer for the patient has been on chemo and radiation therapy patient has been brought into the hospital concerning for increased confusion and weakness patient was noted to be hypothermic bradycardic concerning for sepsis possible source of UTI/pneumonia requiring transfer to the ICU. On today's evaluation that is 11/19/2024, Patient is afebrile patient is currently on room air and breathing comfortably no distress no vomiting diarrhea or any changes reported. Patient white count 7.7, creatinine 0.68 blood culture has been negative Objective - Vital Signs Vital signs: Vital Signs Temp 96.5 F L 11/19/24 11:43 Pulse 74 11/19/24 12:15 Resp 20 11/19/24 11:43 BP 131/85 11/19/24 11:43 Pulse Ox 94 L 11/19/24 11:43 FiO2 35 11/11/24 00:57 Intake & Output 11/18/24 11/19/24 11/19/24 18:59 06:59 18:59 Intake Total 480 600 Output Total 775 875 750 Balance -295 -875 -150 Weight 82.5 kg Intake: Oral 480 600 Output: Urine 775 875 750 Other: Voiding Method Indwelling Catheter Indwelling Catheter Indwelling Catheter - Exam GENERAL DESCRIPTION: An elderly male lying in bed in no distress RESPIRATORY SYSTEM: Unlabored breathing , decreased breath sounds at bases HEART: S1 S2 regular rate and rhythm , ABDOMEN: Soft , no tenderness EXTREMITIES: No edema feet - Labs CBC & Chem 7: 11/19/24 06:03 11/19/24 06:03 Labs: Abnormal Lab Results - Last 24 Hours (Table) 11/19/24 11/19/24 Range/Units 06:03 06:03 RBC 3.66 L (4.30-5.90) m/uL Hgb 10.5 L (13.0-17.5) gm/dL Hct 33.4 L (39.0-53.0) % RDW 15.8 H (11.5-15.5) % Plt Count 140 L (150-450) k/uL Lymphocytes # 0.5 L (1.0-4.8) k/uL Chloride 112 H (98-107) mmol/L BUN 4 L (9-20) mg/dL Assessment and Plan (1) Altered mental status Current Visit: Yes Status: Acute Code(s): R41.82 - ALTERED MENTAL STATUS, UNSPECIFIED SNOMED Code(s): 167700023 (2) Pneumonia Current Visit: No Status: Acute Code(s): J18.9 - PNEUMONIA, UNSPECIFIED ORGANISM SNOMED Code(s): 927614143 Plan: 1patient presented to hospital with mental status changes confusion and weakness source likely left lower lobe pneumonia and his question of possible gallbladder disease will need to direct antibiotic therapy mostly towards pneumonia or possible aspiration pneumonia/gram-negative and intra-abdominal gram-negative pathogen less likely risk for composite infection such as MRSA, repeat urine is positive as well 2-patient did have ultrasound of the gallbladder suboptimal study but mention no features of cholecystitis 3-patient temperature has normalized white count has been normal culture have been negative so far 4patient has received adequate Zosyn during hospital stay and would not need any antibiotics on discharge Dictation was produced using [employer] dictation software. please excuse any grammatical, word or spelling errors. Time with Patient: Less than 30
[2024-11-19 16:09] LABS: Glucose,Whole Blood 87 mg/dL (70-110)
[2024-11-19 20:37] LABS: Glucose,Whole Blood 102 mg/dL (70-110)
[2024-11-20 05:56] LABS: Glucose,Whole Blood 80 mg/dL (70-110)
[2024-11-20 07:11] LABS: Basophils % (A) 0 %; Eosinophils # (A) 0.3 k/uL (0-0.7); Eosinophils % (A) 5 %; HCT 33.8 % (39.0-53.0); HGB 10.6 gm/dL (13.0-17.5); Lymphocytes # (A) 0.5 k/uL (1.0-4.8); Lymphocytes % (A) 9 %; MCH 28.6 pg (25.0-35.0); MCHC 31.3 g/dL (31.0-37.0); MCV 91.4 fL (80.0-100.0); Mean Platelet Volume 8.5; Monocytes # (A) 0.4 k/uL (0-1.0); Monocytes % (A) 7 %; Neutrophils # (A) 4.1 k/uL (1.3-7.7); Neutrophils % (A) 77 %; Platelet Count 194 k/uL (150-450); RDW 15.8 % (11.5-15.5); WBC 5.4 k/uL (3.8-10.6)
[2024-11-20 07:24] LABS: African American GFR (CKD) >90 (>60 ml/min/1.73 sqM); Anion Gap 4 mmol/L; Blood Urea Nitrogen 4 mg/dL (9-20); Calcium 8.8 mg/dL (8.4-10.2); Carbon Dioxide 29 mmol/L (22-30); Chloride 109 mmol/L (98-107); Glucose 79 mg/dL (74-99); Non-African American GFR(CKD) >90 (>60 ml/min/1.73 sqM); Potassium 3.6 mmol/L (3.5-5.1); Sodium 142 mmol/L (137-145)
[2024-11-20 11:16] LABS: Glucose,Whole Blood 165 mg/dL (70-110)
--- NOTE | 2024-11-20 11:40 | P.PN ---
Subjective HISTORY OF PRESENT ILLNESS: This is a 79-year-old male presented to the hospital due to altered mental status and found to be in atrial fibrillation with slow ventricular rate. Patient was on dopamine which she has been weaned off and patient has been transferred out of the intensive care unit and seen today on the cardiac stepdown unit. Patient remains in atrial fibrillation with a controlled ventricular rate. He has had 2-second pauses but nothing longer than that. Patient has been started on Eliquis. 11/19 Patient seen and examined. Blood pressure 153/83, heart rate 60, pulse ox 95% on room air. Patient has not had no significant pauses. Family has been clear they do not want a pacemaker. 11/20/2024 Patient examined this morning at the bedside. Patient is resting comfortably in bed this morning. No complaints of chest pain or pressure. Denies shortness of breath. Telemetry reveals heart rates in the 60s. PHYSICAL EXAM: VITAL SIGNS: Reviewed. GENERAL: Well-developed in no acute distress. NECK: Supple. No JVD or thyromegaly LUNGS: Respirations even and unlabored. Lungs essentially clear to auscultation bilaterally. HEART: Irregular rate and rhythm. S1 and S2 heard. EXTREMITIES: Normal range of motion. No clubbing or cyanosis. Peripheral pulses intact. No lower extremity edema ASSESSMENT: Persistent atrial fibrillation with slow ventricular rate, currently rate controlled Metabolic encephalopathy Pneumonia followed by ID PLAN: Continue anticoagulation with Eliquis Avoid any AV alba blocking agents No further inpatient recommendations from a cardiac standpoint We will sign off. Please reconsult if needed. Nurse practitioner note has been reviewed by physician. Signing provider agrees with the documented findings, assessment, and plan of care documented by MANAGER ANDROID as a scribe. Objective - Vital Signs Vital signs: Vital Signs Temp 97.6 F 11/20/24 03:33 Pulse 65 11/20/24 03:33 Resp 16 11/20/24 03:33 BP 123/79 11/20/24 03:33 Pulse Ox 93 L 11/20/24 03:33 FiO2 35 11/11/24 00:57 Intake & Output 11/19/24 11/20/24 11/20/24 18:59 06:59 18:59 Intake Total 960 Output Total 1050 600 900 Balance -90 -600 -900 Weight 82.5 kg Intake: Oral 960 Output: Urine 1050 600 900 Other: Voiding Method Indwelling Catheter Indwelling Catheter - Labs CBC & Chem 7: 11/20/24 06:38 11/20/24 06:38 Labs: Abnormal Lab Results - Last 24 Hours (Table) 11/20/24 11/20/24 11/20/24 Range/Units 06:38 06:38 11:15 RBC 3.70 L (4.30-5.90) m/uL Hgb 10.6 L (13.0-17.5) gm/dL Hct 33.8 L (39.0-53.0) % RDW 15.8 H (11.5-15.5) % Lymphocytes # 0.5 L (1.0-4.8) k/uL Chloride 109 H (98-107) mmol/L BUN 4 L (9-20) mg/dL Creatinine 0.64 L (0.66-1.25) mg/dL POC Glucose (mg/dL) 165 H (70-110) mg/dL
[2024-11-20 15:41] VITALS: BMI 24.6
[2024-11-20 16:36] LABS: Glucose,Whole Blood 105 mg/dL (70-110)
--- NOTE | 2024-11-20 16:36 | P.PN ---
Subjective Progress Note Date: 11/20/24 79 year old M with history of prostate cancer on oral chemotherapeutic agent with apalutamide, COPD with continued nicotine dependence, and daily alcohol abuse. Family reported patient's last alcoholic drink was on 11/06/24 and reported drinking a clement and wine daily for nearly 50 years Patient presented to the emergency department on 11/10/24 with a chief complaint of altered mental status. Patient's family reported patient was at baseline mentation up until approximately 1 AM on day of arrival when he awoke and was noted to have increased confusion and didn't even recognize them and was then noted to have generalized weakness and was unable to even stand. They reported up until this he had a normal appetite and denied any recent weight loss, fevers or exposure to known ill contacts, episodes of vomiting or diarrhea, or patient expressing any complaints of pain or discomfort. Upon arrival to our facility patient was alert to person and place only and confused to time and situation. Patient did admit to daily alcohol use, but did not or was unable to express how much he drank daily. He denied having any complaints or pain at this time. Patient and family deny any other drug use. Patient underwent evaluation in the emergency department. BP 115/68, HR 57, RR 20, T 96.8 F, SpO2 of 100% on RA. Pzvnn-cy-iser glucose was initially 59. EKG was completed showing AFib with a slowed ventricular response at 58 bpm with nonspecific T wave abnormalities in inferior leads. Chest x-ray showed no acute process. CT brain showed no acute process, diffuse age related cerebral atrophy and mild to moderate chronic small vessel ischemic changes with bilateral maxillary sinus disease. CBC, Coag panel, CMP significant for Plt 98, Na 149, Cl 114, BUN 21, AST 214, ALT 216, alk phos 273. Troponin <0.012. TSH 5.170, free T4 0.99. UDS neg. UA neg. COVID, RSV, Flu neg. Patient admitted under our services with consultation to neurology. Patient was noted to have a Tlow of 89.5F rectal on 11/10. He was placed on Elian hugger. Lactic acid was 1.2 and vital signs were stable. CT AP and blood cult ures were ordered. Patient was noted to by hypotensive on 11/11 along with persistent hypoglycemic. He was given a 2L LR bolus and started on Vancomycin and Cefepime. ID was consulted, antibiotics switched to Zosyn. CTA head and neck showing moderate stenosis of the proximal left internal carotid artery and mild stenosis with diffuse calcification of carotid siphons and maxillary sinusitis. Discussed findings with neurologist, Dr. Luciano awaiting completion of MRI for further recommendations. CT abdomen and pelvis reporting acute cardiopulmonary disease in the lung bases left greater than right concerning for fluid overload versus pneumonia and reports of distended gallbladder. Consult placed to general surgery for evaluation, HIDA scan ordered. Transferred to ICU for persistent hypotension. He was started on Levophed which was weaned off 11/12 and SoluCortef. Noted to be in A-Fib with SVR, started on Dopamine and EP consulted, Echo EF 50-55% mild MR/TR. Pulmonary started the patient on Synthroid 50 mcg IV QD for subclinical hypothyroidism. His mentation improved. Weaned off Dopamine drip on 11/16 and transferred out of ICU. MRI brain was completed on 11/18 showing no acute process. 11/20 Patient was seen and examined. Mentation significantly improved. He reports some shortness of breath. Discussed with RN, noted to have rectal temp of 96 on 11/19, restarted on Elian hugger. Currently on D5 1/2 NS at 75 cc/hr. Antibiotics include Zosyn 3.75 g IV TID. Also on Thiamine 250 mg IV QD. CBC and BMP significant for RBC 3.7, Hg 10.6, Hct 33.8, Cl 109, BUN 4, Cr 0.64. Vitals: BP 129/77, HR 58, RR 20, T 97.6F, 92% on 2L NC. General: non toxic, no distress, appears at stated age Derm: warm, dry, scaling rash over BL upper and lower extremities without erythema Head: atraumatic, normocephalic, symmetric, poor dentition Eyes: EOMI, no lid lag, anicteric sclera Mouth: no lip lesion, mucus membranes moist Cardiovascular: S1S2 irreg, no murmur Lungs: Decreased BS bilateral, no rhonchi, no rales , no accessory muscle use Ext: no gross muscle atrophy, no edema, no contractures Neuro: No focal neurologic deficits Psych: Alert and oriented Based on my assessment of this patient, this patient meets a high complexity level of care. Sepsis unknown etiology: Hypotension with hypothermia. Procal 0.12. Cortisol 17.1. UA neg. BCx neg. Continue Zosyn 3.75 g IV TID (D8). Elian hugger if needed. Continue D5 1/2 NS at 75 cc/hr. Telemetry monitoring. ID on board. Possible aspiration pneumonia: ST recommending NDD3 1:1 supervision. Should be covered with Zosyn as above. Gallbladder distention: No concerns for cholecystitis. No HIDA scan. Surgery signed off. Concerns for Wernickes encephalopathy: Thiamine 250 mg IV QD. Acute metabolic encephalopathy likely related to above: B12 3181. Folate 6. TSH 5.17, FT4 0.99. CT brain and CTA head and neck as above. MRI brain neg for acute pathology. EEG moderate encephalopathy. Fall, Seizure and Aspiration precautions. Neurology on board. Atrial fibrillation with slow ventricular rate: Avoid AV alba blockers. Eliquis 5 mg PO BID for AC. Echo as above. Cardiology on board. Alcohol abuse: CIWA protocol with Ativan PRN. Transaminitis and Thrombocytopenia likely related to EtOH abuse. Subclinical hypothyroidism: Synthroid 75 mcg PO QD. Repeat TSH/FT4 in 6 weeks. Resolved: Hypoglycemia Will attempt trial without Elian Hugger and monitor for hypoglycemia. CXR ordered for SOB. PT and OT consulted. CODE STATUS: FULL CODE DVT Prophylaxis: Eliquis GI Prophylaxis: Protonix IV Designated medical POA if patient is not able to make medical decisions for themselves: I have reviewed the following provider contracting consultant notes: Cardiology, ID. I have reviewed the results of the following tests: CBC, BMP. I have ordered the following tests: I have discussed the care of this patient with the following independent historian: HAKAN. Family. I have independently interpreted the following test below: I have discussed the management of this patient with the following physician: Objective - Vital Signs Vital signs: Vital Signs Temp 97.6 F 11/20/24 03:33 Pulse 84 11/20/24 15:35 Resp 20 11/20/24 11:20 BP 129/77 11/20/24 11:20 Pulse Ox 92 L 11/20/24 11:20 FiO2 35 11/11/24 00:57 Intake & Output 11/19/24 11/20/24 11/20/24 18:59 06:59 18:59 Intake Total 960 180 Output Total 1050 600 900 Balance -90 -600 -720 Weight 82.5 kg 82.5 kg Intake: Oral 960 180 Output: Urine 1050 600 900 Other: Voiding Method Indwelling Catheter Indwelling Catheter Indwelling Catheter - Labs CBC & Chem 7: 11/20/24 06:38 11/20/24 06:38 Labs: Abnormal Lab Results - Last 24 Hours (Table) 11/20/24 11/20/24 11/20/24 Range/Units 06:38 06:38 11:15 RBC 3.70 L (4.30-5.90) m/uL Hgb 10.6 L (13.0-17.5) gm/dL Hct 33.8 L (39.0-53.0) % RDW 15.8 H (11.5-15.5) % Lymphocytes # 0.5 L (1.0-4.8) k/uL Chloride 109 H (98-107) mmol/L BUN 4 L (9-20) mg/dL Creatinine 0.64 L (0.66-1.25) mg/dL POC Glucose (mg/dL) 165 H (70-110) mg/dL
--- NOTE | 2024-11-20 17:08 | P.PN ---
Subjective Progress Note Date: 11/20/24 Principal diagnosis: Reason for follow-up is sepsis Patient is a 79-year-old male with a past medical history significant for COPD prostate cancer for the patient has been on chemo and radiation therapy patient has been brought into the hospital concerning for increased confusion and weakness patient was noted to be hypothermic bradycardic concerning for sepsis possible source of UTI/pneumonia requiring transfer to the ICU. On today's evaluation that is 11/20/2024, patient has been afebrile, patient is breathing comfortably and is currently on 2 L nasal oxygen, patient does not seem to be any distress but lethargic unable to provide any history normally diarrhea and the changes reported. Patient white count is 5.4, creatinine 0.64 Objective - Vital Signs Vital signs: Vital Signs Temp 97.6 F 11/20/24 03:33 Pulse 65 11/20/24 03:33 Resp 16 11/20/24 03:33 BP 123/79 11/20/24 03:33 Pulse Ox 93 L 11/20/24 03:33 FiO2 35 11/11/24 00:57 Intake & Output 11/19/24 11/20/24 11/20/24 18:59 06:59 18:59 Intake Total 960 Output Total 1050 600 900 Balance -90 -600 -900 Weight 82.5 kg Intake: Oral 960 Output: Urine 1050 600 900 Other: Voiding Method Indwelling Catheter Indwelling Catheter - Exam GENERAL DESCRIPTION: An elderly male lying in bed in no distress RESPIRATORY SYSTEM: Unlabored breathing , decreased breath sounds at bases HEART: S1 S2 regular rate and rhythm , ABDOMEN: Soft , no tenderness EXTREMITIES: No edema feet - Labs CBC & Chem 7: 11/20/24 06:38 11/20/24 06:38 Labs: Abnormal Lab Results - Last 24 Hours (Table) 11/20/24 11/20/24 11/20/24 Range/Units 06:38 06:38 11:15 RBC 3.70 L (4.30-5.90) m/uL Hgb 10.6 L (13.0-17.5) gm/dL Hct 33.8 L (39.0-53.0) % RDW 15.8 H (11.5-15.5) % Lymphocytes # 0.5 L (1.0-4.8) k/uL Chloride 109 H (98-107) mmol/L BUN 4 L (9-20) mg/dL Creatinine 0.64 L (0.66-1.25) mg/dL POC Glucose (mg/dL) 165 H (70-110) mg/dL Assessment and Plan (1) Altered mental status Current Visit: Yes Status: Acute Code(s): R41.82 - ALTERED MENTAL STATUS, UNSPECIFIED SNOMED Code(s): 546756447 (2) Pneumonia Current Visit: No Status: Acute Code(s): J18.9 - PNEUMONIA, UNSPECIFIED ORGANISM SNOMED Code(s): 252679378 Plan: 1patient presented to hospital with mental status changes confusion and weakness source likely left lower lobe pneumonia and his question of possible gallbladder disease will need to direct antibiotic therapy mostly towards pneumonia or possible aspiration pneumonia/gram-negative and intra-abdominal gram-negative pathogen less likely risk for composite infection such as MRSA, repeat urine is positive as well 2-patient did have ultrasound of the gallbladder suboptimal study but mention no features of cholecystitis 3-patient temperature has normalized white count has been normal culture have been negative so far 4patient currently on Zosyn to continue and monitor clinical course closely Dictation was produced using 360pi dictation software. please excuse any grammatical, word or spelling errors. Time with Patient: Less than 30
--- NOTE | 2024-11-20 17:13 | XR ---
EXAMINATION TYPE: XR chest 1V portable DATE OF EXAM: 11/20/2024 5:01 PM COMPARISON: Chest radiographs from 11/17/2024. CLINICAL INDICATION: Male, 79 years old with history of SOB; TECHNIQUE: XR chest 1V portable Frontal view of the chest. FINDINGS: Lungs/Pleura: No evidence of focal consolidation or pneumothorax. Blunting of the costophrenic angles is present. Pulmonary vascularity: Unremarkable. Heart/mediastinum: Cardiomediastinal silhouette is enlarged and stable. Musculoskeletal: No acute osseous pathology. Other findings: None IMPRESSION: Cardiomegaly, pulmonary vascular congestion and bilateral pleural effusions. Correlate with BNP for c ongestive heart failure. [facility], , 11/20/2024 5:11 PM
--- NOTE | 2024-11-20 18:03 | P.PN ---
Subjective Progress Note Date: 11/20/24 Principal diagnosis: Altered mental status secondary to acute metabolic encephalopathy, multifactorial. On today's evaluation of 11/13/2024, the patient remains neurologically altered, confused, unable to give meaningful information and history. Of significance is that extensive skin excoriation and superficial lesions less noted throughout the body involving the upper and lower extremities and the torso. No signs of any acute cellulitis or infection. Skin is dry and scaly and multiple superficial wounds are seen throughout his body. Noted, the patient is able to move all 4 extremities. CAT scan of the brain that was done at the time of admission showed no acute abnormalities. The patient also had a CAT scan of the abdomen and pelvis that showed a dilated gallbladder. A general surgical consultation was obtained as the patient was also noted to have some elevation in LFTs. The patient also has some atelectatic changes and consolidation in the lung bases left more than right. This morning he is on room air oxygen. He is on D5 half-normal saline at rate of 130 cc an hour. He was having episodes of bradycardia and the patient was started on dopamine 5 mcg/kg/min. Noted the blood cultures on negative. He is still hypothermic and he is using a Elian hu gger for external warming. He does have a mild component of hypothyroidism and the TSH is elevated with a low free T4. His other comorbidities include COPD and the patient has also history of smoking and daily alcohol abuse. His last drink was on 11/06/2024 and reported drink 1/5 of wine on a daily basis has been on it for more than 50 years. His blood work from today shows a white cell count of 6.2, hemoglobin of 12 and a platelet count of 82. His BUN is 16 with a creatinine 1.1 and sodium level is at 145. LFTs were also noted. His AST is improving down to 86, ALT is down to 104 and alkaline phosphatase is 157. His total bilirubin is at 0.9. Lactic acid level is dropped down to 1.4. Albumin is at 2.9 with a total protein of 6.1. His TSH was 5.1 with a free T4 of 0.99. UA was abnormal and the culture is still pending. Blood cultures still negative. The patient remains on IV Zosyn. He is in atrial fibrillation. He is maintained on anticoagulation with Eliquis. His last echocardiogram from 01/08/2024 showed a preserved LV function with an ejection fraction of 55 to 60% and mild degree of pulmonary hypertension. On 11/14/2024, the patient is being seen for a follow-up. The patient is less encephalopathic and more awake compared to yesterday. He is able to communicate. At times, he still confused however, overall, is making better sense on today's evaluation. The patient remains on room air oxygen. The patient continues to have bradycardia with underlying atrial fibrillation with low rate in the patient remains on dopamine running at 4 mcg/kg/min. No hypotension. Urine output is adequate and the patient on D5 half-normal saline which is running at a rate of 130 cc an hour. Cultures are still pending for now. Blood cultures still negative. The white cell count of 5.3 with a hemoglobin 11.7 and a platelet count of 70. BUN is 15 with a creatinine 1.02. Sodium levels at 145 and a potassium level is at 3.2. LFTs are also improving. Ultrasound of the gallbladder was completed yesterday and it showed no evidence of any acute cholecystitis. Common bile duct was within normal limits. Gallbladder was distended and there was no evidence of any pericholecystic fluid. EEG was also performed yesterday and it showed no evidence of any seizure activity. There was background slowing consistent with moderate degree of encephalopathy. The patient remains on anticoagulation with Eliquis 5 mg p.o. twice a day. Levothyroxine was added yesterday and the patient is receiving Synthroid 50 mcg IV on a daily basis. The patient remains on dopamine. No focal neurological deficit and the patient is moving all 4 extremities without any limitation. On 11/15/2024, the patient is awake and alert and communicating. Of concern is the episodes of hypothermia the patient is encountering while being off the Elian hugger. His current temperature is 95.0. Remains in atrial fibrillation with a low rate. Exact cause is not clear. Heart rate is ranging between 44 and 62. Remains on dopamine which is running at 3 mcg/kg/min. He is tolerating his diet. He is communicating. Denies having any specific complaints. The white cell count of 5.6 with a hemoglobin 9.8 and a platelet count of 85. BUN is 12 with a creatinine of 0.8 and sodium levels at 141. Skin lesions remain unchanged. Cultures have been negative. The patient remains on Bentyl nebu lized treatments, D5 half-normal saline at rate of 130 cc an hour, IV Zosyn as an empiric antibiotic coverage, thiamine and folate and dopamine regarding his ongoing bradycardia. He is also on Synthroid 50 mcg IV on a daily basis. On today's evaluation of 11/16/2024, the patient continues to have issues with bradycardia. Remains on dopamine which is being weaned off. The patient is on 1 mcg/kg/min. The patient's rhythm is atrial fibrillation. Seems to be less bradycardic compared to yesterday. Afebrile. Awake and alert. Communicating. Tolerating his diet. No focal neurological deficits. Cultures are negative. The white cell count is 5 with a hemoglobin 11.1 and a platelet count of 75. The patient is known to have chronic thrombocytopenia. Sodium is at 140, bicarb is at 27, BUN is at 7 with a creatinine of 0.9. Remains on empiric antibiotic coverage with IV Zosyn. No beta-blockers for now. Remains on anticoagulation with Eliquis. On 11/17/2024, the patient is being seen for a follow-up. Awake and alert and communicating he is tolerating his diet. Normothermic. The patient is currently off dopamine. Still having some bradycardia with A-fib rhythm yet is not having significant low heart rate. His current heart rate is ranging between 50 and 66. No new complaints. The white cell count is 5.6, hemoglobin 10.5 with a platelet count of 80. BUN 7 with a creatinine of 0.8 and sodium was 141. Cultures are all negative. Remains on IV Zosyn. Remains on anticoa gulation with Eliquis. Currently off beta-blockers. On Synthroid. No agitation. Calm and comfortable resting comfortably in bed. 11/18/2024, the patient has no specific complaints, normothermic. No significant bradycardia. Remains on IV Zosyn. Remains on anticoagulation with Eliquis regarding his chronic slow rate atrial fibrillation. White cell count is at 6 with a hemoglobin 10.5 and a platelet count of 99. BUN is 7 with a creatinine of 0.6 and a sodium of 142. Tolerating diet. No other complaints otherwise for now. Patient was seen today on 11/20/2024, no cough no wheezing no shortness of breath, patient remains on IV Zosyn, remains anticoagulated, he has chronic atrial fibrillation, remains on the CIWA protocol. No major issues since the last 24 hours, patient may have to be considered for placement. Patient is being followed by many consultants he remains on thiamine, and he is also on Ativan as per [facility] protocol. WBC count is 5.4 hemoglobin 10.6 electrolytes are normal renal profile is normal Objective - Vital Signs Vital signs: Vital Signs Temp 97.6 F 11/20/24 03:33 Pulse 84 11/20/24 15:35 Resp 20 11/20/24 11:20 BP 129/77 11/20/24 11:20 Pulse Ox 92 L 11/20/24 11:20 FiO2 35 11/11/24 00:57 Intake & Output 11/19/24 11/20/24 11/20/24 18:59 06:59 18:59 Intake Total 960 180 Output Total 1050 600 900 Balance -90 -600 -720 Weight 82.5 kg 82.5 kg Intake: Oral 960 180 Output: Urine 1050 600 900 Other: Voiding Method Indwelling Catheter Indwelling Catheter Indwelling Catheter - Exam General: 79-year-old male in no distress sitting at the bedside chair Derm: warm, dry, scaling rash over BL upper and lower extremities without erythema, and the patient has extensive skin excoriation and areas of superficial wounds throughout his upper and lower extremities and the torso. No evidence of any cellulitis. Head: atraumatic, normocephalic Eyes: EOMI, no lid lag, anicteric sclera Mouth: no lip lesion, mucus membranes moist Cardiovascular: Irregular rhythm, distant S1-S2, no S3 gallop, no murmur Lungs: Diminished breath sound bilaterally no rhonchi no wheezes Abdominal: Soft nontender no megaly no rebound Ext: no gross muscle atrophy, no edema, no contractures Neuro: Alert and oriented x 3 no gross focal deficit Psychiatric: Normal mood affect and no mental status examination - Labs CBC & Chem 7: 11/20/24 06:38 11/20/24 06:38 Labs: Abnormal Lab Results - Last 24 Hours (Table) 11/20/24 11/20/24 11/20/24 Range/Units 06:38 06:38 11:15 RBC 3.70 L (4.30-5.90) m/uL Hgb 10.6 L (13.0-17.5) gm/dL Hct 33.8 L (39.0-53.0) % RDW 15.8 H (11.5-15.5) % Lymphocytes # 0.5 L (1.0-4.8) k/uL Chloride 109 H (98-107) mmol/L BUN 4 L (9-20) mg/dL Creatinine 0.64 L (0.66-1.25) mg/dL POC Glucose (mg/dL) 165 H (70-110) mg/dL Assessment and Plan Assessment: Impression: Acute metabolic encephalopathy with altered mental status, resolved Acute aspiration pneumonia is strongly suspected Acute sepsis patient has been empirically on Zosyn with negative urine cultures and may have had an episode of aspiration pneumonia. Hence he is being followed by infectious disease and remains on Zosyn History of alcohol abuse, remains on thiamine and Ativan Chronic atrial fibrillation Acute transaminitis and thrombocytopenia related to alcohol abuse History of hypothyroidism Recommendation: Continue present supportive care measures Consider rehab placement Continue CIWA protocol Ambulate as tolerated Continue Eliquis Continue updrafts as needed Will continue to follow Time with Patient: Less than 30
[2024-11-20 20:05] LABS: Glucose,Whole Blood 125 mg/dL (70-110)
[2024-11-20] MEDS: FUROSEMIDE 20 MG TAB PO SCH (20:25)
[2024-11-21] MEDS: FUROSEMIDE 10 MG/ML 4 ML VIAL IV STA (03:47)
[2024-11-21 06:11] LABS: Glucose,Whole Blood 79 mg/dL (70-110)
--- NOTE | 2024-11-21 10:24 | P.PN ---
Subjective Progress Note Date: 11/20/24 Patient was initially seen by myself on 11/10/2024, then subsequently followed by Dr. Luciano over the last 1 week. Today I am resuming care. Patient was seen for a follow-up today. He denies headache. His family members were present. Patient is doing much better. Objective - Vital Signs Vital signs: Vital Signs Temp 98.1 F 11/20/24 16:05 Pulse 79 11/20/24 16:05 Resp 18 11/20/24 16:05 BP 131/78 11/20/24 16:05 Pulse Ox 98 11/20/24 16:05 FiO2 35 11/11/24 00:57 Intake & Output 11/19/24 11/20/24 11/20/24 18:59 06:59 18:59 Intake Total 960 360 Output Total 1050 600 900 Balance -90 -600 -540 Weight 82.5 kg 82.5 kg Intake: Oral 960 360 Output: Urine 1050 600 900 Other: Voiding Method Indwelling Catheter Indwelling Catheter Indwelling Catheter - Exam Patient is very alert and awake. He knows it is November and the year is 2024 and that he is in [facility] imported on [place]. Speech and language functions are normal. - Labs CBC & Chem 7: 11/20/24 06:38 11/20/24 06:38 Labs: Abnormal Lab Results - Last 24 Hours (Table) 11/20/24 11/20/24 11/20/24 Range/Units 06:38 06:38 11:15 RBC 3.70 L (4.30-5.90) m/uL Hgb 10.6 L (13.0-17.5) gm/dL Hct 33.8 L (39.0-53.0) % RDW 15.8 H (11.5-15.5) % Lymphocytes # 0.5 L (1.0-4.8) k/uL Chloride 109 H (98-107) mmol/L BUN 4 L (9-20) mg/dL Creatinine 0.64 L (0.66-1.25) mg/dL POC Glucose (mg/dL) 165 H (70-110) mg/dL Assessment and Plan Assessment: * Altered mental status, probably due to acute metabolic encephalopathy. Possible alcohol withdrawal, impending DTs. No evidence of CVA. * Pneumonia. Patient currently on Zosyn. * Hypothermia, unclear cause. * Hypothyroidism * Hypoglycemia * Elevated liver enzymes * Thrombocytopenia, likely due to alcoholism. Now resolved. * History of prostate cancer, on chemotherapy * Chronic alcoholism * Diffuse seborrheic dermatitis involving arms and legs * Tobacco use Plan: * MRI of the brain with and without contrast revealed no evidence of intracranial mass, acute/subacute infarct or abnormal enhancement. Mild to moderate nonspecific white matter changes, likely related to small vessel ischemic disease. Paranasal sinus disease. I personally reviewed MRI, agree with the findings. * CTA of head and neck: Possibility moderate stenosis of proximal left internal carotid artery. Mild stenosis with diffuse calcification of the carotid siphons. * EEG is abnormal. The background slowing is suggestive of moderate encephalopa thy. Otherwise there is no focal slowing, epileptiform discharge or seizure on the EEG. * Patient is not diabetic, but his blood sugars initially were running low. Watch for hypoglycemia. * Ammonia level is < 9 * Hemoglobin A1c 6.3 on 01/08/2024 * B12: 3181, folate 6. Because of low folic acid is on supplement 1mg daily. * TSH 5.17, free T4 normal 0.99. Will defer to IM to address abnormal thyroid f unctions. * CIWA protocol. * Patient has been getting hypothermic, rule out sepsis. ID consulted. Rule out cellulitis. * Continue Eliquis 5 mg twice a day. * Patient has remarkably improved. Cleared for transfer to rehab.
[2024-11-21 11:43] LABS: Glucose,Whole Blood 187 mg/dL (70-110)
[2024-11-21] MEDS: FUROSEMIDE 10 MG/ML 4 ML VIAL IV SCH (11:56)
--- NOTE | 2024-11-21 12:53 | P.PN ---
Subjective Progress Note Date: 11/21/24 79 year old M with history of prostate cancer on oral chemotherapeutic agent with apalutamide, COPD with continued nicotine dependence, and daily alcohol abuse. Family reported patient's last alcoholic drink was on 11/06/24 and reported drinking a clement and wine daily for nearly 50 years Patient presented to the emergency department on 11/10/24 with a chief complaint of altered mental status. Patient's family reported patient was at baseline mentation up until approximately 1 AM on day of arrival when he awoke and was noted to have increased confusion and didn't even recognize them and was then noted to have generalized weakness and was unable to even stand. They reported up until this he had a normal appetite and denied any recent weight loss, fevers or exposure to known ill contacts, episodes of vomiting or diarrhea, or patient expressing any complaints of pain or discomfort. Upon arrival to our facility patient was alert to person and place only and confused to time and situation. Patient did admit to daily alcohol use, but did not or was unable to express how much he drank daily. He denied having any complaints or pain at this time. Patient and family deny any other drug use. Patient underwent evaluation in the emergency department. BP 115/68, HR 57, RR 20, T 96.8 F, SpO2 of 100% on RA. Uxsdl-mu-pltx glucose was initially 59. EKG was completed showing AFib with a slowed ventricular response at 58 bpm with nonspecific T wave abnormalities in inferior leads. Chest x-ray showed no acute process. CT brain showed no acute process, diffuse age related cerebral atrophy and mild to moderate chronic small vessel ischemic changes with bilateral maxillary sinus disease. CBC, Coag panel, CMP significant for Plt 98, Na 149, Cl 114, BUN 21, AST 214, ALT 216, alk phos 273. Troponin <0.012. TSH 5.170, free T4 0.99. UDS neg. UA neg. COVID, RSV, Flu neg. Patient admitted under our services with consultation to neurology. Patient was noted to have a Tlow of 89.5F rectal on 11/10. He was placed on Elian hugger. Lactic acid was 1.2 and vital signs were stable. CT AP and blood cult ures were ordered. Patient was noted to by hypotensive on 11/11 along with persistent hypoglycemic. He was given a 2L LR bolus and started on Vancomycin and Cefepime. ID was consulted, antibiotics switched to Zosyn. CTA head and neck showing moderate stenosis of the proximal left internal carotid artery and mild stenosis with diffuse calcification of carotid siphons and maxillary sinusitis. Discussed findings with neurologist, Dr. Luciano awaiting completion of MRI for further recommendations. CT abdomen and pelvis reporting acute cardiopulmonary disease in the lung bases left greater than right concerning for fluid overload versus pneumonia and reports of distended gallbladder. Consult placed to general surgery for evaluation, HIDA scan ordered. Transferred to ICU for persistent hypotension. He was started on Levophed which was weaned off 11/12 and SoluCortef. Noted to be in A-Fib with SVR, started on Dopamine and EP consulted, Echo EF 50-55% mild MR/TR. Pulmonary started the patient on Synthroid 50 mcg IV QD for subclinical hypothyroidism. His mentation improved. Weaned off Dopamine drip on 11/16 and transferred out of ICU. MRI brain was completed on 11/18 showing no acute process. 11/21 Patient was seen and examined. Mentation significantly improved. He reports some shortness of breath. Elian hugger discontinued yesterday, temperature maintaining between 97-97.9F. Off IVF. Antibiotics include Zosyn 3.75 g IV TID. Also on Thiamine 250 mg IV QD. CXR done yesterday shows pulmonary vasuclar congestion, thus I have started the patient on Lasix 40 mg IV QD. No new labs done today. Vitals: BP 120/70, HR 63, RR 18, T 97.9F, 94% on RA. General: non toxic, no distress, appears at stated age Derm: warm, dry, scaling rash over BL upper and lower extremities without erythema Head: atraumatic, normocephalic, symmetric, poor dentition Eyes: EOMI, no lid lag, anicteric sclera Mouth: no lip lesion, mucus membranes moist Cardiovascular: S1S2 irreg, no murmur Lungs: Decreased BS bilateral, no rhonchi, no rales , no accessory muscle use Ext: no gross muscle atrophy, no edema, no contractures Neuro: No focal neurologic deficits Psych: Alert and oriented Based on my assessment of this patient, this patient meets a high complexity level of care. Pulmonary vascular congestion: Echo as above. Start Lasix 40 mg IV QD. Strict intake and outtake. Daily weights. Monitor renal function and electrolytes. Sepsis unknown etiology: Hypotension with hypothermia. Procal 0.12. Cortisol 17.1. UA neg. BCx neg. Continue Zosyn 3.75 g IV TID (D9). Elian hugger if needed. Telemetry monitoring. ID on board. Possible aspiration pneumonia: ST recommending NDD3 1:1 supervision. Should be covered with Zosyn as above. Gallbladder distention: No concerns for cholecystitis. No HIDA scan. Surgery sig maicol off. Concerns for Wernickes encephalopathy: Thiamine 250 mg IV QD. Acute metabolic encephalopathy likely related to above: B12 3181. Folate 6. TSH 5.17, FT4 0.99. CT brain and CTA head and neck as above. MRI brain neg for acute pathology. EEG moderate encephalopathy. Fall, Seizure and Aspiration precautions. Neurology on board. Atrial fibrillation with slow ventricular rate: Avoid AV alba blockers. Eliquis 5 mg PO BID for AC. Echo as above. Cardiology on board. Alcohol abuse: CIWA protocol with Ativan PRN. Transaminitis and Thrombocytopenia likely related to EtOH abuse. Subclinical hypothyroidism: Synthroid 75 mcg PO QD. Repeat TSH/FT4 in 6 weeks. Resolved: Hypoglycemia Monitor for hypoglycemia. PT and OT evaluated, patient is a 2 person assist, will likely need SNF on discharge. Case management on board. CODE STATUS: FULL CODE DVT Prophylaxis: Eliquis GI Prophylaxis: Protonix IV Designated medical POA if patient is not able to make medical decisions for themselves: I have reviewed the following service consultant notes: Neuro, Pulmonary. I have reviewed the results of the following tests: I have ordered the following tests: BMP and Mag in the AM I have discussed the care of this patient with the following independent historian: RN. I have independently interpreted the following test below: CXR I have discussed the management of this patient with the following physician: Objective - Vital Signs Vital signs: Vital Signs Temp 97.9 F 11/21/24 08:20 Pulse 63 11/21/24 08:20 Resp 18 11/21/24 08:20 BP 120/70 11/21/24 08:20 Pulse Ox 94 L 11/21/24 08:20 FiO2 35 11/11/24 00:57 Intake & Output 11/20/24 11/21/24 11/21/24 18:59 06:59 18:59 Intake Total 360 100 Output Total 900 4825 3100 Balance -540 -8376 -4510 Weight 82.5 kg 81.5 kg 75.5 kg Intake: Intake, IV Titration 100 Amount Piperacillin-Tazobactam 3 100 .375 gm In Sodium Chloride 0.9% 100 ml @ 25 mls/hr IVPB Q8HR [facility] Rx# :[id number] Oral 360 Output: Urine 900 4825 3100 Other: Voiding Method Indwelling Catheter Indwelling Catheter Indwelling Catheter # Bowel Movements 1 - Labs CBC & Chem 7: 11/20/24 06:38 11/20/24 06:38 Labs: Abnormal Lab Results - Last 24 Hours (Table) 11/20/24 11/21/24 Range/Units 20:04 11:41 POC Glucose (mg/dL) 125 H 187 H (70-110) mg/dL
--- NOTE | 2024-11-21 14:48 | P.PN ---
Subjective Progress Note Date: 11/21/24 Principal diagnosis: Altered mental status secondary to acute metabolic encephalopathy, multifactorial. On today's evaluation of 11/13/2024, the patient remains neurologically altered, confused, unable to give meaningful information and history. Of significance is that extensive skin excoriation and superficial lesions less noted throughout the body involving the upper and lower extremities and the torso. No signs of any acute cellulitis or infection. Skin is dry and scaly and multiple superficial wounds are seen throughout his body. Noted, the patient is able to move all 4 extremities. CAT scan of the brain that was done at the time of admission showed no acute abnormalities. The patient also had a CAT scan of the abdomen and pelvis that showed a dilated gallbladder. A general surgical consultation was obtained as the patient was also noted to have some elevation in LFTs. The patient also has some atelectatic changes and consolidation in the lung bases left more than right. This morning he is on room air oxygen. He is on D5 half-normal saline at rate of 130 cc an hour. He was having episodes of bradycardia and the patient was started on dopamine 5 mcg/kg/min. Noted the blood cultures on negative. He is still hypothermic and he is using a Elian hu gger for external warming. He does have a mild component of hypothyroidism and the TSH is elevated with a low free T4. His other comorbidities include COPD and the patient has also history of smoking and daily alcohol abuse. His last drink was on 11/06/2024 and reported drink 1/5 of wine on a daily basis has been on it for more than 50 years. His blood work from today shows a white cell count of 6.2, hemoglobin of 12 and a platelet count of 82. His BUN is 16 with a creatinine 1.1 and sodium level is at 145. LFTs were also noted. His AST is improving down to 86, ALT is down to 104 and alkaline phosphatase is 157. His total bilirubin is at 0.9. Lactic acid level is dropped down to 1.4. Albumin is at 2.9 with a total protein of 6.1. His TSH was 5.1 with a free T4 of 0.99. UA was abnormal and the culture is still pending. Blood cultures still negative. The patient remains on IV Zosyn. He is in atrial fibrillation. He is maintained on anticoagulation with Eliquis. His last echocardiogram from 01/08/2024 showed a preserved LV function with an ejection fraction of 55 to 60% and mild degree of pulmonary hypertension. On 11/14/2024, the patient is being seen for a follow-up. The patient is less encephalopathic and more awake compared to yesterday. He is able to communicate. At times, he still confused however, overall, is making better sense on today's evaluation. The patient remains on room air oxygen. The patient continues to have bradycardia with underlying atrial fibrillation with low rate in the patient remains on dopamine running at 4 mcg/kg/min. No hypotension. Urine output is adequate and the patient on D5 half-normal saline which is running at a rate of 130 cc an hour. Cultures are still pending for now. Blood cultures still negative. The white cell count of 5.3 with a hemoglobin 11.7 and a platelet count of 70. BUN is 15 with a creatinine 1.02. Sodium levels at 145 and a potassium level is at 3.2. LFTs are also improving. Ultrasound of the gallbladder was completed yesterday and it showed no evidence of any acute cholecystitis. Common bile duct was within normal limits. Gallbladder was distended and there was no evidence of any pericholecystic fluid. EEG was also performed yesterday and it showed no evidence of any seizure activity. There was background slowing consistent with moderate degree of encephalopathy. The patient remains on anticoagulation with Eliquis 5 mg p.o. twice a day. Levothyroxine was added yesterday and the patient is receiving Synthroid 50 mcg IV on a daily basis. The patient remains on dopamine. No focal neurological deficit and the patient is moving all 4 extremities without any limitation. On 11/15/2024, the patient is awake and alert and communicating. Of concern is the episodes of hypothermia the patient is encountering while being off the Elian hugger. His current temperature is 95.0. Remains in atrial fibrillation with a low rate. Exact cause is not clear. Heart rate is ranging between 44 and 62. Remains on dopamine which is running at 3 mcg/kg/min. He is tolerating his diet. He is communicating. Denies having any specific complaints. The white cell count of 5.6 with a hemoglobin 9.8 and a platelet count of 85. BUN is 12 with a creatinine of 0.8 and sodium levels at 141. Skin lesions remain unchanged. Cultures have been negative. The patient remains on Bentyl nebu lized treatments, D5 half-normal saline at rate of 130 cc an hour, IV Zosyn as an empiric antibiotic coverage, thiamine and folate and dopamine regarding his ongoing bradycardia. He is also on Synthroid 50 mcg IV on a daily basis. On today's evaluation of 11/16/2024, the patient continues to have issues with bradycardia. Remains on dopamine which is being weaned off. The patient is on 1 mcg/kg/min. The patient's rhythm is atrial fibrillation. Seems to be less bradycardic compared to yesterday. Afebrile. Awake and alert. Communicating. Tolerating his diet. No focal neurological deficits. Cultures are negative. The white cell count is 5 with a hemoglobin 11.1 and a platelet count of 75. The patient is known to have chronic thrombocytopenia. Sodium is at 140, bicarb is at 27, BUN is at 7 with a creatinine of 0.9. Remains on empiric antibiotic coverage with IV Zosyn. No beta-blockers for now. Remains on anticoagulation with Eliquis. On 11/17/2024, the patient is being seen for a follow-up. Awake and alert and communicating he is tolerating his diet. Normothermic. The patient is currently off dopamine. Still having some bradycardia with A-fib rhythm yet is not having significant low heart rate. His current heart rate is ranging between 50 and 66. No new complaints. The white cell count is 5.6, hemoglobin 10.5 with a platelet count of 80. BUN 7 with a creatinine of 0.8 and sodium was 141. Cultures are all negative. Remains on IV Zosyn. Remains on anticoa gulation with Eliquis. Currently off beta-blockers. On Synthroid. No agitation. Calm and comfortable resting comfortably in bed. 11/18/2024, the patient has no specific complaints, normothermic. No significant bradycardia. Remains on IV Zosyn. Remains on anticoagulation with Eliquis regarding his chronic slow rate atrial fibrillation. White cell count is at 6 with a hemoglobin 10.5 and a platelet count of 99. BUN is 7 with a creatinine of 0.6 and a sodium of 142. Tolerating diet. No other complaints otherwise for now. Patient was seen today on 11/20/2024, no cough no wheezing no shortness of breath, patient remains on IV Zosyn, remains anticoagulated, he has chronic atrial fibrillation, remains on the CIWA protocol. No major issues since the last 24 hours, patient may have to be considered for placement. Patient is being followed by many consultants he remains on thiamine, and he is also on Ativan as per CIWA protocol. WBC count is 5.4 hemoglobin 10.6 electrolytes are normal renal profile is normal. Seen today on 11/21/2024, patient is doing well, on room air, not in any distress, remains on the CIWA protocol for his history of alcoholism. No active pulmonary symptoms, patient has been on Zosyn as per infectious disease on the case. Chest x-ray continues to show bilateral pleural effusions and bibasilar atelectasis, possible pneumonia. WBC count is 5.4 hemoglobin 10.6 electrolytes are normal renal profile is normal Objective - Vital Signs Vital signs: Vital Signs Temp 97.2 F L 11/21/24 11:30 Pulse 59 L 11/21/24 11:30 Resp 16 11/21/24 11:30 BP 122/72 11/21/24 11:30 Pulse Ox 96 11/21/24 11:30 FiO2 35 11/11/24 00:57 Intake & Output 11/20/24 11/21/24 11/21/24 18:59 06:59 18:59 Intake Total 360 100 118 Output Total 900 4825 4400 Balance -193 -4032 -6518 Weight 82.5 kg 81.5 kg 75.5 kg Intake: Intake, IV Titration 100 Amount Piperacillin-Tazobactam 3 100 .375 gm In Sodium Chloride 0.9% 100 ml @ 25 mls/hr IVPB Q8HR [facility] Rx# :[id number] Oral 360 118 Output: Urine 900 4825 4400 Other: Voiding Method Indwelling Catheter Indwelling Catheter Indwelling Catheter # Bowel Movements 1 - Exam General: 79-year-old male in no distress sitting at the bedside chair on room air Derm: warm, dry, scaling rash over BL upper and lower extremities without erythema, and the patient has extensive skin excoriation and areas of superficial wounds throughout his upper and lower extremities and the torso. No evidence of any cellulitis. Head: atraumatic, normocephalic Eyes: EOMI, no lid lag, anicteric sclera Mouth: no lip lesion, mucus membranes moist Cardiovascular: Irregular rhythm, distant S1-S2, no S3 gallop, no murmur Lungs: Diminished breath sound bilaterally no rhonchi no wheezes Abdominal: Soft nontender no megaly no rebound Ext: no gross muscle atrophy, no edema, no contractures Neuro: Alert and oriented x 3 no gross focal deficit Psychiatric: Normal mood affect and no mental status examination - Labs CBC & Chem 7: 11/20/24 06:38 11/20/24 06:38 Labs: Abnormal Lab Results - Last 24 Hours (Table) 11/20/24 11/21/24 Range/Units 20:04 11:41 POC Glucose (mg/dL) 125 H 187 H (70-110) mg/dL Assessment and Plan Assessment: Impression: Acute metabolic encephalopathy with altered mental status, resolved Acute aspiration pneumonia is strongly suspected Acute sepsis patient has been empirically on Zosyn with negative urine cultures and may have had an episode of aspiration pneumonia. Hence he is being followed by infectious disease and remains on Zosyn History of alcohol abuse, remains on thiamine and Ativan Chronic atrial fibrillation Acute transaminitis and thrombocytopenia related to alcohol abuse History of hypothyroidism Bilateral pleural effusions, suspect underlying diastolic congestive heart failure, echocardiogram done recently showed good LV function with ejection fraction of 50 to 55% patient was noted to have moderate pulmonary hypertension with right-sided pressures of 46. Recommendation: Continue present supportive care measures Consider rehab placement Continue CIWA protocol Ambulate as tolerated Continue Eliquis Continue updrafts as needed Continue diuretics Consider discharge planning once cleared by other consultants. Will continue to follow Time with Patient: Less than 30
--- NOTE | 2024-11-21 15:28 | P.PN ---
Subjective Progress Note Date: 11/21/24 Principal diagnosis: Reason for follow-up is sepsis Patient is a 79-year-old male with a past medical history significant for COPD prostate cancer for the patient has been on chemo and radiation therapy patient has been brought into the hospital concerning for increased confusion and weakness patient was noted to be hypothermic bradycardic concerning for sepsis possible source of UTI/pneumonia requiring transfer to the ICU. On today's evaluation that is 11/21/2024, Patient is afebrile this morning patient is more awake and alert denies having any chest pain shortness of breath or any worsening cough, the patient is currently on room air, patient denies any abdominal pain no diarrhea no nausea no vomiting. Noted to have elevated pain today blood culture has been negative Objective - Vital Signs Vital signs: Vital Signs Temp 97.2 F L 11/21/24 11:30 Pulse 59 L 11/21/24 11:30 Resp 16 11/21/24 11:30 BP 122/72 11/21/24 11:30 Pulse Ox 96 11/21/24 11:30 FiO2 35 11/11/24 00:57 Intake & Output 11/20/24 11/21/24 11/21/24 18:59 06:59 18:59 Intake Total 360 100 118 Output Total 900 4825 4400 Balance -718 -9319 -6347 Weight 82.5 kg 81.5 kg 75.5 kg Intake: Intake, IV Titration 100 Amount Piperacillin-Tazobactam 3 100 .375 gm In Sodium Chloride 0.9% 100 ml @ 25 mls/hr IVPB Q8HR [facility] Rx# :[id number] Oral 360 118 Output: Urine 900 4825 4400 Other: Voiding Method Indwelling Catheter Indwelling Catheter Indwelling Catheter # Bowel Movements 1 - Exam GENERAL DESCRIPTION: An elderly male lying in bed in no distress RESPIRATORY SYSTEM: Unlabored breathing , decreased breath sounds at bases HEART: S1 S2 regular rate and rhythm , ABDOMEN: Soft , no tenderness EXTREMITIES: No edema feet - Labs CBC & Chem 7: 11/20/24 06:38 11/20/24 06:38 Labs: Abnormal Lab Results - Last 24 Hours (Table) 11/20/24 11/21/24 Range/Units 20:04 11:41 POC Glucose (mg/dL) 125 H 187 H (70-110) mg/dL Assessment and Plan (1) Altered mental status Current Visit: Yes Status: Acute Code(s): R41.82 - ALTERED MENTAL STATUS, UNSPECIFIED SNOMED Code(s): 663384628 (2) Pneumonia Current Visit: No Status: Acute Code(s): J18.9 - PNEUMONIA, UNSPECIFIED ORGANISM SNOMED Code(s): 075016651 Plan: 1patient presented to hospital with mental status changes confusion and weakness source likely left lower lobe pneumonia and his question of possible gallbladder disease will need to direct antibiotic therapy mostly towards pneumonia or possible aspiration pneumonia/gram-negative and intra-abdominal gram-negative pathogen less likely risk for composite infection such as MRSA, repeat urine is positive as well 2-patient did have ultrasound of the gallbladder suboptimal study but mention no features of cholecystitis 3-patient temperature has normalized white count has been normal culture have been negative so far 4patient has shown overall improvement with the Zosyn and has received adequate IV Zosyn would not need any antibiotic on discharge Dictation was produced using [employer] dictation software. please excuse any grammatical, word or spelling errors. Time with Patient: Less than 30
[2024-11-21 16:40] LABS: Glucose,Whole Blood 102 mg/dL (70-110)
--- NOTE | 2024-11-21 17:17 | P.PN ---
Subjective Progress Note Date: 11/21/24 11/21/2024: Patient was seen for a follow-up. Patient is laying in the bed. Patient is doing very well. Per physical therapist, patient takes steps to pivot. He has shuffling steps. Patient is fully oriented. Offers no complaints. 11/20/2024: Patient was initially seen by myself on 11/10/2024, then subsequently followed by Dr. Luciano over the last 1 week. Today I am resuming care. Patient was seen for a follow-up today. He denies headache. His family members were present. Patient is doing much better. Objective - Vital Signs Vital signs: Vital Signs Temp 97.2 F L 11/21/24 11:30 Pulse 59 L 11/21/24 11:30 Resp 16 11/21/24 11:30 BP 122/72 11/21/24 11:30 Pulse Ox 96 11/21/24 11:30 FiO2 35 11/11/24 00:57 Intake & Output 11/20/24 11/21/24 11/21/24 18:59 06:59 18:59 Intake Total 360 100 118 Output Total 900 4825 4400 Balance -437 -3093 -0787 Weight 82.5 kg 81.5 kg 75.5 kg Intake: Intake, IV Titration 100 Amount Piperacillin-Tazobactam 3 100 .375 gm In Sodium Chloride 0.9% 100 ml @ 25 mls/hr IVPB Q8HR [facility] Rx# :[id number] Oral 360 118 Output: Urine 900 4825 4400 Other: Voiding Method Indwelling Catheter Indwelling Catheter Indwelling Catheter # Bowel Movements 1 - Exam Patient is very alert and awake. He knows it is November and the year is 2024 and that he is in [facility] imported on [place]. Speech and language functions are normal. Cranial nerves revealed pupils equal, round and reactive to light, visual hernandez are full, face is symmetric and tongue protrudes to midline. On muscle strength testing, patient's strength is normal in the arms distally and proximally at biceps, triceps, deltoid and the powder blender and pourer. In the lower limbs his hip flexion is 4+, ankle dorsiflexion 5, toe extension 5 bilaterally. No ataxia for [id number] testing. Sensory touch is equal with no neglect. - Labs CBC & Chem 7: 11/20/24 06:38 11/20/24 06:38 Labs: Abnormal Lab Results - Last 24 Hours (Table) 11/20/24 11/21/24 Range/Units 20:04 11:41 POC Glucose (mg/dL) 125 H 187 H (70-110) mg/dL Assessment and Plan Assessment: * Altered mental status, probably due to acute metabolic encephalopathy. Seems to have resolved. No evidence of CVA. * Pneumonia. Patient currently on Zosyn. * Hypothermia, likely due to pneumonia * Hypothyroidism * Hypoglycemia * Elevated liver enzymes * Thrombocytopenia, likely due to alcoholism. Now resolved. * History of prostate cancer, on chemotherapy * Chronic alcoholism * Diffuse seborrheic dermatitis involving arms and legs * Tobacco use Plan: * MRI of the brain with and without contrast revealed no evidence of intracranial mass, acute/subacute infarct or abnormal enhancement. Mild to moderate nonspecific white matter changes, likely related to small vessel ischemic disease. Paranasal sinus disease. I personally reviewed MRI, agree with the findings. * CTA of head and neck: Possibility moderate stenosis of proximal left internal carotid artery. Mild stenosis with diffuse calcification of the carotid siphons. * EEG is abnormal. The background slowing is suggestive of moderate encephalopathy. Otherwise there is no focal slowing, epileptiform discharge or seizure on the EEG. * Patient is not diabetic, but his blood sugars initially were running low. Watch for hypoglycemia. * Ammonia level is < 9 * Hemoglobin A1c 6.3 on 01/08/2024 * B12: 3181, folate 6. Because of low folic acid is on supplement 1mg daily. * TSH 5.17, free T4 normal 0.99. Will defer to IM to address abnormal thyroid functions. * [facility] protocol. * Patient has pneumonia, ID on board. Patient on Zosyn. * Continue Eliquis 5 mg twice a day. * Patient has remarkably improved. * Cleared for transfer to rehab. Patient possible to go to [facility], if insurance approves.
[2024-11-21 19:58] LABS: Glucose,Whole Blood 133 mg/dL (70-110)
[2024-11-22 06:02] LABS: Glucose,Whole Blood 68 mg/dL (70-110)
[2024-11-22 06:36] LABS: African American GFR (CKD) >90 (>60 ml/min/1.73 sqM); Anion Gap 4 mmol/L; Blood Urea Nitrogen 10 mg/dL (9-20); Calcium 8.5 mg/dL (8.4-10.2); Chloride 101 mmol/L (98-107); Glucose 72 mg/dL (74-99); Magnesium 1.7 mg/dL (1.6-2.3); Non-African American GFR(CKD) >90 (>60 ml/min/1.73 sqM); Potassium 3.6 mmol/L (3.5-5.1); Sodium 145 mmol/L (137-145)
[2024-11-22 06:49] LABS: Glucose,Whole Blood 121 mg/dL (70-110)
[2024-11-22 07:03] LABS: Carbon Dioxide 37 mmol/L (22-30)
--- NOTE | 2024-11-22 10:11 | XR ---
EXAMINATION TYPE: XR chest 1V portable DATE OF EXAM: 11/22/2024 9:54 AM COMPARISON: Chest radiographs from 11/20/2024. CLINICAL INDICATION: Male, 79 years old with history of eval pulmonary vascular congestion; [facility] TECHNIQUE: XR chest 1V portable Frontal view of the chest. FINDINGS: Lungs/Pleura: No evidence of focal consolidation or pneumothorax. Blunting of the costophrenic angles is present. Pulmonary vascularity: Unremarkable. Heart/mediastinum: Cardiomediastinal silhouette is unremarkable. Musculoskeletal: No acute osseous pathology. Other findings: None Lines/Tubes: IMPRESSION: Bilateral pleural effusions and mild pulmonary vessel congestion. [facility], , 11/22/2024 10:09 AM
[2024-11-22 11:18] LABS: Glucose,Whole Blood 81 mg/dL (70-110)
--- NOTE | 2024-11-22 12:39 | P.PN ---
Subjective Progress Note Date: 11/22/24 79 year old M with history of prostate cancer on oral chemotherapeutic agent with apalutamide, COPD with continued nicotine dependence, and daily alcohol abuse. Family reported patient's last alcoholic drink was on 11/06/24 and reported drinking a clement and wine daily for nearly 50 years Patient presented to the emergency department on 11/10/24 with a chief complaint of altered mental status. Patient's family reported patient was at baseline mentation up until approximately 1 AM on day of arrival when he awoke and was noted to have increased confusion and didn't even recognize them and was then noted to have generalized weakness and was unable to even stand. They reported up until this he had a normal appetite and denied any recent weight loss, fevers or exposure to known ill contacts, episodes of vomiting or diarrhea, or patient expressing any complaints of pain or discomfort. Upon arrival to our facility patient was alert to person and place only and confused to time and situation. Patient did admit to daily alcohol use, but did not or was unable to express how much he drank daily. He denied having any complaints or pain at this time. Patient and family deny any other drug use. Patient underwent evaluation in the emergency department. BP 115/68, HR 57, RR 20, T 96.8 F, SpO2 of 100% on RA. [id number] glucose was initially 59. EKG was completed showing AFib with a slowed ventricular response at 58 bpm with nonspecific T wave abnormalities in inferior leads. Chest x-ray showed no acute process. CT brain showed no acute process, diffuse age related cerebral atrophy and mild to moderate chronic small vessel ischemic changes with bilateral maxillary sinus disease. CBC, Coag panel, CMP significant for Plt 98, Na 149, Cl 114, BUN 21, AST 214, ALT 216, alk phos 273. Troponin <0.012. TSH 5.170, free T4 0.99. UDS neg. UA neg. COVID, RSV, Flu neg. Patient admitted under our services with consultation to neurology. Patient was noted to have a Tlow of 89.5F rectal on 11/10. He was placed on Elian hugger. Lactic acid was 1.2 and vital signs were stable. CT AP and blood cult ures were ordered. Patient was noted to by hypotensive on 11/11 along with persistent hypoglycemic. He was given a 2L LR bolus and started on Vancomycin and Cefepime. ID was consulted, antibiotics switched to Zosyn. CTA head and neck showing moderate stenosis of the proximal left internal carotid artery and mild stenosis with diffuse calcification of carotid siphons and maxillary sinusitis. Discussed findings with neurologist, Dr. Luciano awaiting completion of MRI for further recommendations. CT abdomen and pelvis reporting acute cardiopulmonary disease in the lung bases left greater than right concerning for fluid overload versus pneumonia and reports of distended gallbladder. Consult placed to general surgery for evaluation, HIDA scan ordered. Transferred to ICU for persistent hypotension. He was started on Levophed which was weaned off 11/12 and SoluCortef. Noted to be in A-Fib with SVR, started on Dopamine and EP consulted, Echo EF 50-55% mild MR/TR. Pulmonary started the patient on Synthroid 50 mcg IV QD for subclinical hypothyroidism. His mentation improved. Weaned off Dopamine drip on 11/16 and transferred out of ICU. MRI brain was completed on 11/18 showing no acute process. 11/22 Patient was seen and examined. Breathing improved. No more hypothermia over the past 24H. Off IVF. Antibiotics include Zosyn 3.75 g IV TID. Also on Thiamine 250 mg IV QD. Maintained on Lasix 40 mg IV QD, negative 6.2L fluid balance over the past 24H. BMP bicarb 37, Cr 0.6, glu 72. Mag 1.7. CXR done today shows improved pulmonary vascular congestion. Vitals: BP 141/72, HR 72, RR 16, T 97.9F, 99% on RA. General: non toxic, no distress, appears at stated age Derm: warm, dry, scaling rash over BL upper and lower extremities without erythema Head: atraumatic, normocephalic, symmetric, poor dentition Eyes: EOMI, no lid lag, anicteric sclera Mouth: no lip lesion, mucus membranes moist Cardiovascular: S1S2 irreg, no murmur Lungs: Decreased BS bilateral, no rhonchi, no rales , no accessory muscle use Ext: no gross muscle atrophy, no edema, no contractures Neuro: No focal neurologic deficits Psych: Alert and oriented Based on my assessment of this patient, this patient meets a high complexity level of care. Pulmonary vascular congestion: Echo as above. Continue Lasix 40 mg IV QD. Strict intake and outtake. Daily weights. Monitor renal function and electrolytes. Hypotension with hypothermia: Differentials include overt hypothyroidism and sepsis. Sepsis less likely given Procal 0.12, UA neg, BCx neg. Cortisol 17.1. Continue Zosyn 3.75 g IV TID (D10). Status post IV synthroid. Elian hugger if needed. Telemetry monitoring. ID on board. Possible aspiration pneumonia: ST recommending NDD3 1:1 supervision. Should be covered with Zosyn as above. Gallbladder distention: No concerns for cholecystitis. No HIDA scan. Surgery signed off. Concerns for Wernickes encephalopathy: Thiamine 250 mg IV QD. Acute metabolic encephalopathy likely related to above: B12 3181. Folate 6. TSH 5.17, FT4 0.99. CT brain and CTA head and neck as above. MRI brain neg for acute pathology. EEG moderate encephalopathy. Fall, Seizure and Aspiration precautions. Neurology on board. Atrial fibrillation with slow ventricular rate: Avoid AV alba blockers. Eliquis 5 mg PO BID for AC. Echo as above. Cardiology on board. Alcohol abuse: CIWA protocol with Ativan PRN. Transaminitis and Thrombocytopenia likely related to EtOH abuse. Subclinical hypothyroidism: Synthroid 75 mcg PO QD. Repeat TSH/FT4 in 6 weeks. Resolved: Hypoglycemia Monitor for hypoglycemia. PT and OT evaluated. Case management on board for SNF. CODE STATUS: FULL CODE DVT Prophylaxis: Eliquis GI Prophylaxis: Protonix IV Designated medical POA if patient is not able to make medical decisions for themselves: I have reviewed the following hr business partner consultant notes: Neuro, ID. I have reviewed the results of the following tests: BMP. Mag. I have ordered the following tests: BMP and Mag in the AM I have discussed the care of this patient with the following independent historian: Case management. Son. I have independently interpreted the following test below: CXR I have discussed the management of this patient with the following physician: Objective - Vital Signs Vital signs: Vital Signs Temp 97.9 F 11/22/24 08:00 Pulse 72 11/22/24 11:48 Resp 16 11/22/24 11:48 BP 141/72 11/22/24 08:00 Pulse Ox 99 11/22/24 08:00 FiO2 35 11/11/24 00:57 Intake & Output 11/21/24 11/22/24 11/22/24 18:59 06:59 18:59 Intake Total 118 120 Output Total 5400 1000 2350 Balance -5282 -1000 -9219 Weight 75.5 kg 75.5 kg Intake: Oral 118 120 Output: Urine 5400 1000 2350 Other: Voiding Method Indwelling Catheter Indwelling Catheter Indwelling Catheter - Labs CBC & Chem 7: 11/20/24 06:38 11/22/24 05:58 Labs: Abnormal Lab Results - Last 24 Hours (Table) 11/21/24 11/22/24 11/22/24 Range/Units 19:57 05:58 06:00 Carbon Dioxide 37 H (22-30) mmol/L Creatinine 0.60 L (0.66-1.25) mg/dL Glucose 72 L (74-99) mg/dL POC Glucose (mg/dL) 133 H 68 L (70-110) mg/dL 11/22/24 Range/Units 06:47 Carbon Dioxide (22-30) mmol/L Creatinine (0.66-1.25) mg/dL Glucose (74-99) mg/dL POC Glucose (mg/dL) 121 H (70-110) mg/dL
--- NOTE | 2024-11-22 14:46 | P.PN ---
Subjective Progress Note Date: 11/22/24 Principal diagnosis: Altered mental status secondary to acute metabolic encephalopathy, multifactorial. On today's evaluation of 11/13/2024, the patient remains neurologically altered, confused, unable to give meaningful information and history. Of significance is that extensive skin excoriation and superficial lesions less noted throughout the body involving the upper and lower extremities and the torso. No signs of any acute cellulitis or infection. Skin is dry and scaly and multiple superficial wounds are seen throughout his body. Noted, the patient is able to move all 4 extremities. CAT scan of the brain that was done at the time of admission showed no acute abnormalities. The patient also had a CAT scan of the abdomen and pelvis that showed a dilated gallbladder. A general surgical consultation was obtained as the patient was also noted to have some elevation in LFTs. The patient also has some atelectatic changes and consolidation in the lung bases left more than right. This morning he is on room air oxygen. He is on D5 half-normal saline at rate of 130 cc an hour. He was having episodes of bradycardia and the patient was started on dopamine 5 mcg/kg/min. Noted the blood cultures on negative. He is still hypothermic and he is using a Elian hu gger for external warming. He does have a mild component of hypothyroidism and the TSH is elevated with a low free T4. His other comorbidities include COPD and the patient has also history of smoking and daily alcohol abuse. His last drink was on 11/06/2024 and reported drink 1/5 of wine on a daily basis has been on it for more than 50 years. His blood work from today shows a white cell count of 6.2, hemoglobin of 12 and a platelet count of 82. His BUN is 16 with a creatinine 1.1 and sodium level is at 145. LFTs were also noted. His AST is improving down to 86, ALT is down to 104 and alkaline phosphatase is 157. His total bilirubin is at 0.9. Lactic acid level is dropped down to 1.4. Albumin is at 2.9 with a total protein of 6.1. His TSH was 5.1 with a free T4 of 0.99. UA was abnormal and the culture is still pending. Blood cultures still negative. The patient remains on IV Zosyn. He is in atrial fibrillation. He is maintained on anticoagulation with Eliquis. His last echocardiogram from 01/08/2024 showed a preserved LV function with an ejection fraction of 55 to 60% and mild degree of pulmonary hypertension. On 11/14/2024, the patient is being seen for a follow-up. The patient is less encephalopathic and more awake compared to yesterday. He is able to communicate. At times, he still confused however, overall, is making better sense on today's evaluation. The patient remains on room air oxygen. The patient continues to have bradycardia with underlying atrial fibrillation with low rate in the patient remains on dopamine running at 4 mcg/kg/min. No hypotension. Urine output is adequate and the patient on D5 half-normal saline which is running at a rate of 130 cc an hour. Cultures are still pending for now. Blood cultures still negative. The white cell count of 5.3 with a hemoglobin 11.7 and a platelet count of 70. BUN is 15 with a creatinine 1.02. Sodium levels at 145 and a potassium level is at 3.2. LFTs are also improving. Ultrasound of the gallbladder was completed yesterday and it showed no evidence of any acute cholecystitis. Common bile duct was within normal limits. Gallbladder was distended and there was no evidence of any pericholecystic fluid. EEG was also performed yesterday and it showed no evidence of any seizure activity. There was background slowing consistent with moderate degree of encephalopathy. The patient remains on anticoagulation with Eliquis 5 mg p.o. twice a day. Levothyroxine was added yesterday and the patient is receiving Synthroid 50 mcg IV on a daily basis. The patient remains on dopamine. No focal neurological deficit and the patient is moving all 4 extremities without any limitation. On 11/15/2024, the patient is awake and alert and communicating. Of concern is the episodes of hypothermia the patient is encountering while being off the Elian hugger. His current temperature is 95.0. Remains in atrial fibrillation with a low rate. Exact cause is not clear. Heart rate is ranging between 44 and 62. Remains on dopamine which is running at 3 mcg/kg/min. He is tolerating his diet. He is communicating. Denies having any specific complaints. The white cell count of 5.6 with a hemoglobin 9.8 and a platelet count of 85. BUN is 12 with a creatinine of 0.8 and sodium levels at 141. Skin lesions remain unchanged. Cultures have been negative. The patient remains on Bentyl nebu lized treatments, D5 half-normal saline at rate of 130 cc an hour, IV Zosyn as an empiric antibiotic coverage, thiamine and folate and dopamine regarding his ongoing bradycardia. He is also on Synthroid 50 mcg IV on a daily basis. On today's evaluation of 11/16/2024, the patient continues to have issues with bradycardia. Remains on dopamine which is being weaned off. The patient is on 1 mcg/kg/min. The patient's rhythm is atrial fibrillation. Seems to be less bradycardic compared to yesterday. Afebrile. Awake and alert. Communicating. Tolerating his diet. No focal neurological deficits. Cultures are negative. The white cell count is 5 with a hemoglobin 11.1 and a platelet count of 75. The patient is known to have chronic thrombocytopenia. Sodium is at 140, bicarb is at 27, BUN is at 7 with a creatinine of 0.9. Remains on empiric antibiotic coverage with IV Zosyn. No beta-blockers for now. Remains on anticoagulation with Eliquis. On 11/17/2024, the patient is being seen for a follow-up. Awake and alert and communicating he is tolerating his diet. Normothermic. The patient is currently off dopamine. Still having some bradycardia with A-fib rhythm yet is not having significant low heart rate. His current heart rate is ranging between 50 and 66. No new complaints. The white cell count is 5.6, hemoglobin 10.5 with a platelet count of 80. BUN 7 with a creatinine of 0.8 and sodium was 141. Cultures are all negative. Remains on IV Zosyn. Remains on anticoa gulation with Eliquis. Currently off beta-blockers. On Synthroid. No agitation. Calm and comfortable resting comfortably in bed. 11/18/2024, the patient has no specific complaints, normothermic. No significant bradycardia. Remains on IV Zosyn. Remains on anticoagulation with Eliquis regarding his chronic slow rate atrial fibrillation. White cell count is at 6 with a hemoglobin 10.5 and a platelet count of 99. BUN is 7 with a creatinine of 0.6 and a sodium of 142. Tolerating diet. No other complaints otherwise for now. Patient was seen today on 11/20/2024, no cough no wheezing no shortness of breath, patient remains on IV Zosyn, remains anticoagulated, he has chronic atrial fibrillation, remains on the CIWA protocol. No major issues since the last 24 hours, patient may have to be considered for placement. Patient is being followed by many consultants he remains on thiamine, and he is also on Ativan as per CIWA protocol. WBC count is 5.4 hemoglobin 10.6 electrolytes are normal renal profile is normal. Seen today on 11/21/2024, patient is doing well, on room air, not in any distress, remains on the CIWA protocol for his history of alcoholism. No active pulmonary symptoms, patient has been on Zosyn as per infectious disease on the case. Chest x-ray continues to show bilateral pleural effusions and bibasilar atelectasis, possible pneumonia. WBC count is 5.4 hemoglobin 10.6 electrolytes are normal renal profile is normal Patient was seen today on 11/22/2024, patient is doing well, asymptomatic, remains on the CIWA protocol, patient is basically awaiting placement, he has no active pulmonary symptoms whatsoever today. Objective - Vital Signs Vital signs: Vital Signs Temp 97.9 F 11/22/24 08:00 Pulse 72 11/22/24 11:48 Resp 16 11/22/24 11:48 BP 141/72 11/22/24 08:00 Pulse Ox 99 11/22/24 08:00 FiO2 35 11/11/24 00:57 Intake & Output 11/21/24 11/22/24 11/22/24 18:59 06:59 18:59 Intake Total 118 240 Output Total 5400 1000 2350 Balance -5282 -1000 -5240 Weight 75.5 kg 75.5 kg Intake: Oral 118 240 Output: Urine 5400 1000 2350 Other: Voiding Method Indwelling Catheter Indwelling Catheter Indwelling Catheter - Exam General: 79-year-old male in no distress sitting at the bedside chair on room air Derm: warm, dry, scaling rash over BL upper and lower extremities without erythema, and the patient has extensive skin excoriation and areas of superficial wounds throughout his upper and lower extremities and the torso. No evidence of any cellulitis. Head: atraumatic, normocephalic Eyes: EOMI, no lid lag, anicteric sclera Mouth: no lip lesion, mucus membranes moist Cardiovascular: Irregular rhythm, distant S1-S2, no S3 gallop, no murmur Lungs: Diminished breath sound bilaterally no rhonchi no wheezes Abdominal: Soft nontender no megaly no rebound Ext: no gross muscle atrophy, no edema, no contractures Neuro: Alert and oriented x 3 no gross focal deficit Psychiatric: Normal mood affect and no mental status examination - Labs CBC & Chem 7: 11/20/24 06:38 11/22/24 05:58 Labs: Abnormal Lab Results - Last 24 Hours (Table) 11/21/24 11/22/24 11/22/24 Range/Units 19:57 05:58 06:00 Carbon Dioxide 37 H (22-30) mmol/L Creatinine 0.60 L (0.66-1.25) mg/dL Glucose 72 L (74-99) mg/dL POC Glucose (mg/dL) 133 H 68 L (70-110) mg/dL 11/22/24 Range/Units 06:47 Carbon Dioxide (22-30) mmol/L Creatinine (0.66-1.25) mg/dL Glucose (74-99) mg/dL POC Glucose (mg/dL) 121 H (70-110) mg/dL Assessment and Plan Assessment: Impression: Acute metabolic encephalopathy with altered mental status, resolved Acute aspiration pneumonia is strongly suspected Acute sepsis patient has been empirically on Zosyn with negative urine cultures and may have had an episode of aspiration pneumonia. Hence he is being followed by infectious disease and remains on Zosyn History of alcohol abuse, remains on thiamine and Ativan Chronic atrial fibrillation Acute transaminitis and thrombocytopenia related to alcohol abuse History of hypothyroidism Bilateral pleural effusions, suspect underlying diastolic congestive heart failure, echocardiogram done recently showed good LV function with ejection fraction of 50 to 55% patient was noted to have moderate pulmonary hypertension with right-sided pressures of 46. Recommendation: Continue present supportive care measures Consider rehab placement Continue CIWA protocol Ambulate as tolerated Continue Eliquis Continue updrafts as needed Continue diuretics Will see patient as needed Time with Patient: Less than 30
[2024-11-22 16:39] LABS: Glucose,Whole Blood 95 mg/dL (70-110)
--- NOTE | 2024-11-22 16:51 | P.PN ---
Subjective Progress Note Date: 11/22/24 11/22/2024: Patient was seen for follow-up. Patient is sitting in the recliner. Offers no new complaints. Denies headache, dizziness chest pain. 11/21/2024: Patient was seen for a follow-up. Patient is laying in the bed. Patient is doing very well. Per physical therapist, patient takes steps to pivot. He has shuffling steps. Patient is fully oriented. Offers no complain ts. 11/20/2024: Patient was initially seen by myself on 11/10/2024, then subsequently followed by Dr. Luciano over the last 1 week. Today I am resuming care. Patient was seen for a follow-up today. He denies headache. His family members were present. Patient is doing much better. Objective - Vital Signs Vital signs: Vital Signs Temp 97.9 F 11/22/24 08:00 Pulse 72 11/22/24 11:48 Resp 16 11/22/24 11:48 BP 141/72 11/22/24 08:00 Pulse Ox 99 11/22/24 08:00 FiO2 35 11/11/24 00:57 Intake & Output 11/21/24 11/22/24 11/22/24 18:59 06:59 18:59 Intake Total 118 120 Output Total 5400 1000 2350 Balance -5268 -1000 -2230 Weight 75.5 kg 75.5 kg Intake: Oral 118 120 Output: Urine 5400 1000 2350 Other: Voiding Method Indwelling Catheter Indwelling Catheter Indwelling Catheter - Exam Patient is very alert and awake. He knows it is November and the year is 2024 and that he is in [facility] imported on [place]. Speech and language functions are normal. Cranial nerves revealed pupils equal, round and reactive to light, visual hernandez are full, face is symmetric and tongue protrudes to midline. On muscle strength testing, patient's strength is normal in the arms distally and proximally at biceps, triceps, deltoid and the size mixer. In the lower limbs his hip flexion is 4+, ankle dorsiflexion 5, toe extension 5 bilaterally. No ataxia for [id number] testing. Sensory touch is equal with no neglect. - Labs CBC & Chem 7: 11/20/24 06:38 11/22/24 05:58 Labs: Abnormal Lab Results - Last 24 Hours (Table) 11/21/24 11/22/24 11/22/24 Range/Units 19:57 05:58 06:00 Carbon Dioxide 37 H (22-30) mmol/L Creatinine 0.60 L (0.66-1.25) mg/dL Glucose 72 L (74-99) mg/dL POC Glucose (mg/dL) 133 H 68 L (70-110) mg/dL 11/22/24 Range/Units 06:47 Carbon Dioxide (22-30) mmol/L Creatinine (0.66-1.25) mg/dL Glucose (74-99) mg/dL POC Glucose (mg/dL) 121 H (70-110) mg/dL Assessment and Plan Assessment: * Altered mental status, probably due to acute metabolic encephalopathy. Seems to have resolved. No evidence of CVA. * Pneumonia. Patient currently on Zosyn. * Hypothermia, likely due to pneumonia * Hypothyroidism * Hypoglycemia * Elevated liver enzymes * Thrombocytopenia, likely due to alcoholism. Now resolved. * History of prostate cancer, on chemotherapy * Chronic alcoholism * Diffuse seborrheic dermatitis involving arms and legs * Tobacco use Plan: * MRI of the brain with and without contrast revealed no evidence of intracranial mass, acute/subacute infarct or abnormal enhancement. Mild to moderate nonspecific white matter changes, likely related to small vessel ischemic disease. Paranasal sinus disease. I personally reviewed MRI, agree with the findings. * CTA of head and neck: Possibility moderate stenosis of proximal left internal carotid artery. Mild stenosis with diffuse calcification of the carotid siphons. * EEG is abnormal. The background slowing is suggestive of moderate encephalopathy. Otherwise there is no focal slowing, epileptiform discharge or seizure on the EEG. * Patient is not diabetic, but his blood sugars initially were running low. Watch for hypoglycemia. * Ammonia level is < 9 * Hemoglobin A1c 6.3 on 01/08/2024 * B12: 3181, folate 6. Because of low folic acid is on supplement 1mg daily. * TSH 5.17, free T4 normal 0.99. Will defer to IM to address abnormal thyroid functions. * [facility] protocol. * Patient has pneumonia, ID on board. Patient on Zosyn. * Continue Eliquis 5 mg twice a day. * Patient has remarkably improved. * Cleared for transfer to rehab. Family wants patient to go to [facility]. direct support worker on board.
--- NOTE | 2024-11-22 17:06 | P.PN ---
Subjective Progress Note Date: 11/22/24 Principal diagnosis: Reason for follow-up is sepsis Patient is a 79-year-old male with a past medical history significant for COPD prostate cancer for the patient has been on chemo and radiation therapy patient has been brought into the hospital concerning for increased confusion and weakness patient was noted to be hypothermic bradycardic concerning for sepsis possible source of UTI/pneumonia requiring transfer to the ICU. On today's evaluation that is 11/22/2024,the patient denies any fever or any chills, patient is breathing comfortably on room air, the patient denies chest pain shortness of breath and no significant cough, patient denies abdominal pain, no nausea vomiting or diarrhea. Patient did have a creatinine 0.60 no CBC was done today Objective - Vital Signs Vital signs: Vital Signs Temp 97.9 F 11/22/24 08:00 Pulse 72 11/22/24 11:48 Resp 16 11/22/24 11:48 BP 141/72 11/22/24 08:00 Pulse Ox 99 11/22/24 08:00 FiO2 35 11/11/24 00:57 Intake & Output 11/21/24 11/22/24 11/22/24 18:59 06:59 18:59 Intake Total 118 240 Output Total 5400 1000 2350 Balance -7144 -1000 -4517 Weight 75.5 kg 75.5 kg Intake: Oral 118 240 Output: Urine 5400 1000 2350 Other: Voiding Method Indwelling Catheter Indwelling Catheter Indwelling Catheter - Exam GENERAL DESCRIPTION: An elderly male lying in bed in no distress RESPIRATORY SYSTEM: Unlabored breathing , decreased breath sounds at bases HEART: S1 S2 regular rate and rhythm , ABDOMEN: Soft , no tenderness EXTREMITIES: No edema feet - Labs CBC & Chem 7: 11/20/24 06:38 11/22/24 05:58 Labs: Abnormal Lab Results - Last 24 Hours (Table) 11/21/24 11/22/24 11/22/24 Range/Units 19:57 05:58 06:00 Carbon Dioxide 37 H (22-30) mmol/L Creatinine 0.60 L (0.66-1.25) mg/dL Glucose 72 L (74-99) mg/dL POC Glucose (mg/dL) 133 H 68 L (70-110) mg/dL 11/22/24 Range/Units 06:47 Carbon Dioxide (22-30) mmol/L Creatinine (0.66-1.25) mg/dL Glucose (74-99) mg/dL POC Glucose (mg/dL) 121 H (70-110) mg/dL Assessment and Plan (1) Altered mental status Current Visit: Yes Status: Acute Code(s): R41.82 - ALTERED MENTAL STATUS, UNSPECIFIED SNOMED Code(s): 065541603 (2) Pneumonia Current Visit: No Status: Acute Code(s): J18.9 - PNEUMONIA, UNSPECIFIED ORGANISM SNOMED Code(s): 614987566 Plan: 1patient presented to hospital with mental status changes confusion and weakness source likely left lower lobe pneumonia and his question of possible gallbladder disease will need to direct antibiotic therapy mostly towards pneumonia or possible aspiration pneumonia/gram-negative and intra-abdominal gram-negative pathogen less likely risk for composite infection such as MRSA, repeat urine is positive as well 2-patient did have ultrasound of the gallbladder suboptimal study but mention no features of cholecystitis 3-patient temperature has normalized white count has been normal culture have been negative so far 4patient received adequate IV Zosyn during hospital stay we will go ahead and discontinue Zosyn and monitor the patient closely of antibiotic therapy Dictation was produced using [employer] dictation software. please excuse any grammatical, word or spelling errors. Time with Patient: Less than 30
[2024-11-22 17:20] VITALS: RESP 18
[2024-11-22 20:38] LABS: Glucose,Whole Blood 89 mg/dL (70-110)
[2024-11-23] MEDS: PANTOPRAZOLE 40 MG TABLET PO SCH (06:13)
[2024-11-23 06:28] LABS: Glucose,Whole Blood 84 mg/dL (70-110)
[2024-11-23 08:07] VITALS: BP 126/72; PULSE 56; TEMP 97.5
[2024-11-23 11:30] LABS: Glucose,Whole Blood 98 mg/dL (70-110)
--- NOTE | 2024-11-23 12:07 | P.DS ---
Providers Date of admission: 11/10/24 11:57 Expected date of discharge: 11/23/24 Attending physician: Miah Kmi MD Consults: 11/10/24 13:36 Consult Physician Routine Consulting Provider: Wally Mcmahon Consult Reason/Comments: increased confusion, mild R sided weakness Do you want consulting provider notified?: Yes 11/10/24 18:12 Consult Physician Routine Consulting Provider: Beltran Pollock Consult Reason/Comments: hypothermia, concerns for possible sepsis unclear source Do you want consulting provider notified?: Yes 11/11/24 14:44 Consult Physician Routine Consulting Provider: Dionte Luciano Consult Reason/Comments: severe sepsis/ septic shock Do you want consulting provider notified?: Already Contacted Primary care physician: Stated None Hospital Course: 79 year old M with history of prostate cancer on oral chemotherapeutic agent with apalutamide, COPD with continued nicotine dependence, and daily alcohol abuse. Family reported patient's last alcoholic drink was on 11/06/24 and reported drinking a clement and wine daily for nearly 50 years Patient presented to the emergency department on 11/10/24 with a chief complaint of altered mental status. Patient's family reported patient was at baseline mentation up until approximately 1 AM on day of arrival when he awoke and was noted to have increased confusion and didn't even recognize them and was then noted to have generalized weakness and was unable to even stand. They reported up until this he had a normal appetite and denied any recent weight loss, fevers or exposure to known ill contacts, episodes of vomiting or diarrhea, or patient expressing any complaints of pain or discomfort. Upon arrival to our facility patient was alert to person and place only and confused to time and situation. Patient did admit to daily alcohol use, but did not or was unable to express how much he drank daily. He denied having any complaints or pain at this time. Patient and family deny any other drug use. Patient underwent evaluation in the emergency department. BP 115/68, HR 57, RR 20, T 96.8 F, SpO2 of 100% on RA. Xyrii-kj-waah glucose was initially 59. EKG was completed showing AFib with a slowed ventricular response at 58 bpm with nonspecific T wave abnormalities in inferior leads. Chest x-ray showed no acute process. CT brain showed no acute process, diffuse age related cerebral atrophy and mild to moderate chronic small vessel ischemic changes with bilateral maxillary sinus disease. CBC, Coag panel, CMP significant for Plt 98, Na 149, Cl 114, BUN 21, AST 214, ALT 216, alk phos 273. Troponin <0.012. TSH 5.170, free T4 0.99. UDS neg. UA neg. COVID, RSV, Flu neg. Patient admitted under our services with consultation to neurology. Patient was noted to have a Tlow of 89.5F rectal on 11/10. He was placed on Elian hugger. Lactic acid was 1.2 and vital signs were stable. CT AP and blood cultures were ordered. Patient was noted to by hypotensive on 11/11 along with persistent hypoglycemic. He was given a 2L LR bolus and started on Vancomycin and Cefepime. ID was consulted, antibiotics switched to Zosyn. CTA head and neck showing moderate stenosis of the proximal left internal carotid artery and mild stenosis with diffuse calcification of carotid siphons and maxillary sinusitis. Discussed findings with neurologist, Dr. Luciano awaiting completion of MRI for further recommendations. CT abdomen and pelvis reporting acute cardiopulmonary disease in the lung bases left greater than right concerning for fluid overload versus pneumonia and reports of distended gallbladder. Consult placed to general surgery for evaluation, HIDA scan ordered. Transferred to ICU for persistent hypotension. He was started on Levophed which was weaned off 11/12 and SoluCortef. Noted to be in A-Fib with SVR, started on Dopamine and EP consulted, Echo EF 50-55% mild MR/TR. Pulmonary started the patient on Synthroid 50 mcg IV QD for subclinical hypothyroidism. His mentation improved. Weaned off Dopamine drip on 11/16 and transferred out of ICU. MRI brain was completed on 11/18 showing no acute process. IV Synthroid switched to PO 11/18. 11/23 Patient was seen and examined. Breathing improved. No more hypothermia. Completed course of Zosyn, antibiotics now discontinued by Pulmonary. Also on Thiamine 250 mg IV QD. Maintained on Lasix 40 mg IV QD, negative 3.2 L fluid balance over the past 24H. Accepted to [facility]. Plans for DC Jernigan and attempt voiding trial prior to discharge. Discharge Plan: OK to hold Apalutamide until discharged from SNF. Diet: NDD3, Aspiration precautions, 1:1 supervision. Continue Synthroid 75 mcg PO QD. You will need to repeat thyroid function labs within 6 weeks. Please follow up with PCP for further titration of Synthroid. Lasix 20 mg PO QD x 7 days. Eliquis 5 mg PO BID. Avoid AV alba blockers. Thiamine 100 mg PO QD. Refrain from drinking alcohol. Follow up with PCP within 1-2 days of discharge. Follow up with Cardiology within 1 week of discharge. Vitals: BP 126/72, HR 56, RR 18, T 97.5F, 94% on 2L NC. General: non toxic, no distress, appears at stated age Derm: warm, dry, scaling rash over BL upper and lower extremities without erythema Head: atraumatic, normocephalic, symmetric, poor dentition Eyes: EOMI, no lid lag, anicteric sclera Mouth: no lip lesion, mucus membranes moist Cardiovascular: S1S2 irreg, no murmur Lungs: Decreased BS bilateral, no rhonchi, no rales , no accessory muscle use Ext: no gross muscle atrophy, no edema, no contractures Neuro: No focal neurologic deficits Psych: Alert and oriented Discharge Diagnosis: Diastolic CHF exacerbation Hypotension with hypothermia Possible aspiration pneumonia Gallbladder distention Concerns for Wernickes encephalopathy Acute metabolic encephalopathy likely related to above Atrial fibrillation with slow ventricular rate Alcohol abuse Transaminitis and Thrombocytopenia likely related to EtOH abuse. Subclinical hypothyroidism Resolved: Hypoglycemia This complex discharge took 35 minutes to complete. Patient Condition at Discharge: Stable Plan - Discharge Summary Discharge Rx Participant: Yes New Discharge Prescriptions: New Folic Acid 1 mg PO DAILY tab Ammonium Lactate Cream [Lac-Hydrin 12% Cream] 1 applic TOPICAL BID each Furosemide [Lasix] 20 mg PO DAILY #7 tab Pantoprazole [Protonix] 40 mg PO AC-BRKFST tab Levothyroxine Sodium [Synthroid] 75 mcg PO DAILY@0630 tab Acetaminophen Tab [Tylenol] 650 mg PO Q6HR PRN tab PRN Reason: Mild Pain Or Fever > 100.5 Thiamine [Vitamin B-1] 100 mg PO DAILY #30 tablet Continue Apixaban [Eliquis] 5 mg PO BID #60 tab Albuterol Sulfate [Albuterol Sulfate Hfa] 2 puff INHALATION RT-Q4H PRN PRN Reason: Shortness Of Breath Discontinued Metoprolol Tartrate [Lopressor] 25 mg PO DAILY Apalutamide [Erleada] 120 mg PO DAILY Discharge Medication List Albuterol Sulfate [Albuterol Sulfate Hfa] 2 puff INHALATION RT-Q4H PRN 01/07/24 [History] Apixaban [Eliquis] 5 mg PO BID #60 tab 01/09/24 [Rx] Acetaminophen Tab [Tylenol] 650 mg PO Q6HR PRN tab 11/23/24 [Rx] Ammonium Lactate Cream [Lac-Hydrin 12% Cream] 1 applic TOPICAL BID each 11/23/24 [Rx] Folic Acid 1 mg PO DAILY tab 11/23/24 [Rx] Furosemide [Lasix] 20 mg PO DAILY #7 tab 11/23/24 [Rx] Levothyroxine Sodium [Synthroid] 75 mcg PO DAILY@0630 tab 11/23/24 [Rx] Pantoprazole [Protonix] 40 mg PO AC-BRKFST tab 11/23/24 [Rx] Thiamine [Vitamin B-1] 100 mg PO DAILY #30 tablet 11/23/24 [Rx] Follow up Appointment(s)/Referral(s): Vincent Monte MD [STAFF PHYSICIAN] - 1 Week None,Stated [Primary Care Provider] - 1-2 days Activity/Diet/Wound Care/Special Instructions: OK to hold Apalutamide until discharged from SNF. Diet: NDD3, Aspiration precautions, 1:1 supervision. Continue Synthroid 75 mcg PO QD. You will need to repeat thyroid function labs within 6 weeks. Please follow up with PCP for further titration of Synthroid. Lasix 20 mg PO QD x 7 days. Eliquis 5 mg PO BID. Avoid AV alba blockers. Thiamine 100 mg PO QD. Refrain from drinking alcohol. Follow up with PCP within 1-2 days of discharge. Follow up with Cardiology within 1 week of discharge. Discharge Disposition: TRANSFER TO SNF/F
--- NOTE | 2024-11-23 14:59 | P.PN ---
Subjective Progress Note Date: 11/23/24 Principal diagnosis: Reason for follow-up is sepsis Patient is a 79-year-old male with a past medical history significant for COPD prostate cancer for the patient has been on chemo and radiation therapy patient has been brought into the hospital concerning for increased confusion and weakness patient was noted to be hypothermic bradycardic concerning for sepsis possible source of UTI/pneumonia requiring transfer to the ICU. On today's evaluation that is 11/23/2024,the patient remains to be afebrile, patient is on room air not requiring supplemental oxygen and denies any shortness of breath no chest pain or cough.Patient denies having any nausea or vomiting, no abdominal pain and no diarrhea has been reported No new lab has been obtained today Objective - Vital Signs Vital signs: Vital Signs Temp 97.5 F L 11/23/24 08:00 Pulse 56 L 11/23/24 08:00 Resp 18 11/23/24 08:00 BP 126/72 11/23/24 08:00 Pulse Ox 94 L 11/23/24 08:00 FiO2 35 11/11/24 00:57 Intake & Output 11/22/24 11/23/24 11/23/24 18:59 06:59 18:59 Intake Total 360 Output Total 2950 600 2400 Balance -2590 -600 -2400 Weight 71.5 kg Intake: Oral 360 Output: Urine 2950 600 2400 Other: Voiding Method Indwelling Catheter Indwelling Catheter Indwelling Catheter - Exam GENERAL DESCRIPTION: An elderly male lying in bed in no distress RESPIRATORY SYSTEM: Unlabored breathing , decreased breath sounds at bases HEART: S1 S2 regular rate and rhythm , ABDOMEN: Soft , no tenderness EXTREMITIES: No edema feet - Labs CBC & Chem 7: 11/20/24 06:38 11/22/24 05:58 Assessment and Plan (1) Altered mental status Status: Acute Code(s): R41.82 - ALTERED MENTAL STATUS, UNSPECIFIED SNOMED Code(s): 190867078 (2) Pneumonia Status: Acute Code(s): J18.9 - PNEUMONIA, UNSPECIFIED ORGANISM SNOMED Code(s): 770200118 Plan: 1patient presented to hospital with mental status changes confusion and weakness source likely left lower lobe pneumonia and his question of possible gallbladder disease will need to direct antibiotic therapy mostly towards pneumonia or possible aspiration pneumonia/gram-negative and intra-abdominal gram-negative pathogen less likely risk for composite infection such as MRSA, repeat urine is positive as well 2-patient did have ultrasound of the gallbladder suboptimal study but mention no features of cholecystitis 3-patient temperature has normalized white count has been normal culture have been negative so far, patient has received adequate IV Zosyn during hospital stay and there is no need for any antibiotics on discharge Dictation was produced using [employer] dictation software. please excuse any grammatical, word or spelling errors. Time with Patient: Less than 30
--- NOTE | 2024-11-27 11:15 | CDI ---
Documentation Clarification Form Date: 11/27/2024 10:29:32 AM From: Alena Willis Phone: Admit Date: 11/10/2024 11:57:00 AM Patient Name: Alvino Griffin Visit Number: [id number] Discharge Date: 11/23/2024 02:21:00 PM ATTENTION: The Clinical Documentation Specialists (CDI) and [facility] Coding Staff appreciate your assistance in clarifying documentation. Please respond to the clarification below the line at the bottom and electronically sign. The CDI & [facility] Coding staff will review the response and follow-up if needed. Please note: Queries are made part of the Legal Health Record. If you have any questions, please contact the author of this message via ITS. Doctor/Provider: Rama Waggoner Sepsis is documented throughout the Notes which may lack sufficient clinical evidence/support in the medical record. Additional clarification is requested. History/Risk Factors: 79yo M, ACDHF, hypotensionwithhypothermia, possibleaspiration PNA, gallbladder distention, Wernickes encephalopathy, acutemetabolic encephalopathy, A Fib, alcohol abuse, transaminitisandthrombocytopenialikelyrelated toETOH abuse, subclinicalhypothyroidism, hypoglycemia Clinical Indicators: 11/11 MEDICINE NOTE Severe Sepsis and Septic shock with hypothermia, hypotension, and hypoglycemia. Unclear source. Daily alcohol abuse, possible alcohol withdraw. Transaminitis, possibly secondary to daily alcohol abuse vs sepsis. Thrombocytopenia, possibly secondary to daily alcohol abuse vs sepsis. DCS 11/23 Transaminits and thrombocytopenia likely related to ETOH abuse. WBC: 11/10 4.0 11/12 6.2 11/20 5.4 Lactic acid: 11/11 1.2 11/12 2.2-2.3 11/13 1.4 Blood cultures: negative Vitals signs: 11/10/250203/2503 08:37 09:10 10:33 T 96.8 F SD 57 49 49 RR 20 18 18 BP 115/68 111/77 115/72 O2 Sat 100 96 100 11/12 T 97.4 F SD 52 RR 13 BP 99/85 PO 94 FiO2 35 11/14 T 96.5 F SD 45 RR 24 BP 110/70 PO 100 FiO2 35 Treatment: Continue monitoring of CIWA scores and patient to be medicated with Ativan 0.5 mg every 4 hours as needed for CIWA score of 4-5, Ativan 1 mg every 4 hours for CIWA score of 6-7, Ativan 2 mg every 3 hours CIWA score of 8-9, and Ativan 2 mg every 2 hours for CIWA score of 10 or greater. After work up and study, please clarify which diagnosis is most appropriate? [ ] Sepsis rued out [ x ] Sepsis treated prophylactic [ ] Sepsis is a valid diagnosis as evidence by the following: (Lucie add rationale): [ ] Other, please specify [ ] Unable to determine (Template last Reviewed: September 2023) MTDD
== END 2024-11-23 14:21 | DRG 177 ==
LOC: EC 08:30 → OBSVTOIN 11:57 → 6NMEDSUR 11:57 → 3SCARD 18:42 → 2SICU 11-11 15:40 → 3SCARD 11-17 13:43
PROVIDERS: ADMIT Internal Medicine; ATTEND Internal Medicine
PROC: 3E033XZ Introduction of Vasopressor into Peripheral Vein, Percutaneous Approach (ICD-10-PCS; principal; 2024-11-12)
DX: J69.0 Pneumonitis due to inhalation of food and vomit (principal); G93.41 Metabolic encephalopathy; I50.33 Acute on chronic diastolic (congestive) heart failure; E87.0 Hyperosmolality and hypernatremia; E51.2 Wernicke's encephalopathy; I27.20 Pulmonary hypertension, unspecified; I48.21 Permanent atrial fibrillation; G31.89 Other specified degenerative diseases of nervous system; C61 Malignant neoplasm of prostate; D69.59 Other secondary thrombocytopenia; F10.239 Alcohol dependence with withdrawal, unspecified; J44.0 Chronic obstructive pulmonary disease with (acute) lower respiratory infection; I11.0 Hypertensive heart disease with heart failure; I65.22 Occlusion and stenosis of left carotid artery; E03.8 Other specified hypothyroidism; N39.0 Urinary tract infection, site not specified; J18.9 Pneumonia, unspecified organism; E16.2 Hypoglycemia, unspecified; E86.0 Dehydration; E87.8 Other disorders of electrolyte and fluid balance, not elsewhere classified; E53.8 Deficiency of other specified B group vitamins; F17.210 Nicotine dependence, cigarettes, uncomplicated; J32.0 Chronic maxillary sinusitis; L21.8 Other seborrheic dermatitis; I87.8 Other specified disorders of veins; R00.1 Bradycardia, unspecified; R53.1 Weakness; R94.4 Abnormal results of kidney function studies; Z79.01 Long term (current) use of anticoagulants; Z79.899 Other long term (current) drug therapy; Z92.3 Personal history of irradiation
CPT/HCPCS: 36410; 36415; 36600; 70450; 70496; 70498; 70553; 71045; 71046; 74177; 76705; 76937; 80048; 80053; 80306; 81001; 81003; 82024; 82140; 82533; 82550; 82607; 82746; 82803; 82805; 83605; 83735; 84132; 84145; 84153; 84439; 84443; 84480; 84481; 84484; 85025; 85027; 85610; 85730; 87040; 87636; 93005; 93306; 94640; 94760; 95816; 96361; 96374; 99285